=== PATIENT | male | born 1975 | race Hispanic/Latino ===

== ENCOUNTER 2017-08-14 12:42 | Emergency (ER) | payer OTHER ==
--- OUTSIDE RECORDS SUMMARY | 2017-08-14 12:44 | XMS REPORT | Clinical Summary ---
:1975 Author Organization [facility] Address [address] [place] [address] Care Team Providers Name Role Phone Vashti Rubalcava MD Primary Care Provider Allergies Active Allergy Reactions Severity Noted Date Comments Adhesive Tape-Silicones Rash Low 05/10/2017 Current Medications Prescription Sig. Disp. Refills Start Date End Date Status furosemide (LASIX) 40 mg Take 40 mg by mouth Active tablet 2 (two) times a day. calcium acetate (PHOSLO) Take 2,001 mg by Active 667 mg capsule mouth 3 (three) times a day with meals. 1 with snacks clonIDINE (CATAPRES) 0.1 Take 0.1 mg by Active MG tablet mouth daily as needed (SPB greater than 200). vit B cmplx 3-FA-vit Take 1 tablet by Active C-biotin (NEPHRO-ARON RX) mouth daily. 1-60-300 mg-mg-mcg tablet lisinopril Take 40 mg by mouth Active (PRINIVIL,ZESTRIL) 20 mg 2 (two) times a tablet day. hydrALAZINE (APRESOLINE) Take 25 mg by mouth Active 25 MG tablet 3 (three) times a day. gabapentin (NEURONTIN) Take 300 mg by Active 300 mg capsule mouth nightly. insulin NPH (HumuLIN-N) Inject 22 Units Active 100 unit/mL injection under the skin 2 (two) times a day before meals. insulin regular Inject under the Active (HumuLIN-R, NovoLIN-R) skin 3 (three) 100 unit/mL injection times a day before meals. Per sliding scale amLODIPine (NORVASC) 10 Take 10 mg by mouth Active mg tablet daily. tamsulosin (FLOMAX) 0.4 Take 0.4 mg by Active mg capsule,extended mouth daily as release 24hr needed. pregabalin (LYRICA) 25 MG Take 50 mg by mouth Active capsule nightly. liraglutide (VICTOZA Inject 1.8 mg under Active 3-YU) 0.6 mg/0.1 mL (18 the skin daily. mg/3 mL) pen injector insulin degludec (TRESIBA Inject under the Active FLEXTOUCH U-100) 100 skin daily. unit/mL (3 mL) insulin pen Active Problems Problem Noted Date Type 2 diabetes mellitus 09/13/2016 DVT (deep venous thrombosis) 07/03/2016 ESRD (end stage renal disease) 06/16/2016 Last Assessment & Plan: Renal condition is unchanged. AV Fistula Creation Encounters Date Type Specialty Care Team Description 07/28/2017 Documentation Transplant Rolanda Cantrell Consent Forms (Scanned Consent For Kidney Transplant Evaluation, Pre Txp Education & ABBY forms in Media. 07-26-2017) 07/26/2017 Hospital Encounter Transplant Lucio Curry, ESRD (end stage renal MD disease) 07/26/2017 Hospital Encounter Transplant Jose Maria An MD 07/26/2017 Hospital Encounter Transplant Lucio Curry, ESRD (end stage renal MD disease) (Primary Dx) 07/26/2017 Hospital Encounter Transplant Jose Maria An MD 07/26/2017 Telephone Transplant Daisy Torre Pre-kidney full eval day 1 06/23/2017 Hospital Encounter Transplant Lucio Curry Canceled ( Patient) 06/22/2017 Telephone Transplant Demetra Allred MA Reschedule Appointment 05/10/2017 Telephone Transplant Demetra Allred MA Referral - Kidney Txp (Re-referral ) 11/24/2016 Office Visit Cardiovascular Perla Rubio ESRD (end stage renal MD Juan disease) on dialysis (Primary Dx) 11/15/2016 Telephone Cardiovascular Mayra Fernandez, Complications due to MA renal dialysis device, implant, and graft, initial encounter (Primary Dx) 11/08/2016 Telephone Cardiovascular Shilpa Oliva RN 10/07/2016 Hospital Encounter Transplant Jose Maria An (Canceled MD Hank via Automated Reminder System) 10/04/2016 Documentation Transplant Nj Love TXP- Mcr ABD & TX K[facility]- Renal Txp Eval Appvl 09/14/2016 Telephone Transplant Dano Ana Deborah, Calling back MA 09/13/2016 Telephone Transplant Marianne Crowe MA Referral - Kidney Txp (New MD Consult) 08/27/2016 Telephone Cardiovascular Shilpa Oliva, CHELSEY after 08/13/2016 Family History Relation Name Status Comments Father Mother Social History Tobacco Use Types Packs/Day Years Used Date Former Smoker 0.5 Quit: 1986 Smokeless Tobacco: Never Used Alcohol Use Drinks/Week oz/Week Comments No Sex Assigned at Date Recorded Not on file Last Filed Vital Signs Vital Sign Reading Time Taken Blood Pressure 176/84 07/26/2017 7:27 AM CDT Pulse 87 07/26/2017 7:27 AM CDT Temperature 36.4 C (97.5 F) 07/26/2017 7:27 AM CDT Respiratory Rate 16 07/26/2017 7:27 AM CDT Oxygen Saturation 98% 07/26/2017 7:27 AM CDT Inhaled Oxygen Concentration - - Weight 121 kg (267 lb 3.2 oz) 07/26/2017 7:27 AM CDT Height 177.8 cm (5' 10") 07/26/2017 7:27 AM CDT Body Mass Index 38.34 07/26/2017 7:27 AM CDT Plan of Treatment Date Type Specialty Care Team Description 08/16/2017 Appointment Transplant Lucio Curry MD [address] [place] [address] [place] [address] [address] [place]uro 08/16/2017 Appointment Procedural Cardiology Harshad Gonzalez MD [address] [address] 08/16/2017 Hospital Encounter Transplant Jose Maria An MD [address] [address] 08/16/2017 Appointment Radiology Harshad Gonzalez MD [address] [facility] [address] [place] [address] [phone] 08/16/2017 Appointment Radiology Harshad Gonzalez MD [address] [facility] [address] [place], [place] [phone] 08/16/2017 Appointment Transplant Jose Maria An MD 64[address] [facility] [address] [place], [place] [phone] Health Maintenance Due Date Last Done Comments DIABETIC FOOT EXAM 12/12/1983 DIABETIC RETINAL EYE EXAM 12/12/1983 URINE MICROALBUMIN 12/12/1983 INFLUENZA VACCINE 09/21/2017 02/25/2016 Implants Implanted Type Area Garden Tractor Mechanic Device Expiration Model / Identifier Date Serial / Lot Clip Ligtng Weck Hemoclip Plus W/ Tape Ti Sm - [id number] Medical Left: WECK CLOSURE 07/21/2020 [id number] / Implanted: Qty: 2 on 06/28/2016 by Perla Rubio MD Clips for Arm, SYSTEMS / Internal Use Upper Clip [employer]igt[employer] Weck Hemoclip Plus W/ Tape Ti Med - [id number] Medical Left: TELEFLEX 10/20/2020 [id number] / Implanted: Qty: 2 on 06/28/2016 by Perla Rubio MD Clips for Arm, MEDICAL / Internal Use Upper Procedures Procedure Name Priority Date/Time Associated Comments Diagnosis ESTIMATED GFR Routine 07/26/2017 11:15 Results for this AM CDT procedure are in the results section. C-PEPTIDE Routine 07/26/2017 11:15 ESRD (end stage Results for this AM CDT renal disease) procedure are in the results section. TB T-SPOT Routine 07/26/2017 11:15 ESRD (end stage Results for this AM CDT renal disease) procedure are in the results section. NICOTINE AND Routine 07/26/2017 11:15 ESRD (end stage Results for this METABOLITES, SERUM AM CDT renal disease) procedure are in the results section. DRUG WALLACE 9, SER/STEPHANY, Routine 07/26/2017 11:15 ESRD (end stage Results for this SCRN W/RFLX TO CONF AM CDT renal disease) procedure are in the results section. ABORH - TRANSPLANT Routine 07/26/2017 11:15 ESRD (end stage Results for this AM CDT renal disease) procedure are in the results section. PARTIAL THROMBOPLASTIN Routine 07/26/2017 11:15 ESRD (end stage Results for this TIME (PTT) AM CDT renal disease) procedure are in the results section. PROTHROMBIN TIME WITH Routine 07/26/2017 11:15 ESRD (end stage Results for this INR AM CDT renal disease) procedure are in the results section. HC COMPLETE BLD COUNT Routine 07/26/2017 11:15 ESRD (end stage Results for this W/AUTO DIFF AM CDT renal disease) procedure are in the results section. SYPHILIS TREPONEMAL IGG Routine 07/26/2017 11:15 ESRD (end stage Results for this AM CDT renal disease) procedure are in the results section. HEPATITIS C ANTIBODY Routine 07/26/2017 11:15 ESRD (end stage Results for this AM CDT renal disease) procedure are in the results section. HEPATITIS B SURFACE AB, Routine 07/26/2017 11:15 ESRD (end stage Results for this QUANTITATIVE AM CDT renal disease) procedure are in the results section. HEPATITIS B SURFACE Routine 07/26/2017 11:15 ESRD (end stage Results for this ANTIGEN AM CDT renal disease) procedure are in the results section. HEPATITIS B SURFACE Routine 07/26/2017 11:15 ESRD (end stage Results for this ANTIBODY AM CDT renal disease) procedure are in the results section. HEPATITIS B CORE Routine 07/26/2017 11:15 ESRD (end stage Results for this ANTIBODY TOTAL AM CDT renal disease) procedure are in the results section. HEPATITIS A ANTIBODY Routine 07/26/2017 11:15 ESRD (end stage Results for this TOTAL AM CDT renal disease) procedure are in the results section. HIV AG/AB COMBINATION Routine 07/26/2017 11:15 ESRD (end stage Results for this AM CDT renal disease) procedure are in the results section. URINALYSIS SCREEN AND Routine 07/26/2017 11:15 ESRD (end stage Results for this MICROSCOPY, WITH REFLEX AM CDT renal disease) procedure are in TO CULTURE the results section. COMPREHENSIVE METABOLIC Routine 07/26/2017 11:15 ESRD (end stage Results for this PANEL AM CDT renal disease) procedure are in the results section. GRAM STAIN Routine 07/26/2017 11:15 Results for this AM CDT procedure are in the results section. URINE CULTURE Routine 07/26/2017 11:15 Results for this AM CDT procedure are in the results section. after 08/13/2016 Results Syphilis treponemal IgG (07/26/2017 11:15 AM) Syphilis treponemal IgG Non-reactiveComment: Non-reactive [facility] DEPARTMENT OF Non-reactive: No PATHOLOGY AND GENOMIC serological evidence of MEDICINE Syphilis infection Specimen Serum Performing Organization Address City/State/Zipcode Phone Number [facility] DEPARTMENT OF PATHOLOGY AND [address] [place] [address] [facility] Urinalysis screen and microscopy, with reflex to culture (07/26/2017 11:15 AM) Specimen site Clean catch [facility] DEPARTMENT OF PATHOLOGY AND GENOMIC MEDICINE Color, UA Yellow [facility] DEPARTMENT OF PATHOLOGY AND GENOMIC MEDICINE Appearance, UA Clear [facility] DEPARTMENT OF PATHOLOGY AND GENOMIC MEDICINE Specific gravity, UA 1.014 1.001 - 1.035 [facility] DEPARTMENT OF PATHOLOGY AND GENOMIC MEDICINE pH, UA 5.0 5.0 - 8.5 [facility] DEPARTMENT OF PATHOLOGY AND GENOMIC MEDICINE Protein, UA 3+ (A) Negative [facility] DEPARTMENT OF PATHOLOGY AND GENOMIC MEDICINE Glucose, UA 3+ (A) Negative [facility] DEPARTMENT OF PATHOLOGY AND GENOMIC MEDICINE Ketones, UA Negative Negative [facility] DEPARTMENT OF PATHOLOGY AND GENOMIC MEDICINE Bilirubin, UA Negative Negative [facility] DEPARTMENT OF PATHOLOGY AND GENOMIC MEDICINE Blood, UA Small (A) Negative [facility] DEPARTMENT OF PATHOLOGY AND GENOMIC MEDICINE Nitrite, UA Negative Negative [facility] DEPARTMENT OF PATHOLOGY AND GENOMIC MEDICINE Urobilinogen, UA <2.0 <2.0 [facility] DEPARTMENT OF PATHOLOGY AND GENOMIC MEDICINE Leukocyte esterase, UA Negative Negative [facility] DEPARTMENT OF PATHOLOGY AND GENOMIC MEDICINE Epithelial cells, UA <1 /HPF [facility] DEPARTMENT OF PATHOLOGY AND GENOMIC MEDICINE WBC, UA 6 (H) 0 - 1 /HPF [facility] DEPARTMENT OF PATHOLOGY AND GENOMIC MEDICINE RBC, UA <1 0 - 5 /HPF [facility] DEPARTMENT OF PATHOLOGY AND GENOMIC MEDICINE Bacteria, UA Few None seen [facility] DEPARTMENT OF PATHOLOGY AND GENOMIC MEDICINE Yeast, UA Few (A) [facility] DEPARTMENT OF PATHOLOGY AND GENOMIC MEDICINE Yeast with pseudohyphae, UA None seen [facility] DEPARTMENT OF PATHOLOGY AND GENOMIC MEDICINE Amorphous crystals Few [facility] DEPARTMENT OF PATHOLOGY AND GENOMIC MEDICINE Hyaline casts, UA 9 /LPF [facility] DEPARTMENT OF PATHOLOGY AND GENOMIC MEDICINE Broad casts, UA 3 (H) -1 - 0 /LPF [facility] DEPARTMENT OF PATHOLOGY AND GENOMIC MEDICINE Specimen Urine Performing Organization Address City/State/Zipcode Phone Number [facility] DEPARTMENT OF PATHOLOGY AND [address], [place] [phone] [place] [address] HIV Ag/Ab combination (07/26/2017 11:15 AM) HIV Ag/Ab combination Non-reactive Non-reactive [facility] DEPARTMENT OF PATHOLOGY AND GENOMIC MEDICINE Specimen Blood Performing Organization Address City/[facility]/Zipcode Phone Number [facility] DEPARTMENT OF PATHOLOGY AND [address] [place] [phone] [place] [address] TB T-SPOT (07/26/2017 11:15 AM) TB T-SPOT SEE NOTE [facility] DEPARTMENT OF PATHOLOGY Comment: AND GENOMIC MEDICINE T-SPOT TUBERCULOSIS Nil Control: 0 Panel A: 1 Panel B: 2 Positive Control: TMTC Result:NEGATIVE NOTE: TMTC INDICATES TOO MANY SPOTS TO COUNT SAT INDICATES THE WELL WAS SATURATED RESULTS INTERPRETATION: RESULTS ARE NEGATIVE WHEN (PANEL A-NIL) OR (PANEL B-NIL) <=4 SPOTS, INCLUDING VALUES LESS THAN ZERO. RESULTS ARE POSITIVE WHEN (PANEL A-NIL) OR (PANEL B-NIL) >=8 SPOTS RESULTS ARE BORDERELINE WHEN EITHER (PANEL A-NIL) OR (PANEL B-NIL)=5,6,0R 7. THE TEST IS INVALID WHEN EITHER OF THE FOLLOWING CONDITIONS IS MET: 1.) THE NIL CONTROL HAS >10 SPOTS 2.) THE MITOGEN (POSITIVE CONTROL) HAS <20 SPOTS AND BOTH (PANEL A-NIL) AND (PANEL B-NIL) <=4 SPOTS. M. TUBERCULOSIS INFECTION UNLIKELY, BUT CANNOT BE EXCLUDED ESPECIALLY WHEN: 1. ANY ILLNESS IS CONSISTENT WITH TB DISEASE. 2. LIKELIHOOD OF PROGRESSION TO DISEASE (e.g. DUE TO IMMUNOSUPPRESSION) IS INCREASED. LIMITATIONS: DIAGNOSING OR EXCLUDING TUBERCULOSIS DISEASE, AND ASSESSING THE PROBABILITY OF LTBI, REQUIRES A COMBINATION OF EPIDEMIOLOGICAL, HISTORICAL, MEDICAL, AND DIAGNOSTIC FINDINGS THAT SHOULD BE TAKEN INTO ACCOUNT WHEN INTERPRETING T-SPOT.TB REFER TO THE MOST RECENT CDC GUIDANCE (HTTP: //[email or web address].[email or web address]/[email or web address]/TB) FOR DETAILED RECOMMENDATIONS ABOUT DIAGNOSING TB INFECTION (INCLUDING DISEASE) AND SELECTING PERSONS FOR TESTING. 1.) A FALSE NEGATIVE RESULT CAN BE CAUSED BY INCORRECT BLOOD SAMPLE COLLECTION OR IMPROPER HANDLING OF THE SPECIMEN, AFFECTING LYMPHOCYTE FUNCTION 2.) THE PERFORMANCE OF T-SPOT.TB HAS NOT BEEN ADEQUATELY EVALUATED WITH SPECIMENS FROM INDIVIDUALS YOUNGER THANAGE 17 YEARS, IN WOMEN, AND IN PATIENTS WITH HEMOPHILIA. 3-) A FALSE POSITIVE RESULT WAS OBTAINED FOR T-SPOT.TB WHEN TESTED IN SUBJECTS WITH M. XENOPI, M. KANSASII, AND M. GORDONAE.WHILE ESAT-6 AND CFP-10 ANTIGENS ARE ABSENT FROM BCG STRAINS OF M. BOVIS AND FROM MOST ENVIRONMENTAL MYCOBACTERIA, IT IS POSSIBLE THAT A POSITIVE T-SPOT.TB RESULT MAY BE DUE TO INFECTION WITH M. KANSASII, M. SZULGAI, M. GORDONAE, OR M. MARINUM. ALTERNATIVE TESTS WOULD BE REQUIRED IF THESE INFECTIONS ARE SUSPECTED. 4.) A NEGATIVE TEST RESULT DOES NOT EXCLUDE THE POSSIBILITY OF EXPOSURE TO, OR INFECTION WITH, M. TUBERCULOSIS. PATIENTS WITH RECENT EXPOSURE TO TB INFECTED INDIVIDUALS EXHIBITING A NEGATIVE T-SPOT.TB RESULT SHOULD BE CONSIDERED FOR RETESTING WITHIN 6 WEEKS OR IF OTHER RELEVANT CLINICAL SYMPTOMS INDICATE POSSIBLE INFECTION. 5.) A POSITIVE TEST RESULT DOES NOT RULE IN ACTIVE TB DISEASE; OTHER TESTS SHOULD BE PERFORMED TO CONFIRM THE DIAGNOSIS OF ACTIVE TB DISEASE SUCH SPUTUM SMEAR AND CULTURE, PCR AND CHEST RADIOGRAPHY. 6.) T-SPOT.TB TEST HAS NOT BEEN EVALUATED IN SUBJECTS WHO HAVE RECEIVED >1 MONTH OF ANTI-TB THERAPY. 7. ) REFRIGERATED AND FROZEN SAMPLES ARE NOT RECOMMENDED FOR USE WITH T=SPOT.TB TEST. Performed by: [facility] Molecular Tuberculosis Laboratory [facility] ([id number]) [place], [place] [address] Specimen Blood Performing Organization Address City/State/Zipcode Phone Number [facility] DEPARTMENT OF PATHOLOGY AND [address] [place], [place] [phone] [employer] [facility] Nicotine and metabolites, serum (07/26/2017 11:15 AM) Nicotine <2.0 0.0 - 2.0 ng/mL [facility] DEPARTMENT OF PATHOLOGY AND GENOMIC MEDICINE Cotinine <2.0 0.0 - 2.0 ng/mL [facility] DEPARTMENT OF PATHOLOGY AND GENOMIC MEDICINE 8-[id number] <5.0 0.0 - 5.0 ng/mL [facility] DEPARTMENT OF Comment: PATHOLOGY AND GENOMIC This test was developed and its performance characteristics determined by MEDICINE the Department of Pathology and Genomic Medicine, [facility]. Serum nicotine and its metabolites cotinine and 5-SL-fcptfmai are tested by HPLC tandem mass spectrometry. It has not been cleared or approved by FDA. The laboratory is regulated under CLIA as qualified to perform high-complexity testing. This test is used for clinical purposes. It should not be regarded as investigational or for research. Specimen Blood Performing Organization Address City/[facility]/Zipcode Phone Number [facility] DEPARTMENT OF PATHOLOGY AND [address] [place] [address] [employer] Hepatitis B surface Ab, quantitative (07/26/2017 11:15 AM) Hepatitis B surface Ab 5.27 IU/L [facility] Comment: The anti-HBs is less than 10 IU/L and is therefore negative. There is no evidence of recovery from hepatitis B infection or evidence of antibody response to HBV vaccination. An anti-HBs result greater than or equal to 10 IU/L implies immunity. For post-vaccination antibody testing guidelines for the general public refer to MMWR February 12, 2005/Vol. 54(No. 16);03-15, and for healthcare workers refer to MMWR February 09, 2013/Vol. 62(No. 10);03-11. Reference Interval: anti-HBs 9.99 IU/L or less ....... Negative 10.00 IU/L or greater .... Positive Results greater than 1,000.00 IU/L are reported as greater than 1,000.00 IU/L. This assay should not be used for blood donor screening, associated re-entry protocols, or for screening Human Cell, Tissues and Cellular and Tissue-Based Products (HCT/P). Performed by [employer], [address], [place] [id number] [email or web address], Kashif Parker MD - Lab. Director Specimen Serum Performing Organization Address [facility]/Zipcode Phone Number [facility] [address] [place] [address] Estimated GFR (07/26/2017 11:15 AM) GFR Non Af Amer 14 (A) mL/min/1.73 m2 [facility] DEPARTMENT OF PATHOLOGY AND GENOMIC MEDICINE GFR Af Amer 17 (A) mL/min/1.73 m2 [facility] DEPARTMENT OF Comment: PATHOLOGY AND GENOMIC Chronic kidney disease: <60 mL/min/1.73m2 MEDICINE Kidney failure: <15 mL/min/1.73m2 The estimated GFR is calculated from the IDMS-traceable Modification of Diet in Renal Disease Equation. The accuracy of the calculation is poor when the creatinine is normal. Calculated values >90 mL/min/1.73m2 are not reported. This equation has not been validated in children (<18 years), women, the elderly (>70 years), or ethnic groups other than Caucasians and Americans. Specimen Plasma specimen Performing Organization Address City/State/Zipcode Phone Number [facility] DEPARTMENT OF PATHOLOGY AND [address] [place] [address] Hepatitis C antibody (07/26/2017 11:15 AM) Hepatitis C Ab Non-reactive Non-reactive [facility] DEPARTMENT OF PATHOLOGY AND [facility] Specimen Blood Performing Organization Address [facility] Phone Number [facility] DEPARTMENT OF PATHOLOGY AND [address] [place] [address] Hepatitis A antibody total (07/26/2017 11:15 AM) Hepatitis A total Ab Non-reactive Non-reactive [facility] DEPARTMENT OF PATHOLOGY AND [facility] Specimen Blood Performing Organization Address City/[facility] Phone Number [facility] DEPARTMENT OF PATHOLOGY AND [address] [place] [address] Drug wallace 9, ser/stephany, scrn w/rflx to conf (07/26/2017 11:15 AM) Amphetamines, s/p, Negative Cutoff 30 ng/mL [facility] screen Methamphetamine, s/p, Negative Cutoff 30 ng/mL [facility] screen Barbiturates, s/p, Negative Cutoff 75 ng/mL [facility] screen Benzodiazepines, s/p, Negative Cutoff 75 ng/mL [facility] screen Cocaine, s/p, screen Negative Cutoff 30 ng/mL [facility] Methadone, s/p, screen Negative Cutoff 40 ng/mL [facility] Opiates, s/p, screen Negative Cutoff 30 ng/mL [facility] Oxycodone, s/p, screen Negative Cutoff 30 ng/mL [facility] Phencyclidine, s/p, Negative Cutoff 15 ng/mL [facility] screen Cannabinoids, s/p, Negative Cutoff 30 ng/mL [facility] screen Drug screen comments, See Note [facility] serum Comment: INTERPRETIVE INFORMATION: Drug Screen 9 Panel, Serum or Plasma - Immunoassay Screen with Reflex to Mass Spectrometry Confirmation/ Quantitation 1. Methodology: Qualitative Immunoassay Screen 2. Drugs/Drug classes reported as "Positive" are automatically reflexed to mass spectrometry confirmation/quantitation testing. An immunoassay unconfirmed positive screen result may be useful for medical purposes but does not meet forensic standards. 3. The absence of expected drug(s) and/or drug metabolite(s) may indicate non-compliance, inappropriate timing of specimen collection relative to drug administration, poor drug absorption, or limitations of testing. The concentration at which the screening test can detect a drug or metabolite varies within a drug class. Specimens for which drugs or drug classes are detected by the screen are automatically reflexed to a second, more specific technology (mass spectrometry). The concentration value must be greater than or equal to the cutoff to be reported as positive. Interpretive questions should be directed to the laboratory. 4. For medical purposes only; not valid for forensic use. Test developed and characteristics determined by [employer]. See Compliance Statement B: [employer]/CS Performed by [employer], [address] [place] [address] [email or web address], Kashif Parker MD - Lab. Director Specimen Serum Performing Organization Address [facility] Phone Number [facility] [address] [place] [address] ABORh - transplant (07/26/2017 11:15 AM) ABO grouping O [facility] DEPARTMENT OF PATHOLOGY AND GENOMIC MEDICINE Rh type POS [facility] DEPARTMENT OF PATHOLOGY AND [employer] MEDICINE Specimen Blood Performing Organization Address [facility] Phone Number [facility] DEPARTMENT OF PATHOLOGY AND [address] [place] [address] Hepatitis B core antibody total (07/26/2017 11:15 AM) Hepatitis B core total Ab Non-reactive Non-reactive [facility] DEPARTMENT OF PATHOLOGY AND GENOMIC MEDICINE Specimen Blood Performing Organization Address City/[facility] Phone Number [facility] DEPARTMENT OF PATHOLOGY AND [address] [place] [address] C-peptide (07/26/2017 11:15 AM) C-peptide 6.4 (H) 1.1 - 4.4 ng/mL [facility] DEPARTMENT OF PATHOLOGY AND GENOMIC MEDICINE Specimen Plasma specimen Performing Organization Address [facility] Phone Number [facility] DEPARTMENT OF PATHOLOGY AND [address] [place] [address] Hepatitis B surface antibody (07/26/2017 11:15 AM) Hepatitis B surface Ab Non-reactive Non-reactive [facility] DEPARTMENT OF PATHOLOGY AND [facility] Specimen Blood Performing Organization Address [facility] Phone Number [facility] DEPARTMENT OF PATHOLOGY AND [address] [place] [address] Hepatitis B surface antigen (07/26/2017 11:15 AM) Hepatitis B surface Ag Non-reactive Non-reactive [facility] DEPARTMENT OF PATHOLOGY AND [facility] Specimen Blood Performing Organization Address [facility] Phone Number [facility] DEPARTMENT OF PATHOLOGY AND [address] [place] [phone] [place] [address] Partial thromboplastin time, activated (07/26/2017 11:15 AM) PTT 31.7 23.0 - 36.0 sec [facility] DEPARTMENT OF PATHOLOGY Comment: AND [facility] PTT therapeutic range for unfractionated heparin is 61.0-112.0 seconds which corresponds to Anti-Xa 0.3-0.7 U/ml. Specimen Blood Performing Organization Address [facility] [facility] Phone Number [facility] DEPARTMENT OF PATHOLOGY AND [address] [place] [address] Prothrombin time with INR (07/26/2017 11:15 AM) Prothrombin time 13.3 12.0 - 15.0 sec [facility] DEPARTMENT OF PATHOLOGY AND [facility] MEDICINE INR 1.0 [facility] DEPARTMENT OF Comment: PATHOLOGY AND GENOMIC The International Normalized Ratio (INR) is a therapeutic MEDICINE monitoring tool for patients who are stable on oral anticoagulant therapy. An INR of 2.0-3.0 is suggested for deep vein thrombosis/pulmonary embolism. Specimen Blood Performing Organization Address [facility] Phone Number [facility] DEPARTMENT OF PATHOLOGY AND [address] [place] [address] Gram stain (07/26/2017 11:15 AM) Gram stain result No WBC's or organisms seen. [facility] DEPARTMENT OF PATHOLOGY Comment: AND [facility] Specimen Information Specimen Source: Urine Specimen Site: Clean catch Specimen Urine Performing Organization Address [facility] Phone Number [facility] DEPARTMENT OF PATHOLOGY AND [address] [place] [address] CBC with platelet and differential (07/26/2017 11:15 AM) WBC 10.12 4.50 - 11.00 k/uL [facility] DEPARTMENT OF PATHOLOGY AND GENOMIC MEDICINE RBC 3.65 (L) 4.40 - 6.00 m/uL [facility] DEPARTMENT OF PATHOLOGY AND GENOMIC MEDICINE HGB 11.0 (L) 14.0 - 18.0 g/dL [facility] DEPARTMENT OF PATHOLOGY AND GENOMIC MEDICINE HCT 33.3 (L) 41.0 - 51.0 % [facility] DEPARTMENT OF PATHOLOGY AND GENOMIC MEDICINE MCV 91.2 82.0 - 100.0 fL [facility] DEPARTMENT OF PATHOLOGY AND GENOMIC MEDICINE MCH 30.1 27.0 - 34.0 pg [facility] DEPARTMENT OF PATHOLOGY AND GENOMIC MEDICINE MCHC 33.0 31.0 - 37.0 g/dL [facility] DEPARTMENT OF PATHOLOGY AND GENOMIC MEDICINE RDW - SD 42.9 37.0 - 55.0 fL [facility] DEPARTMENT OF PATHOLOGY AND GENOMIC MEDICINE MPV 10.1 8.8 - 13.2 fL [facility] DEPARTMENT OF PATHOLOGY AND GENOMIC MEDICINE Platelet count 401 (H) 150 - 400 k/uL [facility] DEPARTMENT OF PATHOLOGY AND GENOMIC MEDICINE Nucleated RBC 0.00 /100 WBC [facility] DEPARTMENT OF PATHOLOGY AND GENOMIC MEDICINE Neutrophils 73.2 (H) 39.0 - 69.0 % [facility] DEPARTMENT OF PATHOLOGY AND GENOMIC MEDICINE Lymphocytes 13.3 (L) 25.0 - 45.0 % [facility] DEPARTMENT OF PATHOLOGY AND GENOMIC MEDICINE Monocytes 6.7 0.0 - 10.0 % [facility] DEPARTMENT OF PATHOLOGY AND GENOMIC MEDICINE Eosinophils 5.4 (H) 0.0 - 5.0 % [facility] DEPARTMENT OF PATHOLOGY AND GENOMIC MEDICINE Basophils 0.8 0.0 - 1.0 % [facility] DEPARTMENT OF PATHOLOGY AND GENOMIC MEDICINE Immature granulocytes 0.6Comment: 0.0 - 1.0 % [facility] DEPARTMENT OF "Immature PATHOLOGY AND GENOMIC granulocytes" MEDICINE (promyelocytes, myelocytes, metamyelocytes) Specimen Blood Performing Organization Address City/[facility]/Zipcode Phone Number [facility] DEPARTMENT OF PATHOLOGY AND [address] [place] [phone] [facility] Urine culture (07/26/2017 11:15 AM) Urine culture isolate Streptococcus group B [facility] DEPARTMENT OF 10-3 cfu/ml PATHOLOGY AND GENOMIC (A) MEDICINE Comment: Specimen Information Specimen Source: Urine Specimen Site: Clean catch Specimen Urine Performing Organization Address City/[facility] Phone Number [facility] DEPARTMENT OF PATHOLOGY AND [address] [place] [phone] GENOMIC MEDICINE Comprehensive metabolic panel (07/26/2017 11:15 AM) Sodium 138 135 - 148 mEq/L [facility] DEPARTMENT OF PATHOLOGY AND GENOMIC MEDICINE Potassium 4.0 3.5 - 5.0 mEq/L [facility] DEPARTMENT OF PATHOLOGY AND GENOMIC MEDICINE Chloride 98 98 - 112 mEq/L [facility] DEPARTMENT OF PATHOLOGY AND GENOMIC MEDICINE CO2 25 24 - 31 mEq/L [facility] DEPARTMENT OF PATHOLOGY AND GENOMIC MEDICINE Anion gap 15@ANIO 7 - 15 mEq/L [facility] DEPARTMENT OF PATHOLOGY AND GENOMIC MEDICINE BUN 40 (H) 6 - 20 mg/dL [facility] DEPARTMENT OF PATHOLOGY AND GENOMIC MEDICINE Creatinine 4.6 (H) 0.7 - 1.2 mg/dL [facility] DEPARTMENT OF PATHOLOGY AND GENOMIC MEDICINE Glucose 132 (H) 65 - 99 mg/dL [facility] DEPARTMENT OF PATHOLOGY AND GENOMIC MEDICINE Calcium 8.7 8.3 - 10.2 mg/dL [facility] DEPARTMENT OF PATHOLOGY AND GENOMIC MEDICINE Protein 7.6 6.3 - 8.3 g/dL [facility] DEPARTMENT OF Comment: PATHOLOGY AND GENOMIC [place] 4.6-7.0 g/dL MEDICINE 1 week 4.4-7.6 g/dL 7 months-1year5.1-7.3 g/dL 1-2 years5.6-7.5 g/dL >3 years6.0-8.0 g/dL 18-150 6.3-8.3 g/dL Albumin 3.5 3.5 - 5.0 g/dL [facility] DEPARTMENT OF PATHOLOGY AND GENOMIC MEDICINE A/G ratio 0.9 0.7 - 3.8 [facility] DEPARTMENT OF PATHOLOGY AND GENOMIC MEDICINE Alkaline phosphatase 99 40 - 129 U/L [facility] DEPARTMENT OF PATHOLOGY AND GENOMIC MEDICINE AST 13 10 - 50 U/L [facility] DEPARTMENT OF PATHOLOGY AND GENOMIC MEDICINE ALT 18 5 - 50 U/L [facility] DEPARTMENT OF PATHOLOGY AND GENOMIC MEDICINE Total bilirubin 0.6 0.0 - 1.2 mg/dL [facility] DEPARTMENT OF PATHOLOGY AND GENOMIC MEDICINE Specimen Plasma specimen Performing Organization Address City/State/Zipcode Phone Number [facility] DEPARTMENT OF PATHOLOGY AND [address] [place] [address] GENOMIC MEDICINE after 08/13/2016 Insurance Payer Benefit Plan / Group Subscriber ID Type Phone Address MEDICARE MEDICARE PART A AND B xxxxxxxxxx Medicare [place], [place] MEDICAID MEDICAID xxxxxxxxx Medicaid COMMERCIAL MISC MISC COMMERCIAL xxxxxxxxxx Commercial Home: [address] [facility]. [phone] [place] [address] [address] [address] Transplant Self 1975 Home: [address] [facility]. [phone] [place], [place] [id number]
--- OUTSIDE RECORDS SUMMARY | 2017-08-14 12:44 | XMS REPORT | Continuity of Care Document ---
:1975 Author Organization Interface Problems Problem Status Onset Date Classification Date Comments Source Reported Medications Medication Details Route Status Patient Ordering Order Source Instructions Provider Date Allergies, Adverse Reactions, Alerts Substance Category Reaction Severity Reaction Status Date Comments Source type Reported Immunizations Immunization Date Given Site Status Last Updated Comments Source Results Order Results Value Reference Date Interpretation Comments Source Name Range Vital Signs Vital Sign Value Date Comments Source Encounters Location Location Encounter Encounter Reason Attending ADM DC Status Source Details Type Number For Provider Date Date Visit Outpatient [id number] DAVID 09/04 [facility] Calvin Procedures Procedure Code Date Perfomer Comments Source
--- NOTE | 2017-08-14 14:45 | ER ---
Nurse's Notes [facility] Name: Danny Tellez Age: 41 yrs Sex: Male : 1975 Arrival Date: 08/14/2017 Time: 12:43 Bed Treatment Private MD: Panda Rubalcava Diagnosis: Pain in left knee Presentation: 08/14 13:51 Presenting complaint: Patient states: has had pain to left knee since , pt has iw left BKA and uses the knee to transfer a lot, he was wearing his prosthetic and was moving a recliner on and the knee started hurting then, feels swollen now. Transition of care: patient was not received from another setting of care. Onset of symptoms was August 11, 2017. Risk Assessment: Do you want to hurt yourself or someone else? Patient reports no desire to harm self or others. Initial Sepsis Screen: Does the patient meet any 2 criteria? No. Patient's initial sepsis screen is negative. Does the patient have a suspected source of infection? No. Patient's initial sepsis screen is negative. Care prior to arrival: None. 13:51 Method Of Arrival: Wheelchair iw 13:51 Acuity: BRIANDA 4 iw Triage Assessment: 15:20 General: Appears in no apparent distress. Behavior is calm, cooperative. iw Historical: - Allergies: 13:54 NKA; iw - PMHx: 13:54 Diabetes - IDDM; Dialysis; Hypertension; Renal Disease; iw - PSHx: 13:54 BKA; Appendectomy; Cholecystectomy; plate \T\ screw in right ankle; dialysis fistula to L iw upper arm; - Immunization history:: Adult Immunizations unknown. - Ebola Screening: : Patient negative for fever greater than or equal to 101.5 degrees Fahrenheit, and additional compatible Ebola Virus Disease symptoms Patient denies exposure to infectious person Patient denies travel to an Ebola-affected area in the 21 days before illness onset No symptoms or risks identified at this time. - Social history:: Smoking status: . Screenin:30 Abuse screen: Denies threats or abuse. Denies injuries from another. Nutritional iw screening: No deficits noted. Tuberculosis screening: No symptoms or risk factors identified. Fall Risk None identified. Assessment: 14:30 General: Appears in no apparent distress. Behavior is calm, cooperative. Pain: iw Complains of pain in left leg and left knee and medial aspect of left knee. Neuro: Level of Consciousness is awake, alert, obeys commands, Oriented to person, place, time, situation, Moves all extremities. Full function. Cardiovascular: Patient's skin is warm and dry. Respiratory: Respiratory effort is even, unlabored, Respiratory pattern is regular. Derm: Skin is pink, warm \T\ dry. Musculoskeletal: Range of motion: intact in left knee and right knee. Vital Signs: 13:53 Pulse 89; Resp 18; Temp 98.2; Pulse Ox 97% on R/A; Weight 117.93 kg; Height 5 ft. 10 iw in. (177.80 cm); Pain 8/10; 13:53 Body Mass Index 37.31 (117.93 kg, 177.80 cm) iw ED Course: 12:43 Patient arrived in ED. mr 12:43 Panda Rubalcava MD is Private Physician. mr 13:02 [facility] snw 13:02 Shun Mathew MD is Attending Physician. snw 13:50 Arm band placed on. iw 13:53 Triage completed. iw 14:12 Yokasta Meredith, RN is Primary Nurse. iw 14:21 X-ray completed. Portable x-ray completed in exam room. Patient tolerated procedure la2 well. 14:22 Knee Left 3 View XRAY In Process Unspecified. EDMS 14:30 Patient has correct armband on for positive identification. iw 14:44 Panda Rubalcava MD is Referral Physician. snw 15:20 No provider procedures requiring assistance completed. Patient did not have IV access iw during this emergency room visit. Administered Medications: 14:46 Drug: Cyrus 5 mg-325 mg 1 tabs Route: PO; iw 14:46 Drug: Clindamycin 300 mg Route: PO; iw Outcome: 14:44 Discharge ordered by MD. snw 15:20 Discharged to home via wheelchair, with family. iw 15:20 Condition: good 15:20 Discharge instructions given to patient, family, Instructed on discharge instructions, follow up and referral plans. medication usage, Demonstrated understanding of instructions, follow-up care, medications, Prescriptions given X 2. 15:21 Patient left the ED. iw Signatures: Dispatcher [employer] EDMS Kerry Gao FNP-C FNP-Csnw Frances Quintero Irene, RN RN Paola Bernal
--- NOTE | 2017-08-14 14:45 | EDPHYS ---
Physician Documentation [facility] Name: Danny Tellez Age: 41 yrs Sex: Male : 1975 Arrival Date: 08/14/2017 Time: 12:43 Bed Treatment Private MD: Panda Rubalcava ED Physician Shun Matehw HPI: 08/14 14:15 This 41 yrs old Male presents to ER via Wheelchair with complaints of Knee snw Pain. 14:15 The patient presents with pain, that is acute. The complaints affect the medial aspect snw of left knee and left knee. Context: The problem was sustained at home, resulted from pressure from prosthesis and transfers, the patient can partially bear weight, BKA to left, uses prosthesis. Onset: The symptoms/episode began/occurred suddenly, 3 day(s) ago, and became worse and became persistent. Associated signs and symptoms: The patient has no apparent associated signs or symptoms. Severity of symptoms: At their worst the symptoms were moderate. It is unknown whether or not the patient has had similar symptoms in the past. appt with PCP Dr. Rubalcava tomorrow. dialysis Mon, Wed, Fri. Historical: - Allergies: 13:54 NKA; iw - PMHx: 13:54 Diabetes - IDDM; Dialysis; Hypertension; Renal Disease; iw - PSHx: 13:54 BKA; Appendectomy; Cholecystectomy; plate \T\ screw in right ankle; dialysis fistula to L iw upper arm; - Immunization history:: Adult Immunizations unknown. - Ebola Screening: : Patient negative for fever greater than or equal to 101.5 degrees Fahrenheit, and additional compatible Ebola Virus Disease symptoms Patient denies exposure to infectious person Patient denies travel to an Ebola-affected area in the 21 days before illness onset No symptoms or risks identified at this time. - Social history:: Smoking status: . ROS: 14:14 Constitutional: Negative for fever, chills, and weight loss, Eyes: Negative for injury, snw pain, redness, and discharge, ENT: Negative for injury, pain, and discharge, Neck: Negative for injury, pain, and swelling, Cardiovascular: Negative for chest pain, palpitations, and edema, Respiratory: Negative for shortness of breath, cough, wheezing, and pleuritic chest pain, Abdomen/GI: Negative for abdominal pain, nausea, vomiting, diarrhea, and constipation, Back: Negative for injury and pain, : Negative for injury, bleeding, discharge, and swelling, Skin: Negative for injury, rash, and discoloration, Neuro: Negative for headache, weakness, numbness, tingling, and seizure, Psych: Negative for depression, anxiety, suicide ideation, homicidal ideation, and hallucinations. 14:14 MS/extremity: Positive for pain, tenderness, of the medial aspect of left knee and left knee. Exam: 14:11 Constitutional: This is a well developed, well nourished patient who is awake, alert, snw and in no acute distress. Eyes: Pupils equal round and reactive to light, extra-ocular motions intact. Lids and lashes normal. Conjunctiva and sclera are non-icteric and not injected. Cornea within normal limits. Periorbital areas with no swelling, redness, or edema. ENT: Nares patent. No nasal discharge, no septal abnormalities noted. Tympanic membranes are normal and external auditory canals are clear. Oropharynx with no redness, swelling, or masses, exudates, or evidence of obstruction, uvula midline. Mucous membranes moist. Neck: Trachea midline, no thyromegaly or masses palpated, and no cervical lymphadenopathy. Supple, full range of motion without nuchal rigidity, or vertebral point tenderness. No Meningismus. Chest/axilla: Normal chest wall appearance and motion. Nontender with no deformity. No lesions are appreciated. Cardiovascular: Regular rate and rhythm with a normal S1 and S2. No gallops, murmurs, or rubs. Normal PMI, no JVD. No pulse deficits. Respiratory: Lungs have equal breath sounds bilaterally, clear to auscultation and percussion. No rales, rhonchi or wheezes noted. No increased work of breathing, no retractions or nasal flaring. Abdomen/GI: Soft, non-tender, with normal bowel sounds. No distension or tympany. No guarding or rebound. No evidence of tenderness throughout. Back: No spinal tenderness. No costovertebral tenderness. Full range of motion. Skin: Warm, dry with normal turgor. Normal color with no rashes, no lesions, and no evidence of cellulitis. Neuro: Awake and alert, GCS 15, oriented to person, place, time, and situation. Cranial nerves II-XII grossly intact. Motor strength 5/5 in all extremities. Sensory grossly intact. Cerebellar exam normal. Normal gait. Psych: Awake, alert, with orientation to person, place and time. Behavior, mood, and affect are within normal limits. 14:11 Musculoskeletal/extremity: ROM: intact in all extremities, Circulation is intact in all extremities. Sensation intact. Compartment Syndrome exam of affected extremity: is normal. left medial and inferior to patella tenderness, no skin structure abnormality to skin over knee or to distal stump. 14:11 Skin: abscess, that is small, approximately 11 cm(s), distal to right earlobe, with fluctuance, that is mild. Vital Signs: 13:53 Pulse 89; Resp 18; Temp 98.2; Pulse Ox 97% on R/A; Weight 117.93 kg; Height 5 ft. 10 iw in. (177.80 cm); Pain 8/10; 13:53 Body Mass Index 37.31 (117.93 kg, 177.80 cm) iw MDM: 14:01 Patient medically screened. snw 14:46 Data reviewed: vital signs, nurses notes. Data interpreted: Pulse oximetry: on room air snw is 97 %. Interpretation: normal. Counseling: I had a detailed discussion with the patient and/or guardian regarding: the historical points, exam findings, and any diagnostic results supporting the discharge/admit diagnosis, radiology results, the need for outpatient follow up, to return to the emergency department if symptoms worsen or persist or if there are any questions or concerns that arise at home. Special discussion: I discussed in detail with the patient the higher chance of wound infection based on his presenting history. Based on the history and exam findings, there is no indication for further emergent testing or inpatient evaluation. I discussed with the patient/guardian the need to see the primary care provider for further evaluation of the symptoms. 08/14 14:01 Order name: Knee Left 3 View XRAY snw Administered Medications: 14:46 Drug: Logan 5 mg-325 mg 1 tabs Route: PO; iw 14:46 Drug: Clindamycin 300 mg Route: PO; iw Disposition: 08/14/17 14:44 Discharged to Home. Impression: Pain in left knee. - Condition is Stable. - Discharge Instructions: Musculoskeletal Pain, Knee Pain, Heat Therapy. - Prescriptions for Clindamycin HCl 300 mg Oral Capsule - take 1 capsule by ORAL route every 8 hours for 10 days; 30 capsule. Tylenol- Codeine #3 300-30 mg Oral Tablet - take 2 tablet by ORAL route every 6 hours As needed; 6 tablet. - Medication Reconciliation Form, Thank You Letter, Antibiotic Education, Prescription Opioid Use form. - Follow up: Panda Rubalcava MD; When: Tomorrow; Reason: Recheck today's complaints, Continuance of care, Re-evaluation by your physician. Follow up: Emergency Department; When: As needed; Reason: Worsening of condition. Addendum: 08/15/2017 16:11 Co-signature as Attending Physician, Shun Mathew MD I agree with the assessment and c corcoran plan of care. Signatures: Dispatcher [employer] EDPR Shun Mathew MD MD cha Therrien, Shelly, MAGALY-C HAND CLOTH CUTTER-Benyw Yokasta Meredith RN RN iw Corrections: (The following items were deleted from the chart) 08/14 15:21 14:44 08/14/2017 14:44 Discharged to Home. Impression: Pain in left knee. Condition is iw Stable. Forms are Medication Reconciliation Form, Thank You Letter, Antibiotic Education, Prescription Opioid Use. Follow up: Panda Rubalcava; When: Tomorrow; Reason: Recheck today's complaints, Continuance of care, Re-evaluation by your physician. Follow up: Emergency Department; When: As needed; Reason: Worsening of condition. snw
[2017-08-14] MEDS ORDERED: HYDROCODONE/APAP 5/325 MG TAB ONE (14:46)
[2017-08-14] MEDS ORDERED: CLINDAMYCIN HCL 150 MG CAP ONE (14:46)
--- NOTE | 2017-08-14 15:21 | RAD REPORT ---
EXAM DESCRIPTION: RAD - Knee Left 3 View - 08/14/2017 2:24 pm CLINICAL HISTORY: Nontraumatic knee pain COMPARISON: None. FINDINGS: No fracture, dislocation or periosteal reaction.No joint effusion seen. No joint space ale rowing. Calcifications are present along the anterior lateral margin of the joint. No significant men iscal calcifications. Mottled appearance to the proximal tibia shaft and proximal fibula shaft noted. This is the common ap pearance for osteopenia would be unexpected in a patient this age. No information is available to ind icate the patient has diminished or nonweightbearing status of this leg. IMPRESSION: No acute bone or joint finding at the knee. Joint capsule calcifications are seen becca lateral margin. Partially imaged tibia and fibula shafts show a mottled appearance commonly seen in osteoporosis. No history provided indicating nonweightbearing of this leg. A more aggressive bone process cannot be ex cluded. Correlation is needed with any history of mid tib-fib symptoms. Clinical concerns for internal derangement or occult bony process could be further assessed with MR neda potts.
[2017-08-14 15:24] VITALS: TEMP 98.2; O2SAT 97
== END 2017-08-14 15:21 | disposition home or self-care (01) ==
LOC: ER 12:42
DX: M25.562 Pain in left knee (principal); I12.9 Hypertensive chronic kidney disease with stage 1 through stage 4 chronic kidney disease, or unspecified chronic kidney disease; E11.22 Type 2 diabetes mellitus with diabetic chronic kidney disease; N18.9 Chronic kidney disease, unspecified; Z79.4 Long term (current) use of insulin
CPT/HCPCS: 99283

== ENCOUNTER 2017-09-16 21:00 | Emergency (ER) | payer OTHER ==
--- OUTSIDE RECORDS SUMMARY | 2017-09-16 21:04 | XMS REPORT | Clinical Summary ---
:1975 Author Organization [facility] Address [address] [place] [address] Care Team Providers Name Role Phone Vashti [...] Encounters Date Type Specialty Care Team Description 08/16/2017 Hospital Encounter Transplant Jose Maria An MD 08/16/2017 Hospital Encounter Transplant Lucio Curry No Show MD Castillo, Cynthia 07/28/2017 Documentation Transplant Rolanda Cantrell Consent Forms (Scanned Consent For Kidney Transplant Evaluation, Pre Txp Education & ABBY forms in Media. 07-26-2017) 07/26/2017 Hospital Encounter Transplant Lucio Curry, ESRD (end stage renal MD disease) 07/26/2017 Hospital Encounter Transplant Jose Maria An MD 07/26/2017 Hospital Encounter Transplant Lucio Curry ESRD (end stage renal MD disease) (Primary [...] on dialysis (Primary Dx) 11/15/2016 Telephone Cardiovascular Fernandez, Mayra M, Complications due to MA renal dialysis device, implant, and graft, initial encounter (Primary Dx) 11/08/2016 Telephone Cardiovascular Shilpa Oliva RN 10/07/2016 Hospital Encounter Transplant Jose Maria An Canceled (Canceled MD Hank via Automated Reminder System) 10/04/2016 Documentation Transplant Love Mauro TXP- Mcr ABD & [place] KHC- Renal Txp Eval Appvl after 09/15/2016 Family History Relation Name Status Comments Father [...] Treatment Date Type Specialty Care Team Description 09/20/2017 Hospital Encounter Transplant Jose Maria An MD [address] [facility] [address] [place] [address] [phone] 09/20/2017 Appointment Transplant Lucio Curry MD [address] [facility] [address] [place] [address] [phone] Whitney Aceevdo 09/20/2017 Appointment Transplant Jose Maria An MD [address] [facility] [address] [place] [address] [phone] 09/20/2017 Appointment Procedural Cardiology Harshad Gonzalez MD [address] [facility] [address] [place] [address] [phone] 09/20/2017 Appointment Radiology Harshad Gonzalez MD [address] [facility] [address] [place], [place] [phone] 09/20/2017 Appointment Radiology Harshad Gonzalez MD [address] [facility] [address] [facility] [place], [place] [phone] Health Maintenance Due Date Last Done Comments DIABETIC FOOT EXAM 12/12/1983 DIABETIC RETINAL EYE EXAM 12/12/1983 URINE MICROALBUMIN 12/12/1983 INFLUENZA VACCINE 09/21/2017 02/25/2016 Implants Implanted Type Area Bicycle Designer Device Expiration Model / Identifier Date Serial / Lot Clip Ligtng Weck Hemoclip Plus W/ Tape Ti Sm - [id number] Medical Left: WECK CLOSURE 07/21/2020 [id number] / Implanted: Qty: 2 on 06/28/2016 by Perla Rubio MD Clips for Arm, SYSTEMS / Internal Use Upper Clip Ligtng Weck Hemoclip Plus W/ Tape Ti Med - [id number] Medical Left: TELEFLEX 10/20/2020 [id number] / Implanted: Qty: 2 on 06/28/2016 by [...] procedure are in the results section. after 09/15/2016 Results Syphilis treponemal IgG (07/26/2017 11:15 AM) Syphilis treponemal IgG Non-reactiveComment: Non-reactive [facility] DEPARTMENT OF Non-reactive: No PATHOLOGY AND GENOMIC serological evidence of MEDICINE Syphilis infection Specimen Serum Performing Organization Address [facility] Phone Number [facility] DEPARTMENT OF PATHOLOGY AND [address] [place] [address] [facility] Urinalysis screen and microscopy, with reflex to culture (07/26/2017 11:15 AM) Specimen site Clean catch [facility] DEPARTMENT OF PATHOLOGY AND GENOMIC MEDICINE Color, UA Yellow [facility] DEPARTMENT OF PATHOLOGY AND GENOMIC MEDICINE Appearance, UA Clear [facility] DEPARTMENT OF PATHOLOGY AND GENOMIC MEDICINE Specific gravity, UA 1.014 1.001 - 1.035 [facility] DEPARTMENT OF PATHOLOGY AND GENOMIC MEDICINE pH, UA 5.0 5.0 - 8.5 [facility] DEPARTMENT OF PATHOLOGY AND GENOMIC MEDICINE Protein, UA 3+ (A) Negative [facility] DEPARTMENT OF PATHOLOGY AND GENOMIC MEDICINE Glucose, UA 3+ (A) Negative [facility] DEPARTMENT OF PATHOLOGY AND GENOMIC MEDICINE Ketones, UA Negative Negative [facility] DEPARTMENT OF PATHOLOGY AND GENOMIC MEDICINE Bilirubin, UA Negative Negative [facility] DEPARTMENT OF PATHOLOGY AND GENOMIC MEDICINE Blood, UA Small (A) Negative [facility] DEPARTMENT OF PATHOLOGY AND GENOMIC MEDICINE Nitrite, UA Negative Negative [facility] DEPARTMENT OF PATHOLOGY AND GENOMIC MEDICINE Urobilinogen, UA <2.0 <2.0 [facility] DEPARTMENT OF PATHOLOGY AND GENOMIC MEDICINE Leukocyte esterase, UA Negative Negative [facility] DEPARTMENT OF PATHOLOGY AND GENOMIC MEDICINE Epithelial cells, UA <1 /HPF [facility] DEPARTMENT OF PATHOLOGY AND GENOMIC MEDICINE WBC, UA 6 (H) 0 - 1 /HPF [facility] DEPARTMENT OF PATHOLOGY AND GENOMIC MEDICINE RBC, UA <1 0 - 5 /HPF [facility] DEPARTMENT OF PATHOLOGY AND GENOMIC MEDICINE Bacteria, UA Few None seen [facility] DEPARTMENT OF PATHOLOGY AND GENOMIC MEDICINE Yeast, UA Few (A) [facility] DEPARTMENT OF PATHOLOGY AND GENOMIC MEDICINE Yeast with pseudohyphae, UA None seen [facility] DEPARTMENT OF PATHOLOGY AND GENOMIC MEDICINE Amorphous crystals Few [facility] DEPARTMENT OF PATHOLOGY AND GENOMIC MEDICINE Hyaline casts, UA 9 /LPF [facility] DEPARTMENT OF PATHOLOGY AND GENOMIC MEDICINE Broad casts, UA 3 (H) -1 - 0 /LPF [facility] DEPARTMENT OF PATHOLOGY AND GENOMIC MEDICINE Specimen Urine Performing Organization Address [facility] Phone Number [facility] DEPARTMENT OF PATHOLOGY AND [address] [place], [place] [phone] [place] [address] HIV Ag/Ab combination (07/26/2017 11:15 AM) HIV Ag/Ab combination Non-reactive Non-reactive [facility] DEPARTMENT OF PATHOLOGY AND [facility] Specimen Blood Performing Organization Address [facility] Phone Number [facility] DEPARTMENT OF PATHOLOGY AND [address] [place] [address] [facility] TB T-SPOT (07/26/2017 11:15 AM) TB T-SPOT SEE NOTE [facility] DEPARTMENT OF PATHOLOGY Comment: AND GENOMIC [...] FOR USE WITH T=SPOT.TB TEST. Performed by: [facility] Molecular Tuberculosis Laboratory [facility] ([id number]) [place], [place] [address] Specimen Blood Performing Organization Address City/State/[facility] Phone Number [facility] DEPARTMENT OF PATHOLOGY AND [address] [place], [place] [phone] [phone] [facility] Nicotine and metabolites, serum (07/26/2017 11:15 AM) Nicotine <2.0 0.0 - 2.0 ng/mL [facility] DEPARTMENT OF PATHOLOGY AND GENOMIC MEDICINE Cotinine <2.0 0.0 - 2.0 ng/mL [facility] DEPARTMENT OF PATHOLOGY AND GENOMIC MEDICINE 5-LZ-vkgxzngs <5.0 0.0 - 5.0 ng/mL [facility] DEPARTMENT OF Comment: PATHOLOGY AND GENOMIC This test was developed and its performance characteristics determined by MEDICINE the Department of Pathology and Genomic Medicine, [facility]. Serum nicotine and its metabolites cotinine and 1-EU-qrqbamye are tested by HPLC tandem mass spectrometry. It has not been cleared or approved by FDA. The laboratory is regulated under CLIA as qualified to perform high-complexity testing. This test is used for clinical purposes. It should not be regarded as investigational or for research. Specimen Blood Performing Organization Address City/State/Zipcode Phone Number [facility] DEPARTMENT OF PATHOLOGY AND [address] [place] [address] [employer] Hepatitis B surface Ab, quantitative (07/26/2017 11:15 AM) Hepatitis B surface Ab 5.27 IU/L [facility] Comment: The anti-HBs is less than [...] Cellular and Tissue-Based Products (HCT/P). Performed by [facility], [address] [place], [place] [id number] [email or web address], Kashif Parker MD - Lab. Director Specimen Serum Performing Organization Address [facility]/Zipcode Phone Number [facility] [address] [place] [address] Estimated GFR (07/26/2017 11:15 AM) GFR Non Af Amer 14 (A) mL/min/1.73 m2 [facility] DEPARTMENT OF PATHOLOGY AND GENOMIC MEDICINE GFR Af Amer 17 (A) mL/min/1.73 m2 [facility] DEPARTMENT OF Comment: PATHOLOGY AND GENOMIC [...] Americans. Specimen Plasma specimen Performing Organization Address City/[facility] Phone Number [facility] DEPARTMENT OF PATHOLOGY AND [address] [place] [address] Hepatitis C antibody (07/26/2017 11:15 AM) Hepatitis C Ab Non-reactive Non-reactive [facility] DEPARTMENT OF PATHOLOGY AND [facility] Specimen Blood Performing Organization Address [facility] Phone Number [facility] DEPARTMENT OF PATHOLOGY AND [address] [place] [address] Hepatitis A antibody total (07/26/2017 11:15 AM) Hepatitis A total Ab Non-reactive Non-reactive [facility] DEPARTMENT OF PATHOLOGY AND [facility] Specimen Blood Performing Organization Address [facility] Phone Number [facility] DEPARTMENT OF PATHOLOGY AND [address] [place] [address] Drug walalce 9, ser/stephany, scrn w/rflx to conf (07/26/2017 [...] use. Test developed and characteristics determined by [facility]. See Compliance Statement B: [facility]/CS Performed by [facility], [address] [place] [id number] [email or web address], Kashif Parker MD - Lab. Director Specimen Serum Performing Organization Address [facility] Phone Number [facility] [address] [address] ABORh - transplant (07/26/2017 11:15 AM) ABO grouping O [facility] DEPARTMENT OF PATHOLOGY AND GENOMIC MEDICINE Rh type POS [facility] DEPARTMENT OF PATHOLOGY AND GENOMIC MEDICINE Specimen Blood Performing Organization Address [facility] Phone Number [facility] DEPARTMENT OF PATHOLOGY AND [address] [place] [address] Hepatitis B core antibody total (07/26/2017 11:15 AM) Hepatitis B core total Ab Non-reactive Non-reactive [facility] DEPARTMENT OF PATHOLOGY AND GENOMIC MEDICINE Specimen Blood Performing Organization Address City/[facility] Phone Number [facility] DEPARTMENT OF PATHOLOGY AND [address] [place] [address] C-peptide (07/26/2017 11:15 AM) C-peptide 6.4 (H) 1.1 - 4.4 ng/mL [facility] DEPARTMENT OF PATHOLOGY AND GENOMIC MEDICINE Specimen Plasma specimen Performing Organization Address City/[facility] Phone Number [facility] DEPARTMENT OF PATHOLOGY AND [address] [place] [address] Hepatitis B surface antibody (07/26/2017 11:15 AM) Hepatitis B surface Ab Non-reactive Non-reactive [facility] DEPARTMENT OF PATHOLOGY AND GENOMIC MEDICINE Specimen Blood Performing Organization Address [facility] Phone Number [facility] DEPARTMENT OF PATHOLOGY AND [address] [place] [address] Hepatitis B surface antigen (07/26/2017 11:15 AM) Hepatitis B surface Ag Non-reactive Non-reactive [facility] DEPARTMENT OF PATHOLOGY AND GENOMIC MEDICINE Specimen Blood Performing Organization Address [facility] Phone Number [facility] DEPARTMENT OF PATHOLOGY AND [address] [place] [address] Partial thromboplastin time, activated (07/26/2017 11:15 AM) PTT 31.7 23.0 - 36.0 sec [facility] DEPARTMENT OF PATHOLOGY Comment: AND [facility] PTT therapeutic range for unfractionated heparin is 61.0-112.0 seconds which corresponds to Anti-Xa 0.3-0.7 U/ml. Specimen Blood Performing Organization Address [facility] Phone Number [facility] DEPARTMENT OF PATHOLOGY AND [address] [place] [address] Prothrombin time with INR (07/26/2017 11:15 AM) Prothrombin time 13.3 12.0 - 15.0 sec [facility] DEPARTMENT OF PATHOLOGY AND GENOMIC MEDICINE INR 1.0 [facility] DEPARTMENT OF Comment: PATHOLOGY AND GENOMIC The International Normalized Ratio (INR) is a therapeutic MEDICINE monitoring tool for patients who are stable on oral anticoagulant therapy. An INR of 2.0-3.0 is suggested for deep vein thrombosis/pulmonary embolism. Specimen Blood Performing Organization Address [facility] Phone Number [facility] DEPARTMENT OF PATHOLOGY AND [address] [place] [address] Gram stain (07/26/2017 11:15 AM) Gram stain result No WBC's or organisms seen. [facility] DEPARTMENT OF PATHOLOGY Comment: AND [facility] Specimen Information Specimen Source: Urine Specimen Site: Clean catch Specimen Urine Performing Organization Address [facility] Phone Number [facility] DEPARTMENT OF PATHOLOGY AND [address] [place] [address] CBC with platelet and differential (07/26/2017 11:15 AM) WBC 10.12 4.50 - 11.00 k/uL [facility] DEPARTMENT OF PATHOLOGY AND GENOMIC MEDICINE RBC 3.65 (L) 4.40 - 6.00 m/uL [facility] DEPARTMENT OF PATHOLOGY AND GENOMIC MEDICINE HGB 11.0 (L) 14.0 - 18.0 g/dL [facility] DEPARTMENT OF PATHOLOGY AND GENOMIC MEDICINE HCT 33.3 (L) 41.0 - 51.0 % [facility] DEPARTMENT OF PATHOLOGY AND GENOMIC MEDICINE MCV 91.2 82.0 - 100.0 fL [facility] DEPARTMENT OF PATHOLOGY AND GENOMIC MEDICINE MCH 30.1 27.0 - 34.0 pg [facility] DEPARTMENT OF PATHOLOGY AND GENOMIC MEDICINE MCHC 33.0 31.0 - 37.0 g/dL [facility] DEPARTMENT OF PATHOLOGY AND GENOMIC MEDICINE RDW - SD 42.9 37.0 - 55.0 fL [facility] DEPARTMENT OF PATHOLOGY AND GENOMIC MEDICINE MPV 10.1 8.8 - 13.2 fL [facility] DEPARTMENT OF PATHOLOGY AND GENOMIC MEDICINE Platelet count 401 (H) 150 - 400 k/uL [facility] DEPARTMENT OF PATHOLOGY AND GENOMIC MEDICINE Nucleated RBC 0.00 /100 WBC [facility] DEPARTMENT OF PATHOLOGY AND GENOMIC MEDICINE Neutrophils 73.2 (H) 39.0 - 69.0 % [facility] DEPARTMENT OF PATHOLOGY AND GENOMIC MEDICINE Lymphocytes 13.3 (L) 25.0 - 45.0 % [facility] DEPARTMENT OF PATHOLOGY AND GENOMIC MEDICINE Monocytes 6.7 0.0 - 10.0 % [facility] DEPARTMENT OF PATHOLOGY AND GENOMIC MEDICINE Eosinophils 5.4 (H) 0.0 - 5.0 % [facility] DEPARTMENT OF PATHOLOGY AND GENOMIC MEDICINE Basophils 0.8 0.0 - 1.0 % [facility] DEPARTMENT OF PATHOLOGY AND GENOMIC MEDICINE Immature granulocytes 0.6Comment: 0.0 - 1.0 % [facility] DEPARTMENT OF "Immature PATHOLOGY AND GENOMIC granulocytes" MEDICINE (promyelocytes, myelocytes, metamyelocytes) Specimen Blood Performing Organization Address City/[facility] Phone Number [facility] DEPARTMENT OF PATHOLOGY AND [address] [place] [phone] [place] [address] Urine culture (07/26/2017 11:15 AM) Urine culture isolate Streptococcus group B [facility] DEPARTMENT OF 10-3 cfu/ml PATHOLOGY AND GENOMIC (A) MEDICINE Comment: Specimen Information Specimen Source: Urine Specimen Site: Clean catch Specimen Urine Performing Organization Address City/[facility] Phone Number [facility] DEPARTMENT OF PATHOLOGY AND [address] [place] [address] [facility] Comprehensive metabolic panel (07/26/2017 11:15 AM) Sodium 138 135 - 148 mEq/L [facility] DEPARTMENT OF PATHOLOGY AND GENOMIC MEDICINE Potassium 4.0 3.5 - 5.0 mEq/L [facility] DEPARTMENT OF PATHOLOGY AND GENOMIC MEDICINE Chloride 98 98 - 112 mEq/L [facility] DEPARTMENT OF PATHOLOGY AND GENOMIC MEDICINE CO2 25 24 - 31 mEq/L [facility] DEPARTMENT OF PATHOLOGY AND GENOMIC MEDICINE Anion gap 15@ANIO 7 - 15 mEq/L [facility] DEPARTMENT OF PATHOLOGY AND GENOMIC MEDICINE BUN 40 (H) 6 - 20 mg/dL [facility] DEPARTMENT OF PATHOLOGY AND GENOMIC MEDICINE Creatinine 4.6 (H) 0.7 - 1.2 mg/dL [facility] DEPARTMENT OF PATHOLOGY AND GENOMIC MEDICINE Glucose 132 (H) 65 - 99 mg/dL [facility] DEPARTMENT OF PATHOLOGY AND GENOMIC MEDICINE Calcium 8.7 8.3 - 10.2 mg/dL [facility] DEPARTMENT OF PATHOLOGY AND GENOMIC MEDICINE Protein 7.6 6.3 - 8.3 g/dL [facility] DEPARTMENT OF Comment: PATHOLOGY AND GENOMIC [place] 4.6-7.0 g/dL MEDICINE 1 week 4.4-7.6 g/dL 7 months-1year5.1-7.3 g/dL 1-2 years5.6-7.5 g/dL >3 years6.0-8.0 g/dL 18-150 6.3-8.3 g/dL Albumin 3.5 3.5 - 5.0 g/dL [facility] DEPARTMENT OF PATHOLOGY AND GENOMIC MEDICINE A/G ratio 0.9 0.7 - 3.8 [facility] DEPARTMENT OF PATHOLOGY AND GENOMIC MEDICINE Alkaline phosphatase 99 40 - 129 U/L [facility] DEPARTMENT OF PATHOLOGY AND GENOMIC MEDICINE AST 13 10 - 50 U/L [facility] DEPARTMENT OF PATHOLOGY AND GENOMIC MEDICINE ALT 18 5 - 50 U/L [facility] DEPARTMENT OF PATHOLOGY AND GENOMIC MEDICINE Total bilirubin 0.6 0.0 - 1.2 mg/dL [facility] DEPARTMENT OF PATHOLOGY AND GENOMIC MEDICINE Specimen Plasma specimen Performing Organization Address City/State/Zipcode Phone Number [facility] DEPARTMENT OF PATHOLOGY AND [address] [place] [address] GENOMIC MEDICINE after 09/15/2016 Insurance Payer Benefit Plan / Group Subscriber ID Type Phone Address MEDICARE MEDICARE PART A AND B xxxxxxxxxx Medicare [place], [place] MEDICAID MEDICAID xxxxxxxxx Medicaid COMMERCIAL MISC MISC COMMERCIAL xxxxxxxxxx Commercial Home: [address] [facility]. [phone] [place] [address] DANNY PAREKH Transplant Self 1975 Home: [address] [facility]. [phone] [place], [place] [address]
--- OUTSIDE RECORDS SUMMARY | 2017-09-16 21:04 | XMS REPORT | Continuity of Care Document ---
[...] Number For Provider Date Date Visit Outpatient [id number] DAVID 09/04 [facility] Procedures Procedure Code Date Perfomer Comments Source
[2017-09-16] MEDS ORDERED: cloNIDine HCl 0.1 MG TAB ONE (23:53)
[2017-09-17 00:42] LABS: Urine Blood 1+ (NEG); Urine Glucose 2+ (NEG); Urine Protein 3+ (NEG); Urine Specific Gravity 1.025 (1.005-1.030)
--- NOTE | 2017-09-17 01:13 | RAD REPORT ---
EXAM DESCRIPTION: CT - Head Brain Wo Cont - 09/17/2017 1:03 am CLINICAL HISTORY: HEADACHE COMPARISON: None TECHNIQUE: All CT scans are performed using dose optimization technique as appropriate and may inclu de automated exposure control or mA/KV adjustment according to patient size. FINDINGS: No intracranial hemorrhage, hydrocephalus or extra-axial fluid collection.No areas of brai n edema or evidence of midline shift. The paranasal sinuses and mastoids are clear. The calvarium is intact. IMPRESSION: No acute intracranial abnormality.
--- NOTE | 2017-09-17 01:43 | ER ---
Nurse's Notes [facility] Name: Danny Tellez Age: 41 yrs Sex: Male : 1975 Arrival Date: 09/16/2017 Time: 21:16 Bed 27 Private MD: Diagnosis: Acute headache. Blurred vision left eye. Chronic renal disease Presentation: 09/16 21:58 Presenting complaint: Patient states: He woke up early this morning with a headache. He aj1 is suppose to have surgery in the one eye for diabetic retinopathy. The left is usually okay, but he woke up this morning and saw a red spidery blood vessel and his vision was blurry so he decided not to go to dialysis. Transition of care: patient was not received from another setting of care. Onset of symptoms was September 16, 2017. Risk Assessment: Do you want to hurt yourself or someone else? Patient reports no desire to harm self or others. Initial Sepsis Screen: Does the patient meet any 2 criteria? No. Patient's initial sepsis screen is negative. Does the patient have a suspected source of infection? No. Patient's initial sepsis screen is negative. Care prior to arrival: None. 21:58 Method Of Arrival: Wheelchair aj1 21:58 Acuity: BRIANDA 3 aj1 Triage Assessment: 22:05 General: Appears in no apparent distress. comfortable, Behavior is calm, cooperative, aj1 appropriate for age. Pain: Denies pain. Neuro: Level of Consciousness is awake, alert, obeys commands. Cardiovascular: Patient's skin is warm and dry. Respiratory: Airway is patent Respiratory effort is even, unlabored, Respiratory pattern is regular, symmetrical. Historical: - Allergies: 22:05 NKA; aj1 - Home Meds: 22:05 amlodipine 10 mg tab twice a day [Active]; calcium acetate 667 mg Oral cap 3 times per aj1 day [Active]; clonidine HCl 0.1 mg Oral tab 1 tab 3 times per day [Active]; furosemide 40 mg Oral tab 1 tab 2 times per day [Active]; gabapentin 300 mg Oral cap 1 cap twice a day [Active]; hydralazine 25 mg Oral tab three times a day [Active]; Lantus 100 unit/mL Sub-Q soln [Active]; Lasix Oral [Active]; lisinopril 20 mg Oral tab 1 tab once daily [Active]; Novolin N 100 unit/mL Sub-Q susp [Active]; Novolin N 100 unit/mL Sub-Q susp [Active]; Novolin R Sub-Q [Active]; - PMHx: 22:05 Diabetes - IDDM; Dialysis; Hypertension; Renal Disease; aj1 - Immunization history:: Flu vaccine is up to date. - Social history:: Smoking status: Patient/guardian denies using tobacco. - Ebola Screening: : Patient denies travel to an Ebola-affected area in the 21 days before illness onset. Screenin:48 Abuse screen: Denies threats or abuse. Denies injuries from another. Nutritional mg2 screening: No deficits noted. Tuberculosis screening: No symptoms or risk factors identified. Fall Risk Ambulatory Aid- Crutches/Cane/Walker (15 pts). Assessment: 22:49 General: Appears in no apparent distress. comfortable, Behavior is calm, cooperative. mg2 Pain: Denies pain. Neuro: Level of Consciousness is awake, alert, Oriented to person, place, time, situation. Cardiovascular: Capillary refill < 3 seconds Patient's skin is warm and dry. Respiratory: Airway is patent Respiratory effort is even, unlabored, Respiratory pattern is regular, symmetrical. GI: No signs and/or symptoms were reported involving the gastrointestinal system. : No signs and/or symptoms were reported regarding the genitourinary system. EENT: Eyes blurred vision in the left eye. Derm: Skin is intact, Skin is normal. Musculoskeletal: No signs and/or symptoms reported regarding the musculoskeletal system. Vital Signs: 22:05 BP 170 / 95; Pulse 93; Resp 20; Temp 98.3(TE); Pulse Ox 97% on R/A; Weight 117.93 kg aj (R); Height 5 ft. 10 in. (177.80 cm) (R); Pain 0/10; 23:00 BP 171 / 93; Pulse 90; Resp 18; Pulse Ox 99% on R/A; Pain 0/10; mg2 09/17 00:07 BP 160 / 85; Pulse 74; Resp 18; Pulse Ox 100% on R/A; Pain 1/10; mg2 00:41 BP 167 / 87; Pulse 89; Resp 18; Pulse Ox 100% on R/A; Pain 0/10; mg2 01:50 BP 168 / 78; Pulse 78; Resp 18; Pulse Ox 100% on R/A; Pain 03/02; mg2 09/16 22:05 Body Mass Index 37.31 (117.93 kg, 177.80 cm) aj1 ED Course: 09/16 21:16 Patient arrived in ED. es 22:04 Triage completed. aj1 22:05 Arm band placed on Patient placed in waiting room, Patient notified of wait time. aj1 22:22 Theron Chiu RN is Primary Nurse. mg2 23:40 Juan José Palmer MD is Attending Physician. pkl 09/17 01:03 CT Head Brain wo Cont In Process Unspecified. EDMS 02:10 No provider procedures requiring assistance completed. Patient did not have IV access mg2 during this emergency room visit. 02:11 Patient has correct armband on for positive identification. mg2 Administered Medications: 09/16 23:52 Drug: cloNIDine 0.2 mg Route: PO; mg2 09/17 01:55 Follow up: Response: No adverse reaction; Blood pressure is lowered mg2 Point of Care Testing: Blood Glucose: 09/16 23:00 Blood Glucose: 260 mg/dL; mg2 Ranges: Outcome: 09/17 01:42 Discharge ordered by . pkl 02:11 Discharged to home via wheelchair, with family. mg2 02:11 Condition: good 02:11 Discharge instructions given to patient, family, Instructed on discharge instructions, follow up and referral plans. medication usage, Demonstrated understanding of instructions, follow-up care, medications, Prescriptions given X 1. 02:11 Patient left the ED. mg2 Signatures: Dispatcher [employer] Yi Ye RN RN aj1 Juan José Palmer MD MD pkSheridan Ricketts Michele, RN RN mg2
--- NOTE | 2017-09-17 01:43 | EDPHYS ---
Physician Documentation [facility] Name: Danny Tellez Age: 41 yrs Sex: Male : 1975 Arrival Date: 09/16/2017 Time: 21:16 Bed 27 Private MD: ED Physician Juan José Palmer HPI: 09/17 01:37 This 41 yrs old Male presents to ER via Wheelchair with complaints of High pkl Blood Pressure, Blurred Vision. 01:37 Onset: The symptoms/episode began/occurred today. Associated signs and symptoms: pkl Pertinent positives: blurred vision left eye. Historical: - Allergies: 09/16 22:05 NKA; aj1 - Home Meds: 22:05 amlodipine 10 mg tab twice a day [Active]; calcium acetate 667 mg Oral cap 3 times per aj1 day [Active]; clonidine HCl 0.1 mg Oral tab 1 tab 3 times per day [Active]; furosemide 40 mg Oral tab 1 tab 2 times per day [Active]; gabapentin 300 mg Oral cap 1 cap twice a day [Active]; hydralazine 25 mg Oral tab three times a day [Active]; Lantus 100 unit/mL Sub-Q soln [Active]; Lasix Oral [Active]; lisinopril 20 mg Oral tab 1 tab once daily [Active]; Novolin N 100 unit/mL Sub-Q susp [Active]; Novolin N 100 unit/mL Sub-Q susp [Active]; Novolin R Sub-Q [Active]; - PMHx: 22:05 Diabetes - IDDM; Dialysis; Hypertension; Renal Disease; aj1 - Immunization history:: Flu vaccine is up to date. - Social history:: Smoking status: Patient/guardian denies using tobacco. - Ebola Screening: : Patient denies travel to an Ebola-affected area in the 21 days before illness onset. ROS: 09/17 01:37 ENT: Negative for injury, pain, and discharge. pkl Eyes: Positive for blurry vision, of the left eye. Neck: Negative for stiffness. Cardiovascular: Negative for chest pain. Respiratory: Negative for cough, shortness of breath. Abdomen/GI: Negative for abdominal pain, nausea, vomiting, and diarrhea. Back: Negative for acute changes. : Negative for urinary symptoms. MS/extremity: Negative for acute changes. Skin: Negative for rash. Neuro: Positive for headache, Negative for altered mental status. Exam: 01:37 Head/Face: Normocephalic, atraumatic. pkl 01:37 Eyes: Conjunctiva: normal. 01:37 ENT: Exam is negative for acute changes. 01:37 Neck: Exam negative for nuchal rigidity. 01:37 Chest/axilla: Exam negative for acute changes. 01:37 Cardiovascular: Rate: normal, Rhythm: regular. 01:37 Respiratory: the patient does not display signs of respiratory distress, Respirations: normal, Breath sounds: are clear throughout. 01:37 Abdomen/GI: Exam negative for acute changes. 01:37 Back: Exam negative for acute changes. 01:37 : Exam negative for acute changes. 01:37 Musculoskeletal/extremity: Exam is negative for acute changes. 01:37 Skin: Exam negative for rash. 01:37 Neuro: Orientation: is normal, Mentation: is normal, Cranial nerves: grossly normal, Motor: is normal. Vital Signs: 09/16 22:05 BP 170 / 95; Pulse 93; Resp 20; Temp 98.3(TE); Pulse Ox 97% on R/A; Weight 117.93 kg aj1 (R); Height 5 ft. 10 in. (177.80 cm) (R); Pain 0/10; 23:00 BP 171 / 93; Pulse 90; Resp 18; Pulse Ox 99% on R/A; Pain 0/10; mg2 09/17 00:07 BP 160 / 85; Pulse 74; Resp 18; Pulse Ox 100% on R/A; Pain 1/10; mg2 00:41 BP 167 / 87; Pulse 89; Resp 18; Pulse Ox 100% on R/A; Pain 0/10; mg2 01:50 BP 168 / 78; Pulse 78; Resp 18; Pulse Ox 100% on R/A; Pain 1/10; mg2 09/16 22:05 Body Mass Index 37.31 (117.93 kg, 177.80 cm) aj1 MDM: 09/16 23:40 Patient medically screened. pkl 09/17 01:37 Data reviewed: vital signs, nurses notes, radiologic studies, CT scan. [facility] 09/16 22:59 Order name: Urine Dipstick--Ancillary (enter results); Complete Time: 01:36 ms 09/17 01:19 Order name: Glucose, Ancillary Testing; Complete Time: 01:36 EDMS 09/16 23:48 Order name: CT Head Brain wo Cont; Complete Time: 01:36 pkl 09/17 01:19 Order name: Glucose, Ancillary Testing EDMS Administered Medications: 09/16 23:52 Drug: cloNIDine 0.2 mg Route: PO; mg2 09/17 01:55 Follow up: Response: No adverse reaction; Blood pressure is lowered mg2 Point of Care Testing: Blood Glucose: 09/16 23:00 Blood Glucose: 260 mg/dL; mg2 Ranges: Critical Glucose Levels:Adult <50 mg/dl or >400 mg/dl <40 mg/dl or >180 mg/dl Disposition: 09/17/17 01:42 Discharged to Home. Impression: Acute headache. Blurred vision left eye. Chronic renal disease. - Condition is Stable. - Prescriptions for Ultram 50 mg Oral Tablet - take 1 tablet by ORAL route every 8 hours As needed; 20 tablet. - Medication Reconciliation Form, Thank You Letter, Antibiotic Education, Prescription Opioid Use form. - Follow up: Private Physician; When: 2 - 3 days; Reason: Re-evaluation by your physician. - Problem is new. - Symptoms have improved. Signatures: Dispatcher [employer] EDMS Yi Domínguez RN RN aj1 Juan José Palmer MD MD pkl Theron Chiu RN RN mg2 Corrections: (The following items were deleted from the chart) 09/17 02:11 01:42 09/17/2017 01:42 Discharged to Home. Impression: Acute headache. Blurred vision mg2 left eye. Chronic renal disease. Condition is Stable. Forms are Medication Reconciliation Form, Thank You Letter, Antibiotic Education, Prescription Opioid Use. Follow up: Private Physician; When: 2 - 3 days; Reason: Re-evaluation by your physician. Problem is new. Symptoms have improved. pkl
[2017-09-17 02:18] VITALS: TEMP 98.3
[2017-09-17 02:21] VITALS: O2SAT 100
[2017-09-17 02:23] VITALS: BP 168/78
== END 2017-09-17 02:11 | disposition home or self-care (01) ==
LOC: ER 21:00
DX: R51 Headache (principal); E11.22 Type 2 diabetes mellitus with diabetic chronic kidney disease; I12.0 Hypertensive chronic kidney disease with stage 5 chronic kidney disease or end stage renal disease; N18.6 End stage renal disease; Z79.4 Long term (current) use of insulin; Z99.2 Dependence on renal dialysis
CPT/HCPCS: 70450; 81003; 82962; 99283

== ENCOUNTER 2019-10-14 21:05 | Emergency (ER) | payer OTHER ==
--- OUTSIDE RECORDS SUMMARY | 2019-10-14 21:08 | XMS REPORT | Continuity of Care Document ---
:1975 Author Organization [facility] t Address [address] [place] [address] Care Team Providers Name Role Phone Vashti Rubalcava MD Primary Care Physician [phone] Carol Attending Clinician Doctor Unassigned, Name Attending Clinician Unavailable Fidelia MOSS, S Attending Clinician Problems Condition Condition Condition Status Onset Resolution Last Treating Co mments Source Name Details Category Date Date Treatment Clinician Date Type 2 Type 2 Disease Active [place] diabetes diabetes 7-24 Method i mellitus mellitus 00:00: st 00 DVT (deep DVT (deep Disease Active [facility] sto venous venous 5-13 Methodi thrombosis thrombosis 00:00: st ) ) 00 ESRD (end ESRD (end Disease Active Last [place] [facility] stage stage 4-26 Assessmen [facility] renal renal 00:00: t & Plan: st disease) disease) 00 Renal condition is unchanged .AV Fistula Creation Allergies, Adverse Reactions, Alerts Allergy Allergy Status Severity Reaction(s) Onset Inactive Treating Comm ents Source Name Type Date Date Clinician Adhesive Propensi Active Rash [place] Tape-Nisha ty to 3-20 Methodi icones adverse 00:00: st reaction 00 s to drug Social History Social Habit Start Date Stop Date Quantity Comments Source History of Current smoker [facility] tobacco use Sex Assigned At [place] [facility] ethodist Alcohol intake 2017-05-10 2017-05-10 Current [facility] thodist 00:00:00 00:00:00 non-drinker of alcohol (finding) Smoking Status Start Date Stop Date Source Former smoker 2017-05-10 00:00:00 2017-05-10 00:00:00 [place] [facility] Medications Ordered Filled Start Stop Current Ordering Indication Dosage Frequency Signature Comments Components Source Medication Medication Date Date Medication? Clinician (SIG) Name Name calcium 2018-0 Yes 2001mg [id number] Take 2,001 [place] acetate 3-20 [id number] mg by [place] [facility] (PHOSLO) 09:15: 3D mouth 3 st 667 mg 17 (three) capsule times a day with meals. 1 with snacks clonIDINE 2018-0 Yes .1mg Q24H Take 0.1 [place] (CATAPRES) 3-20 mg by Methodi 0.1 MG 09:15: mouth st tablet 17 daily as needed (SPB greater than 200). gabapentin 2018-0 Yes 300mg QD Take 300 [place] (NEURONTIN) 3-20 mg by Methodi 300 mg 09:15: mouth st capsule 17 nightly. insulin NPH 2018-0 Yes 22U Q.5D Inject 22 [place] (HumuLIN-N) 3-20 Units Methodi 100 unit/mL 09:15: under the s t injection 17 skin 2 (two) times a day before meals. insulin 2017-0 Yes [id number] Inject [place] regular 3-20 [id number] under the M ethodi (HumuLIN-R, 09:15: 3D skin [address] NovoLIN-R) 17 (three) 100 unit/mL times a injection day before meals. Per sliding scale tamsulosin 2018-0 Yes .4mg Q24H Take 0.4 [place] (FLOMAX) 3-20 mg by Methodi 0.4 mg 09:15: mouth st capsule,ext 17 daily as ended needed. release 24hr insulin 2018-0 Yes QD Inject [place] degludec 3-20 under the Method i (TRESIBA 09:15: skin st FLEXTOUCH 17 daily. U-100) 100 unit/mL (3 mL) insulin pen pregabalin 2018-0 Yes 50mg QD Take 50 mg [place] (LYRICA) 25 3-20 by mouth Meth sherrie MG capsule 09:15: nightly. st 16 liraglutide Yes 1.8mg QD Inject 1.8 [place] (VICTOZA 3-20 mg under Methodi 3-YU) 0.6 09:15: the skin st mg/0.1 mL 16 daily. (18 mg/3 mL) pen injector furosemide 2016-02 Yes 40mg Q.5D Take 40 mg [place] (LASIX) 40 0-04 by mouth 2 Met hodi mg tablet 08:08: (two) st 21 times a day. vit B cmplx 2016-02 Yes 1{tbl} QD Take 1 [place] 3-FA-vit 0-04 tablet by Method i C-biotin 08:08: mouth st (NEPHRO-VIT 21 daily. E RX) 1-60-300 mg-mg-mcg tablet lisinopril 2016-02 Yes 40mg Q.5D Take 40 mg [place] (PRINIVIL,Z 0-04 by mouth 2 Me th[place] ESTRIL) 20 08:08: (two) st mg tablet 21 times a day. hydrALAZINE 2016-02 Yes 25mg [id number] Take 25 mg [place] (APRESOLINE 0-04 [id number] by mouth 3 Methodi ) 25 MG 08:08: 3D (three) st tablet 21 times a day. amLODIPine 2016-02 Yes 10mg QD Take 10 mg [place] (NORVASC) 0-04 by mouth Method i 10 mg 08:08: daily. st tablet 21 Procedures This patient has no known procedures. Plan of Care Planned Activity Planned Date Details Comments Source Future Scheduled 2019-11-22 INFLUENZA VACCINE [place] [facility] 00:00:00 [code = INFLUENZA VACCINE] Future Scheduled 1983-12-12 DIABETIC FOOT EXAM [place] [facility] 00:00:00 [code = DIABETIC FOOT EXAM] Future Scheduled 1983-12-12 URINE MICROALBUMIN [place] [facility] 00:00:00 [code = URINE MICROALBUMIN] Future Scheduled 1975 DIABETIC RETINAL EYE [place] [facility] 00:00:00 EXAM [code = DIABETIC RETINAL EYE EXAM] Encounters Start End Encounter Admission Attending Care Care Encounter Source Date/Time Date/Time Type Type Clinicians Facility Department ID 2019-09-17 2019-09-17 Letter WERO [facility] [id number] 00:00:00 00:00:00 (Out) Rony DOVE [id number] [facility] [id number] 2019-08-24 2019-08-24 Orders Doctor WERO [id number] 00:00:00 00:00:00 Only UnassignedDERRELL [id number] [place] [facility] [id number] 2019-06-20 2019-06-20 Emergency [facility] [id number] 21:13:58 23:17:00 Snow Y[place] [id number] [place] [id number] [place] [id number] Results This patient has no known results.
--- OUTSIDE RECORDS SUMMARY | 2019-10-14 21:08 | XMS REPORT | Clinical Summary ---
:1975 Author Organization [facility] Address [address] [place] [address] Care Team Providers Name Role Phone Vashti Rubalcava MD Primary Care Provider [phone] Allergies Active Allergy Reactions Severity Noted Date Comments Adhesive Tape-Silicones Rash Low 05/10/2017 Medications Medication Sig Dispensed Refills Start Date End Date Status furosemide (LASIX) 40 Take 40 mg by 0 Active mg tablet mouth 2 (two) times a day. calcium acetate Take 2,001 mg by 0 Active (PHOSLO) 667 mg mouth 3 (three) capsule times a day with meals. 1 with snacks clonIDINE (CATAPRES) Take 0.1 mg by 0 Active 0.1 MG tablet mouth daily as needed (SPB greater than 200). vit B cmplx 3-FA-vit Take 1 tablet by 0 Active C-biotin (NEPHRO-ARON mouth daily. RX) 1-60-300 mg-mg-mcg tablet lisinopril Take 40 mg by 0 Activ e (PRINIVIL,ZESTRIL) 20 mouth 2 (two) mg tablet times a day. hydrALAZINE Take 25 mg by 0 Acti ve (APRESOLINE) 25 MG mouth 3 (three) tablet times a day. gabapentin (NEURONTIN) Take 300 mg by 0 Active 300 mg capsule mouth nightly. insulin NPH Inject 22 Units 0 Ac tive (HumuLIN-N) 100 under the skin 2 unit/mL injection (two) times a day before meals. insulin regular Inject under the 0 Active (HumuLIN-R, NovoLIN-R) skin 3 (three) 100 unit/mL injection times a day before meals. Per sliding scale amLODIPine (NORVASC) Take 10 mg by 0 Active 10 mg tablet mouth daily. tamsulosin (FLOMAX) Take 0.4 mg by 0 Active 0.4 mg mouth daily as capsule,extended needed. release 24hr pregabalin (LYRICA) 25 Take 50 mg by 0 Active MG capsule mouth nightly. liraglutide (VICTOZA Inject 1.8 mg 0 Active 3-YU) 0.6 mg/0.1 mL under the skin (18 mg/3 mL) pen daily. injector insulin degludec Inject under the 0 Active (TRESIBA FLEXTOUCH skin daily. U-100) 100 unit/mL (3 mL) insulin pen Active Problems Problem Noted Date Type 2 diabetes mellitus 09/13/2016 DVT (deep venous thrombosis) 07/03/2016 ESRD (end stage renal disease) 06/16/2016 Last Assessment & Plan: Renal condition is unchanged. AV Fistula Creation Family History Relation Name Status Comments Father Mother Social History Tobacco Use Types Packs/Day Years Used Date Former Smoker 0.5 Quit: 1986 Smokeless Tobacco: Never Used Alcohol Use Drinks/Week oz/Week Comments No Sex Assigned at Date Recorded Not on file Job Start Date Occupation Industry Not on file Not on file Not on file Travel History Travel Start Travel End No recent travel history available. Last Filed Vital Signs Not on file Plan of Treatment Health Maintenance Due Date Last Done Comments DIABETIC RETINAL EYE EXAM 1975 DIABETIC FOOT EXAM 12/12/1983 URINE MICROALBUMIN 12/12/1983 INFLUENZA VACCINE 11/22/2019 Implants Implanted Type Area Security Specialist Device Shelf Model / Identifier Expiration Serial / Date Lot Clip Ligtng Weck Hemoclip Plus W/ Tape Ti - [id number] Medical Left: WECK CLOSURE 07/21/2020 [id number] / Implanted: Qty: 2 on 06/28/2016 by Perla Carr MD at [facility] Clips for Arm, SYSTEMS / Internal Use Upper Clip Ligtng Weck Hemoclip Plus W/ Tape Ti Med - [id number] Medica l Left: TELEFLEX 10/20/2020 [id number] / Implanted: Qty: 2 on 06/28/2016 by Perla Carr MD at [facility] Clips for Arm, MEDICAL / Internal Use Upper Results Not on fileafter 10/13/2018 Insurance Payer Benefit Plan / Subscriber ID Effective Phone Address T ype Group Dates MEDICARE MEDICARE PART A xxxxxxxxxx 2016-Pres [place], [place] Medicare AND B ent MEDICAID MEDICAID xxxxxxxxx 2016-Pres Medica id ent COMMERCIAL MISC MISC COMMERCIAL xxxxxxxxxx 2016-Pres Commercial ent Advance Directives For more information, please contact: [phone] Type Date Recorded Patient Practice Representative Explanati on Advance Directives, Living Will 06/28/2016 5:45 AM and Medical Power of Statistician Theoretical
--- OUTSIDE RECORDS SUMMARY | 2019-10-14 21:09 | XMS REPORT | Summary of Care ---
:1975 Author Organization [facility] - Health Address [address] [place] [address] Care Team Providers Name Role Phone Pcp, Patient Does Not Have A Primary Care Provider +[phone] 0-0000 Encounter Details Date Type Department Care Team Description 08/24/2019 Orders Only [facility] Doctor Unassigned, No [address] [facility] [place] [address] [address] [place] [address] Allergies No Known Allergiesdocumented as of this encounter (statuses as of 09/10/2019) Medications Medication Sig Dispensed Refills Start Date End Date Status amLODIPine 10 mg tablet 0 03/10/2016 Active Cholecalciferol, 0 03/11/2016 Ac tive Vitamin D3, 5,000 unit capsule furosemide 40 mg tablet 0 03/10/2016 Active hydralAZINE 25 mg 0 03/10/2016 A ctive tablet NOVOLIN N 100 unit/mL 0 03/10/2016 Active injection lisinopril 20 mg tablet 0 03/10/2016 Active metOLazone 5 mg tablet 0 03/10/2016 Active metoprolol tartrate 50 0 03/10/2016 Active mg tablet calcium acetate 667 mg Take 667 mg by 0 Active capsule mouth 3 (three) times daily with meals. tamsulosin 0.4 mg 24 hr Take 0.4 mg by 0 Active capsule mouth daily. simvastatin 10 mg Take 10 mg by 0 Active tablet mouth at bedtime. diphenoxylate-atropine Take 1 tablet by 0 Active 2.5-0.025 mg per tablet mouth every 6 (six) hours as needed. INSULIN DEGLUDEC inject 30 Units 0 Active (TRESIBA FLEXTOUCH under the skin U-100 SC) daily. amoxicillin-clavulanate Take 1 tablet by 14 tablet 0 0 Active 875-125 mg per mouth every 12 tabletIndications: (twelve) hours. Animal bite of right hand with infection, initial encounter traMADol (ULTRAM) 50 mg Take 1 tablet by 20 tablet 0 0 Active tabletIndications: mouth every 6 Animal bite of right (six) hours as hand with infection, needed for Pain initial encounter (scale 7-10). documented as of this encounter (statuses as of 09/10/2019) Active Problems Problem Noted Date DVT (deep venous thrombosis), History of 07/03/2016 Status post below knee amputation of left lower extrem ity 05/11/2016 CKD (chronic kidney disease) stage V requiring chronic dialysis 03/06/2016 Overview: 1st ever dialysis IDDM (insulin dependent diabetes mellitus) HTN (hypertension), malignant Hyperlipidemia Obesity (BMI 30-39.9) Overview: with L BKA documented as of this encounter (statuses as of 09/10/2019) Immunizations Name Administration Dates Next Due Hep B, Adol or Pedi Dosage 05/24/2016, 04/26/2016, 7 PPD (TB) 03/26/2016 Pneumococcal Polysaccharide, PPSV23 11/22/2015 (PNEUMOVAX) Td 06/20/2019 documented as of this encounter Social History Tobacco Use Types Packs/Day Years Used Date Former Smoker Smokeless Tobacco: Never Used Alcohol Use Drinks/Week oz/Week Comments No 0 Standard drinks or equivalent 0.0 Sex Assigned at Date Recorded Not on file Job Start Date Occupation Industry Not on file Not on file Not on file Travel History Travel Start Travel End No recent travel history available. documented as of this encounter Last Filed Vital Signs Not on filedocumented in this encounter Plan of Treatment Health Maintenance Due Date Last Done Comments HgA1C 1976 EYE EXAM 12/12/1983 LDL-C 12/12/1983 DTaP,Tdap,and Td Vaccines (1 - Tdap) 1984 06/20/2019 Depression Screening 1985 FOOT EXAM 12/12/1991 INFLUENZA VACCINE (#1) 2019 CREATININE (SERUM) 06/19/2020 06/20/2019, 08/02/2016 PNEUMOCOCCAL 0-64 YEARS COMBINED SERIES Completed 11/22/19 16 documented as of this encounter Procedures Procedure Name Priority Date/Time Associated Diagnosis Comme nts REFERRAL- Routine 08/24/2019 12:01 AM CDT REQUEST/RESPONSE documented in this encounter Results Not on filedocumented in this encounter Insurance Payer Benefit Plan / Subscriber ID Effective Dates Phone Addre ss Type Group MEDICARE MEDICARE PART xxxxxxxxxxx 2016-[place] [phone] Medicare A & B t 2 [id number] [place]Y FERRER [id number] documented as of this encounter
--- OUTSIDE RECORDS SUMMARY | 2019-10-14 21:09 | XMS REPORT | Summary of Care ---
:1975 Author Organization [facility] Address [address] [place] [address] Care Team Providers Name Role Phone Pcp, Patient Does Not Have A Primary Care Provider +[id number] Encounter Details Date Type Department Care Team Description 09/17/2019 Letter (Out) [facility] [address] [place] [id number] [place] [phone] Allergies No Known Allergiesdocumented as of this encounter (statuses as of 09/17/2019) Medications Medication Sig Dispensed Refills Start Date [...] as of this encounter (statuses as of 09/17/2019) Active Problems Problem Noted Date DVT (deep venous thrombosis), History of 07/03/2016 Status post below knee amputation of left lower extrem ity 05/11/2016 CKD (chronic kidney disease) stage V requiring chronic dialysis 03/06/2016 Overview: 1st ever dialysis IDDM (insulin dependent diabetes mellitus) HTN (hypertension), malignant Hyperlipidemia Obesity (BMI 30-39.9) Overview: with L BKA documented as of this encounter (statuses as of 09/17/2019) Immunizations Name Administration Dates Next Due Hep [...] 11/22/19 16 documented as of this encounter Results Not on filedocumented in this encounter Insurance Payer Benefit Plan / Subscriber ID Effective Dates Phone Addre ss Type Group MEDICARE MEDICARE PART xxxxxxxxxxx 2016-Brigette [phone] Medicare A & B t 2 [id number] KATHY FERRER [id number] documented as of this encounter
[2019-10-14] MEDS ORDERED: TETANUS & DIPHTHERIA TOX,ADULT 0.5 ML VIAL ONE (21:40)
[2019-10-14] MEDS ORDERED: LIDOCAINE 1% MPF 30 ML VIAL ONE (21:40)
--- NOTE | 2019-10-14 22:18 | ER ---
Nurse's Notes [facility] Name: Danny Tellez Age: 43 yrs Sex: Male : 1975 Arrival Date: 10/14/2019 Time: 21:08 Bed 20 Private MD: Diagnosis: Toe Laceration Presentation: 10/13 21:16 Chief complaint: Patient states: "I sliced my toe on a an unknown object at home this jd3 evening.". Coronavirus screen: At this time, the client does not indicate any symptoms associated with coronavirus-19. Ebola Screen: Patient negative for fever greater than or equal to 101.5 degrees Fahrenheit, and additional compatible Ebola Virus Disease symptoms. Initial Sepsis Screen: Does the patient meet any 2 criteria? No. Patient's initial sepsis screen is negative. Does the patient have a suspected source of infection? No. Patient's initial sepsis screen is negative. Risk Assessment: Do you want to hurt yourself or someone else? Patient reports no desire to harm self or others. Onset of symptoms was October 14, 2019. 21:16 Method Of Arrival: Wheelchair jd3 21:16 Acuity: BRIANDA 3 jd3 - Immunization history:: Adult Immunizations up to date, Last tetanus immunization: unknown. - Social history:: Smoking status: Patient denies any tobacco usage or history of. Vital Signs: 21:17 BP 166 / 94; Pulse 85; Resp 15 S; Temp 99.5(O); Pulse Ox 99% on R/A; Weight 120 kg (R); jd3 Height 5 ft. 10 in. (177.80 cm) (R); Pain 1/10; 21:17 Body Mass Index 37.96 (120.00 kg, 177.80 cm) jd3 ED Course: 21:08 Patient arrived in ED. am2 21:10 Arturo Escoto PA is PHCP. [facility] 21:10 Kale Estrada MD is Attending Physician. jmm 21:10 Viky Turner, CHELSEY is Primary Nurse. mt2 21:17 Triage completed. jd3 21:18 Arm band placed on. jd3 Administered Medications: 21:32 Drug: Lidocaine (1 %) 20 ml {Note: BY PROVIDER.} Volume: 20 ml; Route: Infiltration; mt2 21:33 Drug: Tetanus-Diphtheria Toxoid Adult 0.5 ml {Ventilating Expert: Ushi. Exp: mt2 04/15/2022. Lot #: [id number]. } Route: IM; Site: left deltoid; Outcome: 22:17 Discharge ordered by MD. doe 22:34 Patient left the ED. mt2 Signatures: Arturo Escoto PA PA jmm Moreno, Amanda am2 Magdiel [place] RN RN jd3 Viky Turner RN RN mt2
--- NOTE | 2019-10-14 22:18 | EDPHYS ---
Physician Documentation [facility] Name: Danny Tellez Age: 43 yrs Sex: Male : 1975 Arrival Date: 10/14/2019 Time: 21:08 Bed 20 Private MD: ED Physician Kale Estrada HPI: 10/13 21:20 This 43 yrs old Male presents to ER via Wheelchair with complaints of Toe jmm Injury. 21:20 The patient presents with an injury, a laceration. Onset: The symptoms/episode jmm began/occurred acutely, just prior to arrival. Modifying factors: The symptoms are alleviated by nothing, the symptoms are aggravated by nothing. Associated signs and symptoms: Pertinent negatives: swelling, tingling, weakness. This is a 43 year old male with a history of dm that presents to the ED with a laceration to the right 3rd toe. Patient noticed the injury as he was walking down stairs. . - Immunization history:: Adult Immunizations up to date, Last tetanus immunization: unknown. - Social history:: Smoking status: Patient denies any tobacco usage or history of. ROS: 21:20 Constitutional: Negative for fever, chills, and weight loss, Cardiovascular: Negative jmm for chest pain, palpitations, and edema, Respiratory: Negative for shortness of breath, cough, wheezing, and pleuritic chest pain. 21:20 MS/extremity: Positive for injury or acute deformity, laceration. 21:20 Skin: Positive for laceration(s). 21:20 All other systems are negative. Exam: 21:20 Constitutional: This is a well developed, well nourished patient who is awake, alert, jmm and in no acute distress. Head/Face: atraumatic. Eyes: EOMI, no conjunctival erythema appreciated Neck: Trachea midline, Supple Chest/axilla: Normal chest wall appearance and motion. Cardiovascular: Regular rate and rhythm. No edema appreciated Respiratory: Normal respirations, no respiratory distress appreciated Abdomen/GI: Non distended, soft Back: Normal ROM 21:20 Skin: laceration noted to the right 3rd toe. 21:20 Neuro: Motor: is normal. 21:20 Psych: exam not indicated, Behavior/mood is pleasant, cooperative. Vital Signs: 21:17 BP 166 / 94; Pulse 85; Resp 15 S; Temp 99.5(O); Pulse Ox 99% on R/A; Weight 120 kg (R); jd3 Height 5 ft. 10 in. (177.80 cm) (R); Pain /10; 21:17 Body Mass Index 37.96 (120.00 kg, 177.80 cm) jd3 Laceration: 22:16 Wound Repair of 1.5cm ( 0.6in ) subcutaneous laceration to plantar aspect of right jmm third toe. Distal neuro/vascular/tendon intact. Anesthesia: Local anesthetic administered with 1 mls of 1% lidocaine. Wound prep: Simple cleansing with betadine by nd. Skin closed with 5 5-0 Prolene using simple sutures and sterile technique. Patient tolerated well. MDM: 21:17 Patient medically screened. [facility] 22:16 Data reviewed: vital signs, nurses notes. Counseling: I had a detailed discussion with brook the patient and/or guardian regarding: the historical points, exam findings, and any diagnostic results supporting the discharge/admit diagnosis, the need for outpatient follow up, to return to the emergency department if symptoms worsen or persist or if there are any questions or concerns that arise at home. ED course: Patient given wound infection return precautions. Patient understood and agrees with the plan of care. . 10/13 21:41 Order name: Wound Care; Complete Time: 22:25 [facility] Administered Medications: 21:32 Drug: Lidocaine (1 %) 20 ml {Note: BY PROVIDER.} Volume: 20 ml; Route: Infiltration; mt2 21:33 Drug: Tetanus-Diphtheria Toxoid Adult 0.5 ml {Supervisor Lump Room: Harperlabz. Exp: mt2 04/15/2022. Lot #: [id number]. } Route: IM; Site: left deltoid; Disposition: 22:16 Chart complete. Chart complete. [facility] 10/14 00:39 Co-signature as Attending Physician, Kale Estrada MD. rn Disposition: 10/14/19 22:17 Discharged to Home. Impression: Toe Laceration. - Condition is Stable. - Discharge Instructions: Laceration Care, Adult. - Medication Reconciliation Form, Thank You Letter, Antibiotic Education, Prescription Opioid Use form. - Follow up: Private Physician; When: 7 - 10 days; Reason: Recheck today's complaints, Continuance of care, Staple/Suture removal, Re-evaluation by your physician. Signatures: Arturo Escoto PA PA jmm Nieto, Roman, MD MD rn Davies, Jonathon, RN RN jd3 Viky Turner RN RN mt2 Corrections: (The following items were deleted from the chart) 10/13 22:34 22:17 10/14/2019 22:17 Discharged to Home. Impression: Toe Laceration. Condition is mt2 Stable. Forms are Medication Reconciliation Form, Thank You Letter, Antibiotic Education, Prescription Opioid Use. Follow up: Private Physician; When: 7 - 10 days; Reason: Recheck today's complaints, Continuance of care, Staple/Suture removal, Re-evaluation by your physician. brook
== END 2019-10-14 22:34 | disposition home or self-care (01) ==
LOC: ER 21:05
PROC: 0JQQ0ZZ Repair Right Foot Subcutaneous Tissue and Fascia, Open Approach (ICD-10-PCS; principal; 2019-10-14)
DX: S91.114A Laceration without foreign body of right lesser toe(s) without damage to nail, initial encounter (principal); Z23 Encounter for immunization
CPT/HCPCS: 90471; 90714; 99282

== ENCOUNTER 2019-11-29 17:45 | Emergency (ER) | payer OTHER ==
--- NOTE | 2019-11-29 18:33 | EDPHYS ---
Physician Documentation [facility] Name: Danny Tellez Age: 43 yrs Sex: Male : 1975 Arrival Date: 11/29/2019 Time: 17:49 Bed 15 Private MD: ED Physician Kale Estrada HPI: 11/28 19:06 This 43 yrs old Male presents to ER via Wheelchair with complaints of Boil. kb 19:06 The patient presents with an abscess of the left gluteal fold. Description: kb erythematous, swollen. Onset: The symptoms/episode began/occurred 3 day(s) ago. Possible cause(s): unknown. Associated signs and symptoms: Pertinent positives: erythema, swelling, Pertinent negatives: discharge, drainage, foreign body sensation, fever, headache, nausea, shortness of breath, vomiting. Modifying factors: the symptoms are alleviated by nothing, the symptoms are aggravated by touching. Severity of symptoms: At their worst the symptoms were moderate, in the emergency department the symptoms are unchanged. The patient has not experienced similar symptoms in the past. The patient has not recently seen a physician. Pt reports hard knot that is tender to touch just below left buttock. Historical: - Allergies: 18:06 NKA; aa5 - PMHx: 18:06 Diabetes - IDDM; Dialysis; Hypertension; Renal Disease; aa5 - PSHx: 18:06 Left arm fistula; Left BKA; aa5 - Immunization history:: Flu vaccine is not up to date. - Social history:: Smoking status: Patient denies any tobacco usage or history of. ROS: 19:05 Constitutional: Negative for fever, chills, and weight loss, Cardiovascular: Negative kb for chest pain, palpitations, and edema, Respiratory: Negative for shortness of breath, cough, wheezing, and pleuritic chest pain, Abdomen/GI: Negative for abdominal pain, nausea, vomiting, diarrhea, and constipation, Back: Negative for injury and pain, MS/Extremity: Negative for injury and deformity, Neuro: Negative for headache, weakness, numbness, tingling, and seizure. 19:05 Skin: Positive for abscess, of the left gluteal fold. Exam: 19:05 Constitutional: This is a well developed, well nourished patient who is awake, alert, kb and in no acute distress. Head/Face: Normocephalic, atraumatic. Chest/axilla: Normal chest wall appearance and motion. Nontender with no deformity. No lesions are appreciated. Cardiovascular: Regular rate and rhythm with a normal S1 and S2. No gallops, murmurs, or rubs. Normal PMI, no JVD. No pulse deficits. Respiratory: Lungs have equal breath sounds bilaterally, clear to auscultation and percussion. No rales, rhonchi or wheezes noted. No increased work of breathing, no retractions or nasal flaring. Abdomen/GI: Soft, non-tender, with normal bowel sounds. No distension or tympany. No guarding or rebound. No evidence of tenderness throughout. Back: No spinal tenderness. No costovertebral tenderness. Full range of motion. MS/ Extremity: Pulses equal, no cyanosis. Neurovascular intact. Full, normal range of motion. Neuro: Awake and alert, GCS 15, oriented to person, place, time, and situation. Cranial nerves II-XII grossly intact. Motor strength 5/5 in all extremities. Sensory grossly intact. Cerebellar exam normal. Normal gait. 19:05 Skin: abscess, that is small, that is moderate sized, of the left gluteal fold, with induration. Vital Signs: 18:06 BP 171 / 93; Pulse 83; Resp 18 S; Temp 98.6(O); Pulse Ox 98% on R/A; Weight 117.93 kg aa5 (R); Height 5 ft. 10 in. (177.80 cm) (R); Pain 3/10; 19:02 BP 162 / 92; Pulse 81; Resp 15 S; Pulse Ox 99% on R/A; ca1 18:06 Body Mass Index 37.31 (117.93 kg, 177.80 cm) aa5 MDM: 18:11 Patient medically screened. kb 19:00 Data reviewed: vital signs, nurses notes. Data interpreted: Pulse oximetry: on room air kb is 98 %. Interpretation: normal. Counseling: I had a detailed discussion with the patient and/or guardian regarding: the historical points, exam findings, and any diagnostic results supporting the discharge/admit diagnosis, the need for outpatient follow up, a family practitioner, to return to the emergency department if symptoms worsen or persist or if there are any questions or concerns that arise at home. Administered Medications: 18:45 Drug: KeFLEX 500 mg Route: PO; ca1 18:49 Drug: Bactrim (160 mg-800 mg (DS) 1 tablet Route: PO; ca1 Disposition: 11/29/19 18:32 Discharged to Home. Impression: Cutaneous abscess of buttock. - Condition is Stable. - Discharge Instructions: Skin Abscess, [id number]. - Prescriptions for Keflex 500 mg Oral Capsule - take 1 capsule by ORAL route every 8 hours for 10 days; 30 capsule. Bactrim DS 800- 160 mg Oral Tablet - take 1 tablet by ORAL route every 12 hours for 10 days; 20 tablet. - Medication Reconciliation Form, Thank You Letter, Antibiotic Education, Prescription Opioid Use form. - Follow up: Emergency Department; When: As needed; Reason: Worsening of condition. Follow up: Private Physician; When: 2 - 3 days; Reason: Recheck today's complaints, Continuance of care, Re-evaluation by your physician. Follow up: Rony Medina MD; When: 2 - 3 days; Reason: Recheck today's complaints. Addendum: 12/04/2019 07:00 Co-signature as Attending Physician, Kale Estrada MD. r n Signatures: Corry Posey, CLINIC CLERK-C CLINIC CLERK-Ckb Kale Estrada MD MD rn Rufina Fernandez RN RN aa5 Heather Last RN RN ca1 Corrections: (The following items were deleted from the chart) 11/28 18:33 18:32 11/29/2019 18:32 Discharged to Home. Impression: Cutaneous abscess of buttock. kb Condition is Stable. Forms are Medication Reconciliation Form, Thank You Letter, Antibiotic Education, Prescription Opioid Use. Follow up: Emergency Department; When: As needed; Reason: Worsening of condition. Follow up: Private Physician; When: 2 - 3 days; Reason: Recheck today's complaints, Continuance of care, Re-evaluation by your physician. kb 19:03 18:33 11/29/2019 18:32 Discharged to Home. Impression: Cutaneous abscess of buttock. ca1 Condition is Stable. Discharge Instructions: Skin Abscess, [id number]. Prescriptions for Keflex 500 mg Oral Capsule - take 1 capsule by ORAL route every 8 hours for 10 days; 30 capsule, Bactrim DS 800-160 mg Oral Tablet - take 1 tablet by ORAL route every 12 hours for 10 days; 20 tablet. and Forms are Medication Reconciliation Form, Thank You Letter, Antibiotic Education, Prescription Opioid Use. Follow up: Emergency Department; When: As needed; Reason: Worsening of condition. Follow up: Private Physician; When: 2 - 3 days; Reason: Recheck today's complaints, Continuance of care, Re-evaluation by your physician. Follow up: Rony Medina; When: 2 - 3 days; Reason: Recheck today's complaints. kb
--- NOTE | 2019-11-29 18:33 | ER ---
Nurse's Notes [facility] Name: Danny Tellez Age: 43 yrs Sex: Male : 1975 Arrival Date: 11/29/2019 Time: 17:49 Bed 15 Private MD: Diagnosis: Cutaneous abscess of buttock Presentation: 11/28 18:04 Chief complaint: Patient states: "I noticed that I have a boil right under my left aa5 buttocks". Coronavirus screen: Client denies travel out of the [place] in the last 14 days. At this time, the client does not indicate any symptoms associated with coronavirus-19. Ebola Screen: Patient negative for fever greater than or equal to 101.5 degrees Fahrenheit, and additional compatible Ebola Virus Disease symptoms. Initial Sepsis Screen: Does the patient meet any 2 criteria? No. Patient's initial sepsis screen is negative. Does the patient have a suspected source of infection? No. Patient's initial sepsis screen is negative. Risk Assessment: Do you want to hurt yourself or someone else? Patient reports no desire to harm self or others. Onset of symptoms was November 29, 2019. 18:04 Method Of Arrival: Wheelchair aa5 18:04 Acuity: BRIANDA 4 aa5 Historical: - Allergies: 18:06 NKA; aa5 - PMHx: 18:06 Diabetes - IDDM; Dialysis; Hypertension; Renal Disease; aa5 - PSHx: 18:06 Left arm fistula; Left BKA; aa5 - Immunization history:: Flu vaccine is not up to date. - Social history:: Smoking status: Patient denies any tobacco usage or history of. Screenin:10 Abuse screen: Denies threats or abuse. Denies injuries from another. Nutritional ca1 screening: No deficits noted. Tuberculosis screening: No symptoms or risk factors identified. Fall Risk Secondary diagnosis (15 points) impaired mobility, Ambulatory Aid- Crutches/Cane/Walker (15 pts). Gait- Impaired (20 pts.). Total Navarrete Fall Scale indicates High Risk Score (45 or more points). Fall prevention measures have been instituted. Side Rails Up X 2 Family Present and informed to notify staff if the need to leave the bedside As available patient and family educated on Fall Prevention Program and Strategies. Assessment: 18:10 General: Appears in no apparent distress. Behavior is calm, cooperative. Pain: ca1 Complains of pain in left gluteus lonnie Pain currently is 6 out of 10 on a pain scale. Pain began 2-3 days ago. Neuro: Level of Consciousness is awake, alert, obeys commands, Oriented to person, place, time, situation. Cardiovascular: Heart tones S1 S2 present Capillary refill < 3 seconds. Derm: Skin is intact, is healthy with good turgor, Skin is pink, warm \\T\\ dry. Abscess located on left gluteus lonnie. Musculoskeletal: Amputation of lateral aspect of left calf, left lateral ankle, lateral aspect of left foot, left calf, left Achilles, left heel, medial aspect of left calf, left medial ankle, medial aspect of left foot, left de los santos, anterior aspect of left ankle and dorsum of left foot. Circulation, motion, and sensation intact. Capillary refill < 3 seconds. 19:02 Reassessment: Patient appears in no apparent distress at this time. Patient is alert, ca1 oriented x 3, equal unlabored respirations, skin warm/dry/pink. Vital Signs: 18:06 BP 171 / 93; Pulse 83; Resp 18 S; Temp 98.6(O); Pulse Ox 98% on R/A; Weight 117.93 kg aa5 (R); Height 5 ft. 10 in. (177.80 cm) (R); Pain 3/10; 19:02 BP 162 / 92; Pulse 81; Resp 15 S; Pulse Ox 99% on R/A; ca1 18:06 Body Mass Index 37.31 (117.93 kg, 177.80 cm) aa5 ED Course: 17:49 Patient arrived in ED. ag5 18:04 Arm band placed on. aa5 18:05 Triage completed. aa5 18:10 Patient has correct armband on for positive identification. Bed in low position. Call ca1 light in reach. Side rails up X 1. Pulse ox on. NIBP on. 18:10 No provider procedures requiring assistance completed. Patient did not have IV access ca1 during this emergency room visit. 18:11 Corry Posey FNP-C [facility]. kb 18:11 Kale Estrada MD is Attending Physician. kb 18:11 Heather Last RN is Primary Nurse. ca1 18:33 Rony Medina MD is Referral Physician. kb Administered Medications: 18:45 Drug: KeFLEX 500 mg Route: PO; ca1 18:49 Drug: Bactrim (160 mg-800 mg (DS) 1 tablet Route: PO; ca1 Outcome: 18:32 Discharge ordered by . romelia 19:02 Discharged to home ambulatory, via wheelchair, with significant other. ca1 19:02 Condition: stable 19:02 Discharge instructions given to patient, Instructed on discharge instructions, follow up and referral plans. medication usage, Demonstrated understanding of instructions, follow-up care, medications, Prescriptions given X 2. 19:03 Patient left the ED. ca1 Signatures: Corry Posey, RED MUD THICKENER OPERATOR-C RED MUD THICKENER OPERATOR-Rufina Goodson RN RN aa5 Heather Last RN RN ca1 Eloise Griggs ag5
[2019-11-29] MEDS ORDERED: CEPHALEXIN 250 MG CAP ONE (18:57)
[2019-11-29] MEDS ORDERED: SMZ./TMP. 800/160 MG TABLET ONE (18:57)
[2019-11-29 19:59] VITALS: TEMP 98.6
[2019-11-29 20:10] VITALS: BP 162/92; O2SAT 99
--- OUTSIDE RECORDS SUMMARY | 2019-11-30 05:25 | XMS REPORT | Clinical Summary ---
:1975 Author Organization [facility] Address [address] [place] [address] Care Team Providers Name Role Phone Vashti Rubalcava MD Primary Care Provider [phone] Allergies Active Allergy Reactions Severity Noted [...] Renal condition is unchanged. AV Fistula Creation Surgical History Surgery Date Site/Laterality Comments AMPUTATION Left left BKA RENAL BIOPSY 06/24/2016 Left VASCULAR SURGERY Right right chest TDC ANKLE FRACTURE SURGERY Right metal nicolle te and pins right ankle and upper leg APPENDECTOMY CHOLECYSTECTOMY CREATION, AV FISTULA, UPPER 06/28/2016 Arm Upper/Left Proc edure: Creation of EXTREMITY, DISTAL left arm AV Fi stula ; Surgeon: Escobar Rubio MD; Loc ation: [facility] AV OR; Serv ice: Vascular; Later ality: Left; Medical devices from this surgery are in the Implants section . VENOGRAPHY, UPPER OR LOWER 07/06/2016 Arm Upper/Left Proce dure: left upper EXTREMITY, UNILATERAL extermity venogram poss. angioplasty poss stenting; Surge on: Perla trammell MD; Location: [facility] A V OR; Service: Cardiov ascular; Laterality: Lef t; TUNNELED VENOUS CATHETER PLACEMENT LEG AMPUTATION Lower bka TOE AMPUTATION Right rt little toe RETINAL LASER PROCEDURE Bilateral DIALYSIS FISTULA CREATION 02/22/2016 - Right Right upper arm 02/20/2017 AV FISTULA PLACEMENT Left Non-functio justin CENTRAL VENOUS CATHETER 02/22/2016 - Right REMOVAL 02/20/2017 Medical History Medical History Date Comments Chronic kidney disease ESRD (end stage renal disease) on dialysis (HCC) Diabetes mellitus (HCC) on insulin, DM I I Hx of BKA (HCC) left BKA Bacteremia 2014 UTI (urinary tract infection) Depression History of transfusion Peripheral vascular disease (HCC) MRSA (methicillin resistant staph aureus) culture positive Parasite infection 2018 Type 2 diabetes mellitus (HCC) 1999 Hypertension 2017 Hypotension GERD (gastroesophageal reflux disease) Blurry vision, right eye Wheel chair as ambulatory aid 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 Family History Relation Name Status Comments Father Mother Social History Tobacco Use Types Packs/Day Years Used Date Former Smoker 0.5 Quit: 1986 Smokeless Tobacco: Never Used Alcohol Use Drinks/Week oz/Week Comments No Sex Assigned at Date Recorded Not on file Last Filed Vital Signs Not on file Plan of Treatment Health Maintenance Due Date Last Done Comments DIABETIC RETINAL EYE EXAM 1975 DIABETIC FOOT EXAM 12/12/1983 URINE MICROALBUMIN 12/12/1983 INFLUENZA VACCINE 09/22/2019 Implants Implanted Type Area Mailroom Clerk Device Shelf Model / Identifier Expiration Serial / Date Lot Clip Ligtng Weck Hemoclip Plus W/ Tape Ti Sm - [id number] Medical Left: WECK CLOSURE 07/21/2020 [id number] / Implanted: Qty: 2 on 06/28/2016 by Perla Carr MD at [facility] Clips for Arm, SYSTEMS / Internal Use Upper Clip Ligtng Weck Hemoclip Plus W/ Tape Ti Med - [id number] Medica l Left: TELEFLEX 10/20/2020 [id number] / Implanted: Qty: 2 on 06/28/2016 by Perla Carr MD at [facility] Clips for Arm, MEDICAL / Internal Use Upper Results Not on fileafter 11/28/2018 Insurance Payer Benefit Plan / Subscriber ID Effective Phone Address T ype Group Dates MEDICARE MEDICARE PART A [id number] 2016-Pres [place], [place] Medicare AND B ent MEDICAID MEDICAID [id number] 2016-Pres Medica id ent COMMERCIAL MISC MISC COMMERCIAL [id number] 2016-Pres Commercial ent Advance Directives For more information, please contact: [phone] Type Date Recorded Patient Fancy Sewer Explanati on Advance Directives, Living Will 06/28/2016 5:45 AM and Medical Power of Lead Injection Mold Technician
--- OUTSIDE RECORDS SUMMARY | 2019-11-30 05:26 | XMS REPORT | Continuity of Care Document ---
:1975 Author Organization [facility] t Address [address] [place] [address] Care Team Providers Name Role Phone Vashti Rubalcava MD Primary Care Physician [phone] Carol Attending Clinician Doctor Unassigned, Name Attending Clinician Unavailable Fidelia MOSS, S Attending Clinician Problems Condition Condition Condition Status Onset Resolution Last Treating Co mments Source Name Details Category Date Date Treatment Clinician Date Type 2 Type 2 Disease Active [place] diabetes diabetes 7-24 Method i mellitus mellitus 00:00: st 00 DVT (deep DVT (deep Disease Active [facility] sto venous venous 5-13 Methodi [...] Quantity Comments Source History of Current smoker [facility] thodist tobacco use Sex Assigned At [facility] jennaodist Tobacco use and 2017-05-10 2017-05-10 Never used [facility] ethodist exposure 00:00:00 00:00:00 Alcohol intake 2017-05-10 2017-05-10 Current [facility] thodist 00:00:00 00:00:00 non-drinker of alcohol (finding) Smoking Status Start Date Stop Date Source Former smoker 2017-05-10 00:00:00 2017-05-10 00:00:00 [facility] Medications Ordered Filled Start Stop Current Ordering Indication Dosage Frequency Signature Comments Components Source Medication Medication Date Date Medication? Clinician (SIG) Name Name calcium 2018-0 Yes 2001mg [id number] Take 2,001 [place] acetate 3-20 [id number] mg by Metho di (PHOSLO) 09:15: 3D [...] (two) times a day before meals. insulin 2018-0 Yes [id number] Inject [place] regular 3-20 [id number] under the M ethodi (HumuLIN-R, 09:15: 3D [...] 100 unit/mL (3 mL) insulin pen pregabalin Yes 50mg QD Take 50 mg H [...] times a day. hydrALAZINE 2016-02 Yes 25mg Q.[id number] Take 25 mg [place] (APRESOLINE 0-04 [id number] by mouth 3 Methodi ) 25 MG 08:08: 3D (three) st tablet 21 times a day. amLODIPine 2016-02 Yes 10mg QD Take 10 mg [place] (NORVASC) 0-04 by mouth Method i 10 mg 08:08: daily. st tablet 21 Procedures This patient has no known procedures. Plan of Care Planned Activity Planned Date Details Comments Source Future Scheduled 2019-09-22 INFLUENZA VACCINE [place] [facility] 00:00:00 [code = INFLUENZA VACCINE] Future Scheduled 1983-12-12 DIABETIC FOOT EXAM [place] [facility] 00:00:00 [code = DIABETIC FOOT EXAM] Future Scheduled 1983-12-12 URINE MICROALBUMIN [place] [facility] 00:00:00 [code = URINE MICROALBUMIN] Future Scheduled 1975 DIABETIC RETINAL EYE [place] [facility] Test 00:00:00 EXAM [code = DIABETIC RETINAL EYE EXAM] Encounters Start End Encounter Admission Attending Care Care Encounter Source Date/Time Date/Time Type Type Clinicians Facility Department ID 2019-09-17 2019-09-17 Letter WERO [place] [id number] 00:00:00 00:00:00 (Out) Rony DOVE [id number] [facility] [id number] 2019-08-24 2019-08-24 Orders Doctor WERO [id number] 00:00:00 00:00:00 Only UnassignedDERRELL [id number] [place] [facility] [id number] 2019-06-20 2019-06-20 Emergency [facility] [id number] 21:13:58 23:17:00 Snow Yates [id number] [place] [id number] [place] [id number] Results This patient has no known results.
== END 2019-11-29 19:03 | disposition home or self-care (01) ==
LOC: ER 17:45
DX: L02.31 Cutaneous abscess of buttock (principal); I10 Essential (primary) hypertension
CPT/HCPCS: 99283

== ENCOUNTER 2020-01-20 15:08 | Observation (INO) | payer OTHER ==
--- OUTSIDE RECORDS SUMMARY | 2020-01-20 15:12 | XMS REPORT | Clinical Summary ---
:1975 Author Organization [facility] Address [address] [place] [address] Care Team Providers Name Role Phone Vashti Rubalcava MD Primary Care Provider [phone] Allergies Active Allergy Reactions Severity Noted [...] ; Surgeon: Escobar Rubio MD; Loc ation: [facility] AV OR; Serv ice: Vascular; Later ality: Left; Medical devices from this surgery are in the Implants section . VENOGRAPHY, UPPER OR LOWER 07/06/2016 Arm Upper/Left Proce dure: left upper EXTREMITY, UNILATERAL extermity venogram poss. angioplasty poss stenting; Surge on: Perla trammell MD; Location: [facility] A V OR; Service: Cardiov ascular; [...] Health Maintenance Due Date Last Done Comments DIABETES: RETINAL EYE EXAM 12/12/1983 DIABETIC FOOT EXAM 12/12/1983 URINE MICROALBUMIN 12/12/1983 INFLUENZA VACCINE 09/22/2019 Implants Implanted Type Area Stereo Plotter Operator Device Shelf Model / Identifier Expiration Serial / Date Lot Clip Ligtng Weck Hemoclip Plus W/ Tape Ti Sm - [id number] Medical Left: WECK CLOSURE 07/21/2020 [id number] / Implanted: Qty: 2 on 06/28/2016 by Perla Carr MD at [facility] Clips for Arm, SYSTEMS / Internal Use Upper Clip Ligtng Weck Hemoclip Plus W/ Tape Ti Med - [id number] Medica l Left: TELEFLEX 10/20/2020 [id number] / Implanted: Qty: 2 on 06/28/2016 by Perla Carr MD at [facility] Clips for Arm, MEDICAL / Internal Use Upper Results Not on fileafter 01/19/2019 Insurance Payer Benefit Plan / Subscriber ID Effective Phone Address T ype Group Dates MEDICARE MEDICARE PART A [id number] 2016-Pres [place], [place] Medicare AND B ent MEDICAID MEDICAID [id number] 2016-Pres Medica id ent COMMERCIAL MISC MISC COMMERCIAL [id number] 2016-Pres Commercial ent Advance Directives For more information, please contact: [phone] Type Date Recorded Patient Lead Technical Architect Explanati on Advance Directives, Living Will 06/28/2016 5:45 AM and Medical Power of Instructor Technical Training
--- OUTSIDE RECORDS SUMMARY | 2020-01-20 15:12 | XMS REPORT | Continuity of Care Document ---
:1975 Author Organization [facility] t Address [address] [place] [address] Care Team Providers Name Role Phone Vashti Rubalcava MD Primary Care Physician [phone] Carol Attending Clinician Doctor Unassigned, Name Attending Clinician Unavailable Fidelia MOSS, S Attending Clinician Problems Condition Condition Condition Status Onset Resolution Last Treating Co mments Source Name Details Category Date Date Treatment Clinician Date Type 2 Type 2 Disease Active [place] diabetes diabetes 7-24 Method i mellitus mellitus 00:00: st 00 DVT (deep DVT (deep Disease Active [facility] sto venous venous 5-13 Methodi thrombosis thrombosis [...] Quantity Comments Source History of Current smoker [facility] thodist tobacco use Sex Assigned At [facility] jennaodist Tobacco use and 2017-05-10 2017-05-10 Never used [facility] ethodist exposure 00:00:00 00:00:00 Alcohol intake 2017-05-10 2017-05-10 Current [facility] thodist 00:00:00 00:00:00 non-drinker of alcohol (finding) Smoking Status Start Date Stop Date Source Former smoker 2017-05-10 00:00:00 2017-05-10 00:00:00 [facility] Medications Ordered Filled Start Stop Current Ordering Indication Dosage Frequency Signature Comments Components Source Medication Medication Date Date Medication? Clinician (SIG) Name Name calcium 2018-0 Yes 2001mg Q.[id number] Take 2,001 [place] acetate 3-20 [id number] mg by Metho di (PHOSLO) 09:15: 3D [...] a day before meals. insulin 2018-0 Yes Q.[id number] Inject [place] regular 3-20 [id number] under the M ethodi (HumuLIN-R, 09:15: 3D [...] times a day. hydrALAZINE 2016-02 Yes 25mg Q.[id number] Take 25 mg [place] (APRESOLINE 0-04 [id number] by mouth 3 Methodi ) 25 MG 08:08: 3D (three) st tablet 21 times a day. amLODIPine 2016-02 Yes 10mg QD Take 10 mg [place] (NORVASC) 0-04 by mouth Method i 10 mg 08:08: daily. st tablet 21 Procedures This patient has no known procedures. Plan of Care Planned Activity Planned Date Details Comments Source Future Scheduled 2019-09-22 INFLUENZA VACCINE [place] [facility] 00:00:00 [code = INFLUENZA VACCINE] Future Scheduled 1983-12-12 DIABETES: RETINAL EYE [place] [facility] Test 00:00:00 EXAM [code = DIABETES: RETINAL EYE EXAM] Future Scheduled 1983-12-12 DIABETIC FOOT EXAM [place] [facility] 00:00:00 [code = DIABETIC FOOT EXAM] Future Scheduled 1983-12-12 URINE MICROALBUMIN [place] [facility] 00:00:00 [code = URINE MICROALBUMIN] Encounters Start End Encounter Admission Attending Care Care Encounter Source Date/Time Date/Time Type Type Clinicians Facility Department ID 2019-09-17 2019-09-17 Letter WERO [place] [id number] 00:00:00 00:00:00 (Out) Rony DOVE [id number] [facility] [id number] 2019-08-24 2019-08-24 Orders Doctor WERO [id number] 00:00:00 00:00:00 Only UnassignedDERRELL [id number] [place] [facility] [id number] 2019-06-20 2019-06-20 Emergency [facility] [id number] 21:13:58 23:17:00 Snow Yates [id number] [place] [id number] [place] [id number] Results This patient has no known results.
[2020-01-20 15:52] LABS: Absolute Lymphocytes (CBC) 0.4 K/uL (0.7-4.9); Basophils % 1.3 % (0-1.3); Hematocrit 28.6 % (39.6-49.0); Lymphocytes % 6.6 % (15.3-44.8); MPV 8.8 fL (7.6-11.3); RBC Red Blood Cell Count 2.95 M/uL (4.33-5.43)
--- NOTE | 2020-01-20 16:01 | RAD REPORT ---
EXAM DESCRIPTION: RAD - Chest Single View - 01/20/2020 3:38 pm CLINICAL HISTORY: DYSPNEA COMPARISON: Portable February 2016 TECHNIQUE: AP portable chest image was obtained 01/20/2020 3:38 pm . FINDINGS: Lung volumes are low. Large body habitus further accentuates exam limitations. No peripher al mass or consolidation. No significant failure or volume overload seen. Cardiac silhouette is enlarged. Vasculature within normal limits. Heart size is similar to compariso n. No measurable pleural effusion and no pneumothorax. No acute bony abnormality seen. No acute aorti c findings suspected. IMPRESSION: No acute cardiopulmonary process. The above detailed chest findings are not substantially different comparison.
[2020-01-20 16:18] LABS: Potassium 5.4 mmol/L (3.5-5.1)
[2020-01-20] MEDS ORDERED: SOD POLYSTYREN SUL 15 GM/60 ML UCUP ONE (17:20)
[2020-01-20] MEDS ORDERED: INSULIN -REGULAR HUMAN 50 UNIT/0.5 ML ML ONE (17:20)
[2020-01-20] MEDS ORDERED: D50W 50 ML IV ONE (17:21)
--- NOTE | 2020-01-20 18:33 | ER ---
Nurse's Notes [facility] Name: Danny Tellez Age: 44 yrs Sex: Male : 1975 Arrival Date: 01/20/2020 Time: 15:12 Bed 13 Private MD: Diagnosis: Hyperkalemia;Coronavirus infection, [id number];End stage renal disease-on HD Presentation: 01/19 15:25 Chief complaint: Patient states: SOB and productive cough since this morning. Denies ca1 fever. Reports exposure to Covid + person on . Pt on dialysis MWF, last dialysis was Tuesday. Denies any other symptoms. Coronavirus screen: Client denies travel out of the [place] in the last 14 days. cough unrelated to allergies, shortness of breath, Client presents with at least one sign or symptom that may indicate coronavirus-19. Standard/surgical mask placed on the client. Provider contacted for isolation considerations. Ebola Screen: Patient negative for fever greater than or equal to 101.5 degrees Fahrenheit, and additional compatible Ebola Virus Disease symptoms Patient denies exposure to infectious person. Patient denies travel to an Ebola-affected area in the 21 days before illness onset. No symptoms or risks identified at this time. Initial Sepsis Screen: Does the patient meet any 2 criteria? No. Patient's initial sepsis screen is negative. Does the patient have a suspected source of infection? No. Patient's initial sepsis screen is negative. Risk Assessment: Do you want to hurt yourself or someone else? Patient reports no desire to harm self or others. Onset of symptoms was January 20, 2020. 15:25 Method Of Arrival: Wheelchair ca1 15:25 Acuity: BRIANDA 3 ca1 Triage Assessment: 15:28 General: Appears in no apparent distress. comfortable, Behavior is calm, cooperative, ca1 appropriate for age. Pain: Denies pain. EENT: No signs and/or symptoms were reported regarding the EENT system. Neuro: Level of Consciousness is awake, alert, obeys commands, Oriented to person, place, time, situation. Cardiovascular: Heart tones S1 S2 present Capillary refill < 3 seconds Patient's skin is warm and dry. Dialysis shunt: in the left bicep, with palpable thrill, with auscultated bruit. Respiratory: Reports shortness of breath cough that is productive, since this morning Airway is patent Respiratory effort is even, unlabored, Respiratory pattern is regular, symmetrical, Breath sounds are clear bilaterally. Onset: The symptoms/episode began/occurred this morning, the patient has mild shortness of breath. GI: Abdomen is round non-distended, Bowel sounds present X 4 quads. Abd is soft and non tender X 4 quads. : No signs and/or symptoms were reported regarding the genitourinary system. Derm: Skin is intact, is healthy with good turgor, Skin is pink, warm \T\ dry. Musculoskeletal: Amputation of BKA. Historical: - Allergies: 15:28 NKA; ca1 - PMHx: 15:28 Diabetes - IDDM; Dialysis; Hypertension; Renal Disease; ca1 - PSHx: 15:28 Left arm fistula; Left BKA; ca1 - Immunization history:: Adult Immunizations up to date, Flu vaccine is up to date. - Social history:: Smoking status: Patient denies any tobacco usage or history of. Screenin:29 Abuse screen: Denies threats or abuse. Denies injuries from another. Nutritional ca1 screening: No deficits noted. Tuberculosis screening: No symptoms or risk factors identified. Fall Risk Secondary diagnosis (15 points) impaired mobility, IV access (20 points). Ambulatory Aid- Crutches/Cane/Walker (15 pts). Gait- Impaired (20 pts.). Total Navarrete Fall Scale indicates High Risk Score (45 or more points). Fall prevention measures have been instituted. Side Rails Up X 2 As available patient and family educated on Fall Prevention Program and Strategies. Assessment: 15:29 Reassessment: see triage notes. Cardiovascular: Rhythm is sinus rhythm. ca1 16:41 Reassessment: Patient appears in no apparent distress at this time. Patient and/or ca1 family updated on plan of care and expected duration. Pain level reassessed. Patient is alert, oriented x 3, equal unlabored respirations, skin warm/dry/pink. 17:45 Reassessment: Patient appears in no apparent distress at this time. Patient and/or ca1 family updated on plan of care and expected duration. Pain level reassessed. Patient is alert, oriented x 3, equal unlabored respirations, skin warm/dry/pink. 18:48 Reassessment: Patient appears in no apparent distress at this time. Patient and/or ca1 family updated on plan of care and expected duration. Pain level reassessed. Patient is alert, oriented x 3, equal unlabored respirations, skin warm/dry/pink. 19:45 Reassessment: Patient appears in no apparent distress at this time. Patient and/or ca1 family updated on plan of care and expected duration. Pain level reassessed. Patient is alert, oriented x 3, equal unlabored respirations, skin warm/dry/pink. 19:55 Reassessment: Dr. Zuleta at bedside. ca1 Vital Signs: 15:25 BP 141 / 85; Pulse 85; Resp 18 S; Temp 98.5(TE); Pulse Ox 100% on R/A; Weight 117.93 kg ca1 (R); Height 5 ft. 10 in. (177.80 cm) (R); Pain 0/10; 16:41 BP 146 / 88; Pulse 81; Resp 19 S; Pulse Ox 97% on R/A; ca1 17:45 BP 156 / 89; Pulse 80; Resp 18 S; Pulse Ox 98% on R/A; ca1 18:48 BP 129 / 82; Pulse 78; Resp 18 S; Pulse Ox 100% on R/A; ca1 19:30 BP 159 / 88; Pulse 79; Resp 18 S; Pulse Ox 100% on R/A; ca1 15:25 Body Mass Index 37.31 (117.93 kg, 177.80 cm) ca1 ED Course: 15:12 Patient arrived in ED. bg2 15:20 Corry Posey [facility]-C [facility]. kb 15:20 Kale Estrada MD is Attending Physician. kb 15:24 Heather Last, CHELSEY is Primary Nurse. ca1 15:27 Triage completed. ca1 15:28 Arm band placed on right wrist. ca1 15:29 Patient has correct armband on for positive identification. Placed in gown. Bed in low ca1 position. Call light in reach. Side rails up X2. Pulse ox on. NIBP on. Warm blanket given. 15:39 Chest Single View XRAY In Process Unspecified. EDMS 15:42 Initial lab(s) drawn, by me, sent to lab. Inserted saline lock: 20 gauge in right ca1 wrist, using aseptic technique. Blood collected. 18:31 Buddy Zuleta is Hospitalizing Provider. kb 19:54 No provider procedures requiring assistance completed. Patient admitted, IV remains in ca1 place. 01/20 06:56 Primary Nurse role handed off by Heather Last RN bp 06:56 Twan Escobedo, RN is Primary Nurse. bp Administered Medications: 01/19 17:20 Drug: D50W 50 ml Route: IVP; Site: right wrist; ca1 18:27 Follow up: Response: No adverse reaction ca1 17:23 Drug: Insulin Regular Human 5 units {Co-Signature: iw (Yokasta Meredith RN).} Route: IVP; ca1 Site: right wrist; 18:27 Follow up: Response: No adverse reaction ca1 17:24 Drug: Kayexalate 30 grams Route: PO; ca1 18:27 Follow up: Response: No adverse reaction ca1 Outcome: 18:32 Decision to Hospitalize by Provider. kb 19:55 Admitted to ER Hold. Please see [facility] for further documentation. ca1 19:55 Admitted to Report called to given to CHELSEY Garza 19:55 Condition: stable 19:55 Instructed on the need for admit. 01/20 14:44 Admitted to ICU accompanied by tech, via wheelchair, room 1, Report called to MUSTAPHA osuna RN 14:57 Patient left the ED. bp Signatures: Dispatcher [employer] EDMS Corry Posey, KITTY BARREL REPAIRER-Tory Rodarte 2 Twan Escobedo, RN RN Heather Last, CHELSEY RN ca1 Yokasta Meredith RN iw Corrections: (The following items were deleted from the chart) 01/19 17:17 15:44 CORONAVIRUS+ drawn and sent. ca1 EDMS 17:24 15:29 Cardiovascular: Rhythm is regular ca1 ca1 20: 15:25 Chief complaint: Patient states: SOB and productive cough since this morning. ca1 Denies fever. Reports exposure to Covid + person on . Pt on dialysis MWF, last dialysis was Tuesday. Denies any other symptoms ca1 20: 15:28 Cardiovascular: Heart tones S1 S2 present Capillary refill < 3 seconds Patient's ca1 skin is warm and dry. ca1 20: 15:25 Social history: Smoking status: Patient/guardian denies using tobacco, ca1 ca1
--- NOTE | 2020-01-20 18:33 | EDPHYS ---
Physician Documentation [facility] Name: Danny Tellez Age: 44 yrs Sex: Male : 1975 Arrival Date: 01/20/2020 Time: 15:12 Bed 13 Private MD: ED Physician Kale Estrada HPI: 01/19 15:31 This 44 yrs old Male presents to ER via Wheelchair with complaints of kb Breathing Difficulty - poss covid. 15:31 The patient has shortness of breath at rest. Onset: The symptoms/episode began/occurred kb this morning. Duration: The symptoms are continuous. The patient's shortness of breath is aggravated by nothing, is alleviated by nothing. Associated signs and symptoms: The patient has no apparent associated signs or symptoms. Severity of symptoms: At their worst the symptoms were mild moderate in the emergency department the symptoms are unchanged. The patient has experienced similar episodes in the past, a few times. The patient has not recently seen a physician. Pt reports shortness of breath that started this morning. States he was exposed to someone who tested positive for COVID so they wouldn't let him go to dialysis on Tuesday. He isn't sure if its fluid overload or covid causing the shortness of breath. Historical: - Allergies: 15:28 NKA; ca1 - PMHx: 15:28 Diabetes - IDDM; Dialysis; Hypertension; Renal Disease; ca1 - PSHx: 15:28 Left arm fistula; Left BKA; ca1 - Immunization history:: Adult Immunizations up to date, Flu vaccine is up to date. - Social history:: Smoking status: Patient denies any tobacco usage or history of. ROS: 15:33 Constitutional: Negative for fever, chills, and weight loss, Cardiovascular: Negative kb for chest pain, palpitations, and edema, Abdomen/GI: Negative for abdominal pain, nausea, vomiting, diarrhea, and constipation, MS/Extremity: Negative for injury and deformity, Skin: Negative for injury, rash, and discoloration, Neuro: Negative for headache, weakness, numbness, tingling, and seizure. 15:33 Respiratory: Positive for shortness of breath. Exam: 15:33 Constitutional: This is a well developed, well nourished patient who is awake, alert, kb and in no acute distress. Head/Face: Normocephalic, atraumatic. Chest/axilla: Normal chest wall appearance and motion. Nontender with no deformity. No lesions are appreciated. Cardiovascular: Regular rate and rhythm with a normal S1 and S2. No gallops, murmurs, or rubs. Normal PMI, no JVD. No pulse deficits. Respiratory: Lungs have equal breath sounds bilaterally, clear to auscultation and percussion. No rales, rhonchi or wheezes noted. No increased work of breathing, no retractions or nasal flaring. Abdomen/GI: Soft, non-tender, with normal bowel sounds. No distension or tympany. No guarding or rebound. No evidence of tenderness throughout. Skin: Warm, dry with normal turgor. Normal color with no rashes, no lesions, and no evidence of cellulitis. Neuro: Awake and alert, GCS 15, oriented to person, place, time, and situation. Cranial nerves II-XII grossly intact. Motor strength 5/5 in all extremities. Sensory grossly intact. Cerebellar exam normal. Normal gait. 15:33 Musculoskeletal/extremity: Exam is negative for acute changes. 17:24 ECG was reviewed by the Attending Physician. Vital Signs: 15:25 BP 141 / 85; Pulse 85; Resp 18 S; Temp 98.5(TE); Pulse Ox 100% on R/A; Weight 117.93 kg ca1 (R); Height 5 ft. 10 in. (177.80 cm) (R); Pain 0/10; 16:41 BP 146 / 88; Pulse 81; Resp 19 S; Pulse Ox 97% on R/A; ca1 17:45 BP 156 / 89; Pulse 80; Resp 18 S; Pulse Ox 98% on R/A; ca1 18:48 BP 129 / 82; Pulse 78; Resp 18 S; Pulse Ox 100% on R/A; ca1 19:30 BP 159 / 88; Pulse 79; Resp 18 S; Pulse Ox 100% on R/A; ca1 15:25 Body Mass Index 37.31 (117.93 kg, 177.80 cm) ca1 MDM: 15:20 Patient medically screened. kb 15:33 Data reviewed: vital signs, nurses notes. Data interpreted: Pulse oximetry: on room air kb is 100 %. Interpretation: normal. 17:23 Counseling: I had a detailed discussion with the patient and/or guardian regarding: the kb historical points, exam findings, and any diagnostic results supporting the discharge/admit diagnosis, lab results, radiology results, the need for further work-up and treatment in the hospital. 17:57 Physician consultation: Dr Schrader's call service called at [phone], awaiting callback. kb 17:59 ED course: Dr Schrader paged again. kb 18:30 Physician consultation: Dr Schrader wants pt admitted and dialyzed today. kb 01/19 15:22 Order name: CBC with Diff; Complete Time: 16:00 kb 01/19 15:22 Order name: Basic Metabolic Panel; Complete Time: 16:39 kb 01/19 16:58 Order name: SARS-COV-2 RT PCR; Complete Time: 17:01 EDMS 01/19 20:56 Order name: Glucose, Ancillary Testing; Complete Time: 20:58 EDMS 01/20 05:53 Order name: CBC with Automated Diff; Complete Time: 14:28 EDMS 01/20 05:57 Order name: Urinalysis; Complete Time: 14:28 EDMS 01/20 06:15 Order name: Urine Microscopic Only; Complete Time: 14:28 EDMS 01/20 06:18 Order name: Basic Metabolic Panel; Complete Time: 14:28 EDMS 01/20 06:18 Order name: Phosphorus; Complete Time: 14:28 EDMS 01/20 06:18 Order name: Magnesium; Complete Time: 14:28 EDMS 01/20 07:53 Order name: Glucose, Ancillary Testing; Complete Time: 14:28 EDMS 01/20 11:28 Order name: Glucose, Ancillary Testing; Complete Time: 14:28 EDMS 01/20 12:34 Order name: C-Reactive Protein; Complete Time: 14:28 EDMS 01/19 15:20 Order name: Chest Single View XRAY; Complete Time: 16:02 kb 01/19 15:22 Order name: IV Start; Complete Time: 15:44 kb 01/19 16:48 Order name: EKG; Complete Time: 16:49 kb 01/19 16:48 Order name: EKG - Nurse/Tech; Complete Time: 17:22 kb 01/20 12:34 Order name: Ferritin; Complete Time: 14:28 EDMS EC:24 Rate is 79 beats/min. Rhythm is regular. QRS [place] is Normal. [place] interval is normal at kb 150 msec. QRS interval is normal at 98 msec. QT interval is normal at 368 msec. Administered Medications: 17:20 Drug: D50W 50 ml Route: IVP; Site: right wrist; ca1 18:27 Follow up: Response: No adverse reaction ca1 17:23 Drug: Insulin Regular Human 5 units {Co-Signature: iw (Yokasta Meredith RN).} Route: IVP; ca1 Site: right wrist; 18:27 Follow up: Response: No adverse reaction ca1 17:24 Drug: Kayexalate 30 grams Route: PO; ca1 18:27 Follow up: Response: No adverse reaction ca1 Disposition: 01/20 15:06 Co-signature as Attending Physician, Kale Estrada MD. rn Disposition: 01/20/20 18:32 Hospitalization ordered by Buddy Zuleta for Observation. Preliminary diagnosis are Hyperkalemia, Coronavirus infection, unspecified - COVID-19, End stage renal disease - on HD. - Bed requested for Intensive Care Unit. - Status is Observation. bp - Condition is Stable. - Problem is an acute exacerbation. - Symptoms are unchanged. Signatures: Dispatcher [employer] EDWY Corry Posey, COB SAWYER-C COB SAWYER-Ckb Velvet Cheek Kale Estrada MD MD rn Garcia, Cindy, RN RN cg Twan Escobedo, Heather Garcia RN, RN RN ca1 Yokasta Meredith RN iw Corrections: (The following items were deleted from the chart) 01/19 17:17 15:23 CORONAVIRUS+MR.LAB.BRZ ordered. [facility] 19:39 18:32 Hospitalization Ordered by Buddy Zuleta for Observation. Preliminary diagnosis cg is Hyperkalemia; Coronavirus infection, unspecified - COVID-19; End stage renal disease - on HD. Bed requested for Telemetry/MedSurg (observation). Status is Observation. Condition is Stable. Problem is an acute exacerbation. Symptoms are unchanged. kb 20:23 15:25 Social history: Smoking status: Patient/guardian denies using tobacco, ca1 ca1 01/20 14:17 01/19 19:39 01/20/2020 18:32 Hospitalization Ordered by Buddy Zuleta for Observation. bd Preliminary diagnosis is Hyperkalemia; Coronavirus infection, unspecified - COVID-19; End stage renal disease - on HD. Bed requested for [facility] ER HOLD. Status is Observation. Condition is Stable. Problem is an acute exacerbation. Symptoms are unchanged. 01/20 14:57 14:17 01/20/2020 18:32 Hospitalization Ordered by Buddy Zuleta for Observation. bp Preliminary diagnosis is Hyperkalemia; Coronavirus infection, unspecified - COVID-19; End stage renal disease - on HD. Bed requested for Intensive Care Unit. Status is Observation. Condition is Stable. Problem is an acute exacerbation. Symptoms are unchanged. bd
--- NOTE | 2020-01-20 20:24 | P.HP ---
Certification for Inpatient Patient admitted to: Observation With expected LOS: <2 Midnights Practitioner: I am a practitioner with admitting privileges, knowledge of patient current condition, hospital course, and medical plan of care. Services: Services provided to patient in accordance with Admission requirements found in Title 42 Section 412.3 of the Code of Federal Regulations Patient History Date of Service: 01/20/20 Reason for admission: Shortness of breath History of Present Illness: 44-year-old gentleman with a history of end-stage renal disease on hemodialysis on Tuesday, Tuesday and Tuesday, history of diabetes mellitus type 2, hypertension presented to the emergency department with a complaint of shortness of breath. Patient stated his tested positive for COVID. He will not be dialyzed at the dialysis center due to his exposure to COVID 19. Patient stated he started experiencing shortness of breath this morning. Chest x-ray done in the emergency department shows no acute cardiopulmonary process. Patient tested positive for COVID 19. He is not hypoxic. BMP shows hyperkalemia. Sound Controller Dr. Raciel Chow was contacted who recommended hospitalization for hemodialysis. Allergies No Known Allergies Allergy (Verified 02/24/16 21:52) Home Medications: Gabapentin 300 mg PO BID 02/24/16 Amlodipine [Norvasc*] 10 mg PO DAILY #30 tab 03/10/16 Furosemide [Lasix*] 80 mg PO BID #120 tab 03/10/16 Calcium Acetate [Phoslo*] 3 cap PO WMP 12/26/16 Calcium Acetate [Phoslo] 2 cap PO BID PRN 12/26/16 Codeine/APAP [Tylenol #3*] 1 tab PO Q4HR PRN 12/26/16 Insulin Degludec [Tresiba Flextouch U-100] 30 units SQ DAILY 12/26/16 Liraglutide [Victoza 2-Ryan] 0.6 mg SQ DAILY 12/26/16 Metoclopramide HCl [Reglan] 1 tab PO AC 12/26/16 Simvastatin 10 mg PO BEDTIME 12/26/16 Tamsulosin HCl [Flomax] 0.4 mg PO BEDTIME 12/26/16 cloNIDine HCL [Catapres*] 0.1 mg PO Q8HP PRN 12/26/16 lisinopriL [Prinivil] 10 mg PO DAILY 01/20/17 - Past Medical/Surgical History Diabetic: Yes -: Diabetes -: End-stage renal disease on hemodialysis -: HTN -: L BKA -: Appendectomy -: Cholecystectomy -: Wrist surgery -: Right ankle surgery -: right foot pinkie toe amputated. - Family History Father -: Hypertension, Diabetes Mother -: Hypertension, Diabetes, Cancer Notes: Dialysis; Breast Cancer Sister -: Hypertension, Diabetes - Social History Alcohol use: No CD- Drugs: No Caffeine use: Yes Review of Systems Other: Except as documented, all other systems reviewed and negative. Physical Examination - Physical Exam General: Alert, In no apparent distress, Oriented x3, Obese HEENT: Atraumatic, PERRLA, Mucous membr. moist/pink, Sclerae nonicteric Neck: Supple, JVD not distended Respiratory: Clear to auscultation bilaterally, Normal air movement Cardiovascular: No edema, Regular rate/rhythm, Normal S1 S2 Capillary refill: <2 Seconds Gastrointestinal: Normal bowel sounds, Soft and benign, Non-distended, No tenderness Musculoskeletal: No swelling, No warmth, Other (Left BKA) Integumentary: No erythema Neurological: Normal speech, Normal strength at 5/5 x4 extr, Cranial nerves 3-12 intact - Studies Laboratory Data (last 24 hrs) 01/20/20 15:41: Sodium 137, Potassium 5.4 H, BUN 102 H, Creatinine 12.50 H*, Glucose 189 H 01/20/20 15:41: WBC 6.5, Hgb 9.6 L, Hct 28.6 L, Plt Count 250 Assessment and Plan - Problems (Diagnosis) (1) Hyperkalemia Current Visit: Yes Status: Acute (2) Essential hypertension Onset Date: 08/13/15 Current Visit: No Status: Chronic - Plan Place under observation. Nephrology has been consulted who is arranging for hemodialysis tonight. Continue home medications for hypertension. Insulin sliding scale for glucose management Lantus insulin home dose 52 units daily. Check BMP in a.m. Vitamin [id number] and D Zinc supplementation. - Advance Directives Does patient have a Living Will: No Does patient have a Durable POA for Healthcare: No
[2020-01-20] MEDS ORDERED: ACETAMINOPHEN 500 MG TAB PO PRN (20:30)
[2020-01-20] MEDS ORDERED: ONDANSETRON 4 MG/2 ML VIAL IV PRN (20:30)
[2020-01-20] MEDS: INSULIN -REGULAR HUMAN 50 UNIT/0.5 ML ML SQ SCH (21:00)
[2020-01-21] MEDS: HEPARIN 5000 UNIT/ML 1 ML VIAL SQ SCH ×3 (01:00→17:35)
[2020-01-21] MEDS ORDERED: HEPARIN 5000 UNIT/ML 1 ML VIAL ONE (01:20)
[2020-01-21 05:51] LABS: Absolute Lymphocytes (CBC) 0.6 K/uL (0.7-4.9); Basophils % 1.3 % (0-1.3); Hematocrit 29.4 % (39.6-49.0); Lymphocytes % 8.5 % (15.3-44.8); MPV 9.1 fL (7.6-11.3); RBC Red Blood Cell Count 3.01 M/uL (4.33-5.43)
[2020-01-21 05:55] LABS: Urine Appearance CLEAR; Urine Bilirubin NEGATIVE (NEG); Urine Blood NEGATIVE (NEG); Urine Color YELLOW; Urine Glucose TRACE (NEG); Urine Protein 3+ (NEG); Urine Specific Gravity 1.015 (1.005-1.030); Urine Urobilinogen 0.2 mg/dL (0.2-1.0); Urine pH 7.5 (5.0-7.0)
[2020-01-21 05:57] LABS: Urine Microscopic Reflex ORDER UMIC
[2020-01-21 06:15] LABS: Urine Bacteria <20 /HPF (NONE SEEN); Urine RBC <5 /HPF (NONE SEEN)
[2020-01-21 06:17] LABS: Magnesium 2.7 mg/dL (1.8-2.4); Phosphorus 7.5 mg/dL (2.5-4.9); Potassium 5.4 mmol/L (3.5-5.1)
[2020-01-21] MEDS: INSULIN -REGULAR HUMAN 50 UNIT/0.5 ML ML SQ SCH ×4 (07:30→21:00)
[2020-01-21 12:33] LABS: C-Reactive Protein 8.73 mg/L (<3.00); Ferritin 647.4 ng/mL (26-388)
--- NOTE | 2020-01-21 17:24 | P.PN ---
Subjective Date of Service: 01/21/20 Chief Complaint: Shortness of breath Subjective: No new changes (Breathing okay on room air, and denies any other symptoms/complaints. Awaiting dialysis) Review of Systems 10-point ROS is otherwise unremarkable Physical Examination - Vital Signs Temperature: 98.1 F Blood Pressure: 171/91 Pulse: 86 Respirations: 19 Pulse Ox (%): 97 - Physical Exam General: Alert, In no apparent distress, Oriented x3 HEENT: Sclerae nonicteric Respiratory: Clear to auscultation bilaterally Cardiovascular: Regular rate/rhythm, Edema (Trace bilaterally, R to the mid t ibia, L BKA stump) Gastrointestinal: Soft and benign, No tenderness Musculoskeletal: No tenderness, Other (Left BKA) Integumentary: No rashes Neurological: Normal speech, Normal affect Assessment & Plan Physician Review Additional Text: Hyperkalemia ESRD on hemodialysis COVID+ DM 2 Hypertension -nephrology consulted, patient scheduled for dialysis today -discussed with nephrology patient will have to switch to [place] dialysis unit and will need Hep Ag prior to getting chair time -pt will also needing dialysis tomorrow -continue home medications, insulin sliding scale -CRP 8, patient asymptomatic, chest x-ray clear, will not treat with steroids for COVID at this time Dispo: mary tomorrow after dialysis Time Spent Managing Pts Care (In Minutes): 35
[2020-01-21] MEDS ORDERED: HYDRALAZINE HCL 20 MG/ML VIAL IV PRN (17:25)
[2020-01-21] MEDS ORDERED: LOPERAMIDE HCL 2 MG CAPSULE PO PRN (18:40)
[2020-01-21] MEDS ORDERED: TAMSULOSIN 0.4 MG SR CAP PO SCH (21:00)
[2020-01-22] MEDS: lisinopriL 20 MG TAB PO SCH ×2 (00:02→09:00)
[2020-01-22] MEDS: HEPARIN 5000 UNIT/ML 1 ML VIAL SQ SCH ×2 (00:15→09:24)
--- NOTE | 2020-01-22 01:23 | CON ---
Date of Consultation: 01/20/2020 Chief Complaint: End-stage renal disease on dialysis, severe shortness of breath. History Of Present Illness: The patient has multiple medical problems including history of obesity, diabetic kidney, peripheral vascular disease, history of amputation, and history of diabetic gastroparesis. The patient came to the hospital because of shortness of breath. He stated that he twice tested positive for COVID and the patient cannot be dialyzed at dialysis center due to exposure to COVID. Subsequently, he developed shortness of breath in the morning and chest x-ray in the emergency room showed some vascular congestion, although no pneumonia. The patient was tested positive for COVID and he is admitted to the hospital and ICU placement is made for the COVID infected patient to dialyze. The patient was found to have hyperkalemia, was treated with Kayexalate and dialysis will be ordered with 2 potassium dialysate. Review of Systems: Constitutional: The patient denies fever or chills. Eyes: Denies vision changes. Ears, Nose, Mouth, and Throat: Denies sore throat or earache. GI: Denies nausea or vomiting. : Denies dysuria or hematuria. Musculoskeletal: Denies muscle aches or joint swelling. Respiratory: He has shortness of breath. Denies syncope. All other systems reviewed and all are negative. Past Medical History: Diabetes mellitus with complication, diabetic nephropathy, retinopathy, peripheral vascular disease, hypertension, appendectomy, cholecystectomy, wrist surgery, right foot toe amputation, right ankle injury, left BKA. Family History: Father with hypertension, diabetes. Mother with hypertension, diabetes, cancer. Social History: Denies tobacco, alcohol, or illicit drugs. Physical Examination: General: The patient is awake, alert, follows commands, not in acute distress. Eyes: EOMI. Anicteric sclera Neck : supple, no JVD Respiratory: Normal respiratory effort. Cardiovascular: S1, S2. NO pericardial friction rub Gastrointestinal: Abdomen soft, nontender. benign Musculoskeletal: Left BKA. Normal speech. SKIN ; no oozing no cellulitis Neurologic CN intact, no tremor Laboratory Data: Sodium 137, potassium 5.4, BUN 102, creatinine 12.5, glucose 189. WBC 6.5, hemoglobin 9.6, platelet count 250,000. Impression And Plan: 1. End-stage renal disease. The patient is dialysis dependent. He has hyperkalemia. He will have urgent dialysis to treat hyperkalemia, I ordered 2k dialyzate. 2. Metabolic acidosis is in acceptable control. Consider sodium bicarbonate . 3. Hypertension. Continue blood pressure medication. 4. COVID 19 infection, per primary team. 5. Anemia on chronic kidney disease. Continue RUDOLPH. Adjust RUDOLPH to hemoglobin level. 6. Renal osteodystrophy. Continue renal diet and binders. 7. Insulin will be used for diabetes. 8. Fluid overload. The patient will have dialysis with ultrafiltration to prevent CHF exacerbation. EB/MODL Voice ID: [id number] Report ID: [id number] JASON
--- NOTE | 2020-01-22 01:35 | PN ---
Date of Progress Note: 01/21/2020 Chief Complaint: Shortness of breath, hyperkalemia. History Of Present Illness: Patient will have dialysis for metabolic clearance and volemia control. Patient has fluid overload and has undergone dialysis today with ultrafiltration. The patient will require daily dialysis for volume control and metabolic clearance. During this admission, patient was found to have COVID positive test. Patient is consulted by Pulmonary Service for possible treatment with prednisone. Chest x-ray did not show infiltrates. Review of Systems: Denies fever or chills. Physical Examination: Lungs: Diminished breath sounds at bases. Heart: S1, S2. Extremities: Left BKA. Some edema present in both legs. Impression And Plan: 1. End-stage renal disease. Patient will require daily dialysis. Next dialysis tomorrow. 2. Hyperkalemia. Treat it with dialysis. Monitor potassium and adjust dialysis parameters. 3. Hypertension, uncontrolled. Medications were adjusted. I have increased lisinopril and started the patient on carvedilol. Monitor heart rate and blood pressure. 4. Diabetes mellitus. Continue insulin. 5. Osteodystrophy. Continue renal diet and binders, adjust binders to phosphorus level. EB/MODL Voice ID: [id number] Report ID: [id number] JASON
[2020-01-22 05:48] LABS: C-Reactive Protein 12.7 mg/L (<3.00); Magnesium 2.5 mg/dL (1.8-2.4); Potassium 4.2 mmol/L (3.5-5.1)
[2020-01-22] MEDS ORDERED: carvediloL 3.125 MG TAB PO SCH (06:00)
[2020-01-22 06:33] VITALS: BMI 38.5
[2020-01-22] MEDS: INSULIN -REGULAR HUMAN 50 UNIT/0.5 ML ML SQ SCH ×2 (07:30→11:30)
[2020-01-22] MEDS ORDERED: lisinopriL 20 MG TAB PO SCH (09:00)
[2020-01-22] MEDS ORDERED: AMLODIPINE 10 MG TAB PO SCH (09:00)
[2020-01-22 09:47] VITALS: O2SAT 96
[2020-01-22] MEDS ORDERED: EPOETIN ALFA 10,000 UNIT/ML VIAL IV SCH (10:45)
--- NOTE | 2020-01-22 11:00 | P.PN ---
Subjective Date of Service: 01/22/20 Chief Complaint: Shortness of breath Subjective: No new changes Patient currently has no complain. He was hemodialyzed yesterday. Physical Examination - Vital Signs Temperature: 97.1 F Blood Pressure: 103/68 Pulse: 72 Respirations: 18 Pulse Ox (%): 96 - Physical Exam General: Alert, In no apparent distress HEENT: Mucous membr. moist/pink Neck: Supple, JVD not distended Respiratory: Clear to auscultation bilaterally, Normal air movement Cardiovascular: No edema, Regular rate/rhythm, Normal S1 S2 Capillary refill: <2 Seconds Gastrointestinal: Normal bowel sounds, Soft and benign, No tenderness Musculoskeletal: No swelling, No tenderness Integumentary: No rashes, No erythema Neurological: Other (Nonfocal) Assessment And Plan - Current Problems (Diagnosis) (1) Hyperkalemia Current Visit: Yes Status: Acute (2) Essential hypertension Onset Date: 08/13/15 Current Visit: No Status: Chronic - Plan Hemodialysis per nephrology. Patient is currently asymptomatic from COVID infection. Insulin sliding scale for glucose management Lantus insulin home dose 52 units daily. Vitamin [id number]-[id number]-Q and D Zinc supplementation. Arrangement is being made for patient to have hemodialysis at a facility that dialyze patient with COVID infection.
--- NOTE | 2020-01-22 11:05 | PN ---
Date of Progress Note: 01/22/2020 Subjective: The patient was admitted with COVID pneumonia, over volume. The patient missed dialysis. Objective: Vital Signs: Blood pressure 103/63, pulse of 72. afebrile. The patient had good urine output of 350. The patient being dialyzed. The patient seen on dialysis with good blood pressure, goaling for 3 L. Chest: Clear to auscultation. Heart: S1, S2. Systolic murmur. Abdomen: Soft, nontender. Extremities: Below-knee amputation. Neuro: Alert and oriented x3. Nonfocal. Laboratory Data: H and H 12/19.4. Sodium 138, potassium 4.2, bicarb 26, BUN 71, creatinine 10.1, calcium 8.5, phosphor 7.5, magnesium 2.5. Current Medications: The patient on include: 1. Amlodipine. 2. Carvedilol 3.125. 3. Lisinopril 40. 4. Zofran. 5. Insulin. Assessment And Plan: 1. End-stage renal disease, over volume. We will challenge the patient again, then the patient is going to be switch to TTS, so he can get his dialysis scheduled as outpatient. 2. Hypertension, controlled, optimal. We will utilize the blood pressure for more ultrafiltration. I am going to go ahead and DC amlodipine. 3. Respiratory failure secondary to over volume. We will try to utilize blood pressure for challenging the patient. 4. Anemia of chronic kidney disease. Continue RUDOLPH. 5. Secondary hyperpara. Resume his home binder Renvela. time spent coordinating care discussing with the patient [id number] with the patient, placing order , discussing the case with the other team number + hospitalists and consultants 35 min CHRISTINA Voice ID: [id number] Report ID: [id number] JASON
[2020-01-22] MEDS ORDERED: SEVELAMER CARBONATE 800 MG TABLET PO SCH (12:00)
[2020-01-22 12:17] VITALS: BP 127/83; TEMP 97.9
--- NOTE | 2020-01-22 14:29 | P.DS ---
Admission Date: 01/20/20 Discharge Date: 01/22/20 Disposition: ROUTINE DISCHARGE Discharge Condition: FAIR Reason for Admission: Shortness of breath - Problems (1) Hyperkalemia Current Visit: Yes Status: Acute (2) Essential hypertension Onset Date: 08/13/15 Current Visit: No Status: Chronic (3) COVID-19 Current Visit: Yes Status: Acute Brief History of Present Illness: 44-year-old gentleman with a history of end-stage renal disease on hemodialysis on Tuesday, Tuesday and Tuesday, history of diabetes mellitus type 2, hypertension presented to the emergency department with a complaint of shortness of breath. Patient stated his tested positive for COVID. He will not be dialyzed at the dialysis center due to his exposure to COVID 19. Patient stated he started experiencing shortness of breath this morning. Chest x-ray done in the emergency department shows no acute cardiopulmonary process. Patient tested positive for COVID 19. He is not hypoxic. BMP shows hyperkalemia. Catalytic Converter Operator Dr. Raciel Chow was contacted who recommended hospitalization for hemodialysis. Hospital Course: Patient placed under observation. He was evaluated by nephrology. Patient underwent hemodialysis sessions per nephrology recommendations. Nephrology is arranging for patient to have hemodialysis at the facility that accept COVID patients pending his hepatitis profile. Patient hemodialyzed today and deemed clinically stable for discharge. He is currently asymptomatic from the COVID 19 infection. Vital Signs/Physical Exam: Temp Pulse Resp BP Pulse Ox 97.9 F 79 18 127/83 96 01/22/20 12:00 01/22/20 12:00 01/22/20 11:00 01/22/20 12:00 01/22/20 11:00 General: Alert, In no apparent distress Neck: JVD not distended Respiratory: Clear to auscultation bilaterally, Normal air movement Cardiovascular: Regular rate/rhythm, Normal S1 S2 Gastrointestinal: Soft and benign, Non-distended Musculoskeletal: No swelling Integumentary: No rashes Neurological: Other (Nonfocal) Laboratory Data at Discharge: WBC 7.1 K/uL (4.3-10.9) 01/21/20 05:24 Hgb 10.0 g/dL (13.6-17.9) L 01/21/20 05:24 Hct 29.4 % (39.6-49.0) L 01/21/20 05:24 Plt Count 233 K/uL (152-406) 01/21/20 05:24 Sodium 138 mmol/L (136-145) 01/22/20 04:45 Potassium 4.2 mmol/L (3.5-5.1) 01/22/20 04:45 BUN 71 mg/dL (7-18) H D 01/22/20 04:45 Creatinine 10.10 mg/dL (0.55-1.3) H* D 01/22/20 04:45 Glucose 122 mg/dL (74-106) H 01/22/20 04:45 Phosphorus 7.5 mg/dL (2.5-4.9) H 01/21/20 05:24 Magnesium 2.5 mg/dL (1.8-2.4) H 01/22/20 04:45 Home Medications: Amlodipine [Norvasc*] 10 mg PO DAILY 01/20/20 Clonidine HCl [Catapres*] 0.2 mg PO DAILYPRN PRN 01/20/20 Insulin -Regular Human [Novolin -R*] 1 unit SQ SEECOM 01/20/20 Insulin Degludec [Tresiba Flextouch U-200] 200 unit SQ DAILY 01/20/20 Lisinopril [Zestril] 20 mg PO DAILY 01/20/20 Tamsulosin [Flomax*] 0.4 mg PO BEDTIME 01/20/20 Epoetin [Retacrit] 10,000 unit IV EVERY HD vial 01/22/20 Sevelamer Carbonate [Renvela*] 1,600 mg PO TIDWM #180 tablet 01/22/20 New Medications: Sevelamer Carbonate [Renvela*] 1,600 mg PO TIDWM #180 tablet Followup: Anupam Guaman MD [ACTIVE - CAN ADMIT] - 1-2 Weeks (call to schedule appointment) NONE,NONE [Primary Care Provider] - (call to schedule appointment)
[2020-01-24 21:07] LABS: HBsAG Nonreactive (Nonreactive)
== END 2020-01-22 15:30 | disposition home or self-care (01) ==
LOC: ER 15:08 → ERHOLD 19:46 → 3RD-ICU 01-21 14:47
PROVIDERS: ADMIT Internal Medicine; ATTEND Internal Medicine
DX: U07.1 COVID-19 (principal); E87.5 Hyperkalemia; I12.0 Hypertensive chronic kidney disease with stage 5 chronic kidney disease or end stage renal disease; N18.6 End stage renal disease; Z99.2 Dependence on renal dialysis; E11.22 Type 2 diabetes mellitus with diabetic chronic kidney disease; D63.1 Anemia in chronic kidney disease; N25.81 Secondary hyperparathyroidism of renal origin; J96.90 Respiratory failure, unspecified, unspecified whether with hypoxia or hypercapnia; N25.0 Renal osteodystrophy; E66.9 Obesity, unspecified; E11.51 Type 2 diabetes mellitus with diabetic peripheral angiopathy without gangrene; E11.43 Type 2 diabetes mellitus with diabetic autonomic (poly)neuropathy; K31.84 Gastroparesis; Z89.512 Acquired absence of left leg below knee; Z89.431 Acquired absence of right foot; Z79.4 Long term (current) use of insulin; Z68.37 Body mass index [BMI] 37.0-37.9, adult
CPT/HCPCS: 93005; 85025 ×2; 80048 ×3; 36415 ×2; 83735 ×2; 84100; 82947 ×7; 82728; 86705; 86317; 87340; 86140 ×2; 71045; 90935 ×2; 94760 ×4; 96375; 96374; 99285; U0003; J1644 ×4; 81003; 81015; G0378; J2405

== ENCOUNTER 2020-01-31 21:40 | Observation (INO) | payer OTHER ==
--- OUTSIDE RECORDS SUMMARY | 2020-01-31 21:41 | XMS REPORT | Clinical Summary ---
:1975 Author Organization [facility] Address [address] [place] [address] Care Team Providers Name Role Phone Vashti Rubalcava MD Primary Care Provider [phone] Allergies Active Allergy Reactions Severity Noted [...] ; Surgeon: Escobar Rubio MD; Loc ation: [facility] AV OR; Serv ice: Vascular; Later ality: Left; Medical devices from this surgery are in the Implants section . VENOGRAPHY, UPPER OR LOWER 07/06/2016 Arm Upper/Left Proce dure: left upper EXTREMITY, UNILATERAL extermity venogram poss. angioplasty poss stenting; Surge on: Perla trammell MD; Location: [facility] A V OR; Service: Cardiov ascular; [...] INFLUENZA VACCINE 09/22/2019 Implants Implanted Type Area Office Receptionist Device Shelf Model / Identifier Expiration Serial / Date Lot Clip Ligtng Weck Hemoclip Plus W/ Tape Ti Sm - [id number] Medical Left: WECK CLOSURE 07/21/2020 [id number] / Implanted: Qty: 2 on 06/28/2016 by Perla Carr MD at [facility] Clips for Arm, SYSTEMS / Internal Use Upper Clip Ligtng Weck Hemoclip Plus W/ Tape Ti Med - [id number] Medica l Left: TELEFLEX 10/20/2020 [id number] / Implanted: Qty: 2 on 06/28/2016 by Perla Carr MD at [facility] Clips for Arm, MEDICAL / Internal Use Upper Results Not on fileafter 01/30/2019 Insurance Payer Benefit Plan / Subscriber ID Effective Phone Address T ype Group Dates MEDICARE MEDICARE PART A [id number] 2016-Pres [place], [place] Medicare AND B ent MEDICAID MEDICAID [id number] 2016-Pres Medica id ent COMMERCIAL MISC MISC COMMERCIAL [id number] 2016-Pres Commercial ent Advance Directives For more information, please contact: [phone] Type Date Recorded Patient Major Donor Coordinator Explanati on Advance Directives, Living Will 06/28/2016 5:45 AM and Medical Power of Band Edger
--- OUTSIDE RECORDS SUMMARY | 2020-01-31 21:42 | XMS REPORT | Continuity of Care Document ---
:1975 Author Organization [facility] t Address [address] [place] [address] Care Team Providers Name Role Phone Vashti Rubalcava MD Primary Care Physician [phone] Carol Attending Clinician Doctor Unassigned, Name Attending Clinician Unavailable Fidelia MOSS, S Attending Clinician Problems Condition Condition Condition Status Onset Resolution Last Treating Co mments Source Name Details Category Date Date Treatment Clinician Date Type 2 Type 2 Disease Active [place] diabetes diabetes 7-24 Method i mellitus mellitus 00:00: st 00 DVT (deep DVT (deep Disease Active Evans stoamaya venous venous 5-13 Methodi thrombosis thrombosis 00:00: [...] Quantity Comments Source History of Current smoker [facility] soniaodist tobacco use Sex Assigned At [facility] jennaodist Tobacco use and 2017-05-10 2017-05-10 Never used [facility] ethodist exposure 00:00:00 00:00:00 Alcohol intake 2017-05-10 2017-05-10 Current [facility] thodist 00:00:00 00:00:00 non-drinker of alcohol (finding) Smoking Status Start Date Stop Date Source Former smoker 2017-05-10 00:00:00 2017-05-10 00:00:00 A[facility] Jewish Medications Ordered Filled Start Stop Current Ordering Indication Dosage Frequency Signature Comments Components Source Medication Medication Date Date Medication? Clinician (SIG) Name Name calcium 2018-0 Yes 2001mg [id number] Take 2,001 [place] acetate 3-20 [id number] mg by Gabriella freeman (PHOSLO) 09:15: 3D mouth 3 st 667 [...] a day before meals. insulin 2018-0 Yes [id number] Inject [place] regular 3-20 [id number] under the M ethodi (HumuLIN-R, 09:15: 3D [...] times a day. hydrALAZINE 2016-02 Yes 25mg [id number] Take 25 mg Addison (APRESOLINE 0-04 [id number] by mouth 3 Methodi ) 25 MG 08:08: 3D (three) st tablet 21 times a day. amLODIPine 2016-02 Yes 10mg QD Take 10 mg [place] (NORVASC) 0-04 by mouth Method i 10 mg 08:08: daily. st tablet 21 Procedures This patient has no known procedures. Plan of Care Planned Activity Planned Date Details Comments Source Future Scheduled 2019-09-22 INFLUENZA VACCINE [facility] 00:00:00 [code = INFLUENZA VACCINE] Future Scheduled 1983-12-12 DIABETES: RETINAL EYE [facility] Test 00:00:00 EXAM [code = DIABETES: RETINAL EYE EXAM] Future Scheduled 1983-12-12 DIABETIC FOOT EXAM [place] [facility] 00:00:00 [code = DIABETIC FOOT EXAM] Future Scheduled 1983-12-12 URINE MICROALBUMIN [place] [facility] 00:00:00 [code = URINE MICROALBUMIN] Encounters Start End Encounter Admission Attending Care Care Encounter Source Date/Time Date/Time Type Type Clinicians Facility Department ID 2019-09-17 2019-09-17 Letter WERO [facility] [id number] 00:00:00 00:00:00 (Out) Rony DOVE [id number] [facility] [id number] 2019-08-24 2019-08-24 Orders Doctor WERO [id number] 00:00:00 00:00:00 Only Unassigned, DERRELL [id number] [place] [facility] [id number] 2019-06-20 2019-06-20 Emergency [facility] [id number] 21:13:58 23:17:00 Snow Yates [id number] [place] [id number] [place] [id number] Results This patient has no known results.
[2020-01-31 23:08] LABS: Absolute Lymphocytes (CBC) 0.5 K/uL (0.7-4.9); Basophils % 0.2 % (0-1.3); Hematocrit 24.6 % (39.6-49.0); Lymphocytes % 6.7 % (15.3-44.8); MPV 9.2 fL (7.6-11.3)
--- NOTE | 2020-01-31 23:42 | EDPHYS ---
Physician Documentation [facility] Name: Danny Tellez Age: 44 yrs Sex: Male : 1975 Arrival Date: 01/31/2020 Time: 21:44 Bed 14 Private MD: Panda Rubalcava ED Physician Kale Estrada HPI: 01/30 21:50 This 44 yrs old Male presents to ER via Unassigned with complaints of rn Shortness Of Breath - low 90's SpO2, COVID +. 21:50 The patient has shortness of breath with light activity. Onset: The symptoms/episode rn began/occurred 1 week(s) ago. Duration: The symptoms are intermittent. The patient's shortness of breath is aggravated by exertion, light activity, is alleviated by rest. Associated signs and symptoms: Pertinent positives: non-productive cough, fever, Pertinent negatives: chest pain, hemoptysis, loss of consciousness. Severity of symptoms: At their worst the symptoms were moderate in the emergency department the symptoms have improved. The patient has not experienced similar symptoms in the past. The patient has been recently seen at the [facility] Emergency Department, The patient has been recently been admitted at [facility]. Reports diagnosed with COVID last week, missed a couple dialysis sessions and needed admission to hospital after thanksgiving, felt better when went home, didn't ever feel like had covid symptoms. was positive and that is why he got tested. Returns today because just finished dialysis and told O2 was low, found to be around 85%, doesn't really feel sob. Does report new fever that began 2 days ago, but does not feel feverish today. No hemoptysis. . Historical: - Allergies: 21:45 NKA; jb4 - Home Meds: 21:45 amlodipine 10 mg tab twice a day [Active]; calcium acetate 667 mg Oral cap 3 times per jb4 day [Active]; clonidine HCl 0.1 mg Oral tab 1 tab 3 times per day [Active]; furosemide 40 mg Oral tab 1 tab 2 times per day [Active]; gabapentin 300 mg Oral cap 1 cap twice a day [Active]; hydralazine 25 mg Oral tab three times a day [Active]; Lantus 100 unit/mL Sub-Q soln [Active]; Lasix Oral [Active]; lisinopril 20 mg Oral tab 1 tab once daily [Active]; Novolin N 100 unit/mL Sub-Q susp [Active]; Novolin R Sub-Q [Active]; - PMHx: 21:45 Diabetes - IDDM; Dialysis; Hypertension; Renal Disease; jb4 - PSHx: 21:45 Left arm fistula; Left BKA; jb4 - Immunization history:: Adult Immunizations up to date. - Family history:: not pertinent. - Social history:: Smoking status: Patient denies any tobacco usage or history of. Patient/guardian denies using alcohol, street drugs. - Hospitalizations: : No recent hospitalization is reported. ROS: 21:50 Constitutional: + fever Eyes: Negative for injury, pain, redness, and discharge, Neck: rn Negative for injury, pain, and swelling, Cardiovascular: Negative for chest pain, palpitations, and edema, Respiratory: + sob and cough Abdomen/GI: Negative for abdominal pain, nausea, vomiting, diarrhea, and constipation, Back: Negative for injury and pain, MS/Extremity: Negative for injury and deformity, Skin: Negative for injury, rash, and discoloration, Neuro: Negative for headache, numbness, tingling, and seizure. Exam: 21:50 Constitutional: This is a well developed, well nourished patient who is awake, alert, rn and in no acute distress. Head/Face: Normocephalic, atraumatic. ENT: No stridor Cardiovascular: Regular rate and rhythm. No pulse deficits. Respiratory: No increased work of breathing, no retractions or nasal flaring. Skin: Warm, dry MS/ Extremity: LLE amputation Neuro: Awake and alert, GCS 15 Vital Signs: 21:50 BP 111 / 87; Pulse 86; Resp 16; Temp 98.4; Pulse Ox 93% on R/A; Weight 117.93 kg (R); jb4 Height 5 ft. 10 in. (177.80 cm); Pain 0/10; 23:00 BP 126 / 77; Pulse 85; Resp 21; Pulse Ox 95% on 2 lpm NC; jb4 23:45 BP 124 / 79; Pulse 86; Resp 18; Pulse Ox 93% on 2 lpm NC; jb4 21:50 Body Mass Index 37.31 (117.93 kg, 177.80 cm) jb4 MDM: 21:48 Patient medically screened. rn 23:38 Differential diagnosis: pneumonia, Pneumothorax pulmonary edema, Pulmonary Embolism. rn Data reviewed: vital signs, nurses notes, lab test result(s), EKG, radiologic studies, plain films, and as a result, I will admit patient. Counseling: I had a detailed discussion with the patient and/or guardian regarding: the historical points, exam findings, and any diagnostic results supporting the discharge/admit diagnosis, lab results, radiology results, the need for further work-up and treatment in the hospital. Admission orders: after a detailed discussion of the patient's condition and case, the admit orders are written by me. ED course: Pt with moderate bilateral opacities consistent with COVID pneumonia, will admit given hypoxemia of 85%. . 23:40 ED course: States does not have pcp, will admit to hospitalist service. rn 01/30 21:49 Order name: CBC with Diff rn 01/30 21:49 Order name: Basic Metabolic Panel rn 01/30 21:49 Order name: BNP rn 01/30 21:49 Order name: Procalcitonin; Complete Time: 00:01 rn 01/30 21:49 Order name: Ferritin rn 01/30 23:15 Order name: Manual Differential EDID 01/31 00:10 Order name: C-Reactive Protein EDID 01/31 01:34 Order name: Glucose, Ancillary Testing EDID 01/31 02:02 Order name: SARS-COV-2 RT PCR EDID 01/31 05:27 Order name: CBC with Automated Diff EDID 01/31 06:16 Order name: Basic Metabolic Panel EDID 01/31 06:16 Order name: C-Reactive Protein EDID 01/30 21:49 Order name: IV Start; Complete Time: 22:54 rn 01/30 21:49 Order name: XRAY Chest (1 view) rn 01/30 21:49 Order name: EKG; Complete Time: 21:51 rn 01/30 21:49 Order name: EKG - Nurse/Tech; Complete Time: 22:24 rn 01/31 06:16 Order name: Magnesium EDID 01/31 06:16 Order name: Ferritin EDID 01/31 08:02 Order name: Glucose, Ancillary Testing EDID 01/31 11:49 Order name: Glucose, Ancillary Testing EDMS Administered Medications: 23:51 Drug: Decadron - Dexamethasone 10 mg Route: IVP; Site: right hand; jb4 Disposition: 01/31/20 23:41 Hospitalization ordered by Salvador Estrada for Inpatient Admission. Preliminary diagnosis are Coronavirus infection, unspecified, Pneumonia, unspecified organism, Hypoxemia, End stage renal disease. - Bed requested for [facility] ER HOLD. - Status is Inpatient Admission. iw - Condition is Stable. - Problem is new. - Symptoms are unchanged. Signatures: Dispatcher [employer] EDID Yokasta Meredith, Kale Nguyen RN, MD MD rn Attema, Lee, VENEER TRIMMER-C VENEER TRIMMER-Cla1 Hank Dave RN RN jb4 Kailey Vale mw2 Corrections: (The following items were deleted from the chart) 01/31 00:10 00:01 C-REACTIVE PROTEIN+C.LAB.BRZ ordered. [facility] EDID 00:27 01/30 23:41 Hospitalization Ordered by Salvador Estrada MD for Inpatient Admission. mw2 Preliminary diagnosis is Coronavirus infection, unspecified; Pneumonia, unspecified organism; Hypoxemia; End stage renal disease. Bed requested for Telemetry/MedSurg (Inpatient). Status is Inpatient Admission. Condition is Stable. Problem is new. Symptoms are unchanged. rn 01/31 00:59 00:21 CORONAVIRUS+MR.LAB.BRZ ordered. [facility] EDMS 16:23 00:27 01/31/2020 23:41 Hospitalization Ordered by Salvador Estrada MD for Inpatient iw Admission. Preliminary diagnosis is Coronavirus infection, unspecified; Pneumonia, unspecified organism; Hypoxemia; End stage renal disease. Bed requested for [facility] ER HOLD. Status is Inpatient Admission. Condition is Stable. Problem is new. Symptoms are unchanged. mw2
--- NOTE | 2020-01-31 23:42 | ER ---
Nurse's Notes [facility] Name: Danny Tellez Age: 44 yrs Sex: Male : 1975 Arrival Date: 01/31/2020 Time: 21:44 Bed 14 Private MD: Panda Rubalcava Diagnosis: Coronavirus infection, unspecified;Pneumonia, unspecified organism;Hypoxemia;End stage renal disease Presentation: 01/30 21:50 Chief complaint: EMS states: PT was at Dialysis when his pulse ox reportedly dropped to jb4 85%. The pt denies having any complaints and was brought in because his Dr. wanted him to get checked out. His sats en route were 94% with a b/p of 136/68. Coronavirus screen: Client denies travel out of the [place] in the last 14 days. Client presents with at least one sign or symptom that may indicate coronavirus-19. Standard/surgical mask placed on the client. Provider contacted for isolation considerations. Client reports previous positive COVID test result. Ebola Screen: Patient negative for fever greater than or equal to 101.5 degrees Fahrenheit, and additional compatible Ebola Virus Disease symptoms. Initial Sepsis Screen: Does the patient meet any 2 criteria? No. Patient's initial sepsis screen is negative. Does the patient have a suspected source of infection? No. Patient's initial sepsis screen is negative. Risk Assessment: Do you want to hurt yourself or someone else? Patient reports no desire to harm self or others. Onset of symptoms was January 31, 2020. Transition of care: patient was not received from another setting of care. 21:50 Method Of Arrival: EMS: [facility] jb4 21:50 Acuity: BRIANDA 3 jb4 Historical: - Allergies: 21:45 NKA; jb4 - Home Meds: 21:45 amlodipine 10 mg tab twice a day [Active]; calcium acetate 667 mg Oral cap 3 times per jb4 day [Active]; clonidine HCl 0.1 mg Oral tab 1 tab 3 times per day [Active]; furosemide 40 mg Oral tab 1 tab 2 times per day [Active]; gabapentin 300 mg Oral cap 1 cap twice a day [Active]; hydralazine 25 mg Oral tab three times a day [Active]; Lantus 100 unit/mL Sub-Q soln [Active]; Lasix Oral [Active]; lisinopril 20 mg Oral tab 1 tab once daily [Active]; Novolin N 100 unit/mL Sub-Q susp [Active]; Novolin R Sub-Q [Active]; - PMHx: 21:45 Diabetes - IDDM; Dialysis; Hypertension; Renal Disease; jb4 - PSHx: 21:45 Left arm fistula; Left BKA; jb4 - Immunization history:: Adult Immunizations up to date. - Family history:: not pertinent. - Social history:: Smoking status: Patient denies any tobacco usage or history of. Patient/guardian denies using alcohol, street drugs. - Hospitalizations: : No recent hospitalization is reported. Screenin:45 Abuse screen: Denies threats or abuse. Nutritional screening: No deficits noted. jb4 Tuberculosis screening: No symptoms or risk factors identified. Fall Risk None identified. Assessment: 21:45 General: Appears in no apparent distress. comfortable, Behavior is calm, cooperative, jb4 appropriate for age. Pain: Denies pain. Neuro: Level of Consciousness is awake, alert, obeys commands, Oriented to person, place, time, situation. Cardiovascular: Patient's skin is warm and dry. Rhythm is sinus rhythm. Respiratory: Airway is patent Respiratory effort is even, unlabored, Respiratory pattern is regular, symmetrical, Breath sounds are clear bilaterally. GI: No signs and/or symptoms were reported involving the gastrointestinal system. : No signs and/or symptoms were reported regarding the genitourinary system. EENT: No signs and/or symptoms were reported regarding the EENT system. Derm: Skin is intact, Skin is pink, warm \T\ dry. Musculoskeletal: Circulation, motion, and sensation intact. Range of motion: intact in all extremities. 22:30 Reassessment: Pt noted to desat to 84-88% on RA. Provider notified, Placed on 2L NC. jb4 23:00 Reassessment: Patient appears in no apparent distress at this time. Patient and/or jb4 family updated on plan of care and expected duration. Pain level reassessed. Patient is alert, oriented x 3, equal unlabored respirations, skin warm/dry/pink. Pt now satting at 93-99% on 2L NC. 01/31 00:02 Reassessment: Patient appears in no apparent distress at this time. Patient and/or jb4 family updated on plan of care and expected duration. Pain level reassessed. Patient is alert, oriented x 3, equal unlabored respirations, skin warm/dry/pink. Vital Signs: 12 21:50 BP 111 / 87; Pulse 86; Resp 16; Temp 98.4; Pulse Ox 93% on R/A; Weight 117.93 kg (R); jb4 Height 5 ft. 10 in. (177.80 cm); Pain 0/10; 23:00 BP 126 / 77; Pulse 85; Resp 21; Pulse Ox 95% on 2 lpm NC; jb4 23:45 BP 124 / 79; Pulse 86; Resp 18; Pulse Ox 93% on 2 lpm NC; jb4 21:50 Body Mass Index 37.31 (117.93 kg, 177.80 cm) jb4 ED Course: 21:44 Patient arrived in ED. mw2 21:45 Panda Rubalcava MD is Private Physician. sg 21:45 Arm band placed on right wrist. jb4 21:45 Patient has correct armband on for positive identification. Bed in low position. Call jb4 light in reach. Side rails up X 1. 21:48 Kale Estrada MD is Attending Physician. rn 21:50 Hank Dave RN is Primary Nurse. jb4 21:53 Triage completed. jb4 22:33 Missed attempt(s): 20 gauge in right forearm. Bleeding controlled, band aid applied, sg catheter tip intact. 22:45 X-ray completed. Portable x-ray completed in exam room. Patient tolerated procedure nj well. 22:46 XRAY Chest (1 view) In Process Unspecified. EDMS 22:50 Inserted saline lock: 20 gauge in right hand, using aseptic technique. Blood collected. rr5 23:41 Salvador Estrada MD is Hospitalizing Provider. rn 23:50 Notified ED physician of a critical lab result(s). Creat 8.91. jb4 23:58 No provider procedures requiring assistance completed. Patient admitted, IV remains in jb4 place. Administered Medications: 23:51 Drug: Decadron - Dexamethasone 10 mg Route: IVP; Site: right hand; jb4 Outcome: 23:41 Decision to Hospitalize by Provider. rn 01/31 00:30 Admitted to ER Hold. Please see [facility] for further documentation. jb4 Condition: stable Discharge instructions given to patient, Instructed on the need for admit, Demonstrated understanding of instructions. 16:23 Patient left the ED. iw Addendum: 02/02/2020 19:39 Addendum: COVID-19 Result: Positive result giiven to ED physician to notify pt. lucas g Physician: Refugio Singh MD Physician was able to contact pt and pt was notified of positive COVID-19 swab result. Physician answered pt questions. Signatures: Dispatcher [employer] EDMS Merrill Chapa RN RN sg Williams, Irene, RN RN Kale Estrada MD MD rn Bryson, James, RN RN jb4 Vlad Douglas MyKena 2 Salvador Singleton RN RN rr5 Corrections: (The following items were deleted from the chart) 01/31 00:20 01/30 23:00 Reassessment: Patient appears in no apparent distress at this time. Patient jb4 and/or family updated on plan of care and expected duration. Pain level reassessed. Patient is alert, oriented x 3, equal unlabored respirations, skin warm/dry/pink. jb4
[2020-01-31 23:47] LABS: Ferritin 5979.9 ng/mL (26-388); Potassium 3.6 mmol/L (3.5-5.1)
[2020-02-01] MEDS ORDERED: dexAMETHasone 10 MG/ML VIAL ONE
[2020-02-01 01:35] LABS: Blood Morphology Comment NOT SEEN (NOT SEEN); Platelet Estimate ADEQ
--- NOTE | 2020-02-01 01:58 | P.HP ---
Certification for Inpatient Patient admitted to: Observation With expected LOS: <2 Midnights Patient will require the following post-hospital care: None Practitioner: I am a practitioner with admitting privileges, knowledge of patient current condition, hospital course, and medical plan of care. Services: Services provided to patient in accordance with Admission requirements found in Title 42 Section 412.3 of the Code of Federal Regulations <Mumtaz Chew - Last Filed: 02/01/20 01:55> Patient History Date of Service: 02/01/20 Primary Care Provider: [facility], Dr. Schrader Reason for admission: Hypoxia History of Present Illness: 44-year-old male with history of end-stage renal disease on hemodialysis Tuesday, diabetes mellitus type 2, hypertension presents emergency department for shortness of breath. Patient reports that he tested positive for Friend virus on January 19 and was admitted to the hospital earlier this month for shortness of breath and also for dialysis. Patient reports that he has been feeling well since then but starting this morning he became short of breath again, while he is at dialysis today they checked his oxygen level and found to be hypoxic with saturations below 90%. They recommended patient come to the emergency department for evaluation. Upon arrival to the emergency department patient was 85% on room air. Patient was placed on some oxygen and worked up. Patient's evaluation in the emergency department revealed normocytic anemia with hemoglobin 8.6 hematocrit 24.6 likely anemia chronic disease, white blood cell count 6.9 but elevated neutrophil percent 88.3 and 3% bandemia. Chemistries reveal a 0.91 creatinine, GFR 6, potassium 3.6, blood glucose 222. CRP significantly elevated 195, ferritin also elevated 5979. Pro calcitonin also elevated 7.04. ED provider wishes to admit patient for further evaluation and management. - Past Medical/Surgical History Diabetic: Yes -: Diabetes mellitus type 2-insulin dependent -: End-stage renal disease on hemodialysis -: HTN -: L BKA -: Appendectomy -: Cholecystectomy -: Wrist surgery -: Right ankle surgery -: right foot pinkie toe amputated. Psychosocial/ Personal History: Patient currently lives at home with his family - Family History Father -: Hypertension, Diabetes Mother -: Hypertension, Diabetes, Cancer Notes: Dialysis; Breast Cancer Sister -: Hypertension, Diabetes - Social History Smoking Status: Never smoker Alcohol use: No CD- Drugs: No Caffeine use: Yes Place of Residence: Home <Mumtaz Chew - Last Filed: 02/01/20 01:55> Date of Service: 02/01/20 <Salvador Estrada - Last Filed: 02/01/20 19:47> Allergies No Known Allergies Allergy (Verified 02/24/16 21:52) Home Medications: RX: Amlodipine [Norvasc*] 10 mg PO DAILY 01/20/20 RX: Clonidine HCl [Catapres*] 0.1 mg PO DAILYPRN PRN 01/20/20 RX: Insulin -Regular Human [Novolin -R*] 1 unit SQ SEECOM 01/20/20 RX: Lisinopril [Zestril] 20 mg PO DAILY 01/20/20 RX: Sevelamer Carbonate [Renvela*] 1,600 mg PO TIDWM #180 tablet 01/22/20 Aspirin [Aspirin EC 81 MG] 81 mg PO DAILY 30 Days #30 tablet. 02/01/20 RX: Insulin Degludec [Tresiba Flextouch U-200] 52 units SQ DAILYPRN PRN 02/01/20 RX: Liraglutide [Victoza 2-Ryan] 1.8 ml SQ DAILYPRN PRN 02/01/20 RX: Tamsulosin HCl 0.4 mg PO DAILY 02/01/20 predniSONE [Deltasone] 20 mg PO SEECOM 14 Days #21 tab 02/01/20 Review of Systems General: Malaise Respiratory: Cough, Shortness of Breath <Mumtaz Chew - Last Filed: 02/01/20 01:55> Physical Examination - Physical Exam General: Alert, In no apparent distress, Oriented x3 HEENT: Atraumatic, Normocephalic Neck: Supple Respiratory: Diminished (Bilaterally), Other (Mild tachypneic) Cardiovascular: Normal pulses, Regular rate/rhythm Capillary refill: <2 Seconds Gastrointestinal: Normal bowel sounds, No tenderness, No masses, No rebound Musculoskeletal: No contractures, No erythema, Other (Left BKA) Integumentary: No tenderness/swelling, No erythema, No warmth Neurological: Normal speech, Normal strength at 5/5 x4 extr, Normal tone, Sensa tion intact - Studies Laboratory Data (last 24 hrs) 01/31/20 22:43: Sodium 137, Potassium 3.6, BUN 43 H D, Creatinine 8.91 H* D, Glucose 167 H 01/31/20 22:43: WBC 6.9, Hgb 8.6 L, Hct 24.6 L D, Plt Count 324 D <Mumtaz Chew - Last Filed: 02/01/20 01:55> - Studies Laboratory Data (last 24 hrs) 01/31/20 22:43: Sodium 137, Potassium 3.6, BUN 43 H D, Creatinine 8.91 H* D, Glucose 167 H 01/31/20 22:43: WBC 6.9, Hgb 8.6 L, Hct 24.6 L D, Plt Count 324 D <Salvador Estrada - Last Filed: 02/01/20 19:47> Assessment and Plan - Plan Assessment COVID pneumonia with hypoxia End-stage renal disease on hemodialysis TTS Diabetes mellitus type 2-insulin dependent Hypertension Plan COVID pneumonia with hypoxia: Continue with IV steroids, oral supplementations. Daily room air saturations, saturations for home oxygen. marine services technician consult in for home oxygen set up. Pulmonology consult in place. White blood cell count normal but pro calcitonin, neutrophils, bands elevated. Will need to monitor for signs of bacterial infection and treat as needed. DVT prophylaxis heparin 5000 units subcutaneous twice daily. End-stage renal disease on hemodialysis TTS: Patient did complete dialysis today. Is set up for dialysis, they are aware that he is positive for Friend virus. Nephrology consulted in case patient is still in hospital. Diabetes mellitus type 2-insulin dependent: A.c. HS Accu-Cheks scale insulin therapy. Hypertension: Home medications continued. Discharge Plan: Home Plan to discharge in: 24 Hours - Advance Directives Does patient have a Living Will: No Does patient have a Durable POA for Healthcare: No - Code Status/Comfort Care Code Status Assessed: Yes (Full code) Critical Care: No Time Spent Managing Pts Care (In Minutes): 55 <Mumtaz Chew - Last Filed: 02/01/20 01:55> - Plan Plan of care reviewed and agree as noted above by Mumtaz Chew. COVID pneumonia with hypoxia - appears comfortable on 2L NC. Likely able to discharge home later if able to set up home oxygen <Salvador Estrada - Last Filed: 02/01/20 19:47>
[2020-02-01] MEDS ORDERED: BENZONATATE 100 MG CAP PO PRN (02:07)
[2020-02-01] MEDS ORDERED: ONDANSETRON 4 MG/2 ML VIAL IV PRN (02:07)
[2020-02-01] MEDS ORDERED: ACETAMINOPHEN 500 MG TAB PO PRN (02:07)
[2020-02-01] MEDS ORDERED: GABAPENTIN 400 MG CAP PO PRN (02:07)
[2020-02-01] MEDS ORDERED: HYDROCODONE/APAP 5/325 MG TAB PO PRN (02:07)
[2020-02-01] MEDS ORDERED: GABAPENTIN 400 MG CAP ONE (02:20)
[2020-02-01] MEDS ORDERED: ONDANSETRON 4 MG/2 ML VIAL ONE (02:32)
[2020-02-01 03:29] VITALS: BMI 38.2
[2020-02-01] MEDS ORDERED: LOPERAMIDE HCL 2 MG CAPSULE PO STA (04:56)
[2020-02-01 05:08] VITALS: BP 121/75
[2020-02-01 05:23] LABS: Absolute Lymphocytes (CBC) 0.1 K/uL (0.7-4.9); Basophils % 0.1 % (0-1.3); Hematocrit 23.3 % (39.6-49.0); Lymphocytes % 1.9 % (15.3-44.8); MPV 9.1 fL (7.6-11.3); RBC Red Blood Cell Count 2.44 M/uL (4.33-5.43)
[2020-02-01] MEDS ORDERED: LOPERAMIDE HCL 2 MG CAPSULE ONE (05:24)
[2020-02-01 06:13] LABS: Ferritin 5295.3 ng/mL (26-388); Magnesium 2.3 mg/dL (1.8-2.4); Potassium 4.5 mmol/L (3.5-5.1)
[2020-02-01] MEDS: INSULIN -REGULAR HUMAN 50 UNIT/0.5 ML ML SQ SCH ×2 (07:30→11:30)
[2020-02-01] MEDS ORDERED: lisinopriL 20 MG TAB PO SCH ×2 (09:00)
[2020-02-01] MEDS ORDERED: HEPARIN 5000 UNIT/ML 1 ML VIAL SQ SCH (09:00)
[2020-02-01] MEDS ORDERED: METHYLPREDNISOLONE 40 MG INJ IV SCH (09:00)
[2020-02-01] MEDS ORDERED: AMLODIPINE 10 MG TAB PO SCH ×2 (09:00)
[2020-02-01] MEDS ORDERED: ZINC SULFATE 220 MG CAP PO SCH (09:00)
[2020-02-01] MEDS ORDERED: VITAMIN D 1000 UNIT TAB PO SCH (09:00)
[2020-02-01] MEDS ORDERED: HEPARIN 5000 UNIT/ML 1 ML VIAL ONE (09:16)
[2020-02-01] MEDS ORDERED: AMLODIPINE 10 MG TAB ONE (09:16)
[2020-02-01] MEDS ORDERED: lisinopriL 20 MG TAB ONE (09:17)
[2020-02-01] MEDS ORDERED: METHYLPREDNISOLONE 40 MG INJ ONE (09:17)
[2020-02-01] MEDS ORDERED: INSULIN -REGULAR HUMAN 50 UNIT/0.5 ML ML ONE ×2 (09:18→12:03)
[2020-02-01] MEDS ORDERED: BENZONATATE 100 MG CAP PO ONE (09:18)
[2020-02-01] MEDS ORDERED: VITAMIN D 1000 UNIT TAB ONE (09:18)
[2020-02-01] MEDS ORDERED: ASCORBIC ACID 500 MG TABLET ONE ×2 (09:18→14:40)
[2020-02-01] MEDS: SEVELAMER CARBONATE 800 MG TABLET PO SCH ×2 (09:34→11:54)
[2020-02-01] MEDS: ASCORBIC ACID 500 MG TABLET PO SCH ×2 (09:34→14:39)
[2020-02-01 10:30] VITALS: TEMP 97.8
--- NOTE | 2020-02-01 10:30 | RAD REPORT ---
EXAM DESCRIPTION: RAD - Chest Single View - 01/31/2020 10:46 pm CLINICAL HISTORY: 4 years Male, ESRD, COVID+ COMPARISON: Chest radiograph dated January 20, 2020 FINDINGS: Bilateral interstitial opacities. No pleural effusion. No pneumothorax. Cardiomediastinal silhouette is unchanged. No acute osseous abnormality. IMPRESSION: Positive for pulmonary opacities. Differential diagnosis includes viral infections. Electronically signed by: Parish Hutchins DO 01/31/2020 11:11 PM LAWN TECHNICIAN Due to temporary technical issues with the PACS/Fluency reporting system, reports are being signed by the in house radiologist without review as a courtesy to ensure prompt reporting. The interpreting r adiologist is fully responsible for the content of the report.
[2020-02-01] MEDS ORDERED: HYDROCODONE/APAP 5/325 MG TAB ONE (10:52)
[2020-02-01] MEDS ORDERED: ZINC SULFATE 220 MG CAP ONE (11:19)
--- NOTE | 2020-02-01 11:46 | P.CNS ---
Date of Consult: 02/01/20 Reason for Consult: Friend virus infection Primary Care Provider: [facility], Dr. Schrader Chief Complaint: Hypoxia History of Present Illness: Patient is 44 years of age with multiple medical problems including end-stage renal disease on hemodialysis diabetes amputation the sick around [facility] his also caught friend virus became progressively worse hypoxic and appeared in the emergency room as doing much better now on steroids in oxygen Allergies No Known Allergies Allergy (Verified 02/24/16 21:52) Home Medications: Amlodipine [Norvasc*] 10 mg PO DAILY 01/20/20 Clonidine HCl [Catapres*] 0.1 mg PO DAILYPRN PRN 01/20/20 Insulin -Regular Human [Novolin -R*] 1 unit SQ SEECOM 01/20/20 Lisinopril [Zestril] 20 mg PO DAILY 01/20/20 Sevelamer Carbonate [Renvela*] 1,600 mg PO TIDWM #180 tablet 01/22/20 Insulin Degludec [Tresiba Flextouch U-200] 52 units SQ DAILYPRN PRN 02/01/20 Liraglutide [Victoza 2-Ryan] 1.8 ml SQ DAILYPRN PRN 02/01/20 Tamsulosin HCl 0.4 mg PO DAILY 02/01/20 - Past Medical/Surgical History Diabetic: Yes -: Diabetes mellitus type 2-insulin dependent -: End-stage renal disease on hemodialysis -: HTN -: L BKA -: Appendectomy -: Cholecystectomy -: Wrist surgery -: Right ankle surgery -: right foot pinkie toe amputated. Psychosocial/ Personal History: Patient currently lives at home with his family - Family History Father Medical History: Hypertension, Diabetes Mother Medical History: Hypertension, Diabetes, Cancer Notes: Dialysis; Breast Cancer Sister Medical History: Hypertension, Diabetes - Social History Alcohol use: Yes CD- Drugs: No Caffeine use: No Place of Residence: Home Review of Systems 10-point ROS is otherwise unremarkable General: Weakness Respiratory: Shortness of Breath Physical Examination Temp Pulse Resp BP Pulse Ox 97.8 F 82 28 H 121/75 90 L 02/01/20 07:50 02/01/20 09:34 02/01/20 10:38 02/01/20 09:34 02/01/20 10:38 General: Alert, Oriented x3 Respiratory: Clear to auscultation bilaterally Cardiovascular: No edema, Regular rate/rhythm Laboratory Data (last 24 hrs) 01/31/20 22:43: Sodium 137, Potassium 3.6, BUN 43 H D, Creatinine 8.91 H* D, Glucose 167 H 01/31/20 22:43: WBC 6.9, Hgb 8.6 L, Hct 24.6 L D, Plt Count 324 D - Problems (1) COVID-19 Current Visit: No Status: Acute Plan: Patient is 44 years of age admitted with friend virus pneumonia he is doing much better on nasal cannula oxygen plan to discharge him with oxygen prednisone 20 mg twice a day for a week then 10 mg twice a day he has end-stage renal disease aspirin is clinically improving shortness of breath is better discharge follow up with me in 1 or 2 weeks
[2020-02-01 12:55] VITALS: O2SAT 93
--- NOTE | 2020-02-01 15:04 | P.CNS ---
Date of Consult: 02/01/20 Primary Care Provider: [facility], Dr. Schrader Chief Complaint: Hypoxia History of Present Illness: HPI 44-year-old male with history of end-stage renal disease on hemodialysis Tuesday, diabetes mellitus type 2, hypertension and recently diagnosed with COVID pt presented to ER with SOB pt was recently admitted for SOB , discharged with no need for oxygen yesterday during HD , O2 sat was less than 90, pt sent to ER Chemistries reveal a 0.91 creatinine, GFR 6, potassium 3.6, blood glucose 222. CRP significantly elevated 195, ferritin also elevated 5979. Pro calcitonin also elevated 7.04. ED provider wishes to admit patient for further evaluation and management. ROS General : denies fever, chills, WT change weakness, insomnia HEENT: Denies dry, vision changes and headache Resp: have SOB, no cough or wheezes Cardiovascular: : denies chest pain, palpitation GI: denies abdominal pain, diarrhea or constipation : denies dysuria, urgency, foamy urine or blood tinged urine Muscloskeltal: denies muscle aches, joint pain Endo: denies polyuria and and polydipsia Extre: denies pain numbness and swelling Physical exam General: AAOx3, NAD , obese CHEST; CTAB, no wheezes or rales HEART : RRR. Normal S1,2 no murmur or rub Abd: soft, Nt Ext: no edema Skin : No rash A/p ESRD on HD TTsat dialysis tomorrow renal dose meds Anemia of chronic disease Cont epogen HTN resume home meds COVID 19 Cont oxygen pulmonary consulted Total time spent 30 min Allergies No Known Allergies Allergy (Verified 02/24/16 21:52) Home Medications: Amlodipine [Norvasc*] 10 mg PO DAILY 01/20/20 Clonidine HCl [Catapres*] 0.1 mg PO DAILYPRN PRN 01/20/20 Insulin -Regular Human [Novolin -R*] 1 unit SQ SEECOM 01/20/20 Lisinopril [Zestril] 20 mg PO DAILY 01/20/20 Sevelamer Carbonate [Renvela*] 1,600 mg PO TIDWM #180 tablet 01/22/20 Insulin Degludec [Tresiba Flextouch U-200] 52 units SQ DAILYPRN PRN 02/01/20 Liraglutide [Victoza 2-Ryan] 1.8 ml SQ DAILYPRN PRN 02/01/20 Tamsulosin HCl 0.4 mg PO DAILY 02/01/20 - Past Medical/Surgical History Diabetic: Yes -: Diabetes mellitus type 2-insulin dependent -: End-stage renal disease on hemodialysis -: HTN -: L BKA -: Appendectomy -: Cholecystectomy -: Wrist surgery -: Right ankle surgery -: right foot pinkie toe amputated. Psychosocial/ Personal History: Patient currently lives at home with his family - Family History Father Medical History: Hypertension, Diabetes Mother Medical History: Hypertension, Diabetes, Cancer Notes: Dialysis; Breast Cancer Sister Medical History: Hypertension, Diabetes - Social History Alcohol use: Yes CD- Drugs: No Caffeine use: No Place of Residence: Home Physical Examination Temp Pulse Resp BP Pulse Ox 97.8 F 82 28 H 121/75 90 L 02/01/20 07:50 02/01/20 09:34 02/01/20 11:38 02/01/20 09:34 02/01/20 11:38 Laboratory Data (last 24 hrs) 01/31/20 22:43: Sodium 137, Potassium 3.6, BUN 43 H D, Creatinine 8.91 H* D, Glucose 167 H 01/31/20 22:43: WBC 6.9, Hgb 8.6 L, Hct 24.6 L D, Plt Count 324 D
--- NOTE | 2020-02-01 19:53 | P.DS ---
Admission Date: 02/01/20 Discharge Date: 02/01/20 [facility]position: ROUTINE DISCHARGE Discharge Condition: GOOD Reason for Admission: Hypoxia Consultations: Pulm - Dr. Martin Nephrology - Dr. Arreguin Procedures: CXR (01/30): bilateral insterstial opacities Problem List: COVID pneumonia with hypoxia End-stage renal disease on hemodialysis TTS Diabetes mellitus type 2-insulin dependent Hypertension Brief History of Present Illness: 44yo male presented to ED with progressive SOB and h/o COVID+ test ~2 weeks ago. He states he was told his oxygen level was low at dialysis and recommended to present to the ED. In the ED he was noted to be hypoxic to 85% on room air, CRP: 195, Ferritin: 5979, Procalcitonin: 7.04, and CXR consistent with covid pneumonia. Hospital Course: He was treated with IV solumedrol and remained stable on 2L NC. Pulmonology was consulted and felt patient was stable to discharge home. Nephrology was consulted for possible hemodialysis if patient was unable to be discharged. Fortunately, patient felt much better with 2 L NC, and was discharged home after home O2 was set up. He will complete a 2 week course of prednisone and advised to take a daily 81mg aspirin. Vital Signs/Physical Exam: Temp Pulse Resp BP Pulse Ox 97.8 F 82 28 H 121/75 90 L 02/01/20 07:50 02/01/20 09:34 02/01/20 11:38 02/01/20 09:34 02/01/20 11:38 Laboratory Data at Discharge: WBC 6.6 K/uL (4.3-10.9) 02/01/20 05:13 Hgb 8.1 g/dL (13.6-17.9) L 02/01/20 05:13 Hct 23.3 % (39.6-49.0) L 02/01/20 05:13 Plt Count 331 K/uL (152-406) 02/01/20 05:13 Sodium 133 mmol/L (136-145) L 02/01/20 05:13 Potassium 4.5 mmol/L (3.5-5.1) 02/01/20 05:13 BUN 52 mg/dL (7-18) H 02/01/20 05:13 Creatinine 10.10 mg/dL (0.55-1.3) H* D 02/01/20 05:13 Glucose 287 mg/dL (74-106) H 02/01/20 05:13 Magnesium 2.3 mg/dL (1.8-2.4) 02/01/20 05:13 Home Medications: RX: Amlodipine [Norvasc*] 10 mg PO DAILY 01/20/20 RX: Clonidine HCl [Catapres*] 0.1 mg PO DAILYPRN PRN 01/20/20 RX: Insulin -Regular Human [Novolin -R*] 1 unit SQ SEECOM 01/20/20 RX: Lisinopril [Zestril] 20 mg PO DAILY 01/20/20 RX: Sevelamer Carbonate [Renvela*] 1,600 mg PO TIDWM #180 tablet 01/22/20 Aspirin [Aspirin EC 81 MG] 81 mg PO DAILY 30 Days #30 tablet. 02/01/20 RX: Insulin Degludec [Tresiba Flextouch U-200] 52 units SQ DAILYPRN PRN 02/01/20 RX: Liraglutide [Victoza 2-Ryan] 1.8 ml SQ DAILYPRN PRN 02/01/20 RX: Tamsulosin HCl 0.4 mg PO DAILY 02/01/20 predniSONE [Deltasone] 20 mg PO SEECOM 14 Days #21 tab 02/01/20 New Medications: Aspirin [Aspirin EC 81 MG] 81 mg PO DAILY 30 Days #30 tablet. predniSONE [Deltasone] 20 mg PO SEECOM 14 Days #21 tab Patient Discharge Instructions: Continue hemodialysis as scheduled. Follow up with Dr. Martin in 1-2 weeks. Call his office to schedule an appointment. New medications-prednisone 20 mg twice a day for 7 days, then 20 mg daily for 7 days. --- aspirin 81 mg daily. Otherwise, continue home medications as previously prescribed. -- continues home oxygen as needed. In the hospital you were stable on 2 L nasal cannula Diet: ADA Activity: Ad kristen Followup: Unknown,U [Primary Care Provider] - Time spent managing pt's care (in minutes): 35
== END 2020-02-01 16:07 | disposition home or self-care (01) ==
LOC: ER 21:40 → ERHOLD 02-01 01:29
PROVIDERS: ADMIT Hospitalist; ATTEND Hospitalist
DX: U07.1 COVID-19 (principal); J12.89 Other viral pneumonia; R09.02 Hypoxemia; I12.0 Hypertensive chronic kidney disease with stage 5 chronic kidney disease or end stage renal disease; E11.22 Type 2 diabetes mellitus with diabetic chronic kidney disease; N18.6 End stage renal disease; Z99.2 Dependence on renal dialysis; Z79.4 Long term (current) use of insulin; D63.1 Anemia in chronic kidney disease; Z89.512 Acquired absence of left leg below knee
CPT/HCPCS: 93005; 85025 ×2; 80048 ×2; 36415; 83735; 82947 ×3; 82728 ×2; 84145; 83880; 86140 ×2; 71045; 96374; 99285; U0003; J1644; J2405; J2920; G0378

== ENCOUNTER 2020-04-08 23:56 | Observation (INO) | payer MEDICARE, OTHER ==
[2020-04-09 04:00] LABS: Absolute Lymphocytes (CBC) 0.8 K/uL (0.7-4.9); Basophils % 0.9 % (0-1.3); Hematocrit 30.5 % (39.6-49.0); Lymphocytes % 9.1 % (15.3-44.8); MPV 9.6 fL (7.6-11.3); RBC Red Blood Cell Count 3.19 M/uL (4.33-5.43)
[2020-04-09 04:22] LABS: Magnesium 2.9 mg/dL (1.8-2.4); Potassium 5.2 mmol/L (3.5-5.1); Troponin (Emerg Dept Use Only) 0.17 ng/mL (0.0-0.045)
--- NOTE | 2020-04-09 04:46 | ER ---
Nurse's Notes [facility] Name: Danny Tellez Age: 44 yrs Sex: Male : 1975 Arrival Date: 04/08/2020 Time: 23:57 Bed 4 Private MD: Talon Vences T Diagnosis: Dyspnea, unspecified;Chest pain, unspecified;End stage renal disease Presentation: 04/09 00:24 Chief complaint: Patient states: I have shortness of breath and a pain on my left side. em I was chopping firewood today so it might be a strained muscle. I am a dialysis patient and I am supposed to have dialysis but they called and cancelled it because the water is frozen. Coronavirus screen: Client denies travel out of the [place] in the last 14 days. Ebola Screen: Patient negative for fever greater than or equal to 101.5 degrees Fahrenheit, and additional compatible Ebola Virus Disease symptoms Patient denies exposure to infectious person. Patient denies travel to an Ebola-affected area in the 21 days before illness onset. Initial Sepsis Screen: Does the patient meet any 2 criteria? No. Patient's initial sepsis screen is negative. Risk Assessment: Do you want to hurt yourself or someone else? Patient reports no desire to harm self or others. Onset of symptoms was April 09, 2020. 00:24 Method Of Arrival: Wheelchair em 00:24 Acuity: BRIANDA 3 em 03:00 Initial Sepsis Screen: Does the patient have a suspected source of infection? No. rr5 Patient's initial sepsis screen is negative. Triage Assessment: 03:00 General: Appears in no apparent distress. General: Behavior is calm, cooperative, rr5 appropriate for age. Respiratory: the patient has mild shortness of breath. Respiratory: Airway is patent Respiratory effort is even, unlabored, Respiratory pattern is regular, symmetrical. Historical: - Allergies: 00:28 NKA; em - Home Meds: 00:28 amlodipine 10 mg tab twice a day [Active]; calcium acetate 667 mg Oral cap 3 times per em day [Active]; clonidine HCl 0.1 mg Oral tab 1 tab 3 times per day [Active]; furosemide 40 mg Oral tab 1 tab 2 times per day [Active]; gabapentin 300 mg Oral cap 1 cap twice a day [Active]; hydralazine 25 mg Oral tab three times a day [Active]; Lantus 100 unit/mL Sub-Q soln [Active]; Lasix Oral [Active]; lisinopril 20 mg Oral tab 1 tab once daily [Active]; Novolin N 100 unit/mL Sub-Q susp [Active]; Novolin N 100 unit/mL Sub-Q susp [Active]; Novolin R Sub-Q [Active]; - PMHx: 00:28 Diabetes - IDDM; Dialysis; Hypertension; Renal Disease; em - PSHx: 00:28 Appendectomy; Cholecystectomy; BKA; em - Immunization history:: Adult Immunizations up to date. - Social history:: Smoking status: Patient denies any tobacco usage or history of. Patient/guardian denies using alcohol, street drugs. - Family history:: not pertinent. - Hospitalizations: : No recent hospitalization is reported. Screenin:04 Abuse screen: Denies threats or abuse. Denies injuries from another. Nutritional rr5 screening: No deficits noted. Tuberculosis screening: No symptoms or risk factors identified. Fall Risk IV access (20 points). Total Navarrete Fall Scale indicates No Risk (0-24 pts). Assessment: 03:00 General: Appears in no apparent distress. uncomfortable, Behavior is calm, cooperative, rr5 appropriate for age. 03:00 Pain: Complains of pain in left side chest Pain currently is 5 out of 10 on a pain rr5 scale. Quality of pain is described as aching, Pain began gradually, Is intermittent. Neuro: Level of Consciousness is awake, alert, obeys commands, Oriented to person, place, time, situation. Cardiovascular: Reports chest pain, Capillary refill < 3 seconds Patient's skin is warm and dry. Rhythm is atrial fibrillation Dialysis shunt: in the left arm, with palpable thrill, with no edema, no bleeding noted. Respiratory: Reports shortness of breath Airway is patent Respiratory effort is even, unlabored, Respiratory pattern is regular, symmetrical, GI: Abdomen is round distended. : No signs and/or symptoms were reported regarding the genitourinary system. EENT: No signs and/or symptoms were reported regarding the EENT system. Derm: Skin is intact, is healthy with good turgor, Skin temperature is warm. Musculoskeletal: Amputation of left leg. Circulation, motion, and sensation intact. Capillary refill < 3 seconds. 03:45 Reassessment: Patient appears in no apparent distress at this time. Patient is alert, rr5 oriented x 3, equal unlabored respirations, skin warm/dry/pink. awaiting for results. 04:36 Reassessment: Patient and/or family updated on plan of care and expected duration. Pain ea level reassessed. Patient is alert, oriented x 3, equal unlabored respirations, skin warm/dry/pink. 05:00 Reassessment: Patient appears in no apparent distress at this time. Patient is alert, rr5 oriented x 3, equal unlabored respirations, skin warm/dry/pink. hospitalist at bedside. 05:43 Reassessment: Patient appears in no apparent distress at this time. Patient is alert, rr5 oriented x 3, equal unlabored respirations, skin warm/dry/pink. Vital Signs: 00:26 BP 126 / 80; Pulse 86; Resp 20; Temp 98.4; Pulse Ox 97% ; Weight 118 kg; Height 5 ft. em 10 in. (177.80 cm); Pain 5/10; 03:00 BP 121 / 85; Pulse 82; Resp 17; Pulse Ox 97% ; rr5 03:43 BP 122 / 73; Pulse 80; Resp 19; Pulse Ox 97% ; rr5 04:36 BP 122 / 64; Pulse 78; Resp 18; Pulse Ox 97% ; ea 05:10 BP 119 / 58; Pulse 77; Resp 17; Pulse Ox 98% ; rr5 00:26 Body Mass Index 37.33 (118.00 kg, 177.80 cm) em ED Course: 04/08 23:57 Patient arrived in ED. do 23:58 Talon Vences MD is Private Physician. do 02/17 00:26 Triage completed. em 00:29 Arm band placed on right wrist. em 02:36 Kale Estrada MD is Attending Physician. rn 02:46 Salvador Singleton RN is Primary Nurse. rr5 03:04 Patient has correct armband on for positive identification. Placed in gown. Bed in low rr5 position. Call light in reach. Side rails up X2. threat monitoring analyst on. Pulse ox on. NIBP on. 03:04 EKG done, by ED staff, reviewed by Kale Estrada MD. rr5 03:07 XRAY Chest (1 view) In Process Unspecified. EDMS 03:14 CT Abd/Pelvis - Without Contrast In Process Unspecified. EDMS 03:21 Inserted saline lock: 20 gauge in right hand, using aseptic technique. Blood collected. rr5 03:36 EKG done, by ED staff, reviewed by Kale Estrada MD. rr5 04:45 Davian Jacobs DO is Hospitalizing Provider. rn 04:55 EKG done, by ED staff, reviewed by Kale Estrada MD. rr5 05:10 COVID swab sent to lab. rr5 05:42 No provider procedures requiring assistance completed. Patient admitted, IV remains in rr5 place. intact, No redness/swelling at site. 15:18 Primary Nurse role handed off by Salvador Singleton RN 15:18 Cristina Gay RN is Primary Nurse. 20:09 Primary Nurse role handed off by Cristina Gay, CHELSEY mw2 Administered Medications: 04:58 Drug: Aspirin Chewable Tablet 324 mg Route: PO; 05:45 Follow up: Response: No adverse reaction rr5 Outcome: 04:45 Decision to Hospitalize by Provider. rn 05:42 Admitted to ER Hold. Please see [facility] for further documentation. rr5 05:42 Condition: stable 05:42 Instructed on the need for admit. 21:30 Patient left the ED. mw2 Signatures: Dispatcher [employer] Joseph Armando, RN Kale Pfeiffer MD MD rn Ogletree, Danielle do Baxter, Heather, RN RN Zhanna Stoner RN RN ea [place], MyKena 2 Salvador Singleton RN RN rr5 Corrections: (The following items were deleted from the chart) 05:44 03:00 Musculoskeletal: Circulation, motion, and sensation intact. Capillary refill < 3 rr5 seconds, rr5
--- NOTE | 2020-04-09 04:46 | EDPHYS ---
Physician Documentation [facility] Name: Danny Tellez Age: 44 yrs Sex: Male : 1975 Arrival Date: 04/08/2020 Time: 23:57 Bed 4 Private MD: Talon Vences T ED Physician Kale Estrada HPI: 04/09 02:57 This 44 yrs old Male presents to ER via Wheelchair with complaints of rn Shortness Of Breath, Left Side Pain. 02:57 The patient has shortness of breath at rest, with light activity. Onset: The rn symptoms/episode began/occurred yesterday. Duration: The symptoms are intermittent. The patient's shortness of breath is aggravated by light activity, is alleviated by rest. Severity of symptoms: At their worst the symptoms were mild in the emergency department the symptoms are unchanged. The patient has not experienced similar symptoms in the past. The patient has not recently seen a physician. Reports here for sob and left sided abd pain, began yesterday, reports chopping wood and not sure if strained something. No fever, does not feel ill. Reports last dialysis on Tuesday. No hemoptysis. No direct trauma. Reports feeling heaviness with breathing. + hx of asthma per patient. . Historical: - Allergies: 00:28 NKA; em - Home Meds: 00:28 amlodipine 10 mg tab twice a day [Active]; calcium acetate 667 mg Oral cap 3 times per em day [Active]; clonidine HCl 0.1 mg Oral tab 1 tab 3 times per day [Active]; furosemide 40 mg Oral tab 1 tab 2 times per day [Active]; gabapentin 300 mg Oral cap 1 cap twice a day [Active]; hydralazine 25 mg Oral tab three times a day [Active]; Lantus 100 unit/mL Sub-Q soln [Active]; Lasix Oral [Active]; lisinopril 20 mg Oral tab 1 tab once daily [Active]; Novolin N 100 unit/mL Sub-Q susp [Active]; Novolin N 100 unit/mL Sub-Q susp [Active]; Novolin R Sub-Q [Active]; - PMHx: 00:28 Diabetes - IDDM; Dialysis; Hypertension; Renal Disease; em - PSHx: 00:28 Appendectomy; Cholecystectomy; BKA; em - Immunization history:: Adult Immunizations up to date. - Social history:: Smoking status: Patient denies any tobacco usage or history of. Patient/guardian denies using alcohol, street drugs. - Family history:: not pertinent. - Hospitalizations: : No recent hospitalization is reported. ROS: 02:57 Constitutional: Negative for fever, chills, and weight loss, Eyes: Negative for injury, rn pain, redness, and discharge, Neck: Negative for injury, pain, and swelling, Cardiovascular: Negative for palpitations, and edema, Respiratory: Negative for cough, wheezing, and pleuritic chest pain, Abdomen/GI: Negative for nausea, vomiting, diarrhea, and constipation, MS/Extremity: Negative for injury and deformity, Skin: Negative for injury, rash, and discoloration, Neuro: Negative for headache, weakness, numbness, tingling, and seizure. Exam: 02:57 Constitutional: This is a well developed, well nourished patient who is awake, alert, rn and in no acute distress. Head/Face: Normocephalic, atraumatic. ENT: No stridor Chest/axilla: Normal chest wall appearance and motion. Nontender with no deformity. No lesions are appreciated. Cardiovascular: Regular rate and rhythm. No pulse deficits. Respiratory: Clear bilateral breath sounds. No increased work of breathing, no retractions or nasal flaring. Abdomen/GI: Soft, mild left upper quadrant tenderness Skin: Warm, dry MS/ Extremity: No cyanosis. Neuro: Awake and alert, GCS 15 04:48 ECG was reviewed by the Attending Physician. rn Vital Signs: 00:26 BP 126 / 80; Pulse 86; Resp 20; Temp 98.4; Pulse Ox 97% ; Weight 118 kg; Height 5 ft. em 10 in. (177.80 cm); Pain 5/10; 03:00 BP 121 / 85; Pulse 82; Resp 17; Pulse Ox 97% ; rr5 03:43 BP 122 / 73; Pulse 80; Resp 19; Pulse Ox 97% ; rr5 04:36 BP 122 / 64; Pulse 78; Resp 18; Pulse Ox 97% ; ea 05:10 BP 119 / 58; Pulse 77; Resp 17; Pulse Ox 98% ; rr5 00:26 Body Mass Index 37.33 (118.00 kg, 177.80 cm) em MDM: 02:36 Patient medically screened. rn 04:43 Differential diagnosis: pneumonia, Pneumothorax pulmonary edema, volume overload, rn pulmonary edema. Data reviewed: vital signs, nurses notes, lab test result(s), EKG, radiologic studies, CT scan, plain films, and as a result, I will admit patient. Counseling: I had a detailed discussion with the patient and/or guardian regarding: the historical points, exam findings, and any diagnostic results supporting the discharge/admit diagnosis, lab results, radiology results, the need for further work-up and treatment in the hospital. Response to treatment: the patient's symptoms have mildly improved after treatment, and as a result, I will admit patient. Admission orders: after a detailed discussion of the patient's condition and case, the admit orders are written by me. ED course: Pt with elevated trop and BNP, likely 2/2 ESRD, but could also be secondary to arrhythmia with strain, first ECG showed afib, second was sinus tachycardia with lateral ST depressions. UNable to get dialysis today due to water availability, will admit for dialysis and further w/u. . 04:48 ED course: Currently in sinus rhythm. rn 04/09 02:44 Order name: CBC with Diff; Complete Time: 04:04 04/09 02:44 Order name: Basic Metabolic Panel; Complete Time: 04:30 04/09 02:44 Order name: Magnesium; Complete Time: 04:30 04/09 02:44 Order name: NT PRO-BNP; Complete Time: 04:30 04/09 02:44 Order name: Troponin (emerg Dept Use Only); Complete Time: 04:30 04/09 04:46 Order name: COVID-19 : Document "Date of Symptom Onset" if Symptomatic. rn 04/09 02:44 Order name: XRAY Chest (1 view) rn 04/09 08:08 Order name: Glucose, Ancillary Testing; Complete Time: 15:42 [facility] 04/09 09:09 Order name: SARS-COV-2 RT PCR; Complete Time: 15:43 [facility] 04/09 09:15 Order name: Troponin I; Complete Time: 15:42 [facility] 04/09 09:15 Order name: Lipid Profile; Complete Time: 15:43 [facility] 04/09 11:57 Order name: Glucose, Ancillary Testing; Complete Time: 15:42 [facility] 04/09 15:30 Order name: Troponin I; Complete Time: 15:43 [facility] 04/09 02:44 Order name: IV Start; Complete Time: 03:22 04/09 02:44 Order name: EKG; Complete Time: 02:44 04/09 02:44 Order name: Cardiac monitoring; Complete Time: 03:03 04/09 02:44 Order name: EKG - Nurse/Tech; Complete Time: 03:03 04/09 02:44 Order name: Labs collected and sent; Complete Time: 03:22 04/09 02:44 Order name: O2 Per Protocol; Complete Time: 03:03 rn 04/09 02:44 Order name: O2 Sat Monitoring; Complete Time: 03:03 04/09 02:44 Order name: CT Abd/Pelvis - Without Contrast rn EC:48 Rate is 80 beats/min. Rhythm is regular. QRS Taylor is Normal. W[place] interval is normal. QRS rn interval is normal. QT interval is normal. No Q waves. T waves are Normal. ST Segment is depressed in leads V4, V5, V6. Clinical impression: NSR w/ Non-specific ST/T Changes. Interpreted by me. Reviewed by me. Administered Medications: 04:58 Drug: Aspirin Chewable Tablet 324 mg Route: PO; kwame 05:45 Follow up: Response: No adverse reaction rr5 Disposition: 04/09/20 04:45 Hospitalization ordered by Davian Jacobs for Observation. Preliminary diagnosis are Dyspnea, unspecified, Chest pain, unspecified, End stage renal disease. - Bed requested for [facility] ER HOLD. - Status is Observation. mw2 - Condition is Stable. - Problem is new. - Symptoms have improved. Signatures: Dispatcher [employer] [facility] Nadine Sanchez RN Joseph Lin, RN Kale Pfeiffer MD MD rn Attema, Lee, MAGALY-Parisa [id number] Zhanna Stoner RN Kailey Martinez ea mw2 Salvador Singleton RN rr5 Corrections: (The following items were deleted from the chart) 03:05 02:04 Chest Pa And Lat (2 Views)+[email or web address] ordered. [facility] EDAR 05:49 04:45 Hospitalization Ordered by Davian Jacobs DO for Observation. Preliminary dw diagnosis is Dyspnea, unspecified; Chest pain, unspecified; End stage renal disease. Bed requested for Telemetry/MedSurg (observation). Status is Observation. Condition is Stable. Problem is new. Symptoms have improved. rn 21:30 05:49 04/09/2020 04:45 Hospitalization Ordered by Davian Jacobs DO for Observation. mw2 Preliminary diagnosis is Dyspnea, unspecified; Chest pain, unspecified; End stage renal disease. Bed requested for [facility] ER HOLD. Status is Observation. Condition is Stable. Problem is new. Symptoms have improved. dw
[2020-04-09] MEDS ORDERED: ASPIRIN 81 MG CHEWABLE TABLET ONE (05:12)
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
[2020-04-09 05:55] VITALS: BMI 37.3
[2020-04-09] MEDS ORDERED: ACETAMINOPHEN 500 MG TAB PO PRN (06:04)
[2020-04-09] MEDS ORDERED: METOPROLOL TAR 25 MG TAB PO SCH (06:04)
[2020-04-09] MEDS ORDERED: ONDANSETRON 4 MG/2 ML VIAL IV PRN (06:04)
[2020-04-09] MEDS ORDERED: METOPROLOL TAR 25 MG TAB ONE (06:32)
[2020-04-09] MEDS: INSULIN -REGULAR HUMAN 50 UNIT/0.5 ML ML SQ SCH ×2 (07:30→11:30)
[2020-04-09 08:08] VITALS: TEMP 97.8
[2020-04-09 09:15] LABS: Troponin I 0.31 ng/mL (0.0-0.045)
[2020-04-09] MEDS ORDERED: INSULIN -REGULAR HUMAN 50 UNIT/0.5 ML ML ONE (12:04)
--- NOTE | 2020-04-09 14:13 | CON ---
Date of Consultation: 04/09/[address] Jacobs on 04/09/2020. I saw the patient on 04/09/2020. Reason For Consultation: Elevated troponin. History Of Present Illness: Mr. Tellez is a 44-year-old male who has had a history of diabetes, hyp ertension, chronic renal disease. He has end-stage renal disease, on dialysis. He has a history of BKA because of what sounds like gangrenous left foot at one point. Has not had dialysis for 3 days. Came in with lower abdominal left-sided pain and no chest pain. Denied any nausea, vomiting, diapho resis, PND, orthopnea, pedal edema, palpitations, or syncope. Has had some shortness of breath. His troponin was 0.17. [place] BNP was [address]. His creatinine is 10.30. He weighed 260 pounds. EKG and x- rays were unremarkable. He normally sees Dr. James and he said he gets an echocardiogram and a str ess test on a yearly basis. All of those have been negative in the past. Allergies: NONE. Review of Systems: Negative. Social History: Negative. Family History: Negative. Medications: At home include, aspirin, Norvasc, Catapres, insulin, Victoza, Zestril, and prednisone. Physical Examination: General: A very pleasant man in no acute distress. Vital Signs: Stable, afebrile HEENT: Negative. Neck: Supple with no bruit. Chest: Clear to auscultate and percussion. Cardiac: Revealed a regular rhythm and rate. No murmurs, gallops, or rubs. Abdomen: Benign. Extremities: Revealed status post left BKA. His right lower extremity showed 1+ edema. Diagnostic Data: As stated earlier. Impression And Plan: Atypical chest pain, very much lower abdominal pain. I do not think we are won ling with an acute coronary syndrome. I think his elevated troponin and BNP is secondary to renal fa ilure secondary to the fact that he has not had dialysis in 3 days. I do not plan to do any coronary intervention or workup on him. He gets an echo and stress test by Dr. James on a yearly basis and he will follow up with him. He definitely needs to be dialyzed, needs to have Nephrology consultati on. The case was discussed with Dr. Jacobs. His diabetes and hypertension are very well controlled. I will be available for question if the need arises. EVIE/MARIBEL Voice ID: [id number] Report ID: [id number]
--- NOTE | 2020-04-09 14:39 | RAD REPORT ---
EXAM DESCRIPTION: RAD - Chest Single View - 04/09/2020 3:07 am CLINICAL HISTORY: 44 years Male, CHEST PAIN COMPARISON: 01/31/2020 TECHNIQUE: Single portable x-ray view of the chest performed on 04/09/2020 at 2:46 AM FINDINGS: The lungs are well expanded and are grossly clear. There is trace blunting of the left lat eral costophrenic sulcus. There is no evidence of a pneumothorax. The cardiac silhouette appears prominent and may be accentuated by the portable technique. The mediastinal contours are normal. No acute osseous abnormality is identified. No acute soft tissue abnormalities are seen. Lines and tubes: None. Free air: None IMPRESSION: 1. No definite acute intrathoracic disease. 2. Trace blunting of the left lateral costophrenic sulcus. Electronically signed by: Darcy Dasilva DO 04/09/2020 3:47 AM CABINET INSTALLER Due to temporary technical issues with the PACS/Fluency reporting system, reports are being signed by the in house radiologist without review as a courtesy to ensure prompt reporting. The interpreting r adiologist is fully responsible for the content of the report.
--- NOTE | 2020-04-09 14:52 | RAD REPORT ---
EXAM DESCRIPTION: CT - Abdomen Pelvis Wo Contrast - 04/09/2020 7:09 am CLINICAL HISTORY: 44 years Male left sided abd pain TECHNIQUE: Axial CT imaging of the abdomen and pelvis was performed without oral or intravenous cont rast. Sagittal and coronal reconstructed images were then performed. The CT study is performed acco rding to ALARA (as low as reasonably achievable) or ALARA/IMAGE GENTLY, with automatic adjustment of mA and/or kV according to patient size. Performed on: 04/09/2020 at 3:07 AM Comparison: 12/26/2016. FINDINGS: Limitations: No oral or intravenous contrast was administered. Lung bases: There is hazy opacification in the lung bases which may be due to interstitial edema. The re is a small left pleural effusion and trace right pleural effusion. There are coronary artery calci fications. The heart is normal in size. There is no pericardial effusion. There is elevation of the r ight hemidiaphragm. Liver: The liver is enlarged and measures 21 cm in craniocaudal dimension. No focal hepatic abnormali ties are appreciated on this unenhanced scan. Liver attenuation is within normal limits. Spleen: The spleen is normal is size, configuration and attenuation. No focal splenic abnormalities a re appreciated on this unenhanced scan. Gallbladder and bile duct: The gallbladder is surgically absent. There is no biliary ductal dilatat ion. Pancreas: The pancreas is grossly normal in size and configuration. Adrenal Glands: The adrenal glands are normal in size and configuration. Kidneys: The kidneys are normal in size and configuration. There is no evidence of hydronephrosis. Th ere are bilateral renal vascular calcifications. There is a punctate calcification which is series di sease in the mid to proximal right ureter (series 201, image 61) without evidence of hydronephrosis. Potentially this could be vascular in nature. No definite nephrolithiasis is identified. There is str anding of the perinephric fat bilaterally which is nonspecific but can be seen with chronic medical r enal disease. No focal renal abnormalities are identified. Stomach: The stomach is grossly normal. There is no definite hiatal hernia. Bowel: The bowel gas pattern is non specific and non obstructive. Appendix: The appendix is surgically absent. Free air: There is no evidence of free air. Free fluid: There is a small amount of ascites in the abdomen and pelvis. The etiology of this is not certain. Vasculature: The aorta is normal in caliber and contour. There are mild atherosclerotic calcification s along the aorta and major branch vessels. The inferior vena cava is grossly unremarkable. Lymphadenopathy: No pathologic lymphadenopathy is identified. Bladder: The bladder is partially distended and smooth in contour. Reproductive: The prostate gland is is grossly within normal limits. Bones: No acute osseous abnormalities are identified. Soft tissues: No acute soft tissue abnormalities are identified. There are small bilateral fat-contai justin inguinal hernias, larger on the right. There is mild infiltration of the subcutaneous fat along the anterior right lower abdomen. IMPRESSION: 1. Hazy opacification in the visualized lower lobes which may be due to interstitial safia ma. There is a small left pleural effusion and trace right pleural effusion. 2. Small amount of ascites of unclear etiology. 3. Bilateral renal vascular calcifications and atherosclerotic calcifications along the aorta and rogelio or branch vessels. 4. Questionable punctate calcification in the mid to proximal right ureter without hydronephrosis. Po tentially, this could be vascular in nature. 5. Prior cholecystectomy and appendectomy. 6. Small bilateral fat-containing inguinal hernias, larger on the right. 7. Very mild infiltration of the subcutaneous fat along the right anterior lower abdomen. 8. Hepatomegaly. Electronically signed by: Darcy Dasilva DO 04/09/2020 4:08 AM RN TRANSITIONAL CARE Due to temporary technical issues with the PACS/Fluency reporting system, reports are being signed by the in house radiologist without review as a courtesy to ensure prompt reporting. The interpreting r adiologist is fully responsible for the content of the report.
[2020-04-09] MEDS ORDERED: HOME MED 1 EA UNK (Insulin Degludec [Tresiba Flextouch U-200] 200 UNIT/ML Insuln.Pen) SQ PRN (15:53)
[2020-04-09] MEDS ORDERED: GLUCAGON 1 MG/VIAL IM PRN (15:53)
[2020-04-09] MEDS ORDERED: HOME MED 1 EA UNK (Liraglutide [Victoza 2-Pak] 0.6 MG/0.1 ML Pen.Injctr) SQ PRN (15:53)
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
[2020-04-09] MEDS ORDERED: INSULIN -REGULAR HUMAN 50 UNIT/0.5 ML ML SQ SCH (16:00)
[2020-04-09] MEDS ORDERED: D50W 25 GM/50 ML VIAL IV PRN (16:12)
[2020-04-09] MEDS ORDERED: SEVELAMER CARBONATE 800 MG TABLET PO SCH (17:00)
--- NOTE | 2020-04-09 18:44 | CON ---
Date of Consultation: 04/09/2020 Reason For Consultation: Elevated BUN and creatinine. History Of Present Illness: This is a 44-year-old gentleman with significant past medical history of end stage renal disease, on hemodialysis Tuesday, Tuesday, Tuesday; hypertension; hyperlipidemia; diabetes; peripheral vascular disease; vitamin D deficiency. The patient came to the hospital that he was not dialyzed since Tuesday. The patient complaining from shortness of breath, left- sided chest pain. Past Medical History: Includes; 1. Diabetes. 2. Hypertension. 3. Hyperlipidemia. 4. End-stage renal disease. 5. Vitamin D deficiency. Allergies: NO KNOWN DRUG ALLERGIES. Social History: Denied smoking, denied drinking, denied drugs abuse. Past Surgical History: Includes AV fistula creation, left below-knee amputation, appendectomy, cholecystectomy. Family History: Positive for hypertension and diabetes. Home Medications: Include insulin, amlodipine, and gabapentin. Review of Systems: Head and Neck: No red eye. No ear pain. GI: Has left flank pain. : No polyuria. No dysuria. No hematuria. Machine Shop Specialist: Not applicable. Respiratory: Has shortness of breath. Cardiovascular: Has left chest pain. Endocrine: No polydipsia. Skin: No rash. Neuro: Has neuropathy. Musculoskeletal: Left flank pain. Physical Examination: Vital Signs: Blood pressure 135/85, pulse of 77. Chest: Faint rales on the left base. Heart: S1, S2. Systolic murmur. Abdomen: Soft, nontender. Extremity: Left below-knee amputation. Neurologic: Alert. No focality. Laboratory Data: H and H 10.2/30.5. Sodium 135, potassium 5.2, bicarb 20, BUN 77, creatinine 10.3, calcium 8.8. Current Medications: The patient on include aspirin, Tylenol, gabapentin, Lasix, Renvela. Assessment And Plan: 1. End-stage renal disease, over volume, hyperkalemia. The patient is going to be dialyzed on low-potassium bath. We will challenge the patient. 2. Hypertension. We will utilize the blood pressure for ultrafiltration. 3. Hyperkalemia. Dialyze the patient on low-potassium bath. 4. Anemia of chronic kidney disease. Resume RUDOLPH. 5. Secondary hyperparathyroidism. Resume binder. 6. Chest pain. Cardiac component has been ruled out. The patient cleared from the Renal standpoint for discharge planning after dialysis. Time spent discussing with the patient, examining the patient, exam [id number], placing order, discussing with staff and other consulting include including Cardiology and Primary 75 minutes. CHRISTINA Voice ID: [id number] Report ID: [id number] JASON
[2020-04-09] MEDS ORDERED: FUROSEMIDE 40 MG TABLET PO SCH (21:00)
[2020-04-09] MEDS ORDERED: ATORVASTATIN 40 MG TAB PO SCH (21:00)
[2020-04-09] MEDS ORDERED: GABAPENTIN 300 MG CAP PO SCH (21:00)
[2020-04-09 21:35] VITALS: BP 136/99
[2020-04-09 21:45] VITALS: O2SAT 98
[2020-04-10] MEDS ORDERED: ASPIRIN EC 81 MG TAB PO SCH (09:00)
[2020-04-10] MEDS ORDERED: TAMSULOSIN 0.4 MG SR CAP PO SCH (09:00)
== END 2020-04-09 21:34 | disposition home or self-care (01) ==
LOC: ER 23:56 → ERHOLD 04-09 04:48
PROVIDERS: ADMIT Family Medicine; ATTEND Family Medicine
DX: E87.70 Fluid overload, unspecified (principal); I12.0 Hypertensive chronic kidney disease with stage 5 chronic kidney disease or end stage renal disease; E11.22 Type 2 diabetes mellitus with diabetic chronic kidney disease; N18.6 End stage renal disease; J81.1 Chronic pulmonary edema; D63.1 Anemia in chronic kidney disease; Z99.2 Dependence on renal dialysis; Z91.15 Patient's noncompliance with renal dialysis; E11.40 Type 2 diabetes mellitus with diabetic neuropathy, unspecified; N40.0 Benign prostatic hyperplasia without lower urinary tract symptoms; E87.5 Hyperkalemia; E78.5 Hyperlipidemia, unspecified; R07.89 Other chest pain; R10.30 Lower abdominal pain, unspecified; N25.81 Secondary hyperparathyroidism of renal origin; I73.9 Peripheral vascular disease, unspecified; E55.9 Vitamin D deficiency, unspecified; Z20.822 Contact with and (suspected) exposure to COVID-19; Z79.4 Long term (current) use of insulin; Z90.49 Acquired absence of other specified parts of digestive tract; Z89.512 Acquired absence of left leg below knee; Z82.49 Family history of ischemic heart disease and other diseases of the circulatory system; Z83.3 Family history of diabetes mellitus; Z80.3 Family history of malignant neoplasm of breast
CPT/HCPCS: 93005 ×2; 85025; 80048; 36415; 83735; 80061; 82947 ×2; 84484 ×3; 83880; 74176; 71045; 90935; 99285; U0003; J1644; G0378

== ENCOUNTER 2020-05-02 09:58 | Inpatient (IN) | payer MEDICARE ==
--- OUTSIDE RECORDS SUMMARY | 2020-05-02 10:01 | XMS REPORT | Continuity of Care Document ---
:1975 Author Organization [facility] t Address [address] [place] [address] Care Team Providers Name Role Phone Carol Rony Attending Clinician Doctor Unassigned, [place] Attending Clinician Unavailable Fidelia MOSS S Attending Clinician Problems This patient has no known problems. Allergies, Adverse Reactions, Alerts This patient has no known allergies or adverse reactions. Medications This patient has no known medications. Procedures This patient has no known procedures. Encounters Start End Encounter Admission Attending Care Care Encounter Source Date/Time Date/Time Type Type Clinicians Facility Department ID 2019-09-17 2019-09-17 Letter WERO [place] [id number] 00:00:00 00:00:00 (Out) Rony DOVE [id number] [place] [id number] 2019-08-24 2019-08-24 Orders Doctor WERO [id number] 00:00:00 00:00:00 Only UnassignedDERRELL [id number] [place] [facility] [id number] 2019-06-20 2019-06-20 Emergency LEXY Mistry [id number] 21:13:58 23:17:00 Snow Yates [id number] [place] [id number] [place] [id number] Results This patient has no known results.
[2020-05-02 12:43] LABS: Absolute Lymphocytes (CBC) 0.4 K/uL (0.7-4.9); Basophils % 1.4 % (0-1.3); Hematocrit 32.6 % (39.6-49.0); Lymphocytes % 3.1 % (15.3-44.8); MPV 9.3 fL (7.6-11.3); RBC Red Blood Cell Count 3.39 M/uL (4.33-5.43)
[2020-05-02 12:44] LABS: Protime INR 2.23
[2020-05-02 13:19] LABS: Platelet Estimate ADEQ; White Blood Cell Scan OK (OK)
[2020-05-02 13:20] LABS: Blood Morphology Comment NOT SEEN (NOT SEEN)
--- NOTE | 2020-05-02 13:56 | RAD REPORT ---
EXAM DESCRIPTION: CT - Abdomen Pelvis W Contrast - 05/02/2020 1:41 pm CLINICAL HISTORY: Abdominal pain COMPARISON: March 2020 TECHNIQUE: Computed axial tomography of the abdomen pelvis was obtained. 100 cc Isovue-300 was admin istered intravenously. Oral contrast was not requested which limits evaluation of bowel. All CT scans are performed using dose optimization technique as appropriate and may include automated exposure control or mA/KV adjustment according to patient size. FINDINGS: Liver has a heterogeneous in density. Mild hepatomegaly. Vascular calcifications. Cholecys tectomy The spleen, pancreas, adrenals and kidneys demonstrate no significant abnormality. Relatively small amount of ascites is present the abdomen and pelvis. Moderate right small left inguinal hernias. Scrotal and perineal edema is present. A discrete periana l abscess is not seen There is no evidence of diverticulitis. IMPRESSION: Liver has a heterogeneous density which may be related to inflammation or passive venous congestion. .Scrotal and perineal edema is present. A discrete perianal abscess is not seen
[2020-05-02 13:58] LABS: Bilirubin Direct 2.3 mg/dL (0-0.2); Bilirubin Total 3.2 mg/dL (0.2-1.0); Magnesium 2.8 mg/dL (1.8-2.4); Potassium 5.2 mmol/L (3.5-5.1); Protein, Total 7.3 g/dL (6.4-8.2); Troponin (Emerg Dept Use Only) 0.11 ng/mL (0.0-0.045)
--- NOTE | 2020-05-02 14:08 | RAD REPORT ---
EXAM DESCRIPTION: Sheldon Single View05/02/2020 12:54 pm CLINICAL HISTORY: Abdominal pain COMPARISON: March 2020 FINDINGS: The lungs appear clear of acute infiltrate. The heart is mildly to moderately enlarged IMPRESSION: No acute abnormalities displayed
--- NOTE | 2020-05-02 15:00 | EDPHYS ---
Physician Documentation [facility] Name: Danny Tellez Age: 44 yrs Sex: Male : 1975 Arrival Date: 05/02/2020 Time: 10:04 Bed 13 Private MD: ED Physician Refugio Singh HPI: 05/02 12:44 This 44 yrs old Male presents to ER via Wheelchair with complaints of Low BP, tw4 Boil. 12:44 The patient presents with cellulitis of the groin. Description: The affected area is tw4 moderate sized. Onset: The symptoms/episode began/occurred today. Possible cause(s): unknown. Associated signs and symptoms: The patient has no apparent associated signs or symptoms. Modifying factors: the symptoms are alleviated by nothing, the symptoms are aggravated by nothing. The patient has not experienced similar symptoms in the past. Historical: - Allergies: 10:25 NKA; aa5 - PMHx: 10:25 Diabetes - IDDM; Dialysis; Hypertension; Renal Disease; aa5 - PSHx: 10:25 Appendectomy; Cholecystectomy; BKA; aa5 - Immunization history:: Adult Immunizations up to date. - Social history:: Smoking status: Patient denies any tobacco usage or history of. ROS: 12:44 Constitutional: Negative for fever, chills, and weight loss, Eyes: Negative for injury, tw4 pain, redness, and discharge, Cardiovascular: Negative for chest pain, palpitations, and edema, Respiratory: Negative for shortness of breath, cough, wheezing, and pleuritic chest pain, Abdomen/GI: Negative for abdominal pain, nausea, vomiting, diarrhea, and constipation, Back: Negative for injury and pain. 12:44 Skin: Positive for abscess, cellulitis, erythema, swelling, Negative for abrasions, avulsion, burn, diaphoresis, discoloration, ecchymosis, hematoma, jaundice, laceration(s), lesions, pallor. Exam: 12:44 Constitutional: This is a well developed, well nourished patient who is awake, alert, tw4 and in no acute distress. Head/Face: Normocephalic, atraumatic. Chest/axilla: Normal chest wall appearance and motion. Nontender with no deformity. No lesions are appreciated. Cardiovascular: Regular rate and rhythm with a normal S1 and S2. No gallops, murmurs, or rubs. Normal PMI, no JVD. No pulse deficits. Respiratory: Lungs have equal breath sounds bilaterally, clear to auscultation and percussion. No rales, rhonchi or wheezes noted. No increased work of breathing, no retractions or nasal flaring. Abdomen/GI: Soft, non-tender, with normal bowel sounds. No distension or tympany. No guarding or rebound. No evidence of tenderness throughout. 12:44 MS/ Extremity: Pulses equal, no cyanosis. Neurovascular intact. Full, normal range of motion. Neuro: Awake and alert, GCS 15, oriented to person, place, time, and situation. Cranial nerves II-XII grossly intact. Motor strength 5/5 in all extremities. Sensory grossly intact. Cerebellar exam normal. Normal gait. 12:44 : Male external genitalia: erythema, tenderness, of the left testicle and perineum is noted. Vital Signs: 10:20 BP 91 / 68; Pulse 74; Resp 18 S; Temp 100.1(O); Pulse Ox 98% on R/A; Weight 118 kg; aa5 Height 5 ft. 10 in. (177.80 cm) (R); 15:30 BP 117 / 96; Pulse 72; Resp 18; Pulse Ox 98% ; ll1 15:37 BP 122 / 85; Pulse 72; Resp 18; Temp 98.8; ll1 19:15 BP 122 / 87; Pulse 107; Resp 19; Pulse Ox 99% on 2 lpm NC; jb4 10:20 Body Mass Index 37.33 (118.00 kg, 177.80 cm) aa5 MDM: 11:53 Patient medically screened. tw4 16:33 Differential diagnosis: abscess, cellulitis. Data reviewed: vital signs, nurses notes. tw4 Data reviewed: lab test result(s), cardiac enzymes, CBC, hepatic panel, radiologic studies, CT scan. Data interpreted: Pulse oximetry: Interpretation: normal. Counseling: I had a detailed discussion with the patient and/or guardian regarding: the historical points, exam findings, and any diagnostic results supporting the discharge/admit diagnosis. Physician consultation: Olman Brar MD regarding admission. 05/02 11:44 Order name: Basic Metabolic Panel; Complete Time: 14:26 tw4 05/02 11:44 Order name: CBC with Diff; Complete Time: 14:26 4 05/02 11:44 Order name: LFT's; Complete Time: 14:26 tw4 05/02 11:44 Order name: Magnesium; Complete Time: 14:26 4 05/02 11:44 Order name: NT PRO-BNP; Complete Time: 14:26 4 05/02 11:44 Order name: PT-INR; Complete Time: 14:26 4 05/02 11:44 Order name: Troponin (emerg Dept Use Only); Complete Time: 14:26 4 05/02 12:03 Order name: Blood Culture Adult (2) tw4 05/02 12:03 Order name: Lactate; Complete Time: 14:26 tw4 05/02 13:19 Order name: CBC Smear Scan; Complete Time: 14:26 EDID 05/02 15:51 Order name: Basic Metabolic Panel EDID 05/02 15:51 Order name: Basic Metabolic Panel [facility] 05/02 15:51 Order name: CBC with Automated Diff EDID 05/02 15:51 Order name: CBC with Automated Diff EDID 05/02 11:44 Order name: XRAY Chest (1 view); Complete Time: 14:26 4 05/02 11:44 Order name: EKG; Complete Time: 11:45 4 05/02 11:44 Order name: Cardiac monitoring; Complete Time: 13:48 4 05/02 11:44 Order name: EKG - Nurse/Tech; Complete Time: 13:48 4 05/02 11:44 Order name: IV Saline Lock; Complete Time: 12:20 4 05/02 11:44 Order name: Labs collected and sent; Complete Time: 12:20 4 05/02 11:44 Order name: O2 Per Protocol; Complete Time: 11:58 4 05/02 11:44 Order name: O2 Sat Monitoring; Complete Time: 11:58 4 05/02 12:06 Order name: CT Abd/Pelvis - IV Contrast Only; Complete Time: 14:24 4 05/02 15:51 Order name: CONS Physician Consult [facility] 05/02 15:51 Order name: Renal EDID 05/02 17:17 Order name: COVID-19 : Document "Date of Symptom Onset" if Symptomatic. 05/02 17:47 Order name: CORONAVIRUS EDMS 05/02 18:36 Order name: SARS-COV-2 RT PCR EDID Administered Medications: 12:41 Drug: Zosyn 3.375 grams Route: IVPB; Infused Over: 60 mins; Site: right forearm; ll1 13:48 Follow up: Response: No adverse reaction; RASS: Alert and Calm (0); IV Status: ll1 Completed infusion; IV Intake: 100ml 15:52 Follow up: Response: No adverse reaction; RASS: Alert and Calm (0); IV Status: ll1 Completed infusion; IV Intake: 100ml 15:52 Drug: vancoMYCIN 1 grams Route: IVPB; Infused Over: 2 hrs; Site: right hand; ll1 Disposition: 05/02/20 15:00 Hospitalization ordered by Olman Brar for Inpatient Admission. Preliminary diagnosis are Chronic kidney disease, stage 5, Encounter for care involving renal dialysis, Cellulitis of perineum. - Bed requested for Telemetry/MedSurg (Inpatient). - Status is Inpatient Admission. bb - Condition is Stable. - Problem is new. - Symptoms have improved. Signatures: Dispatcher [employer] EDID Nadine Sanchez RN RN dw Louise Pretty RN RN bb Rufina Fernandez, RN RN 5 Refugio Singh MD MD [facility] Kailey Vale [facility] Julia Grullon RN RN ll1 Corrections: (The following items were deleted from the chart) 19:25 15:00 Hospitalization Ordered by Olman Brar MD for Inpatient Admission. Preliminary dw diagnosis is Chronic kidney disease, stage 5; Encounter for care involving renal dialysis; Cellulitis of perineum. Bed requested for Telemetry/MedSurg (Inpatient). Status is Inpatient Admission. Condition is Stable. Problem is new. Symptoms have improved. tw4 05/03 19:16 05/02 19:25 05/02/2020 15:00 Hospitalization Ordered by Olman Brar MD for Inpatient mw2 Admission. Preliminary diagnosis is Chronic kidney disease, stage 5; Encounter for care involving renal dialysis; Cellulitis of perineum. Bed requested for [facility] ER HOLD. Status is Inpatient Admission. Condition is Stable. Problem is new. Symptoms have improved. 05/03 20:11 19:16 05/02/2020 15:00 Hospitalization Ordered by Olman Brar MD for Inpatient bb Admission. Preliminary diagnosis is Chronic kidney disease, stage 5; Encounter for care involving renal dialysis; Cellulitis of perineum. Bed requested for Telemetry/MedSurg (Inpatient). Status is Inpatient Admission. Condition is Stable. Problem is new. Symptoms have improved. mw2
--- NOTE | 2020-05-02 15:00 | ER ---
Nurse's Notes [facility] Name: Danny Tellez Age: 44 yrs Sex: Male : 1975 Arrival Date: 05/02/2020 Time: 10:04 Bed 13 Private MD: Diagnosis: Chronic kidney disease, stage 5;Encounter for care involving renal dialysis;Cellulitis of perineum Presentation: 05/02 10:20 Chief complaint: Patient states: "I have a boil around my perineal area that I noticed aa5 yesterday". Pt reports generalized weakness. 10:20 Coronavirus screen: Coronavirus screen: Client presents with at least one sign or aa5 symptom that may indicate coronavirus-19. Standard/surgical mask placed on the client. Provider contacted for isolation considerations. Ebola Screen: Patient negative for fever greater than or equal to 101.5 degrees Fahrenheit, and additional compatible Ebola Virus Disease symptoms. Initial Sepsis Screen: Does the patient meet any 2 criteria? No. Patient's initial sepsis screen is negative. Does the patient have a suspected source of infection? Yes:. Risk Assessment: Do you want to hurt yourself or someone else? Patient reports no desire to harm self or others. Onset of symptoms was April 2020. 10:20 Method Of Arrival: Wheelchair aa5 10:20 Acuity: BRIANDA 2 aa5 Historical: - Allergies: 10:25 NKA; aa5 - PMHx: 10:25 Diabetes - IDDM; Dialysis; Hypertension; Renal Disease; aa5 - PSHx: 10:25 Appendectomy; Cholecystectomy; BKA; aa5 - Immunization history:: Adult Immunizations up to date. - Social history:: Smoking status: Patient denies any tobacco usage or history of. Screenin:54 Abuse screen: Denies threats or abuse. Nutritional screening: No deficits noted. ll1 Tuberculosis screening: No symptoms or risk factors identified. Fall Risk Secondary diagnosis (15 points) Ambulatory Aid- Crutches/Cane/Walker (15 pts). Gait- Impaired (20 pts.). Total Navarrete Fall Scale indicates High Risk Score (45 or more points). Fall prevention measures have been instituted. Side Rails Up X 2 Frequent Obs/Assessments Occuring As available patient and family educated on Fall Prevention Program and Strategies. Assessment: 11:10 General: Appears in no apparent distress. Behavior is calm, cooperative, appropriate ll1 for age. Pain: Complains of pain in perineum and left testicle Quality of pain is described as aching, Aggravated by increased activity. Derm: see doctor note for further details of abscess/skin assessment. Abscess located on perineum and left testicle has no drainage, is hot to touch, is red, is raised. 19:15 Reassessment: Patient appears in no apparent distress at this time. Patient and/or jb4 family updated on plan of care and expected duration. Pain level reassessed. Patient is alert, oriented x 3, equal unlabored respirations, skin warm/dry/pink. Vital Signs: 10:20 BP 91 / 68; Pulse 74; Resp 18 S; Temp 100.1(O); Pulse Ox 98% on R/A; Weight 118 kg; aa5 Height 5 ft. 10 in. (177.80 cm) (R); 15:30 BP 117 / 96; Pulse 72; Resp 18; Pulse Ox 98% ; ll1 15:37 BP 122 / 85; Pulse 72; Resp 18; Temp 98.8; ll1 19:15 BP 122 / 87; Pulse 107; Resp 19; Pulse Ox 99% on 2 lpm NC; jb4 10:20 Body Mass Index 37.33 (118.00 kg, 177.80 cm) aa5 ED Course: 10:04 Patient arrived in ED. ds1 10:22 Arm band placed on. aa5 10:25 Triage completed. aa5 11:10 Patient has correct armband on for positive identification. Placed in gown. Bed in low ll1 position. Call light in reach. Side rails up X2. Pulse ox on. NIBP on. 11:52 Refugio Singh MD is Attending Physician. tw4 12:20 Julia Grullon RN is Primary Nurse. ll1 12:54 XRAY Chest (1 view) In Process Unspecified. EDMS 13:10 Inserted saline lock: 20 gauge in right antecubital area, using aseptic technique. ll1 Blood collected. 13:41 CT Abd/Pelvis - IV Contrast Only In Process Unspecified. EDMS 14:30 IV discontinued, intact, bleeding controlled, No redness/swelling at site. Pressure ll1 dressing applied. 14:35 Inserted saline lock: 22 gauge in right hand, using aseptic technique. Blood collected. ll1 14:57 Olmna Brar MD is Hospitalizing Provider. tw4 Administered Medications: 12:41 Drug: Zosyn 3.375 grams Route: IVPB; Infused Over: 60 mins; Site: right forearm; ll1 13:48 Follow up: Response: No adverse reaction; RASS: Alert and Calm (0); IV Status: ll1 Completed infusion; IV Intake: 100ml 15:52 Follow up: Response: No adverse reaction; RASS: Alert and Calm (0); IV Status: ll1 Completed infusion; IV Intake: 100ml 15:52 Drug: vancoMYCIN 1 grams Route: IVPB; Infused Over: 2 hrs; Site: right hand; ll1 Intake: 13:48 IV: 100ml; Total: 100ml. ll1 15:52 IV: 100ml; Total: 200ml. ll1 Outcome: 15:00 Decision to Hospitalize by Provider. tw4 05/03 20:11 Patient left the ED. bb Signatures: Dispatcher [employer] EDDE Herminia Rodgers ds1 Louise Pretty RN RN bb Rufina Fernandez, RN RN aa5 Hank Dave, CHELSEY RN jb4 Refugio Singh MD MD tw4 Julia Grullon, CHELSEY RN ll1 Corrections: (The following items were deleted from the chart) 05/02 10:26 10:20 Acuity: BRIANDA 3 aa5 aa5
[2020-05-02] MEDS ORDERED: MORPHINE 2 MG/ML SYR IV PRN (15:48)
[2020-05-02] MEDS ORDERED: ACETAMINOPHEN 500 MG TAB PO PRN (15:48)
[2020-05-02 23:22] VITALS: BMI 37.3
[2020-05-03 04:43] LABS: Absolute Lymphocytes (CBC) 0.4 K/uL (0.7-4.9); Basophils % 0.3 % (0-1.3); Hematocrit 30.1 % (39.6-49.0); Lymphocytes % 2.4 % (15.3-44.8); MPV 9.4 fL (7.6-11.3); RBC Red Blood Cell Count 3.18 M/uL (4.33-5.43)
[2020-05-03 05:18] LABS: Potassium 5.5 mmol/L (3.5-5.1)
[2020-05-03] MEDS ORDERED: MORPHINE 2 MG/ML SYR ONE (05:46)
[2020-05-03] MEDS ORDERED: VANCOMYCIN/NS 1 gm 1 GM/250 ML BAG IVPB SCH (06:00)
[2020-05-03] MEDS ORDERED: HYDROCORTISONE SUC 100 MG INJ IV ONE (06:04)
[2020-05-03] MEDS: FENTANYL CITR 100 MCG/2 ML IV PRN ×4 (06:21→22:45)
--- NOTE | 2020-05-03 08:31 | EKG ---
Test Date: 2020-05-02 Test Time: 12:38:03 Food Processing Scientist: CIARA MEASUREMENT RESULTS: Intervals: Rate: 73 KS: 170 QRSD: 104 QT: 388 QTc: 427 [place]: P: 49 KS: 170 QRS: 20 T: 125 INTERPRETIVE STATEMENTS: Normal sinus rhythm Possible Inferior infarct, age undetermined Anterior infarct, age undetermined ST & T wave abnormality, consider lateral ischemia Abnormal ECG Compared to ECG 04/09/2020 04:44:48 Myocardial infarct finding now present Atrial premature complex(es) no longer present ST (T wave) deviation still present Possible ischemia still present Electronically Signed On 05-03-20 08:29:04 ACCESS REP by Rolf Vidales
[2020-05-03] MEDS ORDERED: Levofloxacin 750mg IV 750 MG/150 ML BAG IV ONE ×2 (09:00→09:25)
[2020-05-03] MEDS ORDERED: VANCOMYCIN 2 GM in NA CHLORIDE 0.9% 500 ML IVPB SCH (09:00)
--- NOTE | 2020-05-03 10:11 | P.HP ---
Certification for Inpatient Patient admitted to: Inpatient With expected LOS: >2 Midnights Practitioner: I am a practitioner with admitting privileges, knowledge of patient current condition, hospital course, and medical plan of care. Services: Services provided to patient in accordance with Admission requirements found in Title 42 Section 412.3 of the Code of Federal Regulations Patient History Date of Service: 05/02/20 Reason for admission: Scrotal cellulitis History of Present Illness: Patient is a 44-year-old gentleman who came to the hospital with pain and swelling in the scrotal region. Patient has a history of ESRD and diabetes and hypertension. He has been running fevers and has been having worsening pain in the scrotum. In the emergency room he was evaluated and was noted to have cellulitis of the scrotum. CT scan was performed and there was no fluctuance no abscess. Patient be admitted to the hospital for IV antibiotic therapy. Patient with numerous comorbidities. Patient has a history of atrial fibrillation along with diabetes and hypertension. Patient suffer from multiple end-organ injuries from his poorly-controlled diabetes including currently being on dialysis secondary to diabetic nephropathy, he has diabetic neuropathy with a secondary multiple amputation being performed. Patient also with diabetic retinopathy which she follows up with an cash reconciliation specialist. Currently continuing IV antibiotic therapy and wait for blood culture results. If he has significant improvement of the next 48-72 hrs. Anticipate discharge home. Allergies No Known Allergies Allergy (Verified 02/24/16 21:52) Home Medications: Insulin -Regular Human [Novolin -R*] 1 unit SQ SEECOM 01/20/20 Sevelamer Carbonate [Renvela*] 1,600 mg PO TIDWM #180 tablet 01/22/20 Insulin Degludec [Tresiba Flextouch U-200] 52 units SQ DAILYPRN PRN 02/01/20 Liraglutide [Victoza 2-Ryan] 1.8 ml SQ DAILYPRN PRN 02/01/20 Furosemide 2 tab PO BID 04/09/20 Metoprolol Tartrate [Lopressor*] 25 mg PO [id number] #30 tab 04/09/20 Tamsulosin HCl [Flomax] 0.4 mg DAILY 04/09/20 Amiodarone HCl [Cordarone*] 1 tab PO BID 05/03/20 Aspirin [Aspirin EC 81 MG] 81 mg PO DAILY 05/03/20 Ergocalciferol (Vitamin D2) [Vitamin D 50,000 Unit Cap] 50,000 units PO EVERY 7TH DAY 05/03/20 Gabapentin 1 tab PO TID 05/03/20 Pantoprazole [Protonix Tab*] 40 mg PO DAILY 05/03/20 Rivaroxaban [Xarelto*] 15 mg PO DAILY 05/03/20 Simvastatin 10 mg PO DAILY 05/03/20 Tramadol HCl [Ultram] 50 mg PO PRN 05/03/20 - Past Medical/Surgical History Has patient received pneumonia vaccine in the past: Yes Diabetic: Yes -: Diabetes mellitus type 2-insulin dependent -: End-stage renal disease on hemodialysis -: HTN -: L BKA -: Appendectomy -: Cholecystectomy -: Wrist surgery -: Right ankle surgery -: right foot pinkie toe amputated. Psychosocial/ Personal History: Patient currently lives at home with his family - Family History Father Medical History: Hypertension, Diabetes Mother Medical History: Hypertension, Diabetes, Cancer Notes: Dialysis; Breast Cancer Sister Medical History: Hypertension, Diabetes - Social History Smoking Status: Never smoker Alcohol use: No CD- Drugs: No Caffeine use: Yes Place of Residence: Home Review of Systems 10-point ROS is otherwise unremarkable Physical Examination - Vital Signs Temperature: 99.1 F Blood Pressure: 109/74 Pulse: 82 Respirations: 18 Pulse Ox (%): 98 - Physical Exam General: Alert, In no apparent distress, Oriented x3 HEENT: Atraumatic, PERRLA, Mucous membr. moist/pink, EOMI, Sclerae nonicteric Neck: Supple, 2+ carotid pulse no bruit, No LAD, Without JVD or thyroid abnormality Respiratory: Clear to auscultation bilaterally, Normal air movement Cardiovascular: Regular rate/rhythm, Normal S1 S2, Systolic murmur Gastrointestinal: Normal bowel sounds, Soft and benign, Non-distended, No tenderness Musculoskeletal: No clubbing, No tenderness, Swelling, Other (Left below-knee amputation and toes on the right foot amputated) Integumentary: Other (Multiple calcinosis areas) Neurological: Normal speech, Normal strength at 5/5 x4 extr, Normal tone, Sensation intact, Cranial nerves 3-12 intact, Normal affect Lymphatics: No axilla or inguinal lymphadenopathy - Studies Laboratory Data (last 24 hrs) 05/02/20 12:10: PT 25.8 H, INR 2.23 05/02/20 12:10: WBC 13.50 H, Hgb 10.5 L, Hct 32.6 L, Plt Count 281 05/02/20 12:10: Sodium 129 L, Potassium 5.2 H, BUN 86 H, Creatinine 12.20 H*, Glucose 216 H, Magnesium 2.8 H, Total Bilirubin 3.2 H, AST 69 H, ALT 135 H, Alkaline Phosphatase 212 H Assessment & Plan - Problems (Diagnosis) (1) Cellulitis of scrotum Current Visit: Yes Status: Acute (2) ESRD (end stage renal disease) on dialysis Onset Date: 12/27/16 Current Visit: No Status: Acute (3) Hx of BKA Current Visit: No Status: Acute (4) Diabetes Onset Date: 08/13/15 Current Visit: No Status: Chronic Qualifiers: (5) Essential hypertension Onset Date: 08/13/15 Current Visit: No Status: Chronic (6) Peripheral neuropathy Current Visit: No Status: Chronic Qualifiers: (7) Calcinosis Current Visit: Yes Status: Acute - Plan 1. Continue with IV antibiotic 2. Hemodialysis per Nephrology 3. Nephrology consultation 4. Hep-Lock IV monitor electrolytes 5. Monitor CBC 6. Strict blood sugar monitoring and strict blood pressure control 7. Pain control 8. Continue with anti-platelet therapy 9. GI and DVT prophylaxis Discharge Plan: Home Plan to discharge in: Greater than 2 days - Advance Directives Does patient have a Living Will: No Does patient have a Durable POA for Healthcare: No - Code Status/Comfort Care Code Status Assessed: Yes Code Status: Full Code Critical Care: No Time Spent Managing PTS Care (In Minutes): 45
--- NOTE | 2020-05-03 10:14 | P.PN ---
Subjective Date of Service: 05/03/20 Some mild improvement with cellulitis. Patient blood pressure was low this morning. Also with hyperkalemia. Notify Nephrology and plan to dialyze today. Review of Systems 10-point ROS is otherwise unremarkable Physical Examination - Vital Signs Temperature: 99.1 F Blood Pressure: 109/74 Pulse: 82 Respirations: 18 Pulse Ox (%): 98 - Physical Exam General: Alert, In no apparent distress, Oriented x3 Respiratory: Clear to auscultation bilaterally, Normal air movement Cardiovascular: Regular rate/rhythm, Normal S1 S2 Gastrointestinal: Normal bowel sounds, Soft and benign, Non-distended, No tender ness Musculoskeletal: Swelling, Tenderness, Warmth Integumentary: Tenderness/swelling, Erythema, Warmth Neurological: Normal speech, Sensation intact, Cranial nerves 3-12 intact Lymphatics: No axilla or inguinal lymphadenopathy - Studies Laboratory Data (last 24 hrs) 05/02/20 12:10: PT 25.8 H, INR 2.23 05/02/20 12:10: WBC 13.50 H, Hgb 10.5 L, Hct 32.6 L, Plt Count 281 05/02/20 12:10: Sodium 129 L, Potassium 5.2 H, BUN 86 H, Creatinine 12.20 H*, Glucose 216 H, Magnesium 2.8 H, Total Bilirubin 3.2 H, AST 69 H, ALT 135 H, Alkaline Phosphatase 212 H Medications List Reviewed: Yes Assessment & Plan - Problems (Diagnosis) (1) Cellulitis of scrotum Current Visit: Yes Status: Acute (2) ESRD (end stage renal disease) on dialysis Onset Date: 12/27/16 Current Visit: No Status: Acute (3) Hx of BKA Current Visit: No Status: Acute (4) Diabetes Onset Date: 08/13/15 Current Visit: No Status: Chronic Qualifiers: (5) Essential hypertension Onset Date: 08/13/15 Current Visit: No Status: Chronic (6) Peripheral neuropathy Current Visit: No Status: Chronic Qualifiers: (7) Calcinosis Current Visit: Yes Status: Acute - Plan Continue with plan of care as mentioned below 1. Continue with IV antibiotic 2. Hemodialysis per Nephrology 3. Nephrology consultation appreciated 4. Hep-Lock IV; 5. Monitor CBC as well as electrolytes. 6. Strict blood sugar monitoring and strict blood pressure control 7. Pain control 8. Continue with anti-platelet therapy 9. Monitor hemodynamics closely 10. GI and DVT prophylaxis Discharge Plan: Home Plan to discharge in: Greater than 2 days - Advance Directives Does patient have a Living Will: No Does patient have a Durable POA for Healthcare: No - Code Status/Comfort Care Code Status: Full Code Critical Care: No Time Spent Managing PTS Care (In Minutes): 45
[2020-05-03] MEDS ORDERED: FENTANYL CITR 100 MCG/2 ML ONE ×2 (11:15→18:47)
--- NOTE | 2020-05-03 17:59 | P.CNS ---
Date of Consult: 05/03/20 Reason for Consult: ESRD, hyperkalemia, fluid and electrolytes management Chief Complaint: Scrotal cellulitis History of Present Illness: A 44-year-old gentleman with PMHX of ESRD on HD MWF from [facility], COVID 19 came to the hospital with pain and swelling in the scrotal region associated with fevers and chills Review of Systems: gberal: shaking , have fever Head and Neck: No red eye. No ear pain. GI: denied nausea or diarrhea. : No polyuria. No dysuria. No hematuria. Oracle Forms Developer: N/A Respiratory: No shortness of breath. Cardiovascular: denied chest pain or palpitation Endocrine: No polydipsia. Skin: le lesions Neuro: denied neuropathy. Musculoskeletal: denied joint pain Physical exam general: AAOX3, shaking , obese Neck; Supple, No elevated JVD hear: RRR, normal S1,2 no murmur or rub Chest: CTAB, no rales or wheezes Abdomen: Soft , Nt Extremities Lt AKA, rt leg skin lesion A/P End-stage renal disease on HD MWF HD today and then Tuesday renal dose meds Anemia of chronic disease Cont epogen HTN Controlled Hyperkalemia HD today Fluid overload HD today DM as per PCP Sepsis Cont ABx F.U cultures Total time spent 65min Allergies No Known Allergies Allergy (Verified 02/24/16 21:52) Home Medications: Insulin -Regular Human [Novolin -R*] 1 unit SQ SEECOM 01/20/20 Sevelamer Carbonate [Renvela*] 1,600 mg PO TIDWM #180 tablet 01/22/20 Insulin Degludec [Tresiba Flextouch U-200] 52 units SQ DAILYPRN PRN 02/01/20 Liraglutide [Victoza 2-Ryan] 1.8 ml SQ DAILYPRN PRN 02/01/20 Furosemide 2 tab PO BID 04/09/20 Metoprolol Tartrate [Lopressor*] 25 mg PO [id number] #30 tab 04/09/20 Tamsulosin HCl [Flomax] 0.4 mg DAILY 04/09/20 Amiodarone HCl [Cordarone*] 1 tab PO BID 05/03/20 Aspirin [Aspirin EC 81 MG] 81 mg PO DAILY 05/03/20 Ergocalciferol (Vitamin D2) [Vitamin D 50,000 Unit Cap] 50,000 units PO EVERY 7TH DAY 05/03/20 Gabapentin 1 tab PO TID 05/03/20 Pantoprazole [Protonix Tab*] 40 mg PO DAILY 05/03/20 Rivaroxaban [Xarelto*] 15 mg PO DAILY 05/03/20 Simvastatin 10 mg PO DAILY 05/03/20 Tramadol HCl [Ultram] 50 mg PO PRN 05/03/20 - Past Medical/Surgical History Diabetic: Yes -: Diabetes mellitus type 2-insulin dependent -: End-stage renal disease on hemodialysis -: HTN -: L BKA -: Appendectomy -: Cholecystectomy -: Wrist surgery -: Right ankle surgery -: right foot pinkie toe amputated. Psychosocial/ Personal History: Patient currently lives at home with his family - Family History Father Medical History: Hypertension, Diabetes Mother Medical History: Hypertension, Diabetes, Cancer Notes: Dialysis; Breast Cancer Sister Medical History: Hypertension, Diabetes - Social History Alcohol use: No CD- Drugs: No Caffeine use: Yes Place of Residence: Home Physical Examination Temp Pulse Resp BP Pulse Ox 99.1 F 82 16 122/79 97 05/03/20 10:14 05/03/20 10:14 05/03/20 12:00 05/03/20 12:00 05/03/20 12:00
[2020-05-04] MEDS: FENTANYL CITR 100 MCG/2 ML IV PRN ×5 (03:25→22:49)
[2020-05-04] MEDS: METOPROLOL TAR 25 MG TAB PO SCH (06:00)
--- NOTE | 2020-05-04 13:07 | P.PN ---
Subjective Date of Service: 05/04/20 Chief Complaint: Scrotal cellulitis A 44-year-old gentleman with PMHX of ESRD on HD MWF from [place], [place], COVID 19 came to the hospital with pain and swelling in the scrotal region associated with fevers and chills Today BP borderline, will add midodrine Hd tomorrow cont ABx F/U cultures Physical exam general: AAOX3, shaking , obese Neck; Supple, No elevated JVD hear: RRR, normal S1,2 no murmur or rub Chest: CTAB, no rales or wheezes Abdomen: Soft , Nt , scrotal ulcers Extremities Lt AKA, rt leg skin lesion A/P End-stage renal disease on HD MWF HD today and then Tuesday renal dose meds Anemia of chronic disease Cont epogen HTN Controlled Hyperkalemia Hcont HD DM as per PCP calciphylaxis? will check PTH and Phos will start on binders Sepsis possibly due to scrotal uclers Cont ABx F.U cultures Total time spent 65min Physical Examination - Vital Signs Temperature: 97.1 F Blood Pressure: 95/57 Pulse: 75 Respirations: 22 Pulse Ox (%): 100 - Studies Medications List Reviewed: Yes
[2020-05-04] MEDS: SEVELAMER CARBONATE 800 MG TABLET PO SCH (17:04)
[2020-05-04] MEDS ORDERED: VANCOMYCIN/NS 1 gm 1 GM/250 ML BAG IVPB ONE (20:00)
[2020-05-04 21:04] LABS: Absolute Lymphocytes (CBC) 0.3 K/uL (0.7-4.9); Basophils % 0.2 % (0-1.3); Hematocrit 29.7 % (39.6-49.0); Lymphocytes % 2.3 % (15.3-44.8); MPV 9.5 fL (7.6-11.3); RBC Red Blood Cell Count 3.17 M/uL (4.33-5.43)
[2020-05-04] MEDS: MIDODRINE HCL 5 MG TABLET PO SCH (21:08)
[2020-05-04] MEDS ORDERED: NA CHLORIDE 0.9% 250 ML ONE (21:11)
[2020-05-04] MEDS ORDERED: VANCOMYCIN 1 GM/VIAL ONE (21:11)
[2020-05-04 21:25] LABS: Potassium 5.4 mmol/L (3.5-5.1)
[2020-05-05] MEDS: FENTANYL CITR 100 MCG/2 ML IV PRN ×2 (03:55→11:39)
[2020-05-05] MEDS: METOPROLOL TAR 25 MG TAB PO SCH (05:09)
--- NOTE | 2020-05-05 07:24 | P.PN ---
Date of Service: 05/04/20 Subjective Cellulitis continues to improve. Plan to have debridement arrange. Review of Systems 10-point ROS is otherwise unremarkable Physical Examination - Vital Signs Reviewed - Physical Exam General: Alert, In no apparent distress, Oriented x3 Respiratory: Clear to auscultation bilaterally, Normal air movement Cardiovascular: Regular rate/rhythm, Normal S1 S2 Gastrointestinal: Normal bowel sounds, Soft and benign, Non-distended, No tenderness Musculoskeletal: Swelling, Tenderness, Warmth Integumentary: Tenderness/swelling, Erythema, Warmth of the scrotum; Assessment & Plan - Problems (Diagnosis) (1) Cellulitis of scrotum Current Visit: Yes Status: Acute (2) ESRD (end stage renal disease) on dialysis Onset Date: 12/27/16 Current Visit: No Status: Acute (3) Hx of BKA Current Visit: No Status: Acute (4) Diabetes Onset Date: 08/13/15 Current Visit: No Status: Chronic Qualifiers: (5) Essential hypertension Onset Date: 08/13/15 Current Visit: No Status: Chronic (6) Peripheral neuropathy Current Visit: No Status: Chronic Qualifiers: (7) Calcinosis Current Visit: Yes Status: Acute - Plan Continue with plan of care as mentioned below 1. Continue with IV antibiotic; [facility] 2. Hemodialysis per Nephrology 3. Nephrology consultation appreciated 4. Hep-Lock IV; 5. Monitor CBC as well as electrolytes. 6. Strict blood sugar monitoring and strict blood pressure control 7. Pain control 8. Continue with anti-platelet therapy 9. Monitor hemodynamics closely 10. GI and DVT prophylaxis
[2020-05-05] MEDS ORDERED: NA CHLORIDE 0.9% 250 ML IV ONE (07:49)
[2020-05-05] MEDS: SEVELAMER CARBONATE 800 MG TABLET PO SCH ×3 (08:00→17:00)
--- NOTE | 2020-05-05 08:05 | P.PN ---
Subjective Date of Service: 05/05/20 Primary Care Provider: Dr. Vences; Nephrology-Dr. Guaman Chief Complaint: Scrotal cellulitis Subjective: Other (Patient afebrile. Still with pain to the scrotal region.) Physical Examination - Vital Signs Temperature: 97.7 F Blood Pressure: 94/59 Pulse: 71 Respirations: 20 Pulse Ox (%): 97 - Studies Medications List Reviewed: Yes Assessment & Plan Discharge Plan: Home Plan to discharge in: Greater than 2 days Physician Review Additional Text: Physical exam cola - Problems (Diagnosis) (1) Cellulitis of scrotum Current Visit: Yes Status: Acute (2) ESRD (end stage renal disease) on dialysis Onset Date: 12/27/16 Current Visit: No Status: Acute (3) Hx of BKA Current Visit: No Status: Acute (4) Diabetes Onset Date: 08/13/15 Current Visit: No Status: Chronic Qualifiers: (5) Essential hypertension Onset Date: 08/13/15 Current Visit: No Status: Chronic (6) Peripheral neuropathy Current Visit: No Status: Chronic Qualifiers: (7) Calcinosis Current Visit: Yes Status: Acute - Plan Initial chief complaint: Scrotal pain Physical exam: Patient alert, cooperative. Patient remains afebrile. Blood pressure 95 systolic. Blood pressure ranged anywhere between 90-120s systolic. Heart: Regular rate rhythm Lungs: Clear to auscultation Abdomen: Soft, normal bowel sounds Scrotum: Edema, erythema to the scrotal sac. Some skin breakdown and some discoloration to the left side of the scrotum. Pain noted throughout including the perineum palpation. Induration noted to the left and lower region of the scrotum. 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 Currently on Midodrine. Patient is afebrile but still with pain to the scrotum. Case discussed with Nephrology and Urology. Will giv e 250 cc bolus nasal saline bolus. Monitor BP closely. Patient remains on IV vancomycin and Levaquin. Recheck CT scan to evaluate for possible underlying necrotizing fasciitis-Romana's gangrene. Will keep the patient NPO in the event surgical intervention is required. Blood cultures remain negative since 05/02. White count remains elevated. Will monitor the patient closely. May need more IV fluids. Will monitor the patient closely. Hold aspirin and Xarelto at this time. Patient with history of atrial fibrillation. Await further recommendations from Nephrology and Urology. End-stage renal disease on hemodialysis: Nephrology to continue with dialysis. Diabetes mellitus type 2 with hyperglycemia: Will check A1c. Continue Accu- Cheks and sliding scale. Hypotension with history of hypertension: Patient on beta-jass therapy hold if blood pressure systolic remains low. Atrial fibrillation on chronic anti coagulation therapy: Hold aspirin and Xarelto in preparation for possible surgery. Continue amiodarone. Patient on beta-jass therapy. May need to hold if blood pressure remains low. Will discuss with nephrology on when to restart anti coagulation therapy. This may be dependent if patient will require surgery. Calcinosis cutis: Will need to obtain more of his history from nephrology. Diabetic peripheral neuropathy: Hold Neurontin at this time COVID 19: Patient on 4 L per nasal cannula. Will check chest x-ray. Continue to wean off. No steroids at this time due to his infection. Will start oral vitamin supplementation. Hyperlipidemia: Restart home medication Time Spent Managing Pts Care (In Minutes): 55
[2020-05-05] MEDS ORDERED: TRAMADOL HCL 50 MG TAB PO PRN (08:06)
[2020-05-05] MEDS: MIDODRINE HCL 5 MG TABLET PO SCH ×3 (08:07→22:15)
[2020-05-05] MEDS: ZINC SULFATE 220 MG CAP PO SCH (09:00)
[2020-05-05] MEDS ORDERED: Levofloxacin500mg IV 500 MG/100 ML BAG IV SCH (09:00)
[2020-05-05] MEDS ORDERED: CEFEPIME 1 GM/VIAL IV SCH (09:00)
[2020-05-05] MEDS: ASCORBIC ACID 500 MG TABLET PO SCH ×2 (09:00→13:58)
[2020-05-05] MEDS ORDERED: PIPER/TAZO/NS 2.25gm 2.25 GM/50 ML BAG IVPB SCH (09:00)
[2020-05-05] MEDS: THIAMINE HCL 100 MG TABLET PO SCH (09:00)
[2020-05-05] MEDS: ATORVASTATIN 10 MG TAB PO SCH (09:00)
[2020-05-05] MEDS: AMIODARONE HCL 200 MG TAB PO SCH (09:18)
[2020-05-05] MEDS: TAMSULOSIN 0.4 MG SR CAP PO SCH (09:18)
[2020-05-05] MEDS: CEFEPIME/SWI 1gm 10 ML IV SCH (09:19)
--- NOTE | 2020-05-05 09:41 | RAD REPORT ---
EXAM DESCRIPTION: CT - Pelvis Wo Cont - 05/05/2020 8:51 am CLINICAL HISTORY: Pelvic pain, scrotal swelling COMPARISON: None. TECHNIQUE: Axial noncontrast 5 millimeter thick images of the pelvis were obtained and included the entirety of the scrotum. Sagittal and coronal reformatted images were generated and reviewed. All CT scans are performed using dose optimization technique as appropriate and may include automated exposure control or mA/KV adjustment according to patient size. FINDINGS: Pronounced scrotal wall edema and thickening present up to 2 cm in thickness. There is no air in the edematous scrotal wall. No abscess or foreign body seen. No gross evidence for a testicle abnormality. There is no hydrocele present. Patient does have small a moderate right-side and small left-side fat filled inguinal hernias. Edematous subcutaneous fatty t issue pattern extends superiorly to the level of the pubic symphysis. There is minimal subcutaneous s tranding over the anterior pelvis and lower abdomen subcutaneous fat. Hyperdensity within the urinary bladder is contrast from recent CT. Small amount of ascites present i n the peritoneal cavity. Partially imaged bowel shows no acute finding. No acute bone finding. Dense arterial tree calcifications present. IMPRESSION: Patient has pronounced scrotal wall thickening and edema up to 2 cm in thickness. No abs cess, air or emergent finding in the scrotal wall. Edema extends to a lesser degree into the midline and right side perineum and extends with minimal se verity into the subcutaneous fatty tissues anterior to the pubic symphysis. No air or abscess in the fatty tissues of the perineum. Bilateral fat filled inguinal hernias right greater than left. Patient has a small amount of ascites in the peritoneal cavity. No other significant findings on chest, abdomen and upper pelvis examination.
[2020-05-05 10:24] LABS: Absolute Lymphocytes (CBC) 0.3 K/uL (0.7-4.9); Basophils % 0.3 % (0-1.3); Hematocrit 28.6 % (39.6-49.0); Lymphocytes % 2.1 % (15.3-44.8); MPV 9.7 fL (7.6-11.3); RBC Red Blood Cell Count 3.05 M/uL (4.33-5.43)
[2020-05-05 10:37] LABS: Albumin 2.4 g/dL (3.4-5.0); Bilirubin Total 2.8 mg/dL (0.2-1.0); Ferritin 1878.5 ng/mL (26-388); Magnesium 2.9 mg/dL (1.8-2.4); Potassium 5.5 mmol/L (3.5-5.1)
[2020-05-05 11:04] LABS: Platelet Estimate ADEQ; White Blood Cell Scan OK (OK)
[2020-05-05 11:05] LABS: Blood Morphology Comment NOT SEEN (NOT SEEN)
--- NOTE | 2020-05-05 12:09 | CON ---
Reason For Consultation: Severe scrotal infection. History Of Present Illness: Mr. Tellez is a 44-year-old gentleman, who describes having developed s ome scrotal pain, swelling, and a lesion in the left hemiscrotum on . He was subsequently se en in the emergency department and admitted on 05/02/2020. He was initiated on vancomycin and Levaqu in IV antimicrobial therapy given his history of end-stage renal disease, diabetes and hypertension. He was febrile at the time and the pain was getting worse prompting his emergency department visit. Since that time, he has noted progressive increase in swelling and worsening pain in the scrotum. B ecause of the concern for possible development of a necrotizing infection, I was consulted today. Past Medical History: The patient has atrial fibrillation in addition to diabetes and hypertension a nd has suffered amputations due to his associated diabetic nephropathy. He also has diabetic retinop athy. Physical Examination: General: The patient is lying in the bed, in no acute distress at this time. He is COVID positive w ith no signs of respiratory distress, though nasal cannula oxygen was applied. Abdomen: Morbidly obese. Genitalia: Scrotum markedly edematous with superficial skin necrosis suggested in the left hemiscrot um. The testes were not independently palpable. Induration of the scrotum extends into the perineum and into the infrapubic region. No crepitus identified. Vital Signs: The patient is currently afebrile and his vital signs are stable with a blood pressure of 94/59. To my review, no documented fevers with a maximum temperature of 100.1 since admission on 05/02/2020. Laboratory Assessment: White blood count for today pending, from yesterday 14.6 with stable hemoglob in, hematocrit, and normal platelet count. INR 2.23 and cultures pending. Assessment: This is a 44-year-old gentleman with end-stage renal disease, diabetic nephropathy, and retinopathy with atrial fibrillation, on amiodarone, who presents with a 4-day history of severe scro ezequiel swelling with superficial potentially necrotic skin change in the absence of crepitus or definiti ve Romana gangrene or abscess. I recommended alteration of his antimicrobial therapy to vancomycin plus either Zosyn or cefepime. I would recommend correction of his coagulopathy and management with IV heparin as necessary, which c an be held in the event of need of operative excursion. We will need to continue to monitor closely, though my current review of the CT scan reveals no speci fic evidence of gas within the tissues or abscess. Consideration must be given to the etiology of this potentially having resulted from a perirectal scarlett rce and so a general surgical consultation would ultimately be recommended potentially as an outpatie nt. LISA/MARIBEL Voice ID: [id number] Report ID: [id number]
--- NOTE | 2020-05-05 12:31 | RAD REPORT ---
EXAM DESCRIPTION: RAD - Chest Single View - 05/05/2020 12:16 pm CLINICAL HISTORY: COVID, shortness of breath COMPARISON: May 02 TECHNIQUE: AP portable chest image was obtained 05/05/2020 12:16 pm . FINDINGS: Lung volumes are low. Interstitial and patchy alveolar opacities are present in the lung f ields not substantially different from comparison. Most of this is body habitus and low lung volume a rtifact. Scattered areas of COVID pneumonia are certainly possible and can be further evaluated with CT chest imaging if medical management would be altered. Heart and vasculature are normal. No measurable pleural effusion and no pneumothorax. No acute bony abnormality seen. No acute aortic findings suspected. IMPRESSION: Limited low lung volume examination showing interstitial and minimal alveolar opacities. Findings are not substantially different. Mild bilateral COVID-19 pneumonia is certainly possible. Fo llow-up CT chest imaging could be performed if it would alter medical management.
[2020-05-05] MEDS: HEPARIN 5000 UNIT/ML 1 ML VIAL SQ SCH (17:00)
[2020-05-06] MEDS: THIAMINE HCL 100 MG TABLET PO SCH ×3 (02:10→20:29)
[2020-05-06] MEDS: AMIODARONE HCL 200 MG TAB PO SCH ×3 (02:10→20:29)
[2020-05-06] MEDS: MELATONIN 5 MG TABLET PO SCH ×2 (02:10→20:29)
[2020-05-06] MEDS: HEPARIN 5000 UNIT/ML 1 ML VIAL SQ SCH ×3 (02:11→17:40)
[2020-05-06] MEDS: ASCORBIC ACID 500 MG TABLET PO SCH ×4 (02:11→20:29)
--- NOTE | 2020-05-06 02:25 | PN ---
Date of Progress Note: 05/05/2020 Chief Complaint: End-stage renal disease, hyperkalemia. History Of Present Illness: Fluid and electrolyte management were started when the patient came to the hospital. The patient was complaining of scrotal cellulitis with edema, fluid overload, and severe fatigue with shortness of breath. Laboratory showed hyperkalemia. The patient is a 44-year-old man with history of end-stage renal disease, on hemodialysis, Tuesday, Tuesday, Tuesday dialysis session at [facility]. The patient has diabetic kidney disease, COVID infection, previously was admitted for COVID infection. The patient developed scrotal edema associated with fevers and chills. Review of Systems: Denies chest pain or palpitation. Physical Examination: General: The patient answers questions. He is alert and oriented. Lungs: No wheezes. Extremities: Left AKA. Right leg skin lesion. Impression And Plan: 1. End-stage renal disease, fluid overload, peripheral edema, shortness of breath. The patient will have dialysis today to obtain negative fluid balance. 2. Anemia of chronic kidney disease. Continue Epogen. 3. Hypertension. Blood pressure is trending down and the patient was taken off blood pressure medication. Continue midodrine for blood pressure support. 4. Hyperkalemia. Adjust potassium with dialysis to control hyperkalemia. Continue low-potassium diet. 5. Diabetes mellitus. Continue insulin. DILLON/MARIBEL Voice ID: [id number] Report ID: [id number] JASON
[2020-05-06 04:13] LABS: Absolute Lymphocytes (CBC) 0.4 K/uL (0.7-4.9); Basophils % 0.5 % (0-1.3); Hematocrit 28.7 % (39.6-49.0); Lymphocytes % 2.6 % (15.3-44.8); MPV 9.8 fL (7.6-11.3); RBC Red Blood Cell Count 3.07 M/uL (4.33-5.43)
[2020-05-06 04:42] LABS: Magnesium 2.7 mg/dL (1.8-2.4); Potassium 4.5 mmol/L (3.5-5.1)
[2020-05-06] MEDS: MIDODRINE HCL 5 MG TABLET PO SCH ×3 (05:34→21:04)
[2020-05-06] MEDS: METOPROLOL TAR 25 MG TAB PO SCH (06:00)
--- NOTE | 2020-05-06 08:10 | P.PN ---
Subjective Date of Service: 05/06/20 Primary Care Provider: Dr. Vences; Nephrology-Dr. Guaman Chief Complaint: Scrotal cellulitis Subjective: Improving, Doing well Physical Examination - Vital Signs Temperature: 99.1 F Blood Pressure: 99/55 Pulse: 61 Respirations: 18 Pulse Ox (%): 98 - Studies Medications List Reviewed: Yes Assessment & Plan Discharge Plan: Home Plan to discharge in: Greater than 2 days Physician Review Additional Text: Physical exam cola - Problems (Diagnosis) (1) Cellulitis of scrotum Current Visit: Yes Status: Acute (2) ESRD (end stage renal disease) on dialysis Onset Date: 12/27/16 Current Visit: No Status: Acute (3) Hx of BKA Current Visit: No Status: Acute (4) Diabetes Onset Date: 08/13/15 Current Visit: No Status: Chronic Qualifiers: (5) Essential hypertension Onset Date: 08/13/15 Current Visit: No Status: Chronic (6) Peripheral neuropathy Current Visit: No Status: Chronic Qualifiers: (7) Calcinosis Current Visit: Yes Status: Acute - Plan Initial chief complaint: Scrotal pain Physical exam: Patient alert, cooperative. Patient remains afebrile. Blood pressure stable. Midodrine was increased. Heart: Regular rate rhythm Lungs: Clear to auscultation Abdomen: Soft, normal bowel sounds Scrotum: Edema, erythema to the scrotal sac remains stable. Some improvement in erythema. No further necrosis of tissues. Skin: Multiple areas of calcinosis cutis Impression: Scrotal and peritoneal cellulitis End-stage renal disease on hemodialysis Diabetes mellitus type 2 with hyperglycemia Hypotension with history of hypertension Atrial fibrillation on chronic anti coagulation therapy Calcinosis cutis Diabetic peripheral neuropathy BPH GERD COVID 19 Hyperlipidemia Plan: Scrotal and peritoneal cellulitis: Erythema and swelling improved. No Romana's noted. Spoke to Urology. No intervention needed at this time. Will adjust antibiotics. Continue with Vancomycin and Cefepime. Will add Flagyl. DC Levaquin. Continue to monitor closely. Hold aspirin and Xarelto at this time. Patient with history of atrial fibrillation. Await further recommendations from Nephrology and Urology. End-stage renal disease on hemodialysis: Nephrology to continue with dialysis. Diabetes mellitus type 2 with hyperglycemia: Will check A1c. Continue Accu- Cheks and sliding scale. Hypotension with history of hypertension: Patient on beta-jass therapy hold if blood pressure systolic remains low. Patient on Midodrine. Continue monitor blood pressure. Atrial fibrillation on chronic anti coagulation therapy: Hold aspirin and Xarelto in preparation for possible surgery. Continue amiodarone. Patient on beta-jass therapy. May need to hold if blood pressure remains low. Will discuss with nephrology on when to restart anti coagulation therapy. This may be dependent if patient will require surgery. Calcinosis cutis: Will need to obtain more of his history from nephrology. Diabetic peripheral neuropathy: Hold Neurontin at this time COVID 19: Patient on 4 L per nasal cannula. Will check chest x-ray. Continue to wean off. No steroids at this time due to his scrotal infection. Continue vitamin supplementation. Hyperlipidemia: Continue medication Time Spent Managing Pts Care (In Minutes): 55
--- NOTE | 2020-05-06 08:19 | PN ---
Subjective: The patient clinically feels improved, following change in antimicrobial therapy yesterd ay to vancomycin and cefepime from the vancomycin and Levaquin previously prescribed. He has subject ively been afebrile since his admission. Objective: The patient remains afebrile with T-max in the last 24 hours 99.1, and vital signs are st able. He is lying in bed, in no acute distress with nasal cannula oxygen on. His pre pubic region i n the region of prior induration is significantly reduced, only minimally in the area above the phall us. The scrotum remains thickened and edematous without any crepitus or palpable collection noted. Within the left hemiscrotum is an area of superficial skin change that is clinically improved from . The perineal region is significantly decreased in induration from prior and again with no c repitus palpable. The scrotum is generally less tender than before as is the perineum. Laboratory Data: Analyses from this morning, white count 14.6, hemoglobin 9.2. Assessment: This is a 44-year-old gentleman with end-stage renal disease on dialysis with COVID and a severe scrotal and perineal infection of uncertain etiology, likely secondary to extension from a p erirectal source. I recommend continuing vancomycin and cefepime, but add Flagyl for increased anaerobic coverage. We will continue to observe him as he is noting clinical improvement as such, I would recommend he be gi judith a diabetic diet for breakfast, clear liquids only for lunch and n.p.o. after 3 p.m. today in case surgical therapy is required. I will follow up with him for interval assessment this afternoon to determine if his afternoon dose o f heparin subcutaneously can be given. He will be given his morning dose since clinically no emergent surgical need is present. WR/MODL Voice ID: [id number] Report ID: [id number]
[2020-05-06] MEDS: METRONIDAZOLE 500mg IVPB 500 MG/100 ML BAG IV SCH ×2 (09:18→16:26)
[2020-05-06] MEDS: CEFEPIME/SWI 1gm 10 ML IV SCH (09:18)
[2020-05-06] MEDS: SEVELAMER CARBONATE 800 MG TABLET PO SCH ×3 (09:19→17:40)
[2020-05-06] MEDS: PANTOPRAZOLE 40MG TABLET PO SCH (09:19)
[2020-05-06] MEDS: ZINC SULFATE 220 MG CAP PO SCH (09:19)
[2020-05-06] MEDS: ATORVASTATIN 10 MG TAB PO SCH (09:19)
[2020-05-06] MEDS: TAMSULOSIN 0.4 MG SR CAP PO SCH (09:20)
[2020-05-06] MEDS ORDERED: Levofloxacin 250mg IV 250 MG/50 ML BAG IV SCH (10:00)
[2020-05-06] MEDS: EPOETIN 4,000 UNIT/ML VIAL IV SCH (12:12)
[2020-05-06] MEDS: FENTANYL CITR 100 MCG/2 ML IV PRN ×2 (14:29→22:05)
[2020-05-06] MEDS ORDERED: EPOETIN ALFA-EPBX 4,000 UNIT/ML VIAL SQ ONE (14:49)
[2020-05-06 18:24] LABS: HBsAG Nonreactive (Nonreactive)
[2020-05-06] MEDS ORDERED: metroNIDAZOLE 500 MG TABLET PO SCH (23:00)
[2020-05-07] MEDS: HEPARIN 5000 UNIT/ML 1 ML VIAL SQ SCH ×3 (00:09→18:46)
[2020-05-07] MEDS: METRONIDAZOLE 500mg IVPB 500 MG/100 ML BAG IV SCH ×3 (00:09→18:46)
--- NOTE | 2020-05-07 02:23 | PN ---
Date of Progress Note: 05/06/2020 Chief Complaint: End-stage renal disease, on dialysis; fluid overload; anasarca. The patient had CT scan of the abdomen, which showed anasarca and ascites. History Of Present Illness: The patient is a 44-year-old man with history of diabetic kidney disease, end-stage renal dialysis on dialysis. On presentation to the hospital, he was found to have fluid overload and hyperkalemia. He received dialysis treatment with ultrafiltration and last dialysis was done yesterday. Ultrafiltration was ordered for fluid removal with dialysis . Ultrafiltration was done and the patient is scheduled for dialysis tomorrow. The patient was found to have COVID infection and he developed scrotal edema associated with cellulitis, fevers and chills. He is undergoing workup with Urology. Review of Systems: Denies PND or orthopnea. Physical Examination: Lungs: Diminished breath sounds at bases. Heart: S1, S2. Lungs: No wheezing. Extremities: Left AKA. Right leg skin lesion, chronic, no oozing. Impression And Plan: 1. End-stage renal disease, fluid overload, peripheral edema. Dialysis will be done tomorrow. 2. Anemia of chronic kidney disease. Continue Epogen. 3. Ascites. The patient from paracentesis. 4. Anasarca, scrotal edema, cellulitis . Urology consultation is requested. Continue management for scrotal edema. Continue antibiotics. The patient will have dialysis with ultrafiltration to control hypervolemia and prevent fluid overload. 5. Diabetes mellitus. Continue insulin. DILLON/MARIBEL Voice ID: [id number] Report ID: [id number] MTDD
[2020-05-07] MEDS: FENTANYL CITR 100 MCG/2 ML IV PRN ×2 (02:38→20:50)
[2020-05-07 03:56] LABS: Absolute Lymphocytes (CBC) 0.5 K/uL (0.7-4.9); Basophils % 0.9 % (0-1.3); Hematocrit 28.4 % (39.6-49.0); Lymphocytes % 3.8 % (15.3-44.8); MPV 9.7 fL (7.6-11.3); RBC Red Blood Cell Count 3.04 M/uL (4.33-5.43)
[2020-05-07 04:24] LABS: Magnesium 2.9 mg/dL (1.8-2.4)
[2020-05-07] MEDS: MIDODRINE HCL 5 MG TABLET PO SCH ×3 (05:14→21:27)
[2020-05-07] MEDS: METOPROLOL TAR 25 MG TAB PO SCH (06:00)
[2020-05-07] MEDS: PANTOPRAZOLE 40MG TABLET PO SCH (07:30)
[2020-05-07] MEDS: SEVELAMER CARBONATE 800 MG TABLET PO SCH ×3 (08:00→18:47)
[2020-05-07] MEDS: TAMSULOSIN 0.4 MG SR CAP PO SCH (08:01)
[2020-05-07] MEDS: ATORVASTATIN 10 MG TAB PO SCH (08:01)
[2020-05-07] MEDS: THIAMINE HCL 100 MG TABLET PO SCH ×2 (08:01→20:49)
[2020-05-07] MEDS: ZINC SULFATE 220 MG CAP PO SCH (08:02)
[2020-05-07] MEDS: ASCORBIC ACID 500 MG TABLET PO SCH ×3 (08:02→20:48)
--- NOTE | 2020-05-07 08:44 | RAD REPORT ---
EXAM DESCRIPTION: CT - Stone Protocol - 05/07/2020 8:02 am CLINICAL HISTORY: Abdominal pain. COMPARISON: May 05, 2020 TECHNIQUE: Computed axial tomography of the abdomen pelvis was obtained without oral or IV contrast. Lack of IV and oral contrast limits evaluation of solid organs, bowel, and vessels. Coronal reformat elvira images were obtained and reviewed. All CT scans are performed using dose optimization technique as appropriate and may include automated exposure control or mA/KV adjustment according to patient size. FINDINGS: A renal calculus is not seen. An ureteral calculus is not noted. A bladder calculus is not present. Renal arterial calcifications are present. Contrast is present within the bladder from the prior exam. Small amount of ascites. Cholecystectomy The liver, spleen, pancreas and adrenals appear grossly normal There is no evidence of diverticulitis. Moderate right and small left inguinal hernias contain fat. All Scrotal edema has progressed. IMPRESSION: Negative for a genitourinary calculus Progression in scrotal edema
[2020-05-07] MEDS: AMIODARONE HCL 200 MG TAB PO SCH ×2 (09:00→20:49)
--- NOTE | 2020-05-07 09:07 | RAD REPORT ---
EXAM DESCRIPTION: US - Abdomen Exam Limited - 05/07/2020 8:34 am CLINICAL HISTORY: Abdominal pain. COMPARISON: CT abdomen May 07, 2020 FINDINGS: A small amount of ascites is present within the abdomen and pelvis. Greatest pocket of flu id is a couple of centimeters. IMPRESSION: Small amount of ascites within the abdomen and pelvis.
--- NOTE | 2020-05-07 09:08 | RAD REPORT ---
EXAM DESCRIPTION: US - Scrotum Testicles - 05/07/2020 8:43 am CLINICAL HISTORY: Testicular pain and swelling COMPARISON: None FINDINGS: Right testicle measures 4.8 x 2.2 x 3.8 centimeters. Echotexture is homogeneous. Normal bl ood flow Left testicle measures 3.8 x 2.4 x 3.2 centimeters. Echotexture is homogeneous. Normal blood flow The epididymides are normal in size and echotexture. Normal blood flow is seen. 5 millimeter left spe rmatocele Marked scrotal skin thickening IMPRESSION: Marked scrotal skin thickening may indicate cellulitis. No fluid-filled abscess visualized within the scrotum/perineum.
--- NOTE | 2020-05-07 09:11 | P.PN ---
Subjective Date of Service: 05/07/20 Primary Care Provider: Dr. Vences; Nephrology-Dr. Guaman Chief Complaint: Scrotal cellulitis Subjective: Improving, Doing well Physical Examination - Vital Signs Temperature: 97.7 F Blood Pressure: 111/52 Pulse: 57 Respirations: 20 Pulse Ox (%): 99 - Studies Medications List Reviewed: Yes Assessment & Plan Discharge Plan: Home Plan to discharge in: Greater than 2 days Physician Review Additional Text: Initial chief complaint: Scrotal pain Physical exam: Patient remains alert, cooperative. Patient remains afebrile. No fever noted within 24-40 hr. Blood pressure stable. Heart: Regular rate rhythm Lungs: Clear to auscultation Abdomen: Soft, normal bowel sounds Scrotum: Edema, erythema to the scrotal sac remains stable. Slight improvement in edema noted. No significant skin changes noted. No further necrosis of superficial scan area. Skin: Multiple areas of calcinosis cutis Impression: Severe Scrotal and perineal cellulitis End-stage renal disease on hemodialysis Diabetes mellitus type 2 with hyperglycemia Hypotension with history of hypertension Atrial fibrillation on chronic anti coagulation therapy Calcinosis cutis Diabetic peripheral neuropathy BPH GERD COVID 19 Hyperlipidemia Plan: Severe Scrotal and perineal cellulitis: Clinically erythema and swelling improved. No necrotic changes to the skin. Antibiotics adjusted yesterday. White count improved. Blood cultures negative. Continue with vancomycin, cefepime and Flagyl. Continue to hold aspirin and Xarelto at this time. Patient on heparin for DVT prophylaxis. Patient with history of atrial fibrillation the remains in normal sinus rhythm. Case discussed with urology yesterday. No need for surgery at this time. Urology to continue to monitor closely for possible intervention. Repeat CT scan today CT scan shows minimal ascites, progression of scrotal edema but no abscess. Ultrasound of scrotal region and perineum to be obtained. Await results. Continue with dialysis. Overall stable. Recheck pro calcitonin tomorrow and continue to monitor lab closely. Anticipate improvement over the next 72 hr. End-stage renal disease on hemodialysis: Nephrology to continue with dialysis. Diabetes mellitus type 2 with hyperglycemia: Blood sugars well controlled. Await hemoglobin A1c results. Continue Accu-Cheks and sliding scale. Hypotension with history of hypertension: Will discontinue beta-jass therapy. Parameters in place. Patient remains on midodrine. Atrial fibrillation on chronic anti coagulation therapy: Continue to Hold aspirin and Xarelto in preparation for possible surgery. Continue amiodarone. Patient remains in sinus rhythm. Discontinue beta-jass therapy. Anticipate Re initiating anti coagulation therapy once no further need for possible surgery. Calcinosis cutis: Will need to obtain more of his history from nephrology. Diabetic peripheral neuropathy: Continue to hold Neurontin COVID 19: Patient now on 2 L. Continue to wean off. No steroids at this time due to his scrotal infection. Continue vitamin supplementation. Hyperlipidemia: Continue medication Time Spent Managing Pts Care (In Minutes): 55
[2020-05-07] MEDS: CEFEPIME/SWI 1gm 10 ML IV SCH (09:22)
[2020-05-07] MEDS: VANCOMYCIN/NS 1 gm 1 GM/250 ML BAG IVPB SCH (18:55)
[2020-05-07] MEDS: MELATONIN 5 MG TABLET PO SCH (20:49)
--- NOTE | 2020-05-07 22:43 | PN ---
Date of Progress Note: 05/07/2020 Subjective: The patient was admitted with over volume scortal cellulitis patient's poor compliance with fluid restriction. Objective: Vital Signs: When I saw the patient, the patient is lying in bed, on nasal cannula. Blood pressure 115/57, pulse of 59, afebrile. Chest: Crackles bilateral. Heart: S1, S2. Systolic murmur. Abdomen: Soft. NT , scortal swelling with erythema. Extremities: Plus edema, right below-knee amputation. Neurologic: Alert and oriented x3. No focal. Current Medications: Include, 1. Vancomycin. 2. Flagyl. 3. Epogen. 4. Renvela. 5. Lovenox. Assessment And Plan: 1. End-stage renal disease, over volume. We will continue the patient on dialysis. We will do dialysis today and we will do another session of dialysis tomorrow sequential to establish better volume control to help with healing. 2. Hypertension, currently blood pressure on the lower side. We are holding all blood pressure medications. We will try to utilize the blood pressure to establish better volume control. 3. Ascites : We will continue to try to establish better volume control with ultrafiltration. 4. Cellulitis. Continue current antibiotic. We will follow up culture. We will follow up with the primary. 5. Diabetes as by primary. 6. Secondary hyperpara. Continue binder. 7. Anemia of chronic kidney disease. Continue RUDOLPH. time spent examined the patient face to face s discussed with the patient placed order discussing the case with other horses or mules teamster including nurses , discussing with other specialist include a hospitalist 45 min CHRISTINA Voice ID: [id number] Report ID: [id number] JASON
[2020-05-08] MEDS: METRONIDAZOLE 500mg IVPB 500 MG/100 ML BAG IV SCH ×3 (00:43→17:43)
--- NOTE | 2020-05-08 00:52 | PN ---
Subjective: The patient feels that the scrotal region is less painful today, though he notes the swelling is still significant. He denies any subjective fevers or chills in the last 24 hours. The patient underwent scrotal ultrasound today where no significant fluid collection or abscess was noted in either the scrotum or the perineum per their report. Objective: Persistent significant scrotal edema without any associated crepitus. The left hemiscrotal skin change has remodeled in appearance and is less dusky and necrotic and simply erythematous without blanching and reactive at this time. In the inferior portion of the scrotum just above the perineoscrotal junction, the previously observed approximately 2 cm diameter suspected fluid/abscess collection was not verified on ultrasound but has increased in size overnight. It is not significantly tender, certainly no more tender than the remainder of the scrotum, but has definitely increased in size now approximately 2.5-3 cm in diameter. Again, no crepitus is appreciated in the perineum and no discrete perineal abscess. Assessment And Plan: This is a gentleman with end-stage renal disease on dialysis and diabetic with scrotal edema and infection with suspected inferior scrotal median raphe fluid collection/abscess. While his white count has continued to decline and there is objective evidence of improvement in terms of the overall skin appearance, the area of suspected fluid collection could potentially benefit from drainage as it is enlarging in size. As such, I have recommended the patient be n.p.o. after midnight and that preparation to be made with supplies for possible bedside incision and drainage of that component of the inferior scrotal collection with iodoform gauze packing. Thereafter, the patient will likely require wound care management with twice daily dressing changes. Alternatively, he could benefit from twice daily, sitz baths, the exact plan to be determined after reassessment of his clinical presentation tomorrow morning. Continue antimicrobial therapy with vancomycin, cefepime, and Flagyl, and hold his 1 a.m. heparin dose. LISA/MODL Voice ID: [id number] Report ID: [id number] JASON
[2020-05-08] MEDS: HEPARIN 5000 UNIT/ML 1 ML VIAL SQ SCH ×3 (01:00→17:43)
[2020-05-08] MEDS: HYDROCODONE/APAP 7.5/325 MG TAB PO PRN ×3 (04:00→19:59)
[2020-05-08 05:55] LABS: Absolute Lymphocytes (CBC) 1.1 K/uL (0.7-4.9); Basophils % 0.5 % (0-1.3); Hematocrit 30.7 % (39.6-49.0); Lymphocytes % 9.4 % (15.3-44.8); MPV 10.1 fL (7.6-11.3); RBC Red Blood Cell Count 3.26 M/uL (4.33-5.43)
[2020-05-08] MEDS: MIDODRINE HCL 5 MG TABLET PO SCH ×4 (06:00→21:25)
[2020-05-08 06:14] LABS: Magnesium 2.7 mg/dL (1.8-2.4); Potassium 4.4 mmol/L (3.5-5.1)
[2020-05-08] MEDS: FENTANYL CITR 100 MCG/2 ML IV PRN ×2 (08:20→16:27)
[2020-05-08] MEDS ORDERED: LIDOCAINE 1% MPF 5 ML VIAL ONE (08:28)
[2020-05-08] MEDS ORDERED: LIDOCAINE 1% 20 ML MDV ONE (08:30)
[2020-05-08] MEDS: CEFEPIME/SWI 1gm 10 ML IV SCH (10:13)
[2020-05-08] MEDS: TAMSULOSIN 0.4 MG SR CAP PO SCH (10:14)
[2020-05-08] MEDS: PANTOPRAZOLE 40MG TABLET PO SCH (10:14)
[2020-05-08] MEDS: ASCORBIC ACID 500 MG TABLET PO SCH ×3 (10:14→19:59)
[2020-05-08] MEDS: THIAMINE HCL 100 MG TABLET PO SCH ×2 (10:14→20:00)
[2020-05-08] MEDS: SEVELAMER CARBONATE 800 MG TABLET PO SCH ×3 (10:14→17:43)
[2020-05-08] MEDS: AMIODARONE HCL 200 MG TAB PO SCH ×2 (10:15→19:59)
[2020-05-08] MEDS: ZINC SULFATE 220 MG CAP PO SCH (10:15)
[2020-05-08] MEDS: ATORVASTATIN 10 MG TAB PO SCH (10:15)
--- NOTE | 2020-05-08 12:27 | OP ---
Procedure: Incision and Drainage of 2 areas of scrotal fluctuance, possible abscess Surgeon: BAMBI BECKWITH Reason For Procedure: Suspected scrotal abscesses. Indication For Procedure: Mr. Tellez has been observed on antimicrobial therapy since his admission for severe scrotal infection and edema. He has had clinical improvement with decrease in his white blood count on vancomycin plus cefepime plus Flagyl over the last several days; however, in his inferior scrotum in the midline near the junction of the perineum, there was development of significant scrotal swelling that has progressively increased in size over the last 2 days from approximately 1.5-2 cm in diameter to today being approximately 3 cm in diameter. Since the area was minimally fluctuant, the decision and recommendation were to incise that area and drain it, then pack it. Additionally, the area in the left hemiscrotum had become somewhat minimally fluctuant as well and was going to be assessed. Procedure In Detail: The patient was given a dose of fentanyl for IV pain control. He was placed supine and his genitalia was prepped in to the perineum and suprapubic region using Betadine. The inferior perineal scrotal area of fluctuance was addressed first. I injected approximately 10 mL of 1% lidocaine subcutaneously into his tissues and then completely anesthetically incised in an anterior-posterior direction the area of concern. No significant fluctuance was produced and so the cavity was deepened with blunt dissection using a curved clamp. Copious irrigation using normal saline was then applied, and a quarter- inch iodoform Nu Gauze was packed into the cavity with wick into dry dressing for wet-to-dry debridement. I then turned my attention to the left hemiscrotum where I identified 2 areas of fluctuance and made incisions horizontally in those regions approximately 1-1.5 cm each in length. This was done after instilling subcutaneous lidocaine for local anesthesia. Blunt dissection was similarly performed to open the area of the tissues beneath, and some significant purulence was obtained here. Anaerobic and aerobic culture swabs were taken of the area prior to copiously irrigating the region with saline and packing it also with Nu Gauze and applying dry gauze over it for wet-to-dry dressing debridement. The patient tolerated the procedure well, and a scrotal support was applied along with towels to elevate the scrotum out of his perineal region. Dr. Jacobs was available for me to demonstrate the examination findings and to express the changes we were observing for that would be cause for concern and need for further surgical management. Disposition: I would recommend twice daily irrigation of the cavities created with saline and then placement of the quarter-inch Nu Gauze for wet-to-dry dressing changes and debridement of the underlying infected tissue. Continued observation with aggressive antimicrobial therapy while awaiting the results of the culture to narrow the course. Transfer for any development of crepitus, which would be a sign of Romana and a surgical emergency. Any additional fluctuant areas that developed may be interval abscess development and require additional drainage. LISA/MODSkyla Voice ID: [id number] Report ID: [id number] JASON
--- NOTE | 2020-05-08 17:00 | P.PN ---
Subjective Date of Service: 05/08/20 Primary Care Provider: Dr. Vences; Nephrology-Dr. Guaman Chief Complaint: Scrotal cellulitis Subjective: Improving, Doing well Physical Examination - Vital Signs Temperature: 96.8 F Blood Pressure: 102/59 Pulse: 54 Respirations: 16 Pulse Ox (%): 99 - Studies Microbiology Data (last 24 hrs): 05/02/20 12:25 Blood - Blood Aerobic Blood Culture - Final No growth in 5 days. 05/02/20 12:25 Blood - Blood Anaerobic Blood Culture - Final No growth in 5 days. 05/02/20 12:10 Blood - Blood Aerobic Blood Culture - Final No growth in 5 days. 05/02/20 12:10 Blood - Blood Anaerobic Blood Culture - Final No growth in 5 days. Medications List Reviewed: Yes Assessment & Plan Discharge Plan: Home Plan to discharge in: 72 Hours Physician Review Additional Text: Initial chief complaint: Scrotal pain Physical exam: Patient remains alert, cooperative. Patient remains afebrile. No fever noted within 24-40 hr. Blood pressure stable. Heart: Regular rate rhythm Lungs: Clear to auscultation Abdomen: Soft, normal bowel sounds Scrotum: Was present when urology performed bedside debridement. Skin: Multiple areas of calcinosis cutis Impression: Severe Scrotal and perineal cellulitis End-stage renal disease on hemodialysis Diabetes mellitus type 2 with hyperglycemia Hypotension with history of hypertension Atrial fibrillation on chronic anti coagulation therapy Calcinosis cutis Diabetic peripheral neuropathy BPH GERD COVID 19 Hyperlipidemia Plan: Severe Scrotal and perineal cellulitis: Patient had bedside debridement with urology. Cultures will obtain. Patient will continue with current wound care as per Urology. Will monitor closely. Continue Vancomycin, cefepime and Flagyl. Patient on heparin for DVT prophylaxis. Patient with history of atrial fibrillation and remains in normal sinus rhythm. Will provide medication for pain closely. Anticipate improvement over the next 72 hr. End-stage renal disease on hemodialysis: Nephrology to continue with dialysis. Diabetes mellitus type 2 with hyperglycemia: Blood sugars well controlled. Await hemoglobin A1c results. Continue Accu-Cheks and sliding scale. Hypotension with history of hypertension: Will discontinue beta-jass therapy. Parameters in place. Patient remains on midodrine. Atrial fibrillation on chronic anti coagulation therapy: Continue to Hold aspirin and Xarelto. Continue amiodarone. Patient remains in sinus rhythm. Discontinue beta-jass therapy. Anticipate Re initiating anti coagulation therapy likely in the next 48 hr. Calcinosis cutis: Will need to obtain more of his history from nephrology. Diabetic peripheral neuropathy: Continue to hold Neurontin COVID 19: Patient now on 2 L. Continue to wean off. No steroids at this time due to his scrotal infection. Continue vitamin supplementation. Hyperlipidemia: Continue medication Time Spent Managing Pts Care (In Minutes): 55
[2020-05-08] MEDS: MELATONIN 5 MG TABLET PO SCH (19:59)
--- NOTE | 2020-05-08 20:18 | PN ---
Procedure: Change of Nu Gauze packing and washout of incised wounds. I saw the patient and examined him this evening, status post incision and drainage of areas of scrota l abscess from this morning. At this point, in the left hemiscrotum, the area of prior fluctuance ov er which a couple of sites of incisions were made to drain pockets of purulence and fluctuance better developed, the skin overlying that area which had long been erythematous and was initially dusky had begun to demarcate from the normal skin. There continued to remain no crepitus, though the scrotum remained significantly edematous. The inferior scrotal incision site had similarly begun to become s omewhat erythematous and likewise would likely begin to demarcate over time. The packing within it w as removed, washed out with saline and a quarter-inch iodoform Nu Gauze was repacked into the site. The similar left hemiscrotal sites were also washed out using saline and again packed with quarter-in ch Nu Gauze. There remained some purulence coming from the superior most incision site in the left h emiscrotum over the area where the skin was beginning to demarcate. After being packed, gauze was ap plied and an ABD pad before the scrotal supporter was replaced into position. The patient tolerated the procedure well. Disposition: As the skin begins to demarcate and likely , it will eventually require debridement operatively. That will likely happen over the course of the next couple of days. I have communicate d with Dr. Robert Villanueva, [facility] at [facility], who will be covering in my absence, and should this continued demarcation occur, consideration of transfer of the patient to [facility] should be given and he would accept the patient for surgical manage ment. LISA/MODL Voice ID: [id number] Report ID: [id number]
[2020-05-08] MEDS ORDERED: ALBUMIN HUMAN 25% 50 ML IV ONE (22:02)
--- NOTE | 2020-05-08 23:02 | P.PN ---
Subjective Date of Service: 05/09/20 Primary Care Provider: Dr. Vences; Nephrology-Dr. Guaman Chief Complaint: Scrotal cellulitis Subjective: No new changes Physical Examination - Vital Signs Temperature: 96.9 F Blood Pressure: 122/59 Pulse: 66 Respirations: 20 Pulse Ox (%): 100 - Physical Exam Other Physical/Emotional Findings: P.E. not done d/t covid isolation - Studies Medications List Reviewed: Yes Assessment And Plan - Plan # ESRD on HD Cont HD TTS # COVID19 infection Mngt per other services # Scrotal/perineal cellulitis S/p debridement Cont abx & wound care # Afib On amio [employer] asa & xarelto # DM2 Mngt per primary team Physician Review Additional Text: Initial chief complaint: Scrotal pain Physical exam: Patient remains alert, cooperative. Patient remains afebrile. No fever noted within 24-40 hr. Blood pressure stable. Heart: Regular rate rhythm Lungs: Clear to auscultation Abdomen: Soft, normal bowel sounds Scrotum: Was present when urology performed bedside debridement. Skin: Multiple areas of calcinosis cutis Impression: Severe Scrotal and perineal cellulitis End-stage renal disease on hemodialysis Diabetes mellitus type 2 with hyperglycemia Hypotension with history of hypertension Atrial fibrillation on chronic anti coagulation therapy Calcinosis cutis Diabetic peripheral neuropathy BPH GERD COVID 19 Hyperlipidemia Plan: Severe Scrotal and perineal cellulitis: Patient had bedside debridement with urology. Cultures will obtain. Patient will continue with current wound care as per Urology. Will monitor closely. Continue Vancomycin, cefepime and Flagyl. Patient on heparin for DVT prophylaxis. Patient with history of atrial fibrillation and remains in normal sinus rhythm. Will provide medication for pain closely. Anticipate improvement over the next 72 hr. End-stage renal disease on hemodialysis: Nephrology to continue with dialysis. Diabetes mellitus type 2 with hyperglycemia: Blood sugars well controlled. Await hemoglobin A1c results. Continue Accu-Cheks and sliding scale. Hypotension with history of hypertension: Will discontinue beta-jass therapy. Parameters in place. Patient remains on midodrine. Atrial fibrillation on chronic anti coagulation therapy: Continue to Hold aspirin and Xarelto. Continue amiodarone. Patient remains in sinus rhythm. Discontinue beta-jass therapy. Anticipate Re initiating anti coagulation therapy likely in the next 48 hr. Calcinosis cutis: Will need to obtain more of his history from nephrology. Diabetic peripheral neuropathy: Continue to hold Neurontin COVID 19: Patient now on 2 L. Continue to wean off. No steroids at this time due to his scrotal infection. Continue vitamin supplementation. Hyperlipidemia: Continue medication
[2020-05-08] MEDS: EPOETIN 4,000 UNIT/ML VIAL IV SCH (23:30)
[2020-05-09] MEDS: HEPARIN 5000 UNIT/ML 1 ML VIAL SQ SCH ×3 (01:00→17:44)
[2020-05-09] MEDS: METRONIDAZOLE 500mg IVPB 500 MG/100 ML BAG IV SCH ×3 (01:11→17:00)
[2020-05-09] MEDS: HYDROCODONE/APAP 7.5/325 MG TAB PO PRN (01:58)
[2020-05-09] MEDS: MIDODRINE HCL 5 MG TABLET PO SCH ×3 (05:22→20:53)
--- NOTE | 2020-05-09 07:41 | P.PN ---
Subjective Date of Service: 05/09/20 Primary Care Provider: Dr. Vences; Nephrology-Dr. Guaman Chief Complaint: Scrotal cellulitis Subjective: Doing well (Patient remains afebrile. Currently on 4 L. Pain well controlled.) Physical Examination - Vital Signs Temperature: 97.6 F Blood Pressure: 120/63 Pulse: 60 Respirations: 20 Pulse Ox (%): 99 - Physical Exam Other Physical/Emotional Findings: P.E. not done d/t covid isolation - Studies Medications List Reviewed: Yes Assessment & Plan Discharge Plan: Home Plan to discharge in: Greater than 2 days Physician Review Additional Text: Initial chief complaint: Scrotal pain Physical exam: Patient remains alert, cooperative. Patient remains afebrile. No fever noted within 24-40 hr. Blood pressure stable. Heart: Regular rate rhythm Lungs: Clear to auscultation Abdomen: Soft, normal bowel sounds Scrotum: Areas of debridement appear stable. No necrosis noted. Some demarcation noted but viable tissue present. Packing in place. Pain well controlled. Skin: Multiple areas of calcinosis cutis Impression: Severe Scrotal and perineal cellulitis with abscess End-stage renal disease on hemodialysis Diabetes mellitus type 2 with hyperglycemia Hypotension with history of hypertension Atrial fibrillation on chronic anti coagulation therapy Calcinosis cutis Diabetic peripheral neuropathy BPH GERD COVID 19 Hyperlipidemia Suspect chronic systolic CHF Suspect underlying obstructive sleep apnea Plan: Severe Scrotal and perineal cellulitis with abscess: Patient had bedside debridement with urology yesterday. Some demarcation of skin noted. No necrosis noted at this time. Will need to monitor this closely. Will consult infectious disease to further evaluate and provide continued wound care. Cultures sent out for analysis. Await culture results. Continue with IV Vancomycin, cefepime and Flagyl. At this time continue with normal saline flushes of the wounds twice daily with application of iodoform gauze packing. Elevate scrotum when possible. Continue enema the patient closely. Patient on heparin for DVT prophylaxis. Patient with history of atrial fibrillation and remains in normal sinus rhythm. Continue to hold aspirin and Xarelto in anticipation for possible further debridement. Will continue the mall of the patient closely. End-stage renal disease on hemodialysis: Nephrology to continue with dialysis. Will discuss with nephrology on when to restart Lasix. Diabetes mellitus type 2 with hyperglycemia: Blood sugars well controlled. A1c 7.9. No basal insulin eyak this time. Patient on sliding scale. Continue Accu-Cheks. Hypotension with history of hypertension: Patient no longer on beta-jass therapy.. Parameters in place. Patient remains on midodrine. Atrial fibrillation on chronic anti coagulation therapy: Continue to Hold aspirin and Xarelto as the patient will likely require further debridement. Continue amiodarone. Patient remains in sinus rhythm. Beta-jass has been discontinued due to low blood pressure. Anticipate Re initiating anti coagulation therapy likely when no further debridement is noted. Calcinosis cutis: Will need to obtain more of his history from nephrology. Diabetic peripheral neuropathy: Continue to hold Neurontin COVID 19: Patient now on 4 L. Continue to wean off. No steroids at this time due to his scrotal infection. Continue vitamin supplementation. Hyperlipidemia: Continue medication Suspect chronic CHF diastolic: Patient previously on Lasix. Continue to hold medication. Will discuss with nephrology on when to restart. Continue 1500 cc per day fluid restriction. Suspect underlying obstructive sleep apnea: Patient will likely require evaluation in the future. Time Spent Managing Pts Care (In Minutes): 55
[2020-05-09] MEDS: SEVELAMER CARBONATE 800 MG TABLET PO SCH ×3 (08:10→17:43)
[2020-05-09] MEDS: CEFEPIME/SWI 1gm 10 ML IV SCH (08:10)
[2020-05-09] MEDS: ZINC SULFATE 220 MG CAP PO SCH (08:10)
[2020-05-09] MEDS: ATORVASTATIN 10 MG TAB PO SCH (08:10)
[2020-05-09] MEDS: AMIODARONE HCL 200 MG TAB PO SCH ×2 (08:11→20:53)
[2020-05-09] MEDS: ASCORBIC ACID 500 MG TABLET PO SCH ×3 (08:11→20:54)
[2020-05-09] MEDS: TAMSULOSIN 0.4 MG SR CAP PO SCH (08:11)
[2020-05-09] MEDS: THIAMINE HCL 100 MG TABLET PO SCH ×2 (08:12→20:54)
[2020-05-09] MEDS: PANTOPRAZOLE 40MG TABLET PO SCH (10:27)
[2020-05-09] MEDS: FENTANYL CITR 100 MCG/2 ML IV PRN ×3 (10:36→20:55)
--- NOTE | 2020-05-09 12:59 | P.PN ---
Subjective Date of Service: 05/10/20 Primary Care Provider: Dr. Vences; Nephrology-Dr. Guaman Chief Complaint: Scrotal cellulitis Subjective: No new changes Physical Examination - Vital Signs Temperature: 96.8 F Blood Pressure: 117/60 Pulse: 60 Respirations: 16 Pulse Ox (%): 98 - Physical Exam Other Physical/Emotional Findings: P.E. not done d/t covid isolation - Studies Medications List Reviewed: Yes Assessment And Plan - Plan # ESRD on HD Cont HD TTS PUF today HD tomorrow # COVID19 infection Mngt per other services # Scrotal/perineal cellulitis S/p debridement Cont abx & wound care # Afib On amio [employer] asa & xarelto # DM2 Mngt per primary team Physician Review Additional Text: Initial chief complaint: Scrotal pain Physical exam: Patient remains alert, cooperative. Patient remains afebrile. No fever noted within 24-40 hr. Blood pressure stable. Heart: Regular rate rhythm Lungs: Clear to auscultation Abdomen: Soft, normal bowel sounds Scrotum: Areas of debridement appear stable. No necrosis noted. Some demarcation noted but viable tissue present. Packing in place. Pain well controlled. Skin: Multiple areas of calcinosis cutis Impression: Severe Scrotal and perineal cellulitis with abscess End-stage renal disease on hemodialysis Diabetes mellitus type 2 with hyperglycemia Hypotension with history of hypertension Atrial fibrillation on chronic anti coagulation therapy Calcinosis cutis Diabetic peripheral neuropathy BPH GERD COVID 19 Hyperlipidemia Suspect chronic systolic CHF Suspect underlying obstructive sleep apnea Plan: Severe Scrotal and perineal cellulitis with abscess: Patient had bedside debridement with urology yesterday. Some demarcation of skin noted. No necrosis noted at this time. Will need to monitor this closely. Will consult infectious disease to further evaluate and provide continued wound care. Cultures sent out for analysis. Await culture results. Continue with IV Vancomycin, cefepime and Flagyl. At this time continue with normal saline flushes of the wounds twice daily with application of iodoform gauze packing. Elevate scrotum when possible. Continue enema the patient closely. Patient on heparin for DVT prophylaxis. Patient with history of atrial fibrillation and remains in normal sinus rhythm. Continue to hold aspirin and Xarelto in anticipation for possible further debridement. Will continue the mall of the patient closely. End-stage renal disease on hemodialysis: Nephrology to continue with dialysis. Will discuss with nephrology on when to restart Lasix. Diabetes mellitus type 2 with hyperglycemia: Blood sugars well controlled. A1c 7.9. No basal insulin rosebud this time. Patient on sliding scale. Continue Accu-Cheks. Hypotension with history of hypertension: Patient no longer on beta-jass therapy.. Parameters in place. Patient remains on midodrine. Atrial fibrillation on chronic anti coagulation therapy: Continue to Hold aspirin and Xarelto as the patient will likely require further debridement. Continue amiodarone. Patient remains in sinus rhythm. Beta-jass has been discontinued due to low blood pressure. Anticipate Re initiating anti coagulation therapy likely when no further debridement is noted. Calcinosis cutis: Will need to obtain more of his history from nephrology. Diabetic peripheral neuropathy: Continue to hold Neurontin COVID 19: Patient now on 4 L. Continue to wean off. No steroids at this time due to his scrotal infection. Continue vitamin supplementation. Hyperlipidemia: Continue medication Suspect chronic CHF diastolic: Patient previously on Lasix. Continue to hold medication. Will discuss with nephrology on when to restart. Continue 1500 cc per day fluid restriction. Suspect underlying obstructive sleep apnea: Patient will likely require evaluation in the future.
[2020-05-09] MEDS: MELATONIN 5 MG TABLET PO SCH (20:53)
[2020-05-10] MEDS: METRONIDAZOLE 500mg IVPB 500 MG/100 ML BAG IV SCH ×3 (00:25→17:18)
[2020-05-10] MEDS: HEPARIN 5000 UNIT/ML 1 ML VIAL SQ SCH ×3 (01:00→17:18)
[2020-05-10] MEDS: FENTANYL CITR 100 MCG/2 ML IV PRN ×2 (02:00→15:00)
[2020-05-10 05:07] LABS: Magnesium 2.8 mg/dL (1.8-2.4); Potassium 4.5 mmol/L (3.5-5.1)
[2020-05-10 05:28] LABS: Absolute Lymphocytes (CBC) 0.5 K/uL (0.7-4.9); Basophils % 1.3 % (0-1.3); Hematocrit 32.9 % (39.6-49.0); Lymphocytes % 4.8 % (15.3-44.8); RBC Red Blood Cell Count 3.47 M/uL (4.33-5.43)
[2020-05-10] MEDS: MIDODRINE HCL 5 MG TABLET PO SCH ×3 (05:49→21:49)
[2020-05-10 05:52] LABS: Albumin 2.2 g/dL (3.4-5.0); Phosphorus 6.6 mg/dL (2.5-4.9); Potassium 4.5 mmol/L (3.5-5.1)
[2020-05-10] MEDS: PANTOPRAZOLE 40MG TABLET PO SCH (08:12)
[2020-05-10] MEDS: SEVELAMER CARBONATE 800 MG TABLET PO SCH ×3 (08:12→17:18)
[2020-05-10] MEDS: HYDROCODONE/APAP 7.5/325 MG TAB PO PRN ×2 (08:12→20:00)
[2020-05-10] MEDS: CEFEPIME/SWI 1gm 10 ML IV SCH (09:14)
[2020-05-10] MEDS: THIAMINE HCL 100 MG TABLET PO SCH ×2 (09:15→20:00)
[2020-05-10] MEDS: ZINC SULFATE 220 MG CAP PO SCH (09:15)
[2020-05-10] MEDS: ATORVASTATIN 10 MG TAB PO SCH (09:15)
[2020-05-10] MEDS: TAMSULOSIN 0.4 MG SR CAP PO SCH (09:15)
[2020-05-10] MEDS: AMIODARONE HCL 200 MG TAB PO SCH ×2 (09:15→20:00)
[2020-05-10] MEDS: ASCORBIC ACID 500 MG TABLET PO SCH ×3 (09:15→19:59)
--- NOTE | 2020-05-10 09:21 | P.PN ---
Subjective Date of Service: 05/10/20 Primary Care Provider: Dr. Vences; Nephrology-Dr. Guaman Chief Complaint: Scrotal cellulitis Subjective: Improving, Doing well Physical Examination - Vital Signs Temperature: 97.2 F Blood Pressure: 114/63 Pulse: 59 Respirations: 16 Pulse Ox (%): 98 - Physical Exam Other Physical/Emotional Findings: P.E. not done d/t covid isolation - Studies Medications List Reviewed: Yes Assessment & Plan Discharge Plan: LTAC Plan to discharge in: 48 Hours Physician Review Additional Text: Initial chief complaint: Scrotal pain Physical exam: Patient remains alert, cooperative. Patient remains afebrile. No fever noted within 24-40 hr. Blood pressure stable. Heart: Regular rate rhythm Lungs: Clear to auscultation Abdomen: Soft, normal bowel sounds Scrotum: Areas of debridement appear stable. No necrosis noted. Some demarcation noted but viable tissue present. Packing in place. Pain well controlled. Skin: Multiple areas of calcinosis cutis Impression: Severe Scrotal and perineal cellulitis with abscess End-stage renal disease on hemodialysis Diabetes mellitus type 2 with hyperglycemia Hypotension with history of hypertension Atrial fibrillation on chronic anti coagulation therapy Calcinosis cutis Diabetic peripheral neuropathy BPH GERD COVID 19 Hyperlipidemia Suspect chronic systolic CHF Suspect underlying obstructive sleep apnea Plan: Severe Scrotal and perineal cellulitis with abscess: Patient continues do well. Pain under control. Some demarcation of scan noted. No necrosis noted. Continue with current wound care. Patient agreeable to long-term acute care facility to continue IV antibiotic therapy and wound care. Await evaluation by infectious disease. Cultures show no growth bacteria. Continue IV Vancomycin, cefepime and Flagyl. Continue with current wound care. Will monitor closely. Patient on heparin for DVT prophylaxis. Patient with history of atrial fibrillation and remains in normal sinus rhythm. Continue to hold aspirin and Xarelto in anticipation for possible further debridement. Will continue to monitor closely. End-stage renal disease on hemodialysis: Nephrology to continue with dialysis. Will discuss with nephrology on when to restart Lasix. Diabetes mellitus type 2 with hyperglycemia: Blood sugars well controlled. A1c 7.9. No basal insulin curyung this time. Patient on sliding scale. Continue Accu-Cheks. Hypotension with history of hypertension: Patient no longer on beta-jass therapy.. Parameters in place. Patient remains on midodrine. Atrial fibrillation on chronic anti coagulation therapy: Continue to Hold aspirin and Xarelto as the patient will likely require further debridement. Co ntinue amiodarone. Patient remains in sinus rhythm. Beta-jass has been discontinued due to low blood pressure. Anticipate Re initiating anti coagulation therapy likely when no further debridement is noted. Calcinosis cutis: Will need to obtain more of his history from nephrology. Diabetic peripheral neuropathy: Continue to hold Neurontin COVID 19: Patient now on 4 L. Continue to wean off. No steroids at this time due to his scrotal infection. Continue vitamin supplementation. Hyperlipidemia: Continue medication Suspect chronic CHF diastolic: Continue 1500 cc per day fluid restriction. Suspect underlying obstructive sleep apnea: Patient will likely require evaluation in the future. Time Spent Managing Pts Care (In Minutes): 55
--- NOTE | 2020-05-10 09:35 | P.CNS ---
Primary Care Provider: Dr. Vences; Nephrology-Dr. Guaman Chief Complaint: Scrotal cellulitis Allergies No Known Allergies Allergy (Verified 02/24/16 21:52) Home Medications: Insulin -Regular Human [Novolin -R*] 1 unit SQ BID 01/20/20 Sevelamer Carbonate [Renvela*] 1,600 mg PO TIDWM #180 tablet 01/22/20 Insulin Degludec [Tresiba Flextouch U-200] 52 units SQ DAILYPRN PRN 02/01/20 Liraglutide [Victoza 2-Ryan] 1.8 ml SQ DAILYPRN PRN 02/01/20 Furosemide 2 tab PO BID 04/09/20 Metoprolol Tartrate [Lopressor*] 25 mg PO [id number] #30 tab 04/09/20 Tamsulosin HCl [Flomax] 0.4 mg DAILY 04/09/20 Amiodarone HCl [Cordarone*] 1 tab PO BID 05/03/20 Aspirin [Aspirin EC 81 MG] 81 mg PO DAILY 05/03/20 Ergocalciferol (Vitamin D2) [Vitamin D 50,000 Unit Cap] 50,000 units PO EVERY 7TH DAY 05/03/20 Gabapentin 1 tab PO TID 05/03/20 Pantoprazole [Protonix Tab*] 40 mg PO DAILY 05/03/20 Rivaroxaban [Xarelto*] 15 mg PO DAILY 05/03/20 Simvastatin 10 mg PO DAILY 05/03/20 Tramadol HCl [Ultram] 50 mg PO PRN 05/03/20 - Past Medical/Surgical History Diabetic: Yes -: Diabetes mellitus type 2-insulin dependent -: End-stage renal disease on hemodialysis -: HTN -: L BKA -: Appendectomy -: Cholecystectomy -: Wrist surgery -: Right ankle surgery -: right foot pinkie toe amputated. Psychosocial/ Personal History: Patient currently lives at home with his family - Family History Father Medical History: Hypertension, Diabetes Mother Medical History: Hypertension, Diabetes, Cancer Notes: Dialysis; Breast Cancer Sister Medical History: Hypertension, Diabetes - Social History Alcohol use: No CD- Drugs: No Caffeine use: Yes Place of Residence: Home Physical Examination Temp Pulse Resp BP Pulse Ox 97.2 F 59 16 114/63 98 05/10/20 09:30 05/10/20 09:30 05/10/20 09:30 05/10/20 09:30 05/10/20 09:30
--- NOTE | 2020-05-10 09:36 | P.PN ---
Subjective Date of Service: 05/11/20 Primary Care Provider: Dr. Vences; Nephrology-Dr. Guaman Chief Complaint: Scrotal cellulitis Subjective: No new changes Physical Examination - Vital Signs Temperature: 97.2 F Blood Pressure: 114/63 Pulse: 59 Respirations: 16 Pulse Ox (%): 98 - Physical Exam Other Physical/Emotional Findings: P.E. not done d/t covid isolation - Studies Medications List Reviewed: Yes Assessment And Plan - Plan # ESRD on HD Cont HD TTS Received PUF yesterday HD today Monitor renal panel # COVID19 infection Mngt per other services # Scrotal/perineal cellulitis S/p debridement Cont abx & wound care # Afib On amio Holding asa & xarelto # DM2 Mngt per primary team Physician Review Additional Text: Initial chief complaint: Scrotal pain Physical exam: Patient remains alert, cooperative. Patient remains afebrile. No fever noted within 24-40 hr. Blood pressure stable. Heart: Regular rate rhythm Lungs: Clear to auscultation Abdomen: Soft, normal bowel sounds Scrotum: Areas of debridement appear stable. No necrosis noted. Some demarcation noted but viable tissue present. Packing in place. Pain well controlled. Skin: Multiple areas of calcinosis cutis Impression: Severe Scrotal and perineal cellulitis with abscess End-stage renal disease on hemodialysis Diabetes mellitus type 2 with hyperglycemia Hypotension with history of hypertension Atrial fibrillation on chronic anti coagulation therapy Calcinosis cutis Diabetic peripheral neuropathy BPH GERD COVID 19 Hyperlipidemia Suspect chronic systolic CHF Suspect underlying obstructive sleep apnea Plan: Severe Scrotal and perineal cellulitis with abscess: Patient continues do well. Pain under control. Some demarcation of scan noted. No necrosis noted. Continue with current wound care. Patient agreeable to long-term acute care facility to continue IV antibiotic therapy and wound care. Await evaluation by infectious disease. Cultures show no growth bacteria. Continue IV Vancomycin, cefepime and Flagyl. Continue with current wound care. Will monitor closely. Patient on heparin for DVT prophylaxis. Patient with history of atrial fibrillation and remains in normal sinus rhythm. Continue to hold aspirin and Xarelto in anticipation for possible further debridement. Will continue to monitor closely. End-stage renal disease on hemodialysis: Nephrology to continue with dialysis. Will discuss with nephrology on when to restart Lasix. Diabetes mellitus type 2 with hyperglycemia: Blood sugars well controlled. A1c 7.9. No basal insulin [place] this time. Patient on sliding scale. Continue Accu-Cheks. Hypotension with history of hypertension: Patient no longer on beta-jass therapy.. Parameters in place. Patient remains on midodrine. Atrial fibrillation on chronic anti coagulation therapy: Continue to Hold aspirin and Xarelto as the patient will likely require further debridement. Continue amiodarone. Patient remains in sinus rhythm. Beta-jass has been discontinued due to low blood pressure. Anticipate Re initiating anti coagulation therapy likely when no further debridement is noted. Calcinosis cutis: Will need to obtain more of his history from nephrology. Diabetic peripheral neuropathy: Continue to hold Neurontin COVID 19: Patient now on 4 L. Continue to wean off. No steroids at this time due to his scrotal infection. Continue vitamin supplementation. Hyperlipidemia: Continue medication Suspect chronic CHF diastolic: Continue 1500 cc per day fluid restriction. Suspect underlying obstructive sleep apnea: Patient will likely require evaluation in the future.
[2020-05-10] MEDS ORDERED: EPOETIN ALFA-EPBX 10,000 UNIT/ML VIAL IV SCH (11:00)
[2020-05-10] MEDS: ONDANSETRON 4 MG/2 ML VIAL IV PRN ×2 (13:57→19:24)
[2020-05-10] MEDS: MELATONIN 5 MG TABLET PO SCH (19:59)
[2020-05-11] MEDS: METRONIDAZOLE 500mg IVPB 500 MG/100 ML BAG IV SCH ×3 (00:41→16:23)
[2020-05-11] MEDS: HEPARIN 5000 UNIT/ML 1 ML VIAL SQ SCH ×3 (00:42→16:28)
[2020-05-11] MEDS: FENTANYL CITR 100 MCG/2 ML IV PRN ×2 (04:46→15:03)
[2020-05-11] MEDS: MIDODRINE HCL 5 MG TABLET PO SCH ×3 (06:01→22:09)
[2020-05-11 06:56] LABS: Absolute Lymphocytes (CBC) 0.5 K/uL (0.7-4.9); Basophils % 1.2 % (0-1.3); Hematocrit 34.3 % (39.6-49.0); Lymphocytes % 4.8 % (15.3-44.8); MPV 9.6 fL (7.6-11.3); RBC Red Blood Cell Count 3.61 M/uL (4.33-5.43)
--- NOTE | 2020-05-11 08:46 | P.PN ---
Subjective Date of Service: 05/11/20 Primary Care Provider: Dr. Vences; Nephrology-Dr. Guaman Chief Complaint: Scrotal cellulitis Subjective: Improving, Doing well Physical Examination - Vital Signs Temperature: 97.3 F Blood Pressure: 115/82 Pulse: 58 Respirations: 18 Pulse Ox (%): 100 - Physical Exam Other Physical/Emotional Findings: P.E. not done d/t covid isolation - Studies Medications List Reviewed: Yes Assessment & Plan Discharge Plan: LTAC Plan to discharge in: 48 Hours Physician Review Additional Text: Initial chief complaint: Scrotal pain Physical exam: Patient remains alert, cooperative. Patient remains afebrile. Patient feels better. Pain well controlled. Heart: Regular rate rhythm Lungs: Clear to auscultation Abdomen: Soft, normal bowel sounds Scrotum: Areas of debridement appear stable. Improved swelling noted. No significant erythema noted. Demarcation noted to the left scrotal region. Some sloughing of tissue noted. Packing in place. No worsening changes noted at this time. Skin: Multiple areas of calcinosis cutis Impression: Severe Scrotal and perineal cellulitis with abscess End-stage renal disease on hemodialysis Diabetes mellitus type 2 with hyperglycemia Hypotension with history of hypertension Atrial fibrillation on chronic anti coagulation therapy Calcinosis cutis Diabetic peripheral neuropathy BPH GERD COVID 19 Hyperlipidemia Suspect chronic systolic CHF Suspect underlying obstructive sleep apnea Plan: Severe Scrotal and perineal cellulitis with abscess: Patient continues to do well. Pain well controlled. White count 11. Patient remains on triple IV antibiotic therapy-vancomycin, cefepime and Flagyl. Wound cultures shows no growth of bacteria. Continue with current wound care. Will consult wound care to further evaluate and treat. Infectious Disease also consulted to help with wound care and adjustments in IV medication. Continue DVT prophylaxis. Continue pain medication. Will discuss case further with Urology to determine i f patient will require further debridement urologically or if we may proceed with long-term acute care facility placement to continue IV antibiotic therapy and wound care. Continue to hold aspirin and Xarelto in anticipation for possible further debridement. Will continue to monitor closely. I will turn the service over to the hospitalist team tomorrow. I will go plan of care with him. End-stage renal disease on hemodialysis: Nephrology to continue with dialysis. Continue with Nephrology recommendations. Diabetes mellitus type 2 with hyperglycemia: Blood sugars well controlled. A1c 7.9. No basal insulin [place] this time. Patient on sliding scale. Continue Accu-Cheks. Hypotension with history of hypertension: Patient no longer on beta-jass therapy.. Parameters in place. Patient remains on midodrine. Atrial fibrillation on chronic anti coagulation therapy: Continue to Hold aspirin and Xarelto as the patient will likely require further debridement. Continue amiodarone. Patient remains in sinus rhythm. Beta-jass has been discontinued due to low blood pressure. Anticipate Re initiating anti coagulation therapy likely when no further debridement is noted. Calcinosis cutis: Will need to obtain more of his history from nephrology. Diabetic peripheral neuropathy: Continue to hold Neurontin. Pain well controlled with alternative medication. COVID 19: Patient now on 4 L. Continue to wean off. No steroids at this time due to his scrotal infection. Continue vitamin supplementation. Hyperlipidemia: Continue medication Suspect chronic CHF diastolic: Continue 1500 cc per day fluid restriction. Suspect underlying obstructive sleep apnea: Patient will likely require evaluation in the future. Time Spent Managing Pts Care (In Minutes): 55
[2020-05-11 08:49] LABS: Magnesium 2.7 mg/dL (1.8-2.4); Potassium 4.6 mmol/L (3.5-5.1)
--- NOTE | 2020-05-11 09:07 | P.PN ---
Subjective Date of Service: 05/12/20 Primary Care Provider: Dr. Vences; Nephrology-Dr. Gauman Chief Complaint: Scrotal cellulitis Subjective: No new changes Physical Examination - Vital Signs Temperature: 97.3 F Blood Pressure: 115/82 Pulse: 58 Respirations: 18 Pulse Ox (%): 100 - Physical Exam Other Physical/Emotional Findings: P.E. not done d/t covid isolation - Studies Medications List Reviewed: Yes Assessment And Plan - Plan # ESRD on HD Cont HD TTS Received HD yesterday No acute indication for HD today Monitor renal panel # COVID19 infection Mngt per other services # Scrotal/perineal cellulitis S/p debridement Cont abx & wound care # Afib On amio Holding asa & xarelto # DM2 Mngt per primary team # Dispo Dc planning to LTAC ongoing Physician Review Additional Text: Initial chief complaint: Scrotal pain Physical exam: Patient remains alert, cooperative. Patient remains afebrile. Patient feels better. Pain well controlled. Heart: Regular rate rhythm Lungs: Clear to auscultation Abdomen: Soft, normal bowel sounds Scrotum: Areas of debridement appear stable. Improved swelling noted. No significant erythema noted. Demarcation noted to the left scrotal region. Some sloughing of tissue noted. Packing in place. No worsening changes noted at this time. Skin: Multiple areas of calcinosis cutis Impression: Severe Scrotal and perineal cellulitis with abscess End-stage renal disease on hemodialysis Diabetes mellitus type 2 with hyperglycemia Hypotension with history of hypertension Atrial fibrillation on chronic anti coagulation therapy Calcinosis cutis Diabetic peripheral neuropathy BPH GERD COVID 19 Hyperlipidemia Suspect chronic systolic CHF Suspect underlying obstructive sleep apnea Plan: Severe Scrotal and perineal cellulitis with abscess: Patient continues to do well. Pain well controlled. White count 11. Patient remains on triple IV antibiotic therapy-vancomycin, cefepime and Flagyl. Wound cultures shows no growth of bacteria. Continue with current wound care. Will consult wound care to further evaluate and treat. Infectious Disease also consulted to help with wound care and adjustments in IV medication. Continue DVT prophylaxis. Continue pain medication. Will discuss case further with Urology to determine if patient will require further debridement urologically or if we may proceed with long-term acute care facility placement to continue IV antibiotic therapy and wound care. Continue to hold aspirin and Xarelto in anticipation for possible further debridement. Will continue to monitor closely. I will turn the service over to the hospitalist team tomorrow. I will go plan of care with him. End-stage renal disease on hemodialysis: Nephrology to continue with dialysis. Continue with Nephrology recommendations. Diabetes mellitus type 2 with hyperglycemia: Blood sugars well controlled. A1c 7.9. No basal insulin [place] this time. Patient on sliding scale. Continue Accu-Cheks. Hypotension with history of hypertension: Patient no longer on beta-jass therapy.. Parameters in place. Patient remains on midodrine. Atrial fibrillation on chronic anti coagulation therapy: Continue to Hold aspirin and Xarelto as the patient will likely require further debridement. Continue amiodarone. Patient remains in sinus rhythm. Beta-jass has been discontinued due to low blood pressure. Anticipate Re initiating anti coagulation therapy likely when no further debridement is noted. Calcinosis cutis: Will need to obtain more of his history from nephrology. Diabetic peripheral neuropathy: Continue to hold Neurontin. Pain well controlled with alternative medication. COVID 19: Patient now on 4 L. Continue to wean off. No steroids at this time due to his scrotal infection. Continue vitamin supplementation. Hyperlipidemia: Continue medication Suspect chronic CHF diastolic: Continue 1500 cc per day fluid restriction. Suspect underlying obstructive sleep apnea: Patient will likely require evaluation in the future.
[2020-05-11] MEDS: THIAMINE HCL 100 MG TABLET PO SCH ×2 (09:49→20:28)
[2020-05-11] MEDS: PANTOPRAZOLE 40MG TABLET PO SCH (09:49)
[2020-05-11] MEDS: SEVELAMER CARBONATE 800 MG TABLET PO SCH ×2 (09:49→12:48)
[2020-05-11] MEDS: TAMSULOSIN 0.4 MG SR CAP PO SCH (09:49)
[2020-05-11] MEDS: ATORVASTATIN 10 MG TAB PO SCH (09:50)
[2020-05-11] MEDS: ASCORBIC ACID 500 MG TABLET PO SCH ×3 (09:50→20:29)
[2020-05-11] MEDS: AMIODARONE HCL 200 MG TAB PO SCH ×2 (09:50→20:28)
[2020-05-11] MEDS: ZINC SULFATE 220 MG CAP PO SCH (09:50)
[2020-05-11] MEDS: CEFEPIME/SWI 1gm 10 ML IV SCH (09:51)
--- NOTE | 2020-05-11 10:32 | CON ---
Date of Consultation: 05/07/2020 Reason For Consultation: Hypotension, atrial fibrillation, and scrotal cellulitis. History Of Present Illness: Mr. Tellez is a 44-year-old Latin-Serbian male who has end-stage renal disease, on hemodialysis. He has a history of diabetes, hypertension, BKA, atrial fibrillation that is being treated with amiodarone chronically. He is on Xarelto at home. He is on heparin now. His rate is controlled and he is not having any symptoms from his atrial fibrillation. Came in with scr otal cellulitis that is being treated with antibiotics. He normally sees Dr. James. No cardiac co mplaint at this point. Past Medical History: As stated above. Allergies: NONE. Review of Systems: Negative. Social History: Negative. Family History: Noncontributory. Medications: At home include amiodarone, zinc, midodrine, Lipitor, epoetin, Protonix, tamsulosin. Jose martinez is presently on heparin and multiple antibiotics for cellulitis. Physical Examination: Vital signs: Stable. He was afebrile. HEENT: Negative. Neck: Supple with no bruit. Chest: Clear. Cardiac: Irregularly irregular rhythm and rate without any murmurs, gallops, or rubs. Abdomen: Benign. He has scrotal cellulitis. He has BKA. Diagnostic Data: Showed a hemoglobin of 9, white count of 12,000, procalcitonin of 40, PTH of 1144, elevated CRP, elevated ferritin, creatinine of 11.30. Impression And Plan: 1.Paroxysmal atrial fibrillation, on amiodarone and Xarelto at home. I will continue heparin for no w. He can get back on Xarelto when he goes home. No change in medical therapy as far as that is con cerned. 2.Dyslipidemia, on Lipitor. 3.Anemia, on epoetin. 4.End-stage renal disease, on hemodialysis. 5.Scrotal cellulitis, on multiple antibiotics. 6.Occasional orthostatic hypotension, on midodrine. 7.Benign prostatic hypertrophy, on tamsulosin. 8.Gastroesophageal reflux disease, on Protonix. 9.Diabetes, well controlled. 10.Status post BKA. 11.Hypertension, well controlled. I will be available for questions if the need arises. I do not have any further recommendation as fa r as his heart is concerned at this point. Continue present regimen. He can go home whenever it is okay with Dr. Jacobs. EVIE/MARIBEL Voice ID: [id number] Report ID: [id number]
[2020-05-11] MEDS: SEVELAMER CARBONATE PO SCH (16:22)
[2020-05-11] MEDS: HYDROCODONE/APAP 7.5/325 MG TAB PO PRN (18:35)
[2020-05-11] MEDS: MELATONIN 5 MG TABLET PO SCH (20:29)
[2020-05-12] MEDS: METRONIDAZOLE 500mg IVPB 500 MG/100 ML BAG IV SCH ×3 (00:08→16:00)
[2020-05-12] MEDS: HEPARIN 5000 UNIT/ML 1 ML VIAL SQ SCH ×3 (00:09→16:47)
[2020-05-12] MEDS: FENTANYL CITR 100 MCG/2 ML IV PRN ×2 (00:45→10:21)
[2020-05-12 03:54] LABS: Absolute Lymphocytes (CBC) 0.6 K/uL (0.7-4.9); Basophils % 1.2 % (0-1.3); Hematocrit 31.7 % (39.6-49.0); Lymphocytes % 4.8 % (15.3-44.8); MPV 9.6 fL (7.6-11.3); RBC Red Blood Cell Count 3.38 M/uL (4.33-5.43)
[2020-05-12 04:35] LABS: Magnesium 2.9 mg/dL (1.8-2.4); Potassium 4.7 mmol/L (3.5-5.1)
[2020-05-12] MEDS: MIDODRINE HCL 5 MG TABLET PO SCH ×3 (05:40→22:08)
[2020-05-12] MEDS: ASCORBIC ACID 500 MG TABLET PO SCH ×3 (08:15→20:10)
[2020-05-12] MEDS: TAMSULOSIN 0.4 MG SR CAP PO SCH (08:15)
[2020-05-12] MEDS: AMIODARONE HCL 200 MG TAB PO SCH ×2 (08:15→20:10)
[2020-05-12] MEDS: HYDROCODONE/APAP 7.5/325 MG TAB PO PRN ×3 (08:15→22:08)
[2020-05-12] MEDS: THIAMINE HCL 100 MG TABLET PO SCH ×2 (08:16→20:10)
[2020-05-12] MEDS: PANTOPRAZOLE 40MG TABLET PO SCH (08:16)
[2020-05-12] MEDS: ZINC SULFATE 220 MG CAP PO SCH (08:16)
[2020-05-12] MEDS: ATORVASTATIN 10 MG TAB PO SCH (08:16)
[2020-05-12] MEDS: SEVELAMER CARBONATE PO SCH ×3 (08:17→16:51)
[2020-05-12] MEDS: CEFEPIME/SWI 1gm 10 ML IV SCH (08:17)
--- NOTE | 2020-05-12 12:22 | P.CNS ---
Date of Consult: 05/12/20 Primary Care Provider: Dr. Vences; Nephrology-Dr. Guaman Chief Complaint: Scrotal cellulitis History of Present Illness: The patient is a 44-year-old male with a past medical history of ESRD on HD, hypothyroidism, leukocytosis, anemia, diabetes who presented to the ED with pain and swelling in the scrotal region. Patient states that he has been running fevers and having worsening pain in the scrotum. Patient has a history of boils to the scrotal area and states that they either resolve on their own however this time 1 of the boils turned into a more severe infection. In the ED was evaluated and dx with cellulitis of the scrotum, CT showed no fluctuance or abscess. The patient has significant comorbidities with multiple end-organ injuries due to poorly controlled diabetes with diabetic neuropathy and multiple amputations being performed in the past. Patient also has diabetic breath and retinopathy. Patient remains currently on IV vancomycin and tolerating it well with no abdominal pain, nausea, vomiting, diarrhea. He also denies shortness breath or chest pain, he is utilizing 2 L oxygen via nasal cannula. AV fistula present in patient's left arm with thrill noted on exam. Allergies No Known Allergies Allergy (Verified 02/24/16 21:52) Home Medications: Insulin -Regular Human [Novolin -R*] 1 unit SQ BID 01/20/20 Sevelamer Carbonate [Renvela*] 1,600 mg PO TIDWM #180 tablet 01/22/20 Insulin Degludec [Tresiba Flextouch U-200] 52 units SQ DAILYPRN PRN 02/01/20 Liraglutide [Victoza 2-Ryan] 1.8 ml SQ DAILYPRN PRN 02/01/20 Furosemide 2 tab PO BID 04/09/20 Metoprolol Tartrate [Lopressor*] 25 mg PO [id number] #30 tab 04/09/20 Tamsulosin HCl [Flomax] 0.4 mg DAILY 04/09/20 Amiodarone HCl [Cordarone*] 1 tab PO BID 05/03/20 Aspirin [Aspirin EC 81 MG] 81 mg PO DAILY 05/03/20 Ergocalciferol (Vitamin D2) [Vitamin D 50,000 Unit Cap] 50,000 units PO EVERY 7TH DAY 05/03/20 Gabapentin 1 tab PO TID 05/03/20 Pantoprazole [Protonix Tab*] 40 mg PO DAILY 05/03/20 Rivaroxaban [Xarelto*] 15 mg PO DAILY 05/03/20 Simvastatin 10 mg PO DAILY 05/03/20 Tramadol HCl [Ultram] 50 mg PO PRN 05/03/20 - Past Medical/Surgical History Diabetic: Yes -: Diabetes mellitus type 2-insulin dependent -: End-stage renal disease on hemodialysis -: HTN -: L BKA -: Appendectomy -: Cholecystectomy -: Wrist surgery -: Right ankle surgery -: right foot pinkie toe amputated. Psychosocial/ Personal History: Patient currently lives at home with his family - Family History Father Medical History: Hypertension, Diabetes Mother Medical History: Hypertension, Diabetes, Cancer Notes: Dialysis; Breast Cancer Sister Medical History: Hypertension, Diabetes - Social History Alcohol use: No CD- Drugs: No Caffeine use: Yes Place of Residence: Home Review of Systems 10-point ROS is otherwise unremarkable Physical Examination Temp Pulse Resp BP Pulse Ox 96.5 F L 58 20 112/56 L 98 05/12/20 12:00 05/12/20 12:00 05/12/20 12:00 05/12/20 12:00 05/12/20 12:00 General: Alert, In no apparent distress, Oriented x3 HEENT: Atraumatic, Normocephalic Neck: Supple, 2+ carotid pulse no bruit, JVD not distended Respiratory: Clear to auscultation bilaterally Cardiovascular: No edema, Normal pulses, Regular rate/rhythm Capillary refill: <2 Seconds Gastrointestinal: Normal bowel sounds, No tenderness, No rebound, No guarding Integumentary: Other (Multiple skin erosions and papules noted to bilateral upper and lower extremities as well as on patient's abdominal area.) External genitalia: Other (Scrotal wound scrotal cellulitis, erythema and swelling noted on physical exam) Laboratory Last Values WBC 13.50 K/uL (4.3-10.9) H 05/02/20 12:10 RBC 3.39 M/uL (4.33-5.43) L 05/02/20 12:10 Hgb 10.5 g/dL (13.6-17.9) L 05/02/20 12:10 Hct 32.6 % (39.6-49.0) L 05/02/20 12:10 MCV 96.2 fL (80-100) 05/02/20 12:10 MCH 31.0 pg (27.0-35.0) 05/02/20 12:10 MCHC 32.2 g/dL (32.0-36.0) 05/02/20 12:10 RDW 16.1 % (12.1-15.2) H 05/02/20 12:10 Plt Count 281 K/uL (152-406) 05/02/20 12:10 MPV 9.3 fL (7.6-11.3) 05/02/20 12:10 Neutrophils % 89.5 % (41.7-73.7) H 05/02/20 12:10 Lymphocytes % 3.1 % (15.3-44.8) L 05/02/20 12:10 Monocytes % 6.0 % (3.3-12.3) 05/02/20 12:10 Eosinophils % 0.0 % (0-4.4) 05/02/20 12:10 Basophils % 1.4 % (0-1.3) H 05/02/20 12:10 Absolute Neutrophils 12.1 K/uL (1.8-8.0) H 05/02/20 12:10 Absolute Lymphocytes 0.4 K/uL (0.7-4.9) L 05/02/20 12:10 Absolute Monocytes 0.8 K/uL (0.1-1.3) 05/02/20 12:10 Absolute Eosinophils 0.0 K/uL (0-0.5) 05/02/20 12:10 Absolute Basophils 0.2 K/uL (0-0.5) 05/02/20 12:10 Platelet Estimate Adeq 05/02/20 12:10 Morphology Comment Not seen (NOT SEEN) 05/02/20 12:10 PT 25.8 SECONDS (9.5-12.5) H 05/02/20 12:10 INR 2.23 05/02/20 12:10 Sodium 129 mmol/L (136-145) L 05/02/20 12:10 Potassium 5.2 mmol/L (3.5-5.1) H 05/02/20 12:10 Chloride 91 mmol/L (98-107) L 05/02/20 12:10 Carbon Dioxide 21 mmol/L (21-32) 05/02/20 12:10 BUN 86 mg/dL (7-18) H 05/02/20 12:10 Creatinine 12.20 mg/dL (0.55-1.3) H* 05/02/20 12:10 Estimated GFR 4 mL/min (=/>90) L 05/02/20 12:10 Glucose 216 mg/dL (74-106) H 05/02/20 12:10 Lactic Acid 1.3 mmol/L (0.4-2.0) 05/02/20 12:10 Calcium 8.9 mg/dL (8.5-10.1) 05/02/20 12:10 Magnesium 2.8 mg/dL (1.8-2.4) H 05/02/20 12:10 Total Bilirubin 3.2 mg/dL (0.2-1.0) H 05/02/20 12:10 Direct Bilirubin 2.3 mg/dL (0-0.2) H 05/02/20 12:10 AST 69 U/L (15-37) H 05/02/20 12:10 ALT 135 U/L (12-78) H 05/02/20 12:10 Alkaline Phosphatase 212 U/L (45-117) H 05/02/20 12:10 Rapid Troponin I 0.11 ng/mL (0.0-0.045) H 05/02/20 12:10 NT-Pro-B Natriuret Pep 90789 pg/mL (<125) H 05/02/20 12:10 Serum Total Protein 7.3 g/dL (6.4-8.2) 05/02/20 12:10 Albumin 3.0 g/dL (3.4-5.0) L 05/02/20 12:10 Globulin 4.3 g/dL (2.3-3.5) H 05/02/20 12:10 Albumin/Globulin Ratio 0.7 (1.1-1.8) L 05/02/20 12:10 Smear Scan Ok (OK) 05/02/20 12:10 Conclusions/Impression: Antibiotics: Vancomycin start: 05/04 stop:05/18 Indication: Scrotal cellulitis Assessment: -scrotal cellulitis with leukocytosis -ESRD on HD -diabetes type 2-uncontrolled -anemia - hypothyroidism Plan: -continue IV vancomycin for 2 weeks. Patient can be Dc the on vancomycin to be given at dialysis. -medical management per primary team -continue monitor CBC and BMP -continue to monitor for signs of infection Plan of care discussed with Thank you for consultation
[2020-05-12] MEDS ORDERED: VANCOMYCIN 500 MG in NA CHLORIDE 0.9% 100 ML IVPB ONE (12:30)
[2020-05-12] MEDS: COLLAGENASE 30 GM OINTMENT TOP SCH (16:57)
[2020-05-12] MEDS: ONDANSETRON 4 MG/2 ML VIAL IV PRN (18:09)
[2020-05-12] MEDS: MELATONIN 5 MG TABLET PO SCH (20:10)
--- NOTE | 2020-05-12 23:55 | PN ---
Date of Progress Note: 05/12/2020 Chief Complaint: End-stage renal disease, on dialysis. History Of Present Illness: The patient is undergoing dialysis on Tuesday, , and Tuesday. He received dialysis on Tuesday. He has peripheral edema, scrotal cellulitis with edema. The patie nt is undergoing antibiotic therapy and vancomycin will be adjusted with additional dose today. The patient will have 500 mg of vancomycin extra dose and he will resume vancomycin 1 g with dialysis ben orrow. The patient has history of atrial fibrillation. He remains on amiodarone, aspirin, and Xarelto. The patient was found to have intradialytic hypotension and was started on midodrine. Blood pressure is stabilizing. Review of Systems: Denies PND or orthopnea. Physical Examination: General: The patient is not in acute distress. Lungs: Clear to auscultation bilaterally. Heart: S1, S2. Abdomen: Soft, benign. Extremities: Some edema present. Impression And Plan: 1.Severe scrotal and perineal cellulitis with abscess. The patient on antibiotics and wound care. Continue treatment. 2.Diabetes mellitus type 2 with hyperglycemia. Continue insulin. 3.Atrial fibrillation, on chronic anticoagulation therapy. 4.COVID-19 positive test. The patient has history of COVID pneumonia. 5.Suspected chronic congestive systolic heart failure. The patient is followed by Cardiology. 6.Peripheral edema. Continue dialysis therapy. Next treatment tomorrow. 7.Renal osteodystrophy. Continue renal diet and binders. EB/MODL Voice ID: [id number] Report ID: [id number]
[2020-05-13] MEDS: METRONIDAZOLE 500mg IVPB 500 MG/100 ML BAG IV SCH ×4 (00:55→23:51)
[2020-05-13] MEDS: HEPARIN 5000 UNIT/ML 1 ML VIAL SQ SCH ×4 (00:55→23:51)
[2020-05-13] MEDS: MIDODRINE HCL 5 MG TABLET PO SCH ×3 (05:36→22:05)
[2020-05-13] MEDS: SEVELAMER CARBONATE PO SCH ×3 (08:00→16:57)
[2020-05-13] MEDS: CEFEPIME/SWI 1gm 10 ML IV SCH (08:48)
[2020-05-13] MEDS: ATORVASTATIN 10 MG TAB PO SCH (08:48)
[2020-05-13] MEDS: THIAMINE HCL 100 MG TABLET PO SCH ×2 (08:49→20:21)
[2020-05-13] MEDS: AMIODARONE HCL 200 MG TAB PO SCH ×2 (08:49→20:21)
[2020-05-13] MEDS: PANTOPRAZOLE 40MG TABLET PO SCH (08:49)
[2020-05-13] MEDS: TAMSULOSIN 0.4 MG SR CAP PO SCH (08:50)
[2020-05-13] MEDS: ASCORBIC ACID 500 MG TABLET PO SCH ×3 (08:50→20:21)
[2020-05-13] MEDS: SEVELAMER CARBONATE 800 MG TABLET PO SCH ×3 (08:51→16:57)
[2020-05-13] MEDS: ZINC SULFATE 220 MG CAP PO SCH (08:51)
[2020-05-13] MEDS ORDERED: CINACALCET HCL 30 MG TAB PO SCH (09:00)
[2020-05-13] MEDS: COLLAGENASE 30 GM OINTMENT TOP SCH (09:30)
[2020-05-13] MEDS: ONDANSETRON 4 MG/2 ML VIAL IV PRN ×2 (09:56→18:26)
[2020-05-13 10:24] LABS: Absolute Lymphocytes (CBC) 0.5 K/uL (0.7-4.9); Basophils % 0.6 % (0-1.3); Hematocrit 33.9 % (39.6-49.0); Lymphocytes % 3.9 % (15.3-44.8); RBC Red Blood Cell Count 3.58 M/uL (4.33-5.43)
--- NOTE | 2020-05-13 10:57 | P.PN ---
Subjective Date of Service: 05/13/20 Primary Care Provider: Dr. Vences; Nephrology-Dr. Guaman Chief Complaint: Scrotal cellulitis Patient seen examined at bedside. White blood cell counts is up trending with most recent CBC showing a WBC of 13.2. Vancomycin is to be given after dialysis each dialysis day, and per the MAR last time the patient was given vancomycin was 05/07. This is likely contributing to the rise in the patient's white blood cell count, please advise dialysis to give vancomycin after each dialysis days. Review of Systems 10-point ROS is otherwise unremarkable Physical Examination - Vital Signs Temperature: 97.1 F Blood Pressure: 141/73 Pulse: 60 Respirations: 18 Pulse Ox (%): 97 - Studies Laboratory Last Values WBC 13.50 K/uL (4.3-10.9) H 05/02/20 12:10 RBC 3.39 M/uL (4.33-5.43) L 05/02/20 12:10 Hgb 10.5 g/dL (13.6-17.9) L 05/02/20 12:10 Hct 32.6 % (39.6-49.0) L 05/02/20 12:10 MCV 96.2 fL (80-100) 05/02/20 12:10 MCH 31.0 pg (27.0-35.0) 05/02/20 12:10 MCHC 32.2 g/dL (32.0-36.0) 05/02/20 12:10 RDW 16.1 % (12.1-15.2) H 05/02/20 12:10 Plt Count 281 K/uL (152-406) 05/02/20 12:10 MPV 9.3 fL (7.6-11.3) 05/02/20 12:10 Neutrophils % 89.5 % (41.7-73.7) H 05/02/20 12:10 Lymphocytes % 3.1 % (15.3-44.8) L 05/02/20 12:10 Monocytes % 6.0 % (3.3-12.3) 05/02/20 12:10 Eosinophils % 0.0 % (0-4.4) 05/02/20 12:10 Basophils % 1.4 % (0-1.3) H 05/02/20 12:10 Absolute Neutrophils 12.1 K/uL (1.8-8.0) H 05/02/20 12:10 Absolute Lymphocytes 0.4 K/uL (0.7-4.9) L 05/02/20 12:10 Absolute Monocytes 0.8 K/uL (0.1-1.3) 05/02/20 12:10 Absolute Eosinophils 0.0 K/uL (0-0.5) 05/02/20 12:10 Absolute Basophils 0.2 K/uL (0-0.5) 05/02/20 12:10 Platelet Estimate Adeq 05/02/20 12:10 Morphology Comment Not seen (NOT SEEN) 05/02/20 12:10 PT 25.8 SECONDS (9.5-12.5) H 05/02/20 12:10 INR 2.23 05/02/20 12:10 Sodium 129 mmol/L (136-145) L 05/02/20 12:10 Potassium 5.2 mmol/L (3.5-5.1) H 05/02/20 12:10 Chloride 91 mmol/L (98-107) L 05/02/20 12:10 Carbon Dioxide 21 mmol/L (21-32) 05/02/20 12:10 BUN 86 mg/dL (7-18) H 05/02/20 12:10 Creatinine 12.20 mg/dL (0.55-1.3) H* 05/02/20 12:10 Estimated GFR 4 mL/min (=/>90) L 05/02/20 12:10 Glucose 216 mg/dL (74-106) H 05/02/20 12:10 Lactic Acid 1.3 mmol/L (0.4-2.0) 05/02/20 12:10 Calcium 8.9 mg/dL (8.5-10.1) 05/02/20 12:10 Magnesium 2.8 mg/dL (1.8-2.4) H 05/02/20 12:10 Total Bilirubin 3.2 mg/dL (0.2-1.0) H 05/02/20 12:10 Direct Bilirubin 2.3 mg/dL (0-0.2) H 05/02/20 12:10 AST 69 U/L (15-37) H 05/02/20 12:10 ALT 135 U/L (12-78) H 05/02/20 12:10 Alkaline Phosphatase 212 U/L (45-117) H 05/02/20 12:10 Rapid Troponin I 0.11 ng/mL (0.0-0.045) H 05/02/20 12:10 NT-Pro-B Natriuret Pep 72080 pg/mL (<125) H 05/02/20 12:10 Serum Total Protein 7.3 g/dL (6.4-8.2) 05/02/20 12:10 Albumin 3.0 g/dL (3.4-5.0) L 05/02/20 12:10 Globulin 4.3 g/dL (2.3-3.5) H 05/02/20 12:10 Albumin/Globulin Ratio 0.7 (1.1-1.8) L 05/02/20 12:10 Smear Scan Ok (OK) 05/02/20 12:10 Medications List Reviewed: Yes Assessment And Plan - Plan Physical Exam: General: Alert, In no apparent distress, Oriented x3 HEENT: Atraumatic, Normocephalic Neck: Supple, 2+ carotid pulse no bruit, JVD not distended Respiratory: Clear to auscultation bilaterally Cardiovascular: No edema, Normal pulses, a fib Capillary refill: <2 Seconds Gastrointestinal: Normal bowel sounds, No tenderness, No rebound, No guarding Integumentary: Other (Multiple skin erosions and papules noted to bilateral upper and lower extremities as well as on patient's abdominal area.) External genitalia: Other (Scrotal wound scrotal cellulitis, erythema and swelling noted on physical exam) Antibiotics: Vancomycin start: 05/04 stop:05/18 Indication: Scrotal cellulitis Cefepime: start:05/05 stop:05/19 Indication:Scrotal cellulitis Flagyl start: 05/06 Stop: 05/20 indication: Scrotal cellulitis Assessment: -scrotal cellulitis with leukocytosis -ESRD on HD -a fib -diabetes type 2-uncontrolled -anemia - hypothyroidism Plan: -continue antibiotics for 2 weeks. for DC- can do vancomycin and cefepime at dialysis on dialysis days. Patient can be sent on oral Flagyl. -medical management per primary team -continue monitor CBC and BMP -continue to monitor for signs of infection Plan of care discussed with Thank you for consultation
[2020-05-13 11:05] LABS: Blood Morphology Comment NOT SEEN (NOT SEEN); Platelet Estimate ADEQ; White Blood Cell Scan OK (OK)
[2020-05-13 12:44] LABS: Potassium 5.2 mmol/L (3.5-5.1)
[2020-05-13] MEDS: FENTANYL CITR 100 MCG/2 ML IV PRN ×2 (14:03→23:51)
--- NOTE | 2020-05-13 17:34 | PN ---
Subjective: The patient was admitted with cellulitis on the scrotal area. The patient had dialyzed on a daily basis to establish better control. Physical Examination: Vital Signs: When I saw the patient; blood pressure 132/68, pulse of 60, afebrile. Chest: Crackles bilateral base. Heart: S1, S2. Regular. Abdomen: Soft, nontender. Genitalia: Scrotum erythema with multiple ulcerations and drainage. Extremity: Below-knee amputation. Neuro: Alert. No focality. Laboratory Data: Sodium 130, potassium 5.2, bicarb 20, BUN 93, creatinine 12, calcium 8.3. WBC 13.2, H and H 10.7/33.9, platelet 339. Current Medications: The patient on include; 1. Cefepime. 2. Metronidazole. 3. Vancomycin. 4. Midodrine. 5. Flomax. 6. Epogen. 7. Atorvastatin. 8. Amiodarone. 9. Renvela. 10. Sensipar. Assessment And Plan: 1. End-stage renal disease, over volume. We will continue the patient on dialysis as Tuesday, Tuesday, Tuesday with p.r.n. extra dialysis on the weekend to establish better volume control. 2. Hypertension, controlled, optimal. Continue to utilize blood pressure for more ultrafiltration. 3. Anemia of chronic kidney disease. Continue RUDOLPH. 4. Secondary hyperparathyroidism. Continue Sensipar and Renvela. 5. Hyponatremia. Going to be corrected with dialysis. 6. Cellulitis on the scrotum. Continue current antibiotic. Follow up with ID. Waiting for LTAC approval. time spent examined the patient face to face s discussed with the patient placed order discussing the case with other security team lead including nurses , discussing with other specialist include a hospitalist 45 min CHANDNI/MARIBEL Voice ID: [id number] Report ID: [id number] JASON
[2020-05-13] MEDS: VANCOMYCIN/NS 1 gm 1 GM/250 ML BAG IVPB SCH (18:26)
[2020-05-13] MEDS: MELATONIN 5 MG TABLET PO SCH (20:21)
[2020-05-13] MEDS: HYDROCODONE/APAP 7.5/325 MG TAB PO PRN (20:23)
[2020-05-14] MEDS: ONDANSETRON 4 MG/2 ML VIAL IV PRN ×3 (04:10→12:32)
[2020-05-14] MEDS: MIDODRINE HCL 5 MG TABLET PO SCH ×2 (05:33→14:15)
[2020-05-14] MEDS: HYDROCODONE/APAP 7.5/325 MG TAB PO PRN (06:16)
[2020-05-14] MEDS: SEVELAMER CARBONATE 800 MG TABLET PO SCH ×2 (08:00→11:27)
[2020-05-14] MEDS: SEVELAMER CARBONATE PO SCH ×2 (08:00→11:27)
[2020-05-14] MEDS: ATORVASTATIN 10 MG TAB PO SCH (08:01)
[2020-05-14] MEDS: CEFEPIME/SWI 1gm 10 ML IV SCH (08:01)
[2020-05-14] MEDS: ZINC SULFATE 220 MG CAP PO SCH (08:01)
[2020-05-14] MEDS: ASCORBIC ACID 500 MG TABLET PO SCH ×2 (08:02→14:15)
[2020-05-14] MEDS: PANTOPRAZOLE 40MG TABLET PO SCH (08:02)
[2020-05-14] MEDS: TAMSULOSIN 0.4 MG SR CAP PO SCH (08:02)
[2020-05-14] MEDS: AMIODARONE HCL 200 MG TAB PO SCH (08:02)
[2020-05-14] MEDS: THIAMINE HCL 100 MG TABLET PO SCH (08:02)
[2020-05-14] MEDS: HEPARIN 5000 UNIT/ML 1 ML VIAL SQ SCH (08:02)
[2020-05-14] MEDS: METRONIDAZOLE 500mg IVPB 500 MG/100 ML BAG IV SCH (08:03)
[2020-05-14] MEDS ORDERED: CINACALCET HCL 30 MG TAB PO SCH (09:00)
[2020-05-14] MEDS: COLLAGENASE 30 GM OINTMENT TOP SCH (09:01)
[2020-05-14] MEDS: FENTANYL CITR 100 MCG/2 ML IV PRN (11:26)
[2020-05-14 12:44] VITALS: BP 113/63; TEMP 97.2
--- NOTE | 2020-05-14 13:20 | PN ---
Date of Progress Note: 05/14/2020 Subjective: The patient was admitted with scrotal cellulitis. The patient is on treatment, tolerated well, slow recovery. Physical Examination: Vital Signs: Blood pressure 111/61, pulse of 58, afebrile. Chest: Clear to auscultation. Heart: S1, S2. Regular. Abdomen: Soft, nontender. Extremities: Left below-knee amputation. Right, no edema. Skin: Scrotal swelling, erythema with laceration. Neurologic: Alert and oriented. No focal. Laboratory Data: H and H 10.7/33.9. Sodium 130, potassium 5.2, bicarb 20, BUN 93, creatinine 12, calcium 8.3. Current Medications: The patient on include midodrine, Flomax, metronidazole 500 t.i.d., vancomycin, Epogen, amiodarone, atorvastatin, Zofran, Renvela 2400 q.a.c., zinc sulfate, Assessment And Plan: 1. End-stage renal disease, over volume, status post dialysis, currently normal volume. We will continue dialysis Tuesday, Tuesday, Tuesday. 2. Secondary hyperparathyroidism. Continue binder. 3. Anemia of chronic kidney disease. Continue RUDOLPH. 4. Over volume. The patient has been challenged on a daily dialysis, responded well, back to dialysis 3 times a week. 5. Hyponatremia, going to be corrected with dialysis. 6. Hypertension. Continue current treatment. 7. Cellulitis of the scrotum, seen by Urology. CT negative for abscess. Continue IV antibiotic. 8. Deconditioning. Continue current treatment. 9. Diabetes as by primary. time spent examined the patient face to face s discussed with the patient placed order discussing the case with other steam service inspector including nurses , discussing with other specialist include a hospitalist 45 min CHRISTINA Voice ID: [id number] Report ID: [id number] JASON
[2020-05-14 14:33] VITALS: O2SAT 98
--- NOTE | 2020-05-14 14:35 | P.PN ---
Subjective Date of Service: 05/14/20 Primary Care Provider: Dr. Vences; Nephrology-Dr. Guaman Chief Complaint: Scrotal cellulitis Patient seen examined at bedside. Awaiting [facility] placement. Review of Systems 10-point ROS is otherwise unremarkable Physical Examination - Vital Signs Temperature: 97.2 F Blood Pressure: 113/63 Pulse: 63 Respirations: 16 Pulse Ox (%): 98 - Studies Laboratory Last Values WBC 13.50 K/uL (4.3-10.9) H 05/02/20 12:10 RBC 3.39 M/uL (4.33-5.43) L 05/02/20 12:10 Hgb 10.5 g/dL (13.6-17.9) L 05/02/20 12:10 Hct 32.6 % (39.6-49.0) L 05/02/20 12:10 MCV 96.2 fL (80-100) 05/02/20 12:10 MCH 31.0 pg (27.0-35.0) 05/02/20 12:10 MCHC 32.2 g/dL (32.0-36.0) 05/02/20 12:10 RDW 16.1 % (12.1-15.2) H 05/02/20 12:10 Plt Count 281 K/uL (152-406) 05/02/20 12:10 MPV 9.3 fL (7.6-11.3) 05/02/20 12:10 Neutrophils % 89.5 % (41.7-73.7) H 05/02/20 12:10 Lymphocytes % 3.1 % (15.3-44.8) L 05/02/20 12:10 Monocytes % 6.0 % (3.3-12.3) 05/02/20 12:10 Eosinophils % 0.0 % (0-4.4) 05/02/20 12:10 Basophils % 1.4 % (0-1.3) H 05/02/20 12:10 Absolute Neutrophils 12.1 K/uL (1.8-8.0) H 05/02/20 12:10 Absolute Lymphocytes 0.4 K/uL (0.7-4.9) L 05/02/20 12:10 Absolute Monocytes 0.8 K/uL (0.1-1.3) 05/02/20 12:10 Absolute Eosinophils 0.0 K/uL (0-0.5) 05/02/20 12:10 Absolute Basophils 0.2 K/uL (0-0.5) 05/02/20 12:10 Platelet Estimate Adeq 05/02/20 12:10 Morphology Comment Not seen (NOT SEEN) 05/02/20 12:10 PT 25.8 SECONDS (9.5-12.5) H 05/02/20 12:10 INR 2.23 05/02/20 12:10 Sodium 129 mmol/L (136-145) L 05/02/20 12:10 Potassium 5.2 mmol/L (3.5-5.1) H 05/02/20 12:10 Chloride 91 mmol/L (98-107) L 05/02/20 12:10 Carbon Dioxide 21 mmol/L (21-32) 05/02/20 12:10 BUN 86 mg/dL (7-18) H 05/02/20 12:10 Creatinine 12.20 mg/dL (0.55-1.3) H* 05/02/20 12:10 Estimated GFR 4 mL/min (=/>90) L 05/02/20 12:10 Glucose 216 mg/dL (74-106) H 05/02/20 12:10 Lactic Acid 1.3 mmol/L (0.4-2.0) 05/02/20 12:10 Calcium 8.9 mg/dL (8.5-10.1) 05/02/20 12:10 Magnesium 2.8 mg/dL (1.8-2.4) H 05/02/20 12:10 Total Bilirubin 3.2 mg/dL (0.2-1.0) H 05/02/20 12:10 Direct Bilirubin 2.3 mg/dL (0-0.2) H 05/02/20 12:10 AST 69 U/L (15-37) H 05/02/20 12:10 ALT 135 U/L (12-78) H 05/02/20 12:10 Alkaline Phosphatase 212 U/L (45-117) H 05/02/20 12:10 Rapid Troponin I 0.11 ng/mL (0.0-0.045) H 05/02/20 12:10 NT-Pro-B Natriuret Pep 29414 pg/mL (<125) H 05/02/20 12:10 Serum Total Protein 7.3 g/dL (6.4-8.2) 05/02/20 12:10 Albumin 3.0 g/dL (3.4-5.0) L 05/02/20 12:10 Globulin 4.3 g/dL (2.3-3.5) H 05/02/20 12:10 Albumin/Globulin Ratio 0.7 (1.1-1.8) L 05/02/20 12:10 Smear Scan Ok (OK) 05/02/20 12:10 Medications List Reviewed: Yes Assessment And Plan - Plan Physical Exam: General: Alert, In no apparent distress, Oriented x3 HEENT: Atraumatic, Normocephalic Neck: Supple, 2+ carotid pulse no bruit, JVD not distended Respiratory: Clear to auscultation bilaterally Cardiovascular: No edema, Normal pulses, a fib Capillary refill: <2 Seconds Gastrointestinal: Normal bowel sounds, No tenderness, No rebound, No guarding Integumentary: Other (Multiple skin erosions and papules noted to bilateral upper and lower extremities as well as on patient's abdominal area.) Left BKA. External genitalia: Other (Scrotal wound scrotal cellulitis, erythema and swelling noted on physical exam) Antibiotics: Vancomycin start: 05/04 stop:05/18 Indication: Scrotal cellulitis Cefepime: start:05/05 stop:05/19 Indication:Scrotal cellulitis Flagyl start: 05/06 Stop: 05/20 indication: Scrotal cellulitis Assessment: -scrotal cellulitis with leukocytosis -ESRD on HD -a fib -diabetes type 2-uncontrolled -anemia - hypothyroidism Plan: -continue antibiotics for 2 weeks. for DC- can do vancomycin and cefepime at dialysis on dialysis days. Patient can be sent on oral Flagyl. -medical management per primary team -continue monitor CBC and BMP -continue to monitor for signs of infection Plan of care discussed with Thank you for consultation
--- NOTE | 2020-05-20 04:10 | P.PN ---
Subjective Date of Service: 05/12/20 Patient continues to have wound care on the scrotal region. To these IV antibiotic therapy. Who is slowly healing/wound care. Continue Santyl. We are currently awaiting LTAC placement Review of Systems 10-point ROS is otherwise unremarkable Physical Examination - Vital Signs Temperature: 97.2 F Blood Pressure: 113/63 Pulse: 63 Respirations: 16 Pulse Ox (%): 98 - Physical Exam General: Alert, In no apparent distress, Oriented x3 Respiratory: Clear to auscultation bilaterally, Normal air movement Cardiovascular: Regular rate/rhythm, Normal S1 S2 Gastrointestinal: Normal bowel sounds, Soft and benign, Non-distended, No tenderness Integumentary: Tenderness/swelling, Erythema, Warmth Neurological: Normal speech, Normal strength at 5/5 x4 extr, Normal tone Lymphatics: No axilla or inguinal lymphadenopathy External genitalia: Tenderness, Other (ulcerated lesion ) Other Physical/Emotional Findings: P.E. not done d/t covid isolation - Studies Medications List Reviewed: Yes Assessment & Plan - Problems (Diagnosis) (1) Cellulitis of scrotum Status: Acute (2) ESRD (end stage renal disease) on dialysis Onset Date: 12/27/16 Status: Acute (3) Hx of BKA Status: Acute (4) Diabetes Onset Date: 08/13/15 Status: Chronic Qualifiers: (5) Essential hypertension Onset Date: 08/13/15 Status: Chronic (6) Peripheral neuropathy Status: Chronic Qualifiers: (7) Calcinosis Status: Acute - Plan Continue with plan of care as mentioned below 1. Continue with IV antibiotic 2. Hemodialysis per Nephrology 3. Nephrology consultation & urologic Consultation appreciated 4. Hep-Lock IV; 5. Monitor CBC as well as electrolytes. 6. Strict blood sugar monitoring and strict blood pressure control 7. Pain control 8. Continue with anti-platelet therapy 9. Monitor hemodynamics closely 10. Awaiting Ltac placement 11. GI and DVT prophylaxis Discharge Plan: [facility] Plan to discharge in: 24 Hours - Advance Directives Does patient have a Living Will: No Does patient have a Durable POA for Healthcare: No - Code Status/Comfort Care Code Status: Full Code Critical Care: No Time Spent Managing PTS Care (In Minutes): 35
--- NOTE | 2020-05-20 04:14 | P.PN ---
Date of Service: 05/12/20 Subjective Chart has been reviewed. Events in the last 24 hours noted. Clinically improving. No new complaints. Patient Status post I and D. Clinically improving. Anticipate discharge to [facility] soon Review of Systems 10-point ROS is otherwise unremarkable Physical Examination - Vital Signs Reviewed - Physical Exam General: Alert, In no apparent distress, Oriented x3 Respiratory: Clear to auscultation bilaterally, Normal air movement Cardiovascular: Regular rate/rhythm, Normal S1 S2 Integumentary: Tenderness/swelling, Erythema, Warmth Neurological: Normal speech, Normal strength at 5/5 x4 extr, Normal tone External genitalia: Tenderness, Other (ulcerated lesion ) Other Physical/Emotional Findings: P.E. not done d/t covid isolation - Studies Medications List Reviewed: Yes Assessment & Plan - Problems (Diagnosis) (1) Cellulitis of scrotum Status: Acute (2) ESRD (end stage renal disease) on dialysis Onset Date: 12/27/16 Status: Acute (3) Hx of BKA Status: Acute (4) Diabetes Onset Date: 08/13/15 Status: Chronic Qualifiers: (5) Essential hypertension Onset Date: 08/13/15 Status: Chronic (6) Peripheral neuropathy Status: Chronic Qualifiers: (7) Calcinosis Status: Acute - Plan Continue with plan of care as mentioned below 1. Continue with IV antibiotic 2. Hemodialysis per Nephrology 3. Nephrology consultation & urologic Consultation appreciated 4. Hep-Lock IV; 5. Monitor CBC as well as electrolytes. 6. Strict blood sugar monitoring and strict blood pressure control 7. Pain control 8. Continue with anti-platelet therapy 9. Monitor hemodynamics closely 10. Awaiting Ltac placement 11. GI and DVT prophylaxis
--- NOTE | 2020-05-20 04:18 | P.DS ---
Discharge Date: 05/14/20 Primary Care Provider: Dr. Vences; Nephrology-Dr. Guaman Disposition: ALF ACUTE CARE FACILITY Discharge Condition: GOOD Reason for Admission: Scrotal cellulitis - Problems (1) Cellulitis of scrotum Status: Acute (2) ESRD (end stage renal disease) on dialysis Onset Date: 12/27/16 Status: Acute (3) Hx of BKA Status: Acute (4) Diabetes Onset Date: 08/13/15 Status: Chronic Qualifiers: (5) Essential hypertension Onset Date: 08/13/15 Status: Chronic (6) Peripheral neuropathy Status: Chronic Qualifiers: (7) Calcinosis Status: Acute Brief History of Present Illness: Patient is a 44-year-old gentleman who came to the hospital with pain and swelling in the scrotal region. Patient has a history of ESRD and diabetes and hypertension. He has been running fevers and has been having worsening pain in the scrotum. In the emergency room he was evaluated and was noted to have cellulitis of the scrotum. CT scan was performed and there was no fluctuance no abscess. Patient be admitted to the hospital for IV antibiotic therapy. Patient with numerous comorbidities. Patient has a history of atrial fibrillation along with diabetes and hypertension. Patient suffer from multiple end-organ injuries from his poorly-controlled diabetes including currently being on dialysis secondary to diabetic nephropathy, he has diabetic neuropathy with a secondary multiple amputation being performed. Patient also with diabetic retinopathy which she follows up with an hospital administrative assistant. Currently continuing IV antibiotic therapy and wait for blood culture results. If he has significant improvement of the next 48-72 hrs he could probably go home. But if worsening he may need further intervention per urology. Hospital Course: Patient required I&D by urology. Patient has a wound of the scrotum which is slowly healing. Continue Santyl. Patient has done well during hospital stay. Clinically he is improving.Continue with antibiotic regimen. Continue wound care. At this time patient is stable for transfer to [facility]. Vital Signs/Physical Exam: Temp Pulse Resp BP Pulse Ox 97.2 F 63 16 113/63 98 05/20/20 04:10 05/20/20 04:10 05/20/20 04:10 05/20/20 04:10 05/20/20 04:10 General: Alert, In no apparent distress, Oriented x3 Other Physical/Emotional Findings: P.E. not done d/t covid isolation Laboratory Data at Discharge: WBC Cancelled 05/14/20 Unknown Hgb Cancelled 05/14/20 Unknown Hct Cancelled 05/14/20 Unknown Plt Count Cancelled 05/14/20 Unknown PT 25.8 SECONDS (9.5-12.5) H 05/02/20 12:10 INR 2.23 05/02/20 12:10 Sodium Cancelled 05/14/20 Unknown Potassium Cancelled 05/14/20 Unknown BUN Cancelled 05/14/20 Unknown Creatinine Cancelled 05/14/20 Unknown Glucose Cancelled 05/14/20 Unknown Phosphorus 6.6 mg/dL (2.5-4.9) H 05/10/20 04:25 Magnesium 2.9 mg/dL (1.8-2.4) H 05/12/20 03:19 Total Bilirubin 2.8 mg/dL (0.2-1.0) H 05/05/20 09:36 AST 33 U/L (15-37) 05/05/20 09:36 ALT 115 U/L (12-78) H 05/05/20 09:36 Alkaline Phosphatase 203 U/L (45-117) H 05/05/20 09:36 Home Medications: Insulin -Regular Human [Novolin -R*] 1 unit SQ BID 01/20/20 Sevelamer Carbonate [Renvela*] 1,600 mg PO TIDWM #180 tablet 01/22/20 Insulin Degludec [Tresiba Flextouch U-200] 52 units SQ DAILYPRN PRN 02/01/20 Liraglutide [Victoza 2-Ryan] 1.8 ml SQ DAILYPRN PRN 02/01/20 Furosemide 2 tab PO BID 04/09/20 Metoprolol Tartrate [Lopressor*] 25 mg PO [id number] #30 tab 04/09/20 Tamsulosin HCl [Flomax] 0.4 mg DAILY 04/09/20 Amiodarone HCl [Cordarone*] 1 tab PO BID 05/03/20 Aspirin [Aspirin EC 81 MG] 81 mg PO DAILY 05/03/20 Ergocalciferol (Vitamin D2) [Vitamin D 50,000 Unit Cap] 50,000 units PO EVERY 7TH DAY 05/03/20 Pantoprazole [Protonix Tab*] 40 mg PO DAILY 05/03/20 Simvastatin 10 mg PO DAILY 05/03/20 Tramadol HCl [Ultram] 50 mg PO PRN 05/03/20 Ascorbic Acid [Vitamin C*] 500 mg PO TID #60 tablet 05/14/20 Cinacalcet HCl [Sensipar*] 60 mg PO DAILY #30 tab 05/14/20 Collagenase [Santyl Ointment*] 1 appl TOP DAILY #1 tube 05/14/20 Epoetin [Retacrit] 4,000 unit IV EVERY HD #10 vial 05/14/20 Fentanyl Cit [Sublimaze*] 25 mcg IV Q4H PRN #1 vial 05/14/20 Midodrine HCl [Proamatine*] 10 mg PO Q8H #90 tab 05/14/20 Sevelamer Carbonate [Renvela*] 2,400 mg PO TIDWM #90 tablet 05/14/20 Thiamine HCl [Vitamin B-1*] 100 mg PO BID #60 tablet 05/14/20 Zinc Sulfate [Zinc Sulfate*] 220 mg PO DAILY #30 cap 05/14/20 New Medications: Midodrine HCl [Proamatine*] 10 mg PO Q8H #90 tab Sevelamer Carbonate [Renvela*] 2,400 mg PO TIDWM #90 tablet Epoetin [Retacrit] 4,000 unit IV EVERY HD #10 vial Collagenase [Santyl Ointment*] 1 appl TOP DAILY #1 tube Cinacalcet HCl [Sensipar*] 60 mg PO DAILY #30 tab Fentanyl Cit [Sublimaze*] 25 mcg IV Q4H PRN #1 vial PRN Reason: Pain Scale 8-10 (Severe) Thiamine HCl [Vitamin B-1*] 100 mg PO BID #60 tablet Ascorbic Acid [Vitamin C*] 500 mg PO TID #60 tablet Zinc Sulfate [Zinc Sulfate*] 220 mg PO DAILY #30 cap Physician Discharge Instructions: OK TO DC IV AND DC HOME FOLLOW-UP WITH PRIMARY CARE PROVIDER IN 1-2 WEEKS FOLLOW-UP WITH CARDIOLOGY IN 1-2 WEEKS RETURN TO THE ER IF symptoms improve CALL or TEXT DR. BRADLEY AT [phone] IF ANY QUESTIONS REGARDING HOSPITAL STAY. PLEASE CALL THE FLOOR AT [phone] IF ANY MEDICATION OR NURSING QUESTIONS. Diet: Renal Activity: Fall precautions Followup: Rolf Vidales MD [ACTIVE - CAN ADMIT] - 1-2 Weeks (cardilologist- call to schedule an appointment ) Talon Vences MD [Primary Care Provider] - Time spent managing pt's care (in minutes): 35
== END 2020-05-14 15:47 | DRG 853 ==
LOC: ER 09:58 → ERHOLD 15:48 → 4TH 05-03 19:53
PROVIDERS: ADMIT Hospitalist; ATTEND Hospitalist
PROC: 8E0ZXY6 Isolation (ICD-10-PCS; 2020-05-02)
PROC: 5A1D70Z Performance of Urinary Filtration, Intermittent, Less than 6 Hours Per Day (ICD-10-PCS; 2020-05-03)
PROC: 0JDB0ZZ Extraction of Perineum Subcutaneous Tissue and Fascia, Open Approach (ICD-10-PCS; principal; 2020-05-08)
PROC: 0V953ZZ Drainage of Scrotum, Percutaneous Approach (ICD-10-PCS; 2020-05-08)
PROC: 3E10X8Z Irrigation of Skin and Mucous Membranes using Irrigating Substance (ICD-10-PCS; 2020-05-08)
DX: A41.9 Sepsis, unspecified organism (principal); U07.1 COVID-19; N18.6 End stage renal disease; L03.314 Cellulitis of groin; I12.0 Hypertensive chronic kidney disease with stage 5 chronic kidney disease or end stage renal disease; D68.9 Coagulation defect, unspecified; R18.8 Other ascites; N25.81 Secondary hyperparathyroidism of renal origin; L03.315 Cellulitis of perineum; E87.1 Hypo-osmolality and hyponatremia; N49.2 Inflammatory disorders of scrotum; E11.22 Type 2 diabetes mellitus with diabetic chronic kidney disease; E11.42 Type 2 diabetes mellitus with diabetic polyneuropathy; E11.65 Type 2 diabetes mellitus with hyperglycemia; E11.319 Type 2 diabetes mellitus with unspecified diabetic retinopathy without macular edema; E87.5 Hyperkalemia; L94.2 Calcinosis cutis; D63.8 Anemia in other chronic diseases classified elsewhere; E87.70 Fluid overload, unspecified; E83.59 Other disorders of calcium metabolism; Z99.2 Dependence on renal dialysis; Z90.49 Acquired absence of other specified parts of digestive tract; Z79.4 Long term (current) use of insulin; Z79.82 Long term (current) use of aspirin; Z79.01 Long term (current) use of anticoagulants; Z79.899 Other long term (current) drug therapy; Z89.512 Acquired absence of left leg below knee; Z89.421 Acquired absence of other right toe(s); N40.0 Benign prostatic hyperplasia without lower urinary tract symptoms; K21.9 Gastro-esophageal reflux disease without esophagitis; E78.5 Hyperlipidemia, unspecified; I48.0 Paroxysmal atrial fibrillation; I95.1 Orthostatic hypotension; N25.0 Renal osteodystrophy; D63.1 Anemia in chronic kidney disease
CPT/HCPCS: 36415; 71045; 72192; 74176; 74177; 76377; 76705; 76870; 80048; 80053; 80069; 80076; 80202; 82607; 82728; 82947; 83036; 83540; 83605; 83735; 83880; 83970; 84100; 84145; 84466; 84484; 85025; 85610; 86140; 87040; 87070; 87075; 87205; 87340; 90935; 93005; 94010; 96365; 96375; 99251; 99284; J0692; J1644; J1720; J2270; J2405; J3010; J3370; J3590; J7040; J7050; P9047; Q5105; Q5106; Q9967; U0003